=== PATIENT | male | born 1960 | race Caucasian/White ===

== ENCOUNTER 2016-12-27 09:57 | Inpatient (IN) ==
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
[2016-12-27] MEDS ORDERED: Nitroglycerin 0.4 MG TAB.SUBL SL ONE (10:13)
[2016-12-27] MEDS: Nitroglycerin 0.4 MG TAB.SUBL SL PRN ×2 (10:13→10:26)
--- NOTE | 2016-12-27 10:15 | Emergency Department Note ---
Disposition Clinical Impression: Unstable angina Chest pain Qualifiers: Chest pain type: precordial pain Qualified Code(s): R07.2 - Precordial pain Disposition: Admitted As Inpatient Condition: Fair Time of Disposition: 11:15 Chest Pain HPI - General Chief Complaint: ED Chest Pain Stated Complaint: chest pain Time Seen by Provider: 12/27/16 09:59 Source: EMS Limitations: no limitations Vital Signs Reviewed: Yes Nursing Notes Reviewed: Yes - History of Present Illness HPI Narrative: Patient's 56-year-old male brought in via EMS from [place] for chest pain 3 days. Patient's recent cardiac catheterization on December [address] Vaibhav Michelle cardiology. Patient states his pain started mid substernal with radiation both shoulders lasted around 10 minutes and resolved with rest. Patient states pain returned this morning over 3 hours ago secondary to exertion but did not relieve with rest. Patient states his chest pain today is his angina equivalent. Patient states he took nitroglycerin at home. No recent pain symptoms. Radiation to both shoulders again, he slashed 10 at worst 4/10 at best. Patient has a past history for hypertension, hyperlipidemia, COPD, diabetes, prior heart attacks. Patient states his chest pain today is his angina equivalent Patient smokes one pack a day currently denies alcohol use and illicit drug use. Patient denies anticoagulant use, states he is only on aspirin, nitroglycerin Severity scale (1-10): 8 - Related Data Home Medications Medication Instructions Recorded Confirmed Lisinopril [Zestril] 20 mg PO BID 12/10/15 12/27/16 Sitagliptin Phosphate [Januvia] 50 mg PO DAILY 12/10/15 12/27/16 Venlafaxine [Effexor] 75 mg PO BID 12/10/15 12/27/16 Albuterol Sulfate [Ventolin Hfa] 18 gm IH DAILY PRN 12/20/16 12/27/16 Aspirin [Lo-Dose Aspirin EC] 81 mg PO DAILY 12/20/16 12/27/16 Glimepiride [Amaryl] 4 mg PO BID 12/20/16 12/27/16 Insulin Glargine [Lantus] 38 unit SQ BID 12/20/16 12/27/16 Insulin LISPRO [HumaLOG] 10 - 15 unit SQ TID 12/20/16 12/27/16 Meloxicam [Mobic] 15 mg PO DAILY 12/20/16 12/27/16 Nitroglycerin [Nitrostat] 0.4 mg SL DAILY PRN 12/20/16 12/27/16 Omeprazole [PriLOSEC] 20 mg PO DAILY 12/20/16 12/27/16 Tramadol HCl [Ultram] 50 mg PO QID PRN 12/20/16 12/27/16 Gabapentin [Neurontin] 300 mg PO TID 12/27/16 12/27/16 rOPINIRole [Requip] 1 mg PO HS 12/27/16 12/27/16 Previous Rx's Medication Instructions Recorded Ferrous Sulfate [Iron] 325 mg PO BID #60 tablet 09/01/16 Isosorbide MONOnitrate (24 HR) 60 mg PO DAILY #60 tab.er.24h 12/20/16 [Imdur] Metoprolol [Lopressor] 25 mg PO BID #60 tablet 12/20/16 Allergies Allergy/AdvReac Type Severity Reaction Status Date / Time No Known Allergies Allergy Verified 12/27/16 12:00 All systems ED: reviewed and negative except as stated. Review of Systems: As Per HPI Constitutional: Denies: fever, chills, weakness Eyes: Denies: eye pain, vision change ENT ED: Denies: congestion Cardiovascular: Reports: chest pain. Denies: palpitations, syncope Respiratory: Denies: cough, dyspnea, wheezes Gastrointestinal: Reports: abdominal pain (Radiation from chest pain down abdomen). Denies: nausea, vomiting, diarrhea, constipation Genitourinary: Denies: urgency, dysuria Musculoskeletal: Denies: back pain Integumentary: Denies: rash Neurological: Reports: headache Psychiatric: Reports: anxiety Endocrine: Denies: fatigue Hematological/Lymphatic: Denies: easy bleeding Chest Pain PMH - Past Medical History Medical history: Reports: arthritis, COPD, diabetes, GERD, hyperlipidemia, hypertension Surgical history: Reports: angioplasty/stent, appendectomy, knee replacement, other Psychiatric history: Reports: anxiety, depression - Social History Smoking Status: Current every day smoker Alcohol use: Reports: none Drug use: Reports: none Physical Exam Vital Signs Temperature 97.8 F 12/27/16 09:58 Pulse Rate 63 12/27/16 09:58 Respiratory Rate 18 12/27/16 09:58 Blood Pressure 141/74 12/27/16 09:58 O2 Sat by Pulse Oximetry 96 12/27/16 09:58 Temperature 97.8 F 12/27/16 09:58 Pulse Rate 63 12/27/16 10:26 Respiratory Rate 18 12/27/16 10:26 Blood Pressure 130/77 12/27/16 10:26 O2 Sat by Pulse Oximetry 97 12/27/16 10:26 Oxygen Delivery Oxygen Delivery Nasal Cannula -General Appearance: Patient is a 56-year-old male who appears much older than stated age, with a BMI of 36.2 kg on oxygen via nasal cannula does not appear toxic and currently appears comfortable. -Neurological exam: Cranial nerves II-12 intact, no focal deficits observed, strength equal 5/5 bilaterally in upper and lower extremities - Head Head exam: atraumatic, normocephalic, normal inspection - Eye Eye exam: Present: normal appearance, PERRL, EOMI, negative for scleral icterus negative for conjunctival pallor - ENT ENT exam: normal exam, normal oropharynx, mucous membranes very dry - Neck Neck exam: Present: normal inspection, full ROM, trachea midline, negative JVD - Chest Chest inspection: Present: Patient has bilateral equal rise and fall of chest wall. Non-tender to palpation. - Respiratory Respiratory exam: Clear to auscultation bilaterally without wheezes rales or rhonchi Cardiovascular Cardiovascular exam: Present: regular rate, normal rhythm, normal heart sounds, without murmurs rubs or gallops. - Abdominal Exam Abdominal exam: Present: soft, rounded abdomen, Non-Tender light and deep palpation in all quadrants. Bowel sounds normoactive throughout all 4 quadrants. Negative for hyper or hyperresonance. Patient has some erythema and edema in his umbilicus with dried purulence - Extremities Exam Extremities exam: Present: normal inspection, full ROM, pulses equal regular bilaterally, patient's lower extremities have bilateral 1+ pitting edema, no ulceration and feet - Back Exam Back exam: Present: normal inspection, full ROM. Absent: CVA tenderness (R), CVA tenderness (L) - Psychiatric Psychiatric exam: Present: normal affect, normal mood - Skin Skin exam: Present: warm, dry, intact, normal color - General Limitations: no limitations General appearance: alert Course - Reevaluation(s) Reevaluation #1: Patient seen examined, ACS workup initiated. EKG, CBC, BMP, chest x-ray, patient placed on oxygen via nasal cannula 8 L. Time: 09:59 Reevaluation #2: No reduction from 8 is 7/10 with nitroglycerin. Starting patient on morphine 4 mg IV and Zofran 4 mg IV. We will reassess. Once labs come back will admit Time: 10:53 - Consultations Consultation #1: Dr. Alejo of cardiology was informed with the patient and is coming down to see the patient. He recommends placing patient on heparin. Heparin bolus and drip ordered Time: 11:13 Consultation #2: Hemanth Adriano the hospitalist has accepted patient for admission. Time: 11:18 Vital Signs Temperature 97.8 F 12/27/16 09:58 Pulse Rate 63 12/27/16 09:58 Respiratory Rate 18 12/27/16 09:58 Blood Pressure 141/74 12/27/16 09:58 O2 Sat by Pulse Oximetry 96 12/27/16 09:58 Temperature 97.6 F 12/27/16 15:21 Pulse Rate 60 12/27/16 18:25 Respiratory Rate 18 12/27/16 18:25 Blood Pressure 124/73 12/27/16 18:25 O2 Sat by Pulse Oximetry 97 12/27/16 18:25 Oxygen Delivery Oxygen Delivery Nasal Cannula Chest Pain - MDM Narrative Medical decision making narrative: Patient concerning for ACS/UT with unstable angina. No resolution with nitroglycerin treatment here. Patient started placed on IV morphine and Zofran. Patient has a heart score of 5 which places him at high risk for adverse cardiac events no Elevation of troponin, but mild elevations of ST segment in lateral leads. Patient is hypokalemic and hyponatremic with a sugar greater than 452 and an hemoglobin A1c of 11.5. IV normal saline ordered, patient started on heparin. Patient admitted to the for inpatient treatment for unstable angina. Cardiology came down to see him and will be following him inpatient. Patient understands and agrees to treatment plan patient will be started on potassium replenishment inpatient - Medical Records Medical records reviewed: Yes I reviewed the patient's medical records. Severe three-vessel disease with an EF of 60% on last heart catheter by Dr. Vaibhav Michelle times one week ago - Lab Data Lab results reviewed: Yes I reviewed the patient's lab results. Lab results narrative: Short CBC 12/27/16 Range/Units 10:15 WBC 12.0 H (4.3-11.1) K/mcL Hgb 16.1 (12.9-16.9) g/dL Hct 50.6 H (37.5-50.1) % Plt Count 269 (140-400) K/mcL Neutrophils # 9.0 H (1.6-8.9) K/mcL BMP 12/27/16 Range/Units 10:15 Sodium 132 L (136-145) mEq/L Potassium 4.7 H (3.5-4.5) mEq/L Chloride 99 (98-109) mEq/L Carbon Dioxide 26 (19-29) mEq/L BUN 18 (8-26) mg/dL Creatinine 0.87 (0.72-1.25) mg/dL Glucose 452 H (70-99) mg/dL Calcium 9.3 (8.6-10.8) mg/dL Cardiac Enzymes 12/27/16 Range/Units 10:15 Troponin I 0.00 (0-0.03) ng/mL Result diagrams: 12/27/16 10:15 12/27/16 10:15 Lab Results 12/27/16 12/27/16 12/27/16 Range/Units 10:15 10:15 10:15 WBC 12.0 H (4.3-11.1) K/mcL RBC 6.09 H (4.19-5.50) M/mcL Hgb 16.1 (12.9-16.9) g/dL Hct 50.6 H (37.5-50.1) % MCV 83.1 (83.0-100.0) fL MCH 26.4 L (28.0-33.3) pg MCHC 31.8 (31.6-35.5) g/dL RDW 16.9 H (11.5-14.5) % Plt Count 269 (140-400) K/mcL MPV 10.1 (9.4-12.4) fL Immature Gran % 1.2 (0-4) % Seg Neutrophils % 74.7 % Lymphocytes % 15.0 % Monocytes % 6.6 % Eosinophils % 1.8 % Basophils % 0.7 % Neutrophils # 9.0 H (1.6-8.9) K/mcL Lymphocytes # 1.8 (0.6-4.6) K/mcL Monocytes # 0.8 (0.0-1.3) K/mcL Eosinophils # 0.2 (0.0-0.6) K/mcL Basophils # 0.1 (0.0-0.2) K/mcL APTT 28.2 (26.0-36.0) Seconds Sodium 132 L (136-145) mEq/L Potassium 4.7 H (3.5-4.5) mEq/L Chloride 99 (98-109) mEq/L Carbon Dioxide 26 (19-29) mEq/L BUN 18 (8-26) mg/dL Creatinine 0.87 (0.72-1.25) mg/dL Est GFR ( Amer) > 60 (> 60) Est GFR (Non-Af Amer) > 60 (> 60) BUN/Creatinine Ratio 21 (6-26) Glucose 452 H (70-99) mg/dL Est Mean Plasma Glucose mg/dl Hemoglobin A1c ( - 5.6) % Calculated Osmolality 296 (280-300) Calcium 9.3 (8.6-10.8) mg/dL Troponin I (0-0.03) ng/mL B-Natriuretic Peptide (0-100) pg/mL 12/27/16 12/27/16 12/27/16 Range/Units 10:15 10:15 10:15 WBC (4.3-11.1) K/mcL RBC (4.19-5.50) M/mcL Hgb (12.9-16.9) g/dL Hct (37.5-50.1) % MCV (83.0-100.0) fL MCH (28.0-33.3) pg MCHC (31.6-35.5) g/dL RDW (11.5-14.5) % Plt Count (140-400) K/mcL MPV (9.4-12.4) fL Immature Gran % (0-4) % Seg Neutrophils % % Lymphocytes % % Monocytes % % Eosinophils % % Basophils % % Neutrophils # (1.6-8.9) K/mcL Lymphocytes # (0.6-4.6) K/mcL Monocytes # (0.0-1.3) K/mcL Eosinophils # (0.0-0.6) K/mcL Basophils # (0.0-0.2) K/mcL APTT (26.0-36.0) Seconds Sodium (136-145) mEq/L Potassium (3.5-4.5) mEq/L Chloride (98-109) mEq/L Carbon Dioxide (19-29) mEq/L BUN (8-26) mg/dL Creatinine (0.72-1.25) mg/dL Est GFR ( Amer) (> 60) Est GFR (Non-Af Amer) (> 60) BUN/Creatinine Ratio (6-26) Glucose (70-99) mg/dL Est Mean Plasma Glucose 283 mg/dl Hemoglobin A1c 11.5 H ( - 5.6) % Calculated Osmolality (280-300) Calcium (8.6-10.8) mg/dL Troponin I 0.00 (0-0.03) ng/mL B-Natriuretic Peptide 14 (0-100) pg/mL - Radiology Data Radiology results reviewed: Yes I reviewed the patient's radiology results. Chest X-Ray 12/27/16 09:59 IMPRESSION: No acute cardiopulmonary process. D/ / 12/27/2016 10:45:29 Navi [facility] Interpreting Provider: Navi Amaya MD - EKG Data EKG attestation: Yes I reviewed and interpreted this EKG. EKG results narrative: EKG twelve-lead by EMS taken 2016@0917 hrs. Shows mild elevation of ST segments in V4 V5. EKG taken 12/27/2016 at 1005 hrs. shows a sinus rhythm at a rate of [address] elevation in V2 V3 and V4 V5. widened QT prolongation. Repeat EKG taken 6 in December 2016 at 1009 hrs. secondary to sudden increase in patient's pain since symptoms from 08/21-01/21, shows a ventricular rate of 60 cm underlying normal sinus rhythm no change from previous and waveform morphology. Heart Score - Score History: Moderately Suspicious EKG: Non Specific repolarisation Disturbance Age: 45-65 Risk Factors: Equal/Greater than 3 risk factor or history of atherosclerotic disease Troponin: Less than normal limit HEART Score Total: 5
[2016-12-27 10:24] LABS: Basophils # 0.1 K/mcL (0.0-0.2); Basophils % 0.7 %; Eosinophils # 0.2 K/mcL (0.0-0.6); Eosinophils % 1.8 %; Hematocrit 50.6 % (37.5-50.1); Hemoglobin 16.1 g/dL (12.9-16.9); Immature Granulocytes % 1.2 % (0-4); Lymphocytes # 1.8 K/mcL (0.6-4.6); Mean Corpuscular HGB Conc 31.8 g/dL (31.6-35.5); Mean Corpuscular Hemoglobin 26.4 pg (28.0-33.3); Mean Corpuscular Volume 83.1 fL (83.0-100.0); Mean Platelet Volume 10.1 fL (9.4-12.4); Monocytes # 0.8 K/mcL (0.0-1.3); Monocytes % 6.6 %; Platelet Count 269 K/mcL (140-400); Red Blood Count 6.09 M/mcL (4.19-5.50); Red Cell Distribution Width 16.9 % (11.5-14.5); Segmented Neutrophils % 74.7 %
[2016-12-27 10:35] LABS: BUN/Creatinine Ratio 21 (6-26); Blood Urea Nitrogen 18 mg/dL (8-26); Calcium 9.3 mg/dL (8.6-10.8); Carbon Dioxide 26 mEq/L (19-29); Chloride 99 mEq/L (98-109); Glucose 452 mg/dL (70-99); Osmolality,Calculated 296 (280-300); Potassium 4.7 mEq/L (3.5-4.5); Sodium 132 mEq/L (136-145); eGFR For African Americans > 60 (> 60); eGFR For Non-African Americans > 60 (> 60)
[2016-12-27] MEDS ORDERED: Ondansetron 4 MG/2 ML VIAL IVP ONE (10:51)
[2016-12-27] MEDS ORDERED: *HR* Morphine 2 MG/ML SYRINGE IVP ONE (10:51)
[2016-12-27] MEDS ORDERED: 0.9 % Sodium Chloride 1,000 ML IVC ONE (10:57)
[2016-12-27] MEDS ORDERED: *HR* Heparin 5,000 UNIT/ML VIAL IVP ONE (11:10)
[2016-12-27] MEDS ORDERED: *HR* Heparin 5,000 UNIT/ML VIAL IVP PRN ×2 (11:10)
[2016-12-27] MEDS ORDERED: Ondansetron 4 MG/2 ML VIAL IVP PRN (11:38)
[2016-12-27] MEDS ORDERED: Acetaminophen 325 MG TABLET PO PRN (11:38)
[2016-12-27] MEDS ORDERED: Naloxone 0.4 MG/ML INJ IVP PRN (11:38)
[2016-12-27] MEDS ORDERED: *HR* Dextrose 50 % in Water (Syg) 50 ML SYRINGE IVP PRN (11:43)
[2016-12-27] MEDS ORDERED: Dextrose Gel 15 GM PO PRN ×2 (11:43)
[2016-12-27] MEDS ORDERED: D5% in Water 1,000 ML IVC PRN (11:43)
--- NOTE | 2016-12-27 11:51 | Internal Med History&Physical ---
<Oh,Magui J - Last Filed: 12/27/16 12:43> Date of Encounter: 12/27/16 Time of Encounter: 11:51 Assessment and Plan (1) CAD (coronary artery disease), [place] coronary artery Current visit: Yes Status: Acute With known stents. 12/20/2016 L HC with triple-vessel disease. Elective CABG was recommended and patient was currently in the process of arranging, however now with unstable angina on day of admission. CP improving in ED. Initial troponin negative, EKG with some ST elevation. Evaluated by cardiology in the ED and heparin gtt started. CABG planned this admission. Continue home BB, statin, nitrate. PRN O2, IV morphine for pain. Qualifiers: [place] vs. transplanted heart: [place] heart Associated angina: with unstable angina Qualified Code(s): I25.110 - Atherosclerotic heart disease of [place] coronary artery with unstable angina pectoris (2) Diabetes Current visit: No Status: Chronic Uncontrolled. 08/2016 Hgb A1c 11. Blood sugar over 400 on arrival. Holding home oral hypoglycemics. Continue home long-acting at lower dose as diet likely more restricted in hospital. Aggressive sliding scale insulin, monitor blood sugar titrate PRN. Hgb A1c pending Qualifiers: Diabetes mellitus type: type 2 Diabetes mellitus complication status: with unspecified complications Diabetes mellitus oil heaterman insulin use: unspecified custodial insulin use status Qualified Code(s): E11.8 - Type 2 diabetes mellitus with unspecified complications (3) Lower extremity edema Current visit: Yes Status: Acute left greater than. Bilateral lower ext dopplers pending (4) Hypertension Current visit: No Status: Chronic Per history. BP controlled in the ED. Continue home BP medications. Monitor BP and titrate PRN Qualifiers: Hypertension type: unspecified secondary hypertension Qualified Code(s): I15.9 - Secondary hypertension, unspecified; I15 - Secondary hypertension (5) DVT prophylaxis Current visit: Yes Status: Acute heparin gtt Internal Medicine - H&P: HPI Chief complaint: chest pain Admitted From: Home Plans for Post Hospital Care: Home History of present illness: Mr. Covington is a 56 year old male with past medical history CAD and diabetes with neuropathy who presented to [facility] on 12/27/2016 with complaints of chest pain. He was found to have unstable angina was started on heparin drip in the emergency room. He was admitted for planned CABG. Information obtained from chart review and patient report. Patient reports being at home and sitting when acute onset of chest pain occurred. Chest pain was located to lower left chest, radiated to bilateral shoulders, describes as a pressure and stabbing sensation, nothing made better or worse. He states symptoms are similar to his usual angina. All my exam he reports pain 5/out of 10 which is improved from previous. Discussed his blood sugar and he reports taking medicine as prescribed however he does report eating snacks such as potato chips and candy. No SOB Past Med Surg Social Fam HX - Past Medical History Medical history: arthritis, COPD, diabetes, GERD, hyperlipidemia, hypertension Psychiatric history: anxiety, depression - Past Surgical History Surgical History: angioplasty/stent, appendectomy, knee replacement, other - Social History Smoking Status: Current every day smoker Smokeless Tobacco Status: No Alcohol use: none Drug use: none - Family History Mother Adopted: Yes (foster child) Internal Medicine - H&P: Meds Lisinopril [Zestril] 20 mg PO BID 12/10/15 [History] Sitagliptin Phosphate [Januvia] 50 mg PO DAILY 12/10/15 [History] Venlafaxine [Effexor] 75 mg PO BID 12/10/15 [History] Ferrous Sulfate [Iron] 325 mg PO BID #60 tablet 09/01/16 [Rx] Albuterol Sulfate [Ventolin Hfa] 18 gm IH DAILY PRN 12/20/16 [History] Aspirin [Lo-Dose Aspirin EC] 81 mg PO DAILY 12/20/16 [History] Glimepiride [Amaryl] 4 mg PO BID 12/20/16 [History] Insulin Glargine [Lantus] 38 unit SQ BID 12/20/16 [History] Insulin LISPRO [HumaLOG] 10 - 15 unit SQ TID 12/20/16 [History] Isosorbide MONOnitrate (24 HR) [Imdur] 60 mg PO DAILY #60 tab.er.24h 12/20/16 [ Rx] Meloxicam [Mobic] 15 mg PO DAILY 12/20/16 [History] Metoprolol [Lopressor] 25 mg PO BID #60 tablet 12/20/16 [Rx] Nitroglycerin [Nitrostat] 0.4 mg SL DAILY PRN 12/20/16 [History] Omeprazole [PriLOSEC] 20 mg PO DAILY 12/20/16 [History] Tramadol HCl [Ultram] 50 mg PO QID PRN 12/20/16 [History] Gabapentin [Neurontin] 300 mg PO TID 12/27/16 [History] rOPINIRole [Requip] 1 mg PO HS 12/27/16 [History] No Known Allergies Allergy (Verified 12/27/16 12:00) All Systems PM: A 10-system review of systems was performed and is negative for pertinent findings except as documented above in the HPI. - Constitutional Constitutional: no chills, no fever(s), no night sweats - EENT Eyes: no change in vision, no discharge, no pain, no photophobia Ears: no ear discharge, no ear pain, no tinnitus Nose, mouth and throat: no dysphagia, no nasal discharge, no neck pain, no sore throat - Cardiovascular Cardiovascular ROS IM: chest pain, no diaphoresis, no dyspnea, no lightheadedness, no palpitations, no syncope - Respiratory Respiratory: no cough, no dyspnea, no wheezing, no excessive phlegm production - Gastrointestinal Gastrointestinal: no abdominal pain, no diarrhea, no hematemesis, no hematochezia, no melena, no nausea, no vomiting - Musculoskeletal Musculoskeletal ROS IM: no numbness, no tingling - Integumentary Integumentary IM: no rash, no unusual bruising - Neurological Neurological ROS: no confusion, no convulsions, no focal weakness, no numbness, no tingling, no tremor(s) - Hematologic/Lymphatic Hematologic/Lymphatic: no easy bruising - Constitutional Vitals: Temp Pulse Resp BP Pulse Ox 98.4 F 68 20 137/84 96 12/27/16 11:27 12/27/16 11:19 12/27/16 11:27 12/27/16 11:27 12/27/16 11:19 General appearance: Present: A&O X 3 - Head Head exam: Present: atraumatic, normocephalic - Eye Eye exam: Present: PERRL, conjuntiva pink, sclera anicteric Pupils: Present: PERRL - Neck Neck exam general surgery: Present: supple, trachea midline. Absent: lymphadenopathy - Respiratory Respiratory exam: Present: CTAB. Absent: accessory muscle use, rales, rhonchi, wheezes - Cardiovascular Cardiovascular exam: Present: RRR, +S1, +S2. Absent: diastolic murmur, gallop, rubs, systolic murmur - GI/Abdominal GI/Abdominal exam: Present: normal bowel sounds, soft, no peritoneal signs. Absent: distended, tenderness - Extremities Exam Extremities exam: Present: pedal edema, warm, radial pulses palpable and symmetrical. Absent: calf tenderness, cyanotic - Neurological Exam Neurological exam: Present: CN II-XII intact, oriented X3, no focal deficits. Absent: pronater drift, facial droop, speech deficit - Skin Skin exam: Present: dry, intact Internal Med - H&P Results - Labs CBC & Chem 7: 12/27/16 10:15 12/27/16 10:15 <Edward Burger - Last Filed: 12/27/16 18:54> Date of Encounter: 12/27/16 Internal Medicine - H&P: HPI History of present illness: Mr. Covington is a 56 year old male All Systems PM: A 10-system review of systems was performed and is negative for pertinent findings except as documented above in the HPI. - Constitutional Vitals: Temp Pulse Resp BP Pulse Ox 97.6 F 60 18 124/73 97 12/27/16 15:21 12/27/16 18:25 12/27/16 18:25 12/27/16 18:25 12/27/16 18:25 Internal Med - H&P Results - Labs CBC & Chem 7: 12/27/16 10:15 12/27/16 10:15 - Attending Attestation I have seen and examined the patient this evening. I reviewed the orders, the labs and the note. Patient is admitted for chest pain. Patient does have coronary artery disease with stents. He had a recent left heart catheterization done which revealed triple-vessel disease. Elective CABG was recommended. Patient presents with unstable angina today. Patient does have uncontrolled diabetes. His blood pressure is controlled. Cardiology consult. Cardiothoracic surgery consult. Consider for CABG evaluation. Continue all home medications. Patient states his pain has now improved. IV heparin continued. No other acute events or complaints. Heart rate 60, blood pressure 120/73, O2 sat 97% on 2 L O2. Heart S1-S2 positive no murmurs or rubs. Lungs bilateral good entry no wheeze or crackles. Abdomen soft nontender no masses or guarding. Extremities pulses strong and regular, bilateral leg edema 2+. Neurological patient awake and alert not in any distress, no focal deficits.
[2016-12-27] MEDS: Insulin LISPRO 300 UNITS/3 ML VIAL SQ SCH ×3 (12:52→21:00)
[2016-12-27] MEDS: *HR* Morphine 2 MG/ML SYRINGE IVP PRN ×2 (12:57→19:44)
[2016-12-27 13:07] LABS: Hemoglobin A1C 11.5 %
[2016-12-27] MEDS: Heparin 25,000 UNIT/500 ML D5W 25,000 UNIT/500 ML MLS IVC SCH (13:10)
--- NOTE | 2016-12-27 13:15 | Cardiology Consult Note ---
Date of Encounter: 12/27/16 Time of Encounter: 11:30 Assessment and Plan (1) Unstable angina Current Visit: Yes Status: Acute Per cardiology: -Unstable angina. Chest pain today while walking. -Recent LHC 12/20/16 with LVEF 60%, 70% proximal LAD stenosis, 80% mid circumflex , 80-90% OM1, 95% left PDA small vessel, 70-80% proximal ramus, 95% proximal RCA small vessel. Recommendations for outpatient CABG evaluation. -Heparin drip ordered per ER. -Troponin negative x1. -ECG with no significant change from ECG 07/2016. -Will consult CT surgery. Spoke with . -Will order echocardiogram. -Will continue to monitor. (2) CAD (coronary artery disease), [place] coronary artery Current Visit: Yes Status: Chronic Per cardiology: -Known CAD with recent LHC as above with recommendations for CABG evaluation. -Reported history of coronary stenting 2005. -On asa, statin, beta damon, and heparin drip. -Troponin negative. -Will be evaluated by CT surgery. -Will continue to monitor. Qualifiers: [place] vs. transplanted heart: [place] heart Associated angina: with unstable angina Qualified Code(s): I25.110 - Atherosclerotic heart disease of [place] coronary artery with unstable angina pectoris Discussion w patient/family: The assessment and plan as outlined above was discussed with the patient who expressed understanding and agreement. All questions were answered. Thank you for involving us in the care of your patient. Please call with any questions. Patient seen and examined with . History of Present Illness Consult date: 12/27/16 Requesting physician: Tonio Harry Consult reason: Chest pain Chief complaint: Chest pain History of present illness: Mr. Covington is a 56 year old male with a relevant past medical history of hyperlipidemia, HTN, COPD, GERD, DM, anxiety, depression, obesity, reported LHC with stent 2005, recent LHC With severe CAD and recommendations for CABG. Patient was shceduled for outpatient follow up with tomorrow. Today patient was walking when he had left sided chest pain that radiated to left arm and into abdomen. Patient presented to ER. ECG was done with concerns regarding ST segments. Cardiology was asked to see and evaluate in ER. At time of assessment, patient had been given nitroglycerin and morphine. Patient states at worse pain was a 10/10. Currently denies pain. Past Med Surg Social Fam HX - Past Medical History Attestation: Yes The following information was validated with the patient. Source: patient, old records reviewed Medical history: arthritis, COPD, diabetes, GERD, hyperlipidemia, hypertension Psychiatric history: anxiety, depression - Past Surgical History Surgical History: angioplasty/stent, appendectomy, knee replacement, other - Social History Smoking Status: Current every day smoker Packs per day: 1 Smokeless Tobacco Status: No Alcohol use: none Drug use: none - Family History Mother Adopted: Yes (foster child) Medications and Allergies Lisinopril [Zestril] 20 mg PO BID 12/10/15 [History] Sitagliptin Phosphate [Januvia] 50 mg PO DAILY 12/10/15 [History] Venlafaxine [Effexor] 75 mg PO BID 12/10/15 [History] Ferrous Sulfate [Iron] 325 mg PO BID #60 tablet 09/01/16 [Rx] Albuterol Sulfate [Ventolin Hfa] 18 gm IH DAILY PRN 12/20/16 [History] Aspirin [Lo-Dose Aspirin EC] 81 mg PO DAILY 12/20/16 [History] Glimepiride [Amaryl] 4 mg PO BID 12/20/16 [History] Insulin Glargine [Lantus] 38 unit SQ BID 12/20/16 [History] Insulin LISPRO [HumaLOG] 10 - 15 unit SQ TID 12/20/16 [History] Isosorbide MONOnitrate (24 HR) [Imdur] 60 mg PO DAILY #60 tab.er.24h 12/20/16 [ Rx] Meloxicam [Mobic] 15 mg PO DAILY 12/20/16 [History] Metoprolol [Lopressor] 25 mg PO BID #60 tablet 12/20/16 [Rx] Nitroglycerin [Nitrostat] 0.4 mg SL DAILY PRN 12/20/16 [History] Omeprazole [PriLOSEC] 20 mg PO DAILY 12/20/16 [History] Tramadol HCl [Ultram] 50 mg PO QID PRN 12/20/16 [History] Gabapentin [Neurontin] 300 mg PO TID 12/27/16 [History] rOPINIRole [Requip] 1 mg PO HS 12/27/16 [History] Allergies No Known Allergies Allergy (Verified 12/27/16 12:00) All Systems Review: A 10-system review of systems was performed and is negative for pertinent findings except as documented above in the HPI. - Cardiovascular Cardiovascular: as per HPI, chest pain with exertion Physical Examination Vital Signs, Last 4 Hours Temp Pulse Resp BP Pulse Ox 12/27/16 11:57 98.1 F 62 16 125/70 95 12/27/16 11:27 98.4 F 20 137/84 General: Conversant, No Apparent Distress HEENT: Atraumatic, Normocephaly, Mucus Membranes Moist Neck: No JVD, Normal carotid pulses Cardiac: Reg Rate and Rhythm, Normal S1 and S2, No Murmur Lungs: Normal Breath Sounds, No Wheeze, Rales, Rhonchi Neuro: Alert and responsive, No focal deficits noted Abdomen: Soft, Non-Tender Skin: No rashes noted on visualized skin Musculoskeletal: No Chest Wall Tenderness Extremities: No Clubbing, No Cyanosis, No Edema, Normal Pulses Results 12/27/16 10:15 12/27/16 10:15 Impressions Chest X-Ray 12/27/16 09:59 IMPRESSION: No acute cardiopulmonary process. D/ / 12/27/2016 10:45:29 Navi Am[facility] Interpreting Provider: Navi Amaya MD Active Medications Acetaminophen (Tylenol) 650 mg PO Q6HR PRN PRN Reason: Mild Pain (1-3) Stop: 06/28/17 11:39 Aspirin (Aspirin Ec) 81 mg PO DAILY MAHI Stop: 06/29/17 09:01 Dextrose/Water (Dextrose 50% (Syg)) 25 ml IVP AD PRN PRN Reason: Hypoglycemia Stop: 06/28/17 11:44 Ferrous Sulfate (Ferrous Sulfate) 325 mg PO BIDWM MAHI Stop: 06/28/17 17:01 Glucagon (Glucagen) 1 mg IM ONCE PRN PRN Reason: Hypoglycemia Stop: 06/28/17 11:44 Glucose (Gluctose) 15 gm PO ONCE PRN PRN Reason: Hypoglycemia Stop: 06/28/17 11:44 Glucose (Gluctose) 30 gm PO ONCE PRN PRN Reason: Hypoglycemia Stop: 06/28/17 11:44 Heparin Sodium (Porcine) (Heparin) 4,000 unit IVP Q6HR PRN PRN Reason: SEE COMMENTS Stop: 06/28/17 11:11 Heparin Sodium (Porcine) (Heparin) 2,000 unit IVP Q6H PRN PRN Reason: SEE COMMENTS Stop: 06/28/17 11:11 Heparin Sodium/Dextrose (Heparin 25,000 Unit/500 Ml D5w) 25,000 unit in 500 mls @ 20.575 mls/hr IVC .Q24H MAHI; 9 UNIT/KG/HR PRN Reason: Protocol Stop: 06/28/17 11:16 Last Admin: 12/27/16 13:10 Dose: 9 unit/kg/hr, 20.575 mls/hr Dextrose (Dextrose 5%) 1,000 mls @ 100 mls/hr IVC .Q10H PRN PRN Reason: HYPOGLYCEMIA Stop: 06/28/17 11:44 Insulin Detemir (Levemir) 30 unit SQ BID [facility] Stop: 06/28/17 21:01 Insulin Human Lispro (Humalog) 0 units SQ HS [facility] PRN Reason: Protocol Stop: 06/28/17 21:01 Insulin Human Lispro (Humalog) 0 units SQ TIDAC [facility] PRN Reason: Protocol Stop: 06/28/17 12:40 Last Admin: 12/27/16 12:52 Dose: 14 units Isosorbide Mononitrate (Imdur) 60 mg PO DAILY [facility] Stop: 06/29/17 09:01 Lisinopril (Zestril) 20 mg PO BID [facility] PRN Reason: Protocol Stop: 06/28/17 21:01 Metoprolol Tartrate (Lopressor) 25 mg PO BID [facility] Stop: 06/28/17 21:01 Morphine Sulfate (Morphine Sulfate) 2 mg IVP Q4HR PRN PRN Reason: Severe Pain (7-10) Stop: 06/28/17 11:39 Last Admin: 12/27/16 12:57 Dose: 2 mg Naloxone HCl (Narcan) 0.4 mg IVP Q2MIN PRN PRN Reason: Opioid Reversal Stop: 06/28/17 11:39 Nitroglycerin (Nitroglycerin) 0.4 mg SL Q5MIN PRN PRN Reason: Chest Pain Stop: 06/28/17 10:12 Last Admin: 12/27/16 10:26 Dose: 0.4 mg (Pramipexole Di-Hcl [Mirapex Er] 0.75 Mg ) 0.75 mg PO HS MAHI Stop: 06/28/17 21:01 Ondansetron HCl (Zofran) 4 mg IVP Q8HR PRN PRN Reason: Nausea And Vomiting Stop: 06/28/17 11:39 Ropinirole HCl (Requip) 0.5 mg PO HS MAHI Stop: 06/28/17 21:01 Tramadol HCl (Ultram) 50 mg PO QID PRN PRN Reason: MODERATE PAIN Stop: 06/28/17 11:45 Laboratory Tests 12/27/16 12/27/16 12/27/16 10:15 10:15 10:15 WBC 12.0 H Hgb 16.1 Creatinine 0.87 Troponin I 0.00 - Imaging and Cardiology Chest Xray: report reviewed Cardiac cath: report reviewed - EKG Interpretation EKG results cardiology: personally reviewed (ECG reviewed with baseline ST changes noted, however unchanged from ECG 07/2016.) Consult Discharge Plan - Plan Referrals: Mey Winter, TYPESETTING MACHINE OPERATOR/TENDER [Primary Care Provider] -
--- NOTE | 2016-12-27 15:46 | Electrocardiograph Report ---
[place] [id number] Test Date: 2016-12-27 Pat Name: Gurvinder Covington Department: 0 Room: 3B13 Gender: M Process Project Engineer: Msc : [id number] Requested By: Cezar Muñiz Order Number: [id number] Reading MD: Vaibhav Michelle MD Measurements Intervals [place] Rate: 60 P: 22 OK: 177 QRS: -62 QRSD: 110 T: 78 QT: 409 QTc: 410 Interpretive Statements SINUS RHYTHM LEFT ANTERIOR FASCICULAR BLOCK LEFT VENTRICULAR HYPERTROPHY AND ST-T CHANGE Poor R wave progression Electronically Signed On 12-27-2016 15:44:52 EDT by Vaibhav Michelle MD
[2016-12-27] MEDS ORDERED: Insulin LISPRO 300 UNITS/3 ML VIAL SQ SCH (16:30)
--- NOTE | 2016-12-27 17:13 | Cardiothoracic Consult Note ---
Date of Encounter: 12/27/16 Time of Encounter: 17:07 Assessment and Plan (1) CAD (coronary artery disease), [place] coronary artery Current Visit: Yes Status: Chronic The patient is a 56-year-old type II diabetic, hypertensive morbidly obese man with known CAD. He was admitted to [facility] today after experiencing sudden onset of substernal chest pain radiating to his abdomen and left arm or walking. I reviewed the cardiac catheterization film performed last week and do not believe that the patient is an operative candidate. The LAD and RCA vessels are extremely small and non-bypassable. The OM1 branch is of smaller size and may not be inadequate bypass. This would leave the patient with the ramus intermediate branch as the only graftable vessel. The patient should be considered for stent placement the ramus intermediate branch and OM1 branch coupled with aggressive medical therapy and risk factor management. The assessment and plan as outlined above was discussed with the patient and/or family members who expressed understanding and agreement. All questions were answered. Qualifiers: [place] vs. transplanted heart: [place] heart Associated angina: with unstable angina Qualified Code(s): I25.110 - Atherosclerotic heart disease of [place] coronary artery with unstable angina pectoris - History of Present Illness Consult date: 12/27/16 Requesting physician: Vaibhav Michelle Consult reason: CABG evaluation. Chief complaint: Substernal chest pain. History of present illness: Mr. Covington is a 56 year old type II diabetic, hypertensive, morbidly obese man with known CAD. The patient states that he has had exertional substernal chest pain and shortness of since July 2016. During the ensuing months the symptoms have become frequent and severe. He underwent cardiac catheterization last week was found to have severe 3 vessel CAD and LVEF 60%. In particular, the patient had a 70% proximal LAD lesion, a diffuse and severely diseased distal LAD (small vessel), a 70-80% proximal ramus intermediate branch lesion, an 80% mid LCx lesion, an 80% proximal OM1 lesion, a 95% proximal left PDA lesion ( small vessel), and a 95% proximal RCA lesion with a diffuse severely diseased distal vessel. The patient was to see Dr. Yusuf Jean-Baptiste in the office for CABG consultation. This morning the patient was walking when he had sudden onset of severe substernal chest pain radiating to his abdomen and left arm. The patient was evaluated at [facility] and admitted for further cardiac care. I have been asked to evaluate the patient for possible CABG. Past Med Surg Social Fam HX - Past Medical History Medical history: arthritis, COPD, diabetes, GERD, hyperlipidemia, hypertension Psychiatric history: anxiety, depression - Past Surgical History Surgical History: angioplasty/stent, appendectomy, knee replacement (Left total knee replacement) - Social History Smoking Status: Current every day smoker Packs per day: 1PPD X 50 YRS Smokeless Tobacco Status: No Alcohol use: none Drug use: none Occupational status: unemployed Current living situation: Home - Independent Activity Level: Independent ambulation Recent Out of Country Travel Within the Last 8 Weeks: No Exposure or Possible Exposure to Illness During Travel: No - Family History Mother Adopted: Yes (foster child) Medications and Allergies Lisinopril [Zestril] 20 mg PO BID 12/10/15 [History] Sitagliptin Phosphate [Januvia] 50 mg PO DAILY 12/10/15 [History] Venlafaxine [Effexor] 75 mg PO BID 12/10/15 [History] Ferrous Sulfate [Iron] 325 mg PO BID #60 tablet 09/01/16 [Rx] Albuterol Sulfate [Ventolin Hfa] 18 gm IH DAILY PRN 12/20/16 [History] Aspirin [Lo-Dose Aspirin EC] 81 mg PO DAILY 12/20/16 [History] Glimepiride [Amaryl] 4 mg PO BID 12/20/16 [History] Insulin Glargine [Lantus] 38 unit SQ BID 12/20/16 [History] Insulin LISPRO [HumaLOG] 10 - 15 unit SQ TID 12/20/16 [History] Isosorbide MONOnitrate (24 HR) [Imdur] 60 mg PO DAILY #60 tab.er.24h 12/20/16 [ Rx] Meloxicam [Mobic] 15 mg PO DAILY 12/20/16 [History] Metoprolol [Lopressor] 25 mg PO BID #60 tablet 12/20/16 [Rx] Nitroglycerin [Nitrostat] 0.4 mg SL DAILY PRN 12/20/16 [History] Omeprazole [PriLOSEC] 20 mg PO DAILY 12/20/16 [History] Tramadol HCl [Ultram] 50 mg PO QID PRN 12/20/16 [History] Gabapentin [Neurontin] 300 mg PO TID 12/27/16 [History] rOPINIRole [Requip] 1 mg PO HS 12/27/16 [History] No Known Allergies Allergy (Verified 12/27/16 12:00) All Systems Review: A 10-system review of systems was performed and is negative for pertinent findings except as documented above in the HPI. Physical Examination Vital Signs, Last 4 Hours Temp Pulse Resp BP Pulse Ox 12/27/16 15:21 97.6 F 57 15 154/80 97 General: Conversant, No Apparent Distress, Other (Morbidly obese) HEENT: Atraumatic, Normocephaly, Trachea midline Neck: No JVD, Normal carotid pulses Cardiac: Reg Rate and Rhythm, Normal S1 and S2, No Murmur Lungs: Normal Breath Sounds, No Wheeze, Rales, Rhonchi Neuro: Alert and responsive, No focal deficits noted, Motor nerves intact, Sensory nerves intact Vascular: Normal capillary refill Abdomen: Soft, Non-tender Skin: No rashes noted on visualized skin Musculoskeletal: No Chest Wall Tenderness Extremities: No Clubbing, No Cyanosis, No Edema Results 12/27/16 10:15 12/27/16 10:15 Consult Discharge Plan - Plan Referrals: Mey Winter MASK INSPECTOR [Primary Care Provider] -
[2016-12-27] MEDS ORDERED: Perflutren Lipid Microsphere 1.3 ML in 0.9 % Sodium Chloride 8.7 ML IVP ONE (18:23)
[2016-12-27] MEDS: Lisinopril 20 MG TABLET PO SCH (20:59)
[2016-12-27] MEDS: Insulin DETEMIR 100 UNIT/ML X5UNITS SQ SCH (20:59)
[2016-12-27] MEDS: rOPINIRole 1 MG TABLET PO SCH (20:59)
[2016-12-27] MEDS: PRAMIPEXOLE DI HCL 0.75 MG PO SCH (21:01)
[2016-12-28 01:41] LABS: Basophils # 0.1 K/mcL (0.0-0.2); Basophils % 0.5 %; Eosinophils # 0.3 K/mcL (0.0-0.6); Eosinophils % 2.3 %; Hematocrit 51.4 % (37.5-50.1); Hemoglobin 16.3 g/dL (12.9-16.9); Immature Granulocytes % 0.9 % (0-4); Lymphocytes # 2.5 K/mcL (0.6-4.6); Lymphocytes % 19.4 %; Mean Corpuscular HGB Conc 31.7 g/dL (31.6-35.5); Mean Corpuscular Hemoglobin 26.9 pg (28.0-33.3); Mean Corpuscular Volume 84.8 fL (83.0-100.0); Monocytes # 0.9 K/mcL (0.0-1.3); Monocytes % 6.6 %; Platelet Count 264 K/mcL (140-400); Red Blood Count 6.06 M/mcL (4.19-5.50); Red Cell Distribution Width 17.2 % (11.5-14.5); Segmented Neutrophils % 70.3 %
[2016-12-28 01:48] LABS: Alanine Aminotransferase 29 Units/L (0-55); Albumin 3.3 g/dL (3.5-5.0); Albumin/Globulin Ratio 0.9 (1.1-2.2); Alkaline Phosphatase 113 Units/L (38-126); Aspartate Amino Transferase 31 Units/L (5-34); BUN/Creatinine Ratio 23 (6-26); Bilirubin,Total 0.5 mg/dL (0.2-1.2); Blood Urea Nitrogen 17 mg/dL (8-26); Carbon Dioxide 29 mEq/L (19-29); Chloride 100 mEq/L (98-109); Chol/HDL Ratio 4.9 (0-4.9); Cholesterol 158 mg/dL (< 200); Globulin 3.6 g/dL (2.4-3.5); Glucose 181 mg/dL (70-99); HDL Cholesterol 32 mg/dL (40-59); LDL Cholesterol,Calculated 66 mg/dL (0-99); Osmolality,Calculated 288 (280-300); Sodium 136 mEq/L (136-145); Total Protein 6.9 g/dL (6.0-8.3); Triglycerides 301 mg/dL (< 150); eGFR For African Americans > 60 (> 60); eGFR For Non-African Americans > 60 (> 60)
[2016-12-28] MEDS: Insulin LISPRO 300 UNITS/3 ML VIAL SQ SCH ×4 (08:06→20:41)
[2016-12-28] MEDS: Lisinopril 20 MG TABLET PO SCH ×2 (08:19→20:35)
[2016-12-28] MEDS: Isosorbide MONOnitrate (24 HR) 60 MG TAB.ER.24H PO SCH (08:20)
[2016-12-28] MEDS: Heparin 25,000 UNIT/500 ML D5W 25,000 UNIT/500 ML MLS IVC SCH (08:20)
[2016-12-28] MEDS: Aspirin Enteric Coated 81 MG Tablet PO SCH (08:20)
--- NOTE | 2016-12-28 08:22 | Pre-Sedation Evaluation ---
Pre-sedation evaluation - Pre-sedation checklist Date of procedure: 12/28/16 Procedure: [facility] Recent Vitals: Last Vital Signs Temp 98.0 F 12/28/16 06:41 Pulse 66 12/28/16 06:41 Resp 14 12/28/16 06:41 BP 155/80 12/28/16 06:41 Pulse Ox 97 12/28/16 06:41 H&P (including ROS) documented in medical record: Yes Previous reaction to sedatives/anesthetics: No Dietary Status: NPO after Midnight Dentition: No loose teeth or bridges ASA Classification *see protocol: CLASS II-Mild systemic disease Plan of Care: Pt appropriate candidate for procedure/moderate/conscious sedation , Risks/benefits of procedure/sedation discussed w/ patient/family
[2016-12-28] MEDS: *HR* Morphine 2 MG/ML SYRINGE IVP PRN ×4 (08:26→20:39)
[2016-12-28] MEDS: Insulin DETEMIR 100 UNIT/ML X5UNITS SQ SCH ×2 (09:46→20:42)
[2016-12-28] MEDS ORDERED: *HR* Heparin 10,000 UNIT/10 ML VIAL ONE (10:39)
[2016-12-28] MEDS ORDERED: Heparin 1,000 UNITS/500 mL NS 500 ML ONE (10:39)
[2016-12-28] MEDS ORDERED: 0.9 % Sodium Chloride 1,000 ML ONE ×2 (10:39→10:51)
[2016-12-28] MEDS ORDERED: Nitroglycerin 1,000 MCG/10 ML VIAL IV ONE (10:39)
[2016-12-28] MEDS ORDERED: *HR* Adenosine 6 MG/2 ML VIAL IVP ONE (10:47)
[2016-12-28] MEDS ORDERED: *HR* Midazolam HCl 2 MG/2 ML VIAL ONE ×3 (10:49→11:38)
[2016-12-28] MEDS ORDERED: *HR* FentaNYL (PF) 100 MCG/2 ML VIAL ONE ×2 (10:49→12:02)
[2016-12-28] MEDS ORDERED: Tirofiban 5 MG/100ML 5 MG/100 ML BAG IV ONE (11:37)
[2016-12-28] MEDS ORDERED: Tirofiban 12.5 MG/250ML 12.5 MG/250 ML BAG IVC SCH (12:15)
--- NOTE | 2016-12-28 12:25 | Invasive Diagnostic Lab Proc ---
Name: Gurvinder Covington Date of Study: 12/28/2016 Date: 1960 Ht: 46.5in Medical Record#: [id number] Age: 56 Wt: 253.53lb Gender: Male BSA: 1.72 Order #: [id number] BMI: 82.59 Physicians Procedure Physician: Vaibhav Michelle MD, [facility] Referring MD: Referring MD: Staff Name Position Time In Silver Casanova RN Byproducts Supervisor 10:52 AM Madison Marx RN Byproducts Supervisor 10:52 AM Helen Rodriguez RN Monitor 10:52 AM Sharon Marcus RN Monitor 10:52 AM Everett Montoya RT (R) Scrub 10:52 AM Indications Indication Unstable Angina Coronary Artery Disease Procedures Performed Procedure L HRT ARTERY/VENTRICLE ANGIO PRQ CARD MARYBETH STENT W/ANGIO 1 VSL IV Doppler BLD Flow 1st Vessel IV Doppler BLD Flow Ad'l Vessel Pre-Procedure Checklist Informed consent is complete signed and on chart. H&P is on chart. ID band is on and ID verified with patient. Patient NPO for procedure The procedure was described for the patient and questions were answered. Blood Pressure: 155/80 ECG is on chart. Rhythm: NSR Plan of Care Patient will tolerate the procedure without complications. Adequate level of comfort will be maintained. Hemodynamics will remain stable Patient will recover from procedure without complications. Respiratory function will be maintained. Cardiac rhythm will remain stable. Patient temperature will be maintained. Patient and/or family have verbalized understanding of the procedure. Patient Education Intravenous Access Time IV Size Location DC'd Fluid/Drip Rate Units RN 10:52 AM 20g 1 /" Patent On Arrival Lt Arm 0.9NaCl 50 ml/hr Silver Casanova RN Allergies No Known Allergies NKDA Vital Signs Time BP (mmHg) HR (bpm) O2 Sat. RR (bpm) LOC 10:54 AM / % 5 = Fully awake and oriented or at pre-proc level 11:43 AM / % 5 = Fully awake and oriented or at pre-proc level 10:57 AM 151 / 89 61 94 % 19 11:02 AM 153 / 79 63 93 % 11 11:07 AM 149 / 71 62 95 % 21 11:12 AM 138 / 81 61 93 % 14 11:17 AM 146 / 72 62 93 % 20 11:22 AM 134 / 73 60 93 % 19 11:27 AM 129 / 67 60 90 % 25 11:32 AM 137 / 67 61 95 % 11 11:37 AM 138 / 71 60 95 % 25 11:42 AM 129 / 61 60 94 % 15 11:47 AM 134 / 74 60 94 % 14 11:52 AM 141 / 69 61 96 % 15 11:43 AM / % 5 = Fully awake and oriented or at pre-proc level 11:58 AM / % Procedural Medications Time Medication Dose Units Method Given By 10:58 AM Versed 2 mg Intravenous Silver Casanova RN 10:58 AM Fentanyl 50 mcg Intravenous Silver Casanova RN 11:10 AM Versed 1 mg Intravenous Silver Casanova RN 11:10 AM Fentanyl 25 mcg Intravenous Silver Casanova RN 11:11 AM Lidocaine 2% 20 ml Subcutaneous Vaibhav Michelle MD, FACC 11:18 AM Versed 1 mg Intravenous Silver Casanova RN 11:18 AM Fentanyl 25 mcg Intravenous Silver Casanova RN 11:21 AM Nitroglycerin 200 mcg Intracoronary Vaibhav Michelle MD 11:22 AM Heparin 2000 units Intravenous Madison Marx RN 11:25 AM Oxygen 4 L/min nasal cannula Madison Marx RN 11:25 AM Adenosine 400 mcg Intracoronary Vaibhav Michelle MD, FACC 11:28 AM Adenosine 200 mcg Intracoronary Vaibhav Michelle MD, FACC 11:29 AM Adenosine 200 mcg Intracoronary Vaibhav Michelle MD, FACC 11:30 AM Adenosine 100 mcg Intracoronary Vaibhav Michelle MD, FACC 11:31 AM Adenosine 100 mcg Intracoronary Vaibhav Michelle MD, FACC 11:39 AM Versed 1 mg Intravenous Madison Marx RN 11:40 AM Aggrastat Bolus: 58 ml Intravenous Silver Casanova RN 11:40 AM Aggrastat 5mg/100ml 21 ml Intravenous Silver Casanova RN 12:02 PM Fentanyl 25 mcg Intravenous Silver Casanova RN ASA Classification: CLASS II- Mild systemic disease (i.e. well-controlled diabetes, hypertension, asthma, cigarette smoking) Lottie Score Preprocedure Postprocedure Activity 2- Moves 4 extremities sustained head lift Activity 2- Moves 4 extremities sustained head lift Circulation 2- SBP +/= 20 points of pre-anesthetic level Circulation 2- SBP +/= 20 points of pre-anesthetic level Consciousness 2- Awake and alert oriented x 3 Consciousness 2- Awake and alert oriented x 3 O2 Saturation 2- Able to maintain O2 satruation of 92% on room air O2 Saturation 2- Able to maintain O2 satruation of 92% on room air Respiratory 2- Able to deep breathe and cough well Respiratory 2- Able to deep breathe and cough well Total Score 10 Total Score 10 Contrast Agent: Isovue Diagnostic Contrast: 145 ml Total Contrast: 145 ml Fluoro Dose: 889 mGy Activated Clotting Time Time Seconds to Clot 11:22 AM 219 Procedure Log Time Note Enter By 10:52 AM Pt arrived to [employer] 2 at 10:50 [facility] 10:52 AM Silver Casanova RN Position: Byproducts Supervisor Time in: 10:52 [facility] 10:52 AM Madison Marx RN Position: Byproducts Supervisor Time in: 10:52 [facility] 10:52 AM Helen Rodriguez RN Position: Monitor Time in: 10:52 [facility] 10:52 AM Sharon Marcus RN Position: Monitor Time in: 10:52 [facility] 10:53 AM Everett Montoya RT (R) Position: Scrub Time in: 10:52 [facility] 10:53 AM [facility] AM Hair removed from procedure site in holding area using clippers. Right groin and left groin prepped with Chloraprep by Silver Casanova RN, safety strap applied then patient was draped. Skin intact. [facility] 10:53 AM Physican paged/called 10:53. [facility] 10:53 AM Physican responded and notified patient is ready 10:53 [facility] 10:53 AM Physician arrived 10:53 [facility] 10:53 AM ASA Class CLASS II- Mild systemic disease (i.e. well-controlled diabetes, hypertension, asthma, cigarette smoking) [facility] 10:53 AM Meet and greet completed [facility] 10:53 AM Sign in performed according to hospital policy. [facility] 10:53 AM Procedure start 10:53 [facility] 10:54 AM Time: 10:54 Patient comfortable and pain free: Yes jcallan 10:54 AM Time: 10:54LOC: 5 = Fully awake and oriented or at pre-proc level jcallan 10:56 AM Vitals capture started with the following parameters, Patient=Adult, Interval=5 min, Initial Whzorgux=991 mmHg, Deflation Rate=5 mmHg, Cuff placed on Left Arm 10:57 AM HR=61 bpm, OLXS=799/89 mmhg, SpO2=94 %, Resp=19 B/min 10:58 AM Recorded ECG: HR=61 Condition=Condition 1 10:58 AM Time: 10:58 Versed 2 mg Intravenous Given by Silver Casanova RN 10:58 AM Time: 10:58 Fentanyl 50 mcg Intravenous Given by Silver Casanova RN 11:02 AM HR=63 bpm, HMEC=141/79 mmhg, SpO2=93.0 %, Resp=11 B/min, Comment=SR 11:07 AM HR=62 bpm, HRQO=881/71 mmhg, SpO2=95.0 %, Resp=21 B/min, Comment=SR 11:08 AM Time out performed according to hospital policy [facility] 11:09 AM Recorded Pressure: Ao, HR=57, Condition=Condition 1 (Aorta) Ao 11:10 AM Pressure channel 1 zeroed. 11:10 AM Time: 11:10 Versed 1 mg Intravenous Given by Silver Casanova RN 11:10 AM Time: 11:10 Fentanyl 25 mcg Intravenous Given by Silver Casanova RN 11:11 AM Time: 11:11 20 ml Lidocaine 2% to right groin Subcutaneous Given by Vaibhav Michelle MD, [facility] 11:12 AM HR=61 bpm, TKHJ=137/81 mmhg, SpO2=93.0 %, Resp=14 B/min, Comment=SR 11:14 AM Access obtained by percutaneous puncture. 6Fr 23cm Terumo Hays sheath placed in right Femoral artery. [id number] [facility] 11:17 AM 6Fr EBU 3.5 Medtronic guide catheter inserted over the J wire was used to cannulate the PCI vessel successfully. reused? No surendrajarek 11:17 AM HR=62 bpm, HBUG=504/72 mmhg, SpO2=93.0 %, Resp=20 B/min, Comment=SR 11:18 AM Time: 11:18 Versed 1 mg Intravenous Given by Silver Casanova RN 11:18 AM Time: 11:18 Fentanyl 25 mcg Intravenous Given by Silver Casanova RN [facility] 11: AM Wire removed [facility] 11: AM LCA angiography performed in multiple views. [facility] 11:20 AM Recorded Pressure: Ao, HR=63, Condition=Condition 1 (Aorta) Ao 124/67/89 11: AM Time: 11: Nitroglycerin 200 mcg Intracoronary Given by Vaibhav Michelle MD [facility] 11: AM comet advanced to target lesion on prox LAD. [facility] 11: AM At 11:22 the ACT was 219 seconds. [facility] 11: AM HR=60 bpm, HCAC=534/73 mmhg, SpO2=93.0 %, Resp=19 B/min, Comment=SR 11: AM Time: : Heparin 2000 units Intravenous Given by Madison Marx RN [facility] 11: AM Recorded Pressure: Ao, HR=61, Condition=Condition 1 (Aorta) Ao 107/64/79 11: AM Time: 11: Oxygen on at 4 L/min per nasal cannula by Madison Marx RN [facility] 11: AM Time: 11: Adenosine 400 mcg administered Intracoronary by Vaibhav Michelle MD, [facility] 11: AM Recorded Pressure: Ao, HR=63, Condition=Condition 1 (Aorta) Ao 80/74/77 11: AM FFR Measurement: 0.86 [facility] 11: AM HR=60 bpm, EPXL=290/67 mmhg, SpO2=90.0 %, Resp=25 B/min, Comment=SR 11: AM FFR comet wire repositioned to the OM [facility] 11: AM Time: : Adenosine 200 mcg administered Intracoronary by Vaibhav Michelle MD, [facility] 11: AM FFR Measurement: 0.87 [facility] 11: AM Time: 11: Adenosine 200 mcg administered Intracoronary by Vaibhav Michelle MD, [facility] 11: AM FFR Measurement: 0.86 [facility] 11:30 AM FFR wire repositioned to mid circ [facility] 11:30 AM Recorded Pressure: Ao, HR=54, Condition=Condition 1 (Aorta) Ao 102/50/68 11:30 AM Time: 11: Adenosine 100 mcg administered Intracoronary by Vaibhav Michelle MD, [facility] 11:31 AM Recorded Pressure: Ao, HR=30, Condition=Condition 1 (Aorta) Ao 97/70/76 11:31 AM Time: 11:31 Adenosine 100 mcg administered Intracoronary by Vaibhav Michelle MD, [facility] 11:32 AM FFR Measurement: 0.84 [facility] 11:32 AM HR=61 bpm, YXGH=204/67 mmhg, SpO2=95.0 %, Resp=11 B/min, Comment=SR 11:35 AM Flow Wire removed intact [facility] 11:36 AM .014 [place] 190cm guide wire across target lesion- successful. reused? No [facility] 11:37 AM 2.25 mm x 15 mm Emerge Monorail balloon across target lesion- successful. reused? No [facility] 11:37 AM HR=60 bpm, OPZA=518/71 mmhg, SpO2=95.0 %, Resp=25 B/min, Comment=SR 11:38 AM Inflation device was opened. tsmm 11:38 AM Balloon inflated @ 10 bijan for 19 seconds [facility] 11:39 AM Time: 11:39 Versed 1 mg Intravenous Given by Madison Marx RN [facility] 11:40 AM Balloon catheter removed intact. [facility] 11:40 AM 2.25mm x 16mm Synergy drug-eluting stent across target lesion- successful Lot #[id number] [facility] 11:40 AM Time: 11:40 Aggrastat Bolus: 58 ml Intravenous Given by Silver Casanova RN [facility] 11:40 AM Time: 11:40 Aggrastat 5mg/100ml 21 ml Intravenous Given by Silver Casanvoa RN Kang pump [facility] 11:41 AM Stent deployed @ 12 bijan for 21 seconds [facility] 11:42 AM HR=60 bpm, JPSK=831/61 mmhg, SpO2=94.0 %, Resp=15 B/min, Comment=SR 11:42 AM Stent delivery system removed intact. [facility] 11:43 AM Time: 11:43 Patient comfortable and pain free: Yes [facility] 11:43 AM Time: 11:43LOC: 5 = Fully awake and oriented or at pre-proc level [facility] 11:44 AM 2.5 mm x 8mm NC Emerge balloon across target lesion- successful. reused? No [facility] 11:44 AM Balloon inflated @ 16 bijan for 18 seconds [facility] 11:45 AM Balloon inflated @ 16 bijan for 16 seconds [facility] 11:46 AM Balloon catheter removed intact. [facility] 11:47 AM HR=60 bpm, AMXC=085/74 mmhg, SpO2=94.0 %, Resp=14 B/min, Comment=SR 11:48 AM Guide wire removed intact. 11:48 AM Guide catheter removed intact. [facility] 11:48 AM 0.035 145cm PixelFishst 3mmJ wire [id number] [facility] 11:49 AM 5Fr Pigtail catheter inserted over the wire [facility] 11:49 AM Catheter selectively placed in left ventricle [facility] 11:49 AM Recorded Pressure: LV, HR=60, Condition=Condition 1 (Left Ventricle) LV 131/4/18 11:50 AM Recorded Pressure: LV, Ao, HR=62, Condition=Condition 1 (Left Ventricle) LV 125/3/12, (Aorta) Ao 135/70/96 11:50 AM Catheter removed [facility] 11:51 AM 5Fr FR 4 catheter inserted over the wire [facility] 11:51 AM Recorded Pressure: Ao, HR=61, Condition=Condition 1 (Aorta) Ao 129/80/101 11:51 AM RCA angiography performed in multiple views. [facility] 11:52 AM Bolus angiogram of right Femoral complete: 2 ml/sec for a total of 4 mls [facility] 11:52 AM HR=61 bpm, KFSC=012/69 mmhg, SpO2=96.0 %, Resp=15 B/min, Comment=SR 11:52 AM Wire removed [facility] 11:54 AM Procedure completed at 11:54 [facility] 11:55 AM Sign out completed: Radiation Dose 888.57 mGy Fluoro Time: 8.8 Isovue 370 - 200ml contrast 145 ml given by Vaibhav Michelle MD, [facility]. Complications: NoneCardiac Rehab Consult needed: YesConfirmed administered medications: Yes [facility] 11:55 AM Isovue 370 - 200ml,1 Bottle(s) used. [facility] 11:55 AM Post ECG NSR [facility] 11:55 AM Post Blood Pressure 141/69 [facility] 11:56 AM Information taught Cardiac Cath and PCI [facility] 11:56 AM Education needs Procedure, Plan of Care, Disease Process, Responsibilities of Patient in Care, Diet, and Safe & Effective Use of Medications [facility] 11:56 AM Learning barriers :None [facility] 11:56 AM Education Methods Verbal [facility] 11:56 AM Education evaluation Able to repeat information [facility] 11:56 AM Site status No bleeding/hematoma - Rt Groin as reported by Everett Montoya RT (R) at 11:56 [facility] 11:56 AM Opsite applied [facility] 11:58 AM Time: 11:43 Patient comfortable and pain free: Yes [facility] 11:58 AM Report given to Susana OLVERA Pt taken to ICU Room #04. 11:58 [facility] 11:58 AM Time: 11:43LOC: 5 = Fully awake and oriented or at pre-proc level [facility] 11:58 AM Plavix, Effient or Brilinta given Yes [facility] 11:58 AM Time: 11:58 Patient comfortable and pain free: [facility] 11:58 AM Time: 11:58LOC: [facility] 11:58 AM Delay to floor [facility] 11:59 AM Complications: None [facility] 11:59 AM Family not available [facility] 12:00 PM 11:59 Post Pulses Bilateral DP 2+ [facility] 12:00 PM 12:00 Post Pulses Bilateral PT 1+ [facility] 12:00 PM Coronary Dominance: Left [facility] 12:00 PM Lesion found in Mid RCA. Pre Stenosis: 99 Pre JOE Flow: 3: Complete and Brisk Flow/Perfusion [facility] 12:01 PM Proximal Left Anterior Descending Coronary Artery with 70% stenosis. tsoummers 12:01 PM Lesion found in Proximal LAD. Pre Stenosis: 70 Pre JOE Flow: 3: Complete and Brisk Flow/[facility] 12:02 PM Lesion found in Mid Circumflex. Pre Stenosis: 70 Pre JOE Flow: 3: Complete and Brisk Flow/Perfusion [facility] 12:03 PM Time: 12:02 Fentanyl 25 mcg Intravenous Given by Silver Casanova RN tsoummers 12:03 PM Lesion found in Mid Ramus. Pre Stenosis: 90 Pre JOE Flow: 3: Complete and Brisk Flow/Perfusion tsoummers 12:04 PM Lesion found in Proximal Ramus. Pre Stenosis: 50 Pre JOE Flow: 3: Complete and Brisk Flow/Perfusion tsoummers 12:04 PM Right Coronary, Right Posterior Descending Arteries with Right Posterolateral and Acute Marginal branches with 99 % stenosis. tsoummers 12:05 PM Ramus with 90% stenosis. tsoummers 12:05 PM Circumflex, Obtuse Marginal, Left Posterior Descending, and Left Posterolateral Coronary Arteries with 70 % stenosis. tsoummers 12:10 PM Patient out of room: 11:58 [facility] Complications Complication None None Hemodynamics Pressures Site Systolic/A Wave Diastolic/V Wave Mean AO 9 8 9 AO 124 67 89 AO 107 64 79 AO 80 74 77 AO 102 50 68 AO 97 70 76 LV 131 4 18 LV 125 3 12 AO 135 70 96 AO 129 80 101 Post Procedure Information Blood Pressure: 141/69 mmHg Rhythm: NSR Site Checks Time Location Status Staff Sheath In? Note 11:56 AM Rt Groin No bleeding/hematoma Everett Montoya RT (R) Pulses Time Site Pre-Procedure Post-Procedure Note 11:59:00 AM Bilateral DP 2+ 12:00:00 PM Bilateral PT 1+ Updated by Sharon Marcus RN on 12/28/2016 12:20:13 PM electronically signed on 12/28/2016 12:20:52 PM with status of Final
[2016-12-28 13:24] LABS: Bilirubin,Urine Negative (Negative); Blood,Urine Negative (Negative); Clarity,Urine Clear (Clear); Color,Urine Yellow (Yellow); Glucose,Urine (UA) Normal (Normal); Ketones,Urine Negative (Negative); Leukocyte Esterase,Urine Negative (Negative); Nitrite,Urine Negative (Negative); Protein,Urine Negative (Neg-Trace); Specific Gravity,Urine > 1.030 (1.010-1.025); Urobilinogen,Urine Normal (Normal)
[2016-12-28] MEDS: Nitroglycerin 0.4 MG TAB.SUBL SL PRN ×2 (14:35→14:45)
[2016-12-28] MEDS ORDERED: Ketorolac 15 MG/ML VIAL IVP ONE (15:01)
--- NOTE | 2016-12-28 15:04 | Invasive Diagnostic Lab ---
Name: Gurvinder Covington Date of Study: 12/28/2016 Date: 1960 Ht: 118.0 cm /46.5 in Medical Record#: [id number] Age: 56 Wt: 115. kg / 253.53 lb Account/Order#: [id number] Gender: Male BSA: 1.72 Order #: [id number] Fluoro Dose: 889 mGy BMI: 82.59 Procedure Physician: Vaibhav Michelle MD, [facility] Referring MD: Referring MD: Procedures Performed: LEFT HEART CATH Stent w/ PTCA Single Major Vessel IV Doppler BLD Flow 1st Vessel IV Doppler BLD Flow Ad'l Vessel Indications: Unstable Angina, Coronary Artery Disease Impressions: Patient had successful PTCA/Drug-Eluting Stent placement in the mid Ramus. FFR Measurement: Proximal LAD- 0.86, Mid Circ- 0.86 and 0.84, Proximal OM- 0.87, Mid OM- 0.86 Severe diabetic small vessel disease. Recommendations: Optimal medical therapy of patient's disease. Aggressive risk factor modification. Procedure Access obtained in the right Femoral artery by percutaneous puncture A pressure tipped wire was advanced through the catheter into the LAD and Circumflex. Measurements of FFR were made during hyperemia induced by intracoronary adenosine. FFR Measurement Proximal LAD- 0.86, Mid Circ- 0.86 and 0.84, Proximal OM-0.87, Mid OM- 0.86 Patient had successful PTCA/Drug-Eluting Stent placement in the mid Ramus. Complications: None, None Contrast: Isovue 145ml Hemodynamics: Pressures Site Systolic/ A Wave Diastolic/ V Wave End Diastolic/ Mean HR AO 9 8 9 57 AO 124 67 89 63 AO 107 64 79 61 AO 80 74 77 63 AO 102 50 68 54 AO 97 70 76 30 LV 131 4 18 60 LV 125 3 12 61 AO 135 70 96 62 AO 129 80 101 61 Coronary Dominance: Left Lesion Findings/Interventions * Left Main Coronary Artery The LMCA has 20% stenosis * Left Anterior Descending The Distal LAD severe diffuse disease. There is a 70% stenosis in the Proximal LAD. The lesion has a JOE flow of 3. * Circumflex The Left PDA severe diffuse disease. There is a 70% stenosis in the Mid Circumflex. The lesion has a JOE flow of 3. The OM has a proximal 60-70% and mid 50% stenosis. * Ramus The Ramus has a mid 80-90% stenosis with JOE 3 flow prior to intervention, no thrombus. JOE 3 flow post PCI with 0% residual stenosis. No complications. Non C lesion. * Right Coronary Artery The Right Coronary Artery small, non-dominant. There is a 99% stenosis in the Mid RCA. The lesion has a JOE flow of 3. Interventional Device(s) Vessel Segment Type Name Diameter (mm) Length (mm) Mid Ramus Drug Eluting Stent Synergy 2.25 16 Mid Ramus Balloon Emerge Monorail 2.25 15 Mid Ramus Balloon NC Emerge 2.5 8 Updated by Sharno Marcus RN on 12/28/2016 12:19:12 PM Vaibhav Michelle MD, FACC electronically signed on 12/28/2016 2:59:13 PM with status of Final
[2016-12-28] MEDS ORDERED: *HR* Atropine Sulfate 1 MG/10 ML SYRINGE ONE (15:11)
--- NOTE | 2016-12-28 15:40 | Internal Med Progress Note ---
Date of Encounter: 12/28/16 Time of Encounter: 08:55 - Assessment and plan (1) Unstable angina Current Visit: Yes Status: Acute Assessment and plan: Unstable angina - recent LHC revealed triple-vessel disease, was recommended elective CABG Continue aspirin, statin, Brillinta, metoprolol, Tirofiban Troponin - negative Chest x-ray - no acute cardiopulmonary process EKG - sinus rhythm with left anterior fascicular block, no acute ST changes Echocardiogram - LVEF 65% with moderate LV diastolic dysfunction, normal RV size and function BN peptide - 14 Cardiothoracic surgery consult - Dr. Hanna has evaluated the patient, recommended stent placement in the ramus intermediate branch and OM1 branch LHC done today - successful PTCA/MARYBETH in mid ramus, severe diabetic small vessel disease Continue close monitoring (2) CAD (coronary artery disease), [place] coronary artery Current Visit: Yes Status: Chronic Assessment and plan: Known history of coronary artery disease status post stent in 2005 Continue aspirin, statin Qualifiers: [place] vs. transplanted heart: [place] heart Associated angina: with unstable angina Qualified Code(s): I25.110 - Atherosclerotic heart disease of [place] coronary artery with unstable angina pectoris (3) Hypertension Current Visit: No Status: Chronic Assessment and plan: Essential hypertension, controlled, continue current meds, monitor Qualifiers: Hypertension type: unspecified secondary hypertension Qualified Code(s): I15.9 - Secondary hypertension, unspecified; I15 - Secondary hypertension (4) Hyperlipidemia Current Visit: No Status: Chronic Assessment and plan: Continue statin Qualifiers: Hyperlipidemia type: unspecified Qualified Code(s): E78.5 - Hyperlipidemia , unspecified (5) COPD (chronic obstructive pulmonary disease) Current Visit: No Status: Chronic Assessment and plan: COPD - stable, not in exacerbation Qualifiers: COPD type: emphysema Emphysema type: unspecified Qualified Code(s): J43.9 - Emphysema, unspecified (6) Diabetes Current Visit: No Status: Chronic Assessment and plan: Diabetes mellitus type 2, insulin-dependent, hyperglycemia Continue insulin sliding scale, glucose checks Qualifiers: Diabetes mellitus type: type 2 Diabetes mellitus complication status: with unspecified complications Diabetes mellitus director financial analysis insulin use: unspecified long-term insulin use status Qualified Code(s): E11.8 - Type 2 diabetes mellitus with unspecified complications (7) DVT prophylaxis Current Visit: Yes Status: Acute Assessment and plan: Patient has been on IV heparin - Time Spent With Patient 25 - 35 minutes - Subjective Interval history: Examined this morning. Patient is awake and alert. Not in any distress. Denies shortness of breath. Complains of mild chest pain. No fever. Hemodynamically stable. No other acute events or complaints. LHC done this morning. Successful PTCA/MARYBETH in mid ramus, severe diabetic small vessel disease. Echocardiogram revealed LVEF 65% with moderate LV diastolic dysfunction and normal RV size and function. Patient transferred to the ICU after LHC. - Constitutional Vitals: Temp Pulse Resp BP Pulse Ox 97.5 F L 54 14 126/65 96 12/28/16 12:15 12/28/16 14:00 12/28/16 14:00 12/28/16 14:00 12/28/16 14:00 General appearance: Present: cooperative, A&O X 3, pleasant, no acute distress, obese, answers questions appropriately - Head Head exam: Present: atraumatic - Eye Eye exam: Present: EOMI - ENT ENT exam: Present: mucous membranes moist - Neck Neck exam general surgery: Present: supple - Respiratory Respiratory exam: Present: CTAB. Absent: rales, rhonchi, wheezes, tachypnea - Cardiovascular Cardiovascular exam: Present: RRR, +S1, +S2 - GI/Abdominal GI/Abdominal exam: Present: soft. Absent: distended, firm, guarding, tenderness - Extremities Exam Extremities exam: Present: radial pulses palpable and symmetrical. Absent: cyanotic, pedal edema - Neurological Exam Neurological exam: Present: alert, oriented X3, no focal deficits. Absent: facial droop, speech deficit Internal Medicine: Result - Labs CBC & Chem 7: 12/28/16 01:23 12/28/16 01:10 Labs: Urine 12/28/16 Range/Units 13:05 Urine Color Yellow (Yellow) Urine Clarity Clear (Clear) Urine pH 7.0 (5.0-8.0) pH Units Ur Specific [place] > 1.030 H (1.010-1.025) Urine Protein Negative (Neg-Trace) mg/dL Urine Glucose (UA) Normal (Normal) mg/dL Consult Discharge Plan - Plan Referrals: Mey Winter, SCHUYLER [Primary Care Provider] -
[2016-12-28] MEDS: traMADol 50 MG TABLET PO PRN (19:39)
[2016-12-28] MEDS: *HR* Ticagrelor 90 MG TABLET PO SCH (20:35)
[2016-12-28] MEDS: rOPINIRole 1 MG TABLET PO SCH (20:35)
[2016-12-28] MEDS: PRAMIPEXOLE DI HCL 0.75 MG PO SCH (20:43)
[2016-12-29] MEDS: *HR* Morphine 2 MG/ML SYRINGE IVP PRN ×2 (00:49→06:39)
[2016-12-29] MEDS ORDERED: *HR* Morphine 2 MG/ML SYRINGE IVP ONE (03:24)
--- NOTE | 2016-12-29 07:08 | Venous Imaging Report ---
LE Venous Duplex Patient Name:Gurvinder Covington Order Number:[id number] Procedure Date:12/27/2016 Date:9Age:56 yrs Gender:Male [facility] Room #: 3B13 Am[place]ia Still Operator:Alida Pichardo Referring MD:Magui Oh GARAGE ATTENDANT leases and land supervisor:Mey Winter, GARAGE ATTENDANT Reading MD:Ba Molina MD Primary Indications:Lower extremity edema: rule out DVT. Secondary Indications: Impressions: Normal bilateral lower extremity deep and superficial venous exam. Recommendations: After imaging the patient returned to their room. Findings Venous Duplex Results: Right: Venous imaging of the lower extremity reveals full patency and normal vessel compressibility of the right distal iliac, right common femoral, right superficial femoral, right popliteal, right posterior tibial, right peroneal, right great saphenous and right lesser saphenous. Doppler signals in the evaluated veins were normal. Left: Venous imaging of the lower extremity reveals full patency and normal vessel compressibility of the left distal iliac, left common femoral, left superficial femoral, left popliteal, left posterior tibial, left peroneal, left great saphenous and left lesser saphenous. Doppler signals in the evaluated veins were normal. Lower Extremity Venous Duplex Side Vein Compress Spontaneous Flow Augment Diameter (cm) Depth (cm) Right Distal Iliac Normal Yes Phasic Yes Right Common Femoral Normal Yes Phasic Yes Right Superficial Femoral Normal Yes Phasic Yes Right Popliteal Normal Yes Phasic Yes Right Posterior Tibial Normal Yes Phasic Yes Right Peroneal Normal Yes Phasic Yes Right Great Saphenous Normal Yes Phasic Yes Right Lesser Saphenous Normal Yes Phasic Yes Left Distal Iliac Normal Yes Phasic Yes Left Common Femoral Normal Yes Phasic Yes Left Superficial Femoral Normal Yes Phasic Yes Left Popliteal Normal Yes Phasic Yes Left Posterior Tibial Normal Yes Phasic Yes Left Peroneal Normal Yes Phasic Yes Left Great Saphenous Normal Yes Phasic Yes Left Lesser Saphenous Normal Yes Phasic Yes Updated by Ba Molina MD on 12/29/2016 7:01:58 AM electronically signed on 12/29/2016 7:02:16 AM with status of Final
[2016-12-29] MEDS: Isosorbide MONOnitrate (24 HR) 60 MG TAB.ER.24H PO SCH (08:34)
[2016-12-29] MEDS: Aspirin Enteric Coated 81 MG Tablet PO SCH (08:34)
[2016-12-29] MEDS: *HR* Ticagrelor 90 MG TABLET PO SCH (08:34)
[2016-12-29] MEDS: Lisinopril 20 MG TABLET PO SCH (08:34)
[2016-12-29] MEDS: traMADol 50 MG TABLET PO PRN (08:37)
[2016-12-29] MEDS: Insulin LISPRO 300 UNITS/3 ML VIAL SQ SCH ×2 (08:37→12:24)
[2016-12-29] MEDS: Insulin DETEMIR 100 UNIT/ML X5UNITS SQ SCH (08:37)
--- NOTE | 2016-12-29 13:55 | Cardiology Progress Note ---
Date of Encounter: 12/29/16 Time of Encounter: 13:00 Assessment and Plan (1) Unstable angina Current Visit: Yes Status: Acute Per cardiology: -Unstable angina. Chest pain on admission that occured while walking. -Recent [facility] 12/20/16 with LVEF 60%, 70% proximal LAD stenosis, 80% mid circumflex , 80-90% OM1, 95% left PDA small vessel, 70-80% proximal ramus, 95% proximal RCA small vessel. Recommendations for outpatient CABG evaluation. -Patient was seen by CT surgery who determined not good candidate for CABG. -LHC 12/28/16 with 20% left main, 70% mid LAD with FFR of 0.86 (not significant) , 70% mid circumflex with FFR 0.86 and 0.84 (not significant), proximal OM with 60-70% with FFR 0.87 (not significant), mid OM 50% with FFR 0.86 (not significant), 80-90% mid ramus with MARYBETH placed, RCA small non-dominant 99% mid RCA stenosis. -Continue asa, brilinta, statin, beta blcoker. -Patient denies chest pain. -Right groin without ecchymosis or hematoma. RIght groin access site management education given to patient. -Recommend dual anti-platelet therapy uninterrupted for at least one year. Pateint states understanding. -Brilinta free 30 day card given to patient. -Cardiology will sign off and will follow in oupatient setting. FOllow up set. (2) CAD (coronary artery disease), [place] coronary artery Current Visit: Yes Status: Chronic Per cardiology: -Known CAD with recent [facility] as above with recommendations for CABG evaluation. -Reported history of coronary stenting 2005. -On asa, statin, beta damon, brilinta, and alexis inhibitor. -Troponin negative. -Echo 12/27/16 with LVEF 65%, moderate diastolic dysfunction, no significant valvular dysfunction, all [place] with normal motion. -Of note, BP hypertensive at one point with SBP 170s. Currently 140s. Patient reports BP at home is usually 120-130s systolic. Will continue to monitor in outpatient setting. -Will continue to follow in outpatient setting. Qualifiers: [place] vs. transplanted heart: [place] heart Associated angina: with unstable angina Qualified Code(s): I25.110 - Atherosclerotic heart disease of [place] coronary artery with unstable angina pectoris Discussion w patient/family: The assessment and plan as outlined above was discussed with the patient who expressed understanding and agreement. All questions were answered. Thank you for involving us in the care of your patient. Please call with any questions. Patient seen and examined with . Subjective Principal diagnosis: chest pain Interval history: Patient denies chest pain overnight. Patient denies issues using right groin. Objective Vital Signs, Last 4 Hours Temp Pulse Resp BP Pulse Ox 12/29/16 12:10 97.8 F 12/29/16 11:40 55 20 151/90 96 12/29/16 10:41 61 21 170/97 96 General: Conversant, No Apparent Distress HEENT: Atraumatic, Normocephaly, Mucus Membranes Moist Neck: No JVD, Normal carotid pulses Cardiac: Reg Rate and Rhythm, Normal S1 and S2, No Murmur Lungs: Normal Breath Sounds, No Wheeze, Rales, Rhonchi Neuro: Alert and responsive, No focal deficits noted Abdomen: Soft, Non-Tender Skin: No rashes noted on visualized skin, Other (Right groin access site without hematoma or ecchymosis. ) Musculoskeletal: No Chest Wall Tenderness Extremities: No Clubbing, No Cyanosis, No Edema, Normal Pulses Results 12/28/16 01:23 12/28/16 01:10 Active Medications Acetaminophen (Tylenol) 650 mg PO Q6HR PRN PRN Reason: Mild Pain (1-3) Stop: 06/28/17 11:39 Aspirin (Aspirin Ec) 81 mg PO DAILY [facility] Stop: 06/29/17 09:01 Last Admin: 12/29/16 08:34 Dose: 81 mg Dextrose/Water (Dextrose 50% (Syg)) 25 ml IVP AD PRN PRN Reason: Hypoglycemia Stop: 06/28/17 11:44 Ferrous Sulfate (Ferrous Sulfate) 325 mg PO BIDWM [facility] Stop: 06/28/17 17:01 Last Admin: 12/29/16 08:34 Dose: 325 mg Glucagon (Glucagen) 1 mg IM ONCE PRN PRN Reason: Hypoglycemia Stop: 06/28/17 11:44 Glucose (Gluctose) 15 gm PO ONCE PRN PRN Reason: Hypoglycemia Stop: 06/28/17 11:44 Glucose (Gluctose) 30 gm PO ONCE PRN PRN Reason: Hypoglycemia Stop: 06/28/17 11:44 Dextrose (Dextrose 5%) 1,000 mls @ 100 mls/hr IVC .Q10H PRN PRN Reason: HYPOGLYCEMIA Stop: 06/28/17 11:44 Insulin Detemir (Levemir) 30 unit SQ BID [facility] Stop: 06/28/17 21:01 Last Admin: 12/29/16 08:37 Dose: 30 unit Insulin Human Lispro (Humalog) 0 units SQ HS [facility] PRN Reason: Protocol Stop: 06/28/17 21:01 Last Admin: 12/28/16 20:41 Dose: 5 units Insulin Human Lispro (Humalog) 0 units SQ TIDAC [facility] PRN Reason: Protocol Stop: 06/28/17 12:40 Last Admin: 12/29/16 12:24 Dose: 10 units Isosorbide Mononitrate (Imdur) 60 mg PO DAILY [facility] Stop: 06/29/17 09:01 Last Admin: 12/29/16 08:34 Dose: 60 mg Lisinopril (Zestril) 20 mg PO BID [facility] PRN Reason: Protocol Stop: 06/28/17 21:01 Last Admin: 12/29/16 08:34 Dose: 20 mg Metoprolol Tartrate (Lopressor) 25 mg PO BID [facility] Stop: 06/28/17 21:01 Last Admin: 12/29/16 08:34 Dose: 25 mg Morphine Sulfate (Morphine Sulfate) 2 mg IVP Q4HR PRN PRN Reason: Severe Pain (7-10) Stop: 06/28/17 11:39 Last Admin: 12/29/16 06:39 Dose: 2 mg Naloxone HCl (Narcan) 0.4 mg IVP Q2MIN PRN PRN Reason: Opioid Reversal Stop: 06/28/17 11:39 Nitroglycerin (Nitroglycerin) 0.4 mg SL Q5MIN PRN PRN Reason: Chest Pain Stop: 06/28/17 10:12 Last Admin: 12/28/16 14:45 Dose: 0.4 mg (Pramipexole Di-Hcl [Mirapex Er] 0.75 Mg ) 0.75 mg PO HS [facility] Stop: 06/28/17 21:01 Last Admin: 12/28/16 20:43 Dose: Not Given Ondansetron HCl (Zofran) 4 mg IVP Q8HR PRN PRN Reason: Nausea And Vomiting Stop: 06/28/17 11:39 Ropinirole HCl (Requip) 0.5 mg PO HS [facility] Stop: 06/28/17 21:01 Last Admin: 12/28/16 20:35 Dose: 0.5 mg Simvastatin (Zocor) 20 mg PO HS [facility] PRN Reason: Protocol Stop: 06/28/17 21:01 Last Admin: 12/28/16 20:35 Dose: 20 mg Ticagrelor (Brilinta) 90 mg PO BID [facility] Stop: 06/29/17 21:01 Last Admin: 12/29/16 08:34 Dose: 90 mg Tramadol HCl (Ultram) 50 mg PO QID PRN PRN Reason: MODERATE PAIN Stop: 06/28/17 11:45 Last Admin: 12/29/16 08:37 Dose: 50 mg Laboratory Tests 12/28/16 12/28/16 01:10 01:23 WBC 12.8 H Hgb 16.3 Creatinine 0.75 Triglycerides 301 H Cholesterol 158 LDL Cholesterol, Calc 66 HDL Cholesterol 32 L - Imaging and Cardiology Chest Xray: report reviewed Echo: report reviewed Cardiac cath: report reviewed - EKG Interpretation EKG results cardiology: other (Telemetry reviewed with average HR 61, sinus rhythm. PVCs and PACs noted.) Consult Discharge Plan - Plan Referrals: Mey Winter CNP [Primary Care Provider] -
[2016-12-29 14:21] VITALS: BP 155/92
--- NOTE | 2016-12-29 15:22 | Discharge Summary ---
Date of Encounter: 12/29/16 Time of Encounter: 08:05 - Discharge Diagnosis (1) Unstable angina Priority: Primary Status: Acute Comments: Unstable angina - status post PTCA/MARYBETH recent LHC revealed triple-vessel disease, initially recommended elective CABG Continue aspirin, statin, Brillinta, metoprolol Troponin - negative Chest x-ray - no acute cardiopulmonary process EKG - sinus rhythm with left anterior fascicular block, no acute ST changes Echocardiogram - LVEF 65% with moderate LV diastolic dysfunction, normal RV size and function BN peptide - 14 Cardiothoracic surgery consult - Dr. Hanna has evaluated the patient, recommended stent placement in the ramus intermediate branch and OM1 branch LH done - successful PTCA/MARYBETH in mid ramus, severe diabetic small vessel disease Follow-up with primary care physician and cardiology as outpatient (2) CAD (coronary artery disease), [place] coronary artery Priority: Primary Status: Chronic Comments: Known history of coronary artery disease status post stent in 2005 Continue aspirin, statin Qualifiers: [place] vs. transplanted heart: [place] heart Associated angina: with unstable angina Qualified Code(s): I25.110 - Atherosclerotic heart disease of [place] coronary artery with unstable angina pectoris (3) Hypertension Priority: Secondary Status: Chronic Comments: Essential hypertension, controlled, continue current meds, monitor Qualifiers: Hypertension type: unspecified secondary hypertension Qualified Code(s): I15.9 - Secondary hypertension, unspecified; I15 - Secondary hypertension (4) Hyperlipidemia Priority: Secondary Status: Chronic Comments: Continue statin Qualifiers: Hyperlipidemia type: unspecified Qualified Code(s): E78.5 - Hyperlipidemia , unspecified (5) COPD (chronic obstructive pulmonary disease) Priority: Secondary Status: Chronic Comments: COPD - stable, not in exacerbation Qualifiers: COPD type: emphysema Emphysema type: unspecified Qualified Code(s): J43.9 - Emphysema, unspecified (6) Diabetes Priority: Secondary Status: Chronic Comments: Diabetes mellitus type 2, insulin-dependent, hyperglycemia Continue home meds, check glucose daily Qualifiers: Diabetes mellitus type: type 2 Diabetes mellitus complication status: with unspecified complications Diabetes mellitus penitentiary insulin use: unspecified equipment operator intermodal yard insulin use status Qualified Code(s): E11.8 - Type 2 diabetes mellitus with unspecified complications (7) Tobacco abuse Priority: Secondary Status: Chronic Comments: Counseled about cessation, nicotine patch - Discharge Medications Prescriptions: Aspirin [Lo-Dose Aspirin EC] 81 mg PO DAILY #30 Atorvastatin [Lipitor] 40 mg PO HS #30 tablet Isosorbide MONOnitrate (24 HR) [Imdur] 60 mg PO DAILY #30 tab.er.24h Lisinopril [Zestril] 20 mg PO BID 30 Days Metoprolol [Lopressor] 25 mg PO BID 30 Days Nicotine Patch [Nicoderm] 21 mg TD DAILY #30 patch.td24 Ticagrelor [Brilinta] 90 mg PO BID 30 Days Home Medications: Sitagliptin Phosphate [Januvia] 50 mg PO DAILY 12/10/15 [History] Venlafaxine [Effexor] 75 mg PO BID 12/10/15 [History] Ferrous Sulfate [Iron] 325 mg PO BID #60 tablet 09/01/16 [Rx] Albuterol Sulfate [Ventolin Hfa] 18 gm IH DAILY PRN 12/20/16 [History] Glimepiride [Amaryl] 4 mg PO BID 12/20/16 [History] Insulin Glargine [Lantus] 38 unit SQ BID 12/20/16 [History] Insulin LISPRO [HumaLOG] 10 - 15 unit SQ TID 12/20/16 [History] Nitroglycerin [Nitrostat] 0.4 mg SL DAILY PRN 12/20/16 [History] Omeprazole [PriLOSEC] 20 mg PO DAILY 12/20/16 [History] Tramadol HCl [Ultram] 50 mg PO QID PRN 12/20/16 [History] Gabapentin [Neurontin] 300 mg PO TID 12/27/16 [History] rOPINIRole [Requip] 1 mg PO HS 12/27/16 [History] Aspirin [Lo-Dose Aspirin EC] 81 mg PO DAILY #30 12/29/16 [Rx] Atorvastatin [Lipitor] 40 mg PO HS #30 tablet 12/29/16 [Rx] Isosorbide MONOnitrate (24 HR) [Imdur] 60 mg PO DAILY #30 tab.er.24h 12/29/16 [ Rx] Lisinopril [Zestril] 20 mg PO BID 30 Days 12/29/16 [Rx] Metoprolol [Lopressor] 25 mg PO BID 30 Days 12/29/16 [Rx] Nicotine Patch [Nicoderm] 21 mg TD DAILY #30 patch.td24 12/29/16 [Rx] Pramipexole Di-HCl [Mirapex ER] 0.75 mg PO HS 12/29/16 [Rx] Ticagrelor [Brilinta] 90 mg PO BID 30 Days 12/29/16 [Rx] rOPINIRole [Requip] 0.5 mg PO HS tab 12/29/16 [Rx] Allergies/Adverse Reactions: 3 Allergy/AdvReac Type Severity Reaction Status Date / Time No Known Allergies Allergy Verified 12/27/16 12:00 Procedures/tests Complete & Pending: Procedures Performed prior 72 hours Category Date Time Status Left Heart Cath [CL Cardiac Catheterization] [CL] [employer] 12/28/16 10:32 Completed Routine ECG 12 lead ECG [ECG] Routine Y 12/28/16 12:12 Completed ECG 12 lead ECG [ECG] Routine Y 12/28/16 14:47 Completed ECG 12 lead ECG [ECG] Stat Y 12/29/16 03:24 Completed Date of admission: 12/28/16 07:44 Primary care physician: Mey Winter CNP Consults: 12/29/16 07:47 Consult to Cardiac Rehabilitation-Phase1 [CONS] Routine Comment: Reason for Consult: PCI Call Completed: No Anticipated date of discharge: 12/29/16 - Patient Status Disposition: Home, Self-Care Condition: Good Functional capacity at discharge: uses cane/walker Overall status at discharge: patient is progressing back to baseline - Discharge Instructions Instructions: Metoprolol (By mouth), Lisinopril (By mouth), Isosorbide Mononitrate (By mouth), Atorvastatin (By mouth), Ticagrelor (By mouth), Chest Pain (DC), Left Heart Catheterization (DC), How to Stop Smoking (DC), Cigarette Smoking and Your Health (GEN) Follow Up With: Vaibhav Michelle MD [Partnered Physician] - 01/11/17 10:15 am Mey Winter CNP [Primary Care Provider] - 01/05/17 1:00 pm - Diet and Activity Activity: increase activity as tolerated Diet: diabetic diet, low fat, low cholesterol Hospital course: Mr. Covington is a 56 year old male with past medical history of coronary artery disease, diabetes, hyperlipidemia, hypertension, COPD, GERD and anxiety. Patient presents to the ED with complaints of chest pain. Patient had a recent left heart catheterization and was advised for a planned CABG. Patient was started on IV heparin drip as per protocol. Cardiothoracic surgery has evaluated the patient. They recommended stent placement in the ramus intermediate branch and OM1 branch with aggressive medical therapy. Patient was not a operative candidate. Patient was started on aspirin and statin and IV morphine as needed for pain. Echocardiogram revealed normal LVEF 65% with moderate diastolic dysfunction with normal RV size and function. EKG did not reveal any acute ST-T changes. Troponin was negative. Patient was continued on all his home medications. Patient underwent left heart catheterization and had successful PTCA/MARYBETH in mid ramus. Patient was also found to have severe diabetic small vessel disease. Aggressive medical therapy has been recommended. Patient is being discharged on aspirin and statin and Brillinta. He will also be continued on beta damon. Right groin access site looks okay and distal pulses are palpable. Patient tolerated the procedure well. He has been explained about antiplatelet therapy for at least 1 year. Patient is asymptomatic at present. He is ambulating well and tolerating oral diet well. No other acute events or complications during his stay in the hospital. Patient has been advised to be compliant with his medications and also advised to follow-up with cardiology regularly. Patient has been explained about his condition and plan of care in detail. He understood and agreed. No unanswered questions. Patient states he feels better and wants to go home today. Time spent discussing smoking cessation with patient: 3 to 10 minutes - Time Spent with Patient Total time spent providing and/or coordinating discharge services: Greater than 30 minutes - Constitutional Vitals: Temp Pulse Resp BP Pulse Ox 97.8 F 60 20 155/92 95 12/29/16 12:10 12/29/16 14:00 12/29/16 14:00 12/29/16 14:00 12/29/16 14:00 General appearance: Present: cooperative, A&O X 3, pleasant, no acute distress, obese, answers questions appropriately - Head Head exam: Present: atraumatic - Eye Eye exam: Present: EOMI - ENT ENT exam: Present: mucous membranes moist - Respiratory Respiratory exam: Present: CTAB. Absent: rales, rhonchi, wheezes, tachypnea - Cardiovascular Cardiovascular exam: Present: RRR, +S1, +S2 - GI/Abdominal GI/Abdominal exam: Present: soft. Absent: distended, firm, guarding, tenderness - Extremities Exam Extremities exam: Present: radial pulses palpable and symmetrical. Absent: cyanotic, pedal edema Additional comments: Right femoral cath site looks okay, distal pulses palpable - Neurological Exam Neurological exam: Present: alert, oriented X3, no focal deficits. Absent: facial droop, speech deficit
--- NOTE | 2016-12-29 16:50 | Electrocardiograph Report ---
[place] [id number] Test Date: 2016-12-28 Pat Name: Gurvinder Covington Department: 106 Room: [facility] Gender: M Equine Dentist: : 1960 Requested By: Melva Tiwari Order Number: [id number] Reading MD: Edna Gaines Measurements Intervals [place] Rate: 0 P: AR: 0 QRS: 0 QRSD: 0 T: 0 QT: 0 QTc: 0 Interpretive Statements NORMAL SINUS RHYTHM LEFT ANTERIOR FASCICULAR BLOCK LATERAL T WAVE ABNORMALITIES Electronically Signed On 12-29-2016 16:48:37 EDT by Edna Gaines
--- NOTE | 2016-12-29 17:02 | Electrocardiograph Report ---
[place] [address] Test Date: 2016-12-28 Pat Name: Gurvinder Covington Department: 109 Room: [facility] Gender: M Trouble Locater: WENDY : 1960 Requested By: Melva Tiwari Order Number: [id number] Reading MD: Edna Gaines Measurements Intervals [place] Rate: 52 P: 45 SC: 204 QRS: -59 QRSD: 100 T: 78 QT: 437 QTc: 417 Interpretive Statements SINUS BRADYCARDIA LEFT ANTERIOR FASCICULAR BLOCK MINIMAL VOLTAGE CRITERIA FOR LVH, CONSIDER NORMAL VARIANT NONSPECIFIC T-WAVE ABNORMALITY Electronically Signed On 12-29-2016 17:00:32 EDT by Edna Gaines
--- NOTE | 2016-12-29 17:14 | Electrocardiograph Report ---
[address] [address] Test Date: 2016-12-29 Pat Name: Gurvinder Covington Department: 109 Room: [facility] Gender: M Package Dyer: [id number] : 1960 Requested By: Vasquez Tyson Order Number: [id number] Reading MD: Fern Carter Measurements Intervals [place] Rate: 60 P: 51 ME: 212 QRS: -59 QRSD: 96 T: 64 QT: 409 QTc: 411 Interpretive Statements SINUS RHYTHM WITH FIRST DEGREE AV BLOCK INCOMPLETE RIGHT BUNDLE BRANCH BLOCK LEFT ANTERIOR FASCICULAR BLOCK NONSPECIFIC T WAVE CHANGES Electronically Signed On 12-29-2016 17:12:32 EDT by Fern Carter
== END 2016-12-29 16:25 | disposition home or self-care (01) | DRG 175 ==
LOC: EMEROO 09:57 → 3BNU 09:57 → ICNU 12-28 12:20
PROVIDERS: ADMIT Registered Nurse; ATTEND Registered Nurse

== ENCOUNTER 2017-05-11 10:41 | Observation (INO) ==
--- NOTE | 2017-05-11 10:50 | Emergency Department Note ---
Disposition Clinical Impression: Elevated troponin Chest pain Qualifiers: Chest pain type: unspecified Qualified Code(s): R07.9 - Chest pain, unspecified Disposition: Admitted As Inpatient Condition: Good Referrals: Mey Winter CNP [Primary Care Provider] - Forms: ED Satisfaction Letter Chest Pain HPI - General Chief Complaint: ED Chest Pain Stated Complaint: Chest pain Time Seen by Provider: 05/11/17 10:45 Source: patient Mode of arrival: EMS Limitations: no limitations Vital Signs Reviewed: Yes Nursing Notes Reviewed: Yes - History of Present Illness HPI Narrative: 56-year-old male history of coronary artery disease status post 3 vessel stent on 05/08/17 presents to the ER via EMS due to chest pain. Patient states pain began this morning around 7:30. Denies any trauma. States it feels like a pressure in the center of his chest. States the symptoms he was having which prompted the left heart catheterization. He reports he did feel short of breath and broke out into a sweat this morning. No nausea vomiting or diarrhea. No fevers cough sore throat or congestion. He took 2 nitroglycerin at home and was given 4 baby aspirin prior to arrival. Plan for patient is EKG , chest x-ray as well as labs including troponin. We will continue a nitroglycerin trial here and reassess. Pt complaint: chest pain Onset (ago): hour(s) Time: 07:30 Duration: constant Onset: during rest Pain Location: substernal Severity: moderate Quality: heaviness Pain Radiation: none Improves with: nothing Worsens with: nothing Associated symptoms: Reports: diaphoresis, dyspnea. Denies: nausea, vomiting Treatments prior to arrival chest pain: aspirin, nitroglycerin - Related Data On Oral Contraceptives: No Home Medications Medication Instructions Recorded Confirmed Sitagliptin Phosphate [Januvia] 50 mg PO DAILY 12/10/15 05/08/17 Venlafaxine [Effexor] 75 mg PO BID 12/10/15 05/08/17 Albuterol Sulfate [Ventolin Hfa] 18 gm IH DAILY PRN 12/20/16 05/08/17 Glimepiride [Amaryl] 4 mg PO BID 12/20/16 05/08/17 Insulin Glargine [Lantus] 38 unit SQ BID 12/20/16 05/08/17 Insulin LISPRO [HumaLOG] 10 - 15 unit SQ TID 12/20/16 05/08/17 Nitroglycerin [Nitrostat] 0.4 mg SL DAILY PRN 12/20/16 05/08/17 Omeprazole [PriLOSEC] 20 mg PO DAILY 12/20/16 05/08/17 Tramadol HCl [Ultram] 50 mg PO QID PRN 12/20/16 05/08/17 Gabapentin [Neurontin] 300 mg PO TID 12/27/16 05/08/17 rOPINIRole [Requip] 1 mg PO HS 12/27/16 05/08/17 Isosorbide MONOnitrate (24 HR) 120 mg PO DAILY 05/08/17 05/08/17 [Imdur] Pramipexole Di-HCl [Mirapex ER] 0.75 mg PO HS 05/08/17 05/08/17 Previous Rx's Medication Instructions Recorded Ferrous Sulfate [Iron] 325 mg PO BID #60 tablet 09/01/16 Aspirin [Lo-Dose Aspirin EC] 81 mg PO DAILY #30 12/29/16 Atorvastatin [Lipitor] 40 mg PO HS #30 tablet 12/29/16 Lisinopril [Zestril] 20 mg PO BID 30 Days 12/29/16 Metoprolol [Lopressor] 25 mg PO BID 30 Days tablet 12/29/16 Ticagrelor [Brilinta] 90 mg PO BID 30 Days tab 12/29/16 Allergies Allergy/AdvReac Type Severity Reaction Status Date / Time No Known Allergies Allergy Verified 03/02/17 13:50 All systems ED: reviewed and negative except as stated. Constitutional: Denies: fever Cardiovascular: Reports: chest pain Respiratory: Reports: dyspnea. Denies: cough Gastrointestinal: Denies: abdominal pain, nausea, vomiting Chest Pain PMH - Past Medical History Medical history: Reports: arthritis, COPD, diabetes, GERD, hyperlipidemia, hypertension Surgical history: Reports: angioplasty/stent, appendectomy, knee replacement, other Psychiatric history: Reports: anxiety, depression - Social History Smoking Status: Former smoker Alcohol use: Reports: none Drug use: Reports: none Physical Exam - General Limitations: no limitations General appearance: alert, in no apparent distress - Head Head exam: atraumatic, normocephalic - Eye Eye exam: Present: normal appearance - ENT ENT exam: normal exam - Neck Neck exam: Present: normal inspection, full ROM - Chest Chest inspection: Present: normal inspection, symmetric chest wall rise - Respiratory Respiratory exam: Present: normal lung sounds bilaterally - Cardiovascular Cardiovascular exam: Present: regular rate, normal rhythm, normal heart sounds - Abdominal Exam Abdominal exam: Present: soft, Non-Tender. Absent: tenderness - Extremities Exam Extremities exam: Present: normal inspection, full ROM - Expanded Upper Extremity Exam Shoulder exam: Present: normal inspection, full ROM Arm exam: Present: normal inspection, full ROM Elbow exam: Present: normal inspection, full ROM Forearm/Wrist exam: Present: normal inspection, full ROM Hand exam: Present: normal inspection, full ROM - Expanded Lower Extremity Exam Hip/Pelvis exam: Present: normal inspection, full ROM Upper leg exam: Present: normal inspection, full ROM Knee exam: Present: normal inspection, full ROM Lower leg exam: Present: normal inspection, full ROM Ankle exam: Present: normal inspection, full ROM Foot/toe exam: Present: normal inspection, full ROM - Neurological Exam Neurological exam: Present: alert, other (GCS 15. Nonfocal neurologic exam.) - Psychiatric Psychiatric exam: Present: normal affect - Skin Skin exam: Present: warm, dry, intact Course Course Narrative: Patient seen and examined. Vital signs reviewed. EKG does not demonstrate any ischemic features. We will obtain chest x-ray as well as labs including troponin. We will continue the nitroglycerin trial here and reassess. - Reevaluation(s) Reevaluation #1: Patient still having pain after nitroglycerin. Morphine ordered. - Consultations Consultation #1: Attending spoke with the on-call biomedical engineering technologist Dr. Alejo. Discussed the patient' s history and recent procedure. Admit to the hospitalist service with cardiology consultation. Vital Signs Temperature 98 F 05/11/17 10:43 Pulse Rate 86 05/11/17 10:43 Respiratory Rate 18 05/11/17 10:43 Blood Pressure 164/86 05/11/17 10:43 O2 Sat by Pulse Oximetry 97 05/11/17 10:43 Temperature 98 F 05/11/17 10:43 Pulse Rate 76 05/11/17 12:49 Respiratory Rate 18 05/11/17 12:49 Blood Pressure 131/81 05/11/17 12:49 O2 Sat by Pulse Oximetry 98 05/11/17 12:49 Oxygen Delivery Oxygen Delivery Room Air Chest Pain - MDM Narrative Medical decision making narrative: 56-year-old male presents to the ER due to chest pain. Recent cardiac catheterization with 3 stents placed. EKG shows no ischemic findings. Chest x- ray unremarkable. Troponin 0.09. Patient given morphine here for pain. Case discussed with cardiology. Patient will be admitted to the hospitalist service with cardiology consultation. - Lab Data Lab results reviewed: Yes I reviewed the patient's lab results. Result diagrams: 05/11/17 11:08 05/11/17 11:08 Lab Results 05/11/17 05/11/17 05/11/17 Range/Units 11:08 11:08 11:08 WBC 9.9 (4.3-11.1) K/mcL RBC 5.20 (4.19-5.50) M/mcL Hgb 14.4 (12.9-16.9) g/dL Hct 44.2 (37.5-50.1) % MCV 85.0 (83.0-100.0) fL MCH 27.7 L (28.0-33.3) pg MCHC 32.6 (31.6-35.5) g/dL RDW 14.6 H (11.5-14.5) % Plt Count 229 (140-400) K/mcL MPV 10.1 (9.4-12.4) fL Immature Gran % 1.1 (0-4) % Seg Neutrophils % 78.6 % Lymphocytes % 11.3 % Monocytes % 7.6 % Eosinophils % 0.8 % Basophils % 0.6 % Neutrophils # 7.8 (1.6-8.9) K/mcL Lymphocytes # 1.1 (0.6-4.6) K/mcL Monocytes # 0.8 (0.0-1.3) K/mcL Eosinophils # 0.1 (0.0-0.6) K/mcL Basophils # 0.1 (0.0-0.2) K/mcL Immature Plt Fraction 3.1 (1.1-6.1) % PT 11.2 (9.4-12.1) Seconds INR 1.0 APTT 26.8 (26.0-36.0) Seconds Sodium 131 L (136-145) mEq/L Potassium 4.2 (3.5-5.1) mEq/L Chloride 99 (98-107) mEq/L Carbon Dioxide 23 (23-29) mEq/L BUN 11 (6-20) mg/dL Creatinine 0.69 L (0.70-1.30) mg/dL Est GFR ( Amer) > 60 (> 60) Est GFR (Non-Af Amer) > 60 (> 60) BUN/Creatinine Ratio 16 (6-26) Glucose 501 H* (70-105) mg/dL Calculated Osmolality 294 (280-300) Calcium 9.2 (8.6-10.3) mg/dL Troponin I (< 0.04) ng/mL 05/11/17 Range/Units 11:08 WBC (4.3-11.1) K/mcL RBC (4.19-5.50) M/mcL Hgb (12.9-16.9) g/dL Hct (37.5-50.1) % MCV (83.0-100.0) fL MCH (28.0-33.3) pg MCHC (31.6-35.5) g/dL RDW (11.5-14.5) % Plt Count (140-400) K/mcL MPV (9.4-12.4) fL Immature Gran % (0-4) % Seg Neutrophils % % Lymphocytes % % Monocytes % % Eosinophils % % Basophils % % Neutrophils # (1.6-8.9) K/mcL Lymphocytes # (0.6-4.6) K/mcL Monocytes # (0.0-1.3) K/mcL Eosinophils # (0.0-0.6) K/mcL Basophils # (0.0-0.2) K/mcL Immature Plt Fraction (1.1-6.1) % PT (9.4-12.1) Seconds INR APTT (26.0-36.0) Seconds Sodium (136-145) mEq/L Potassium (3.5-5.1) mEq/L Chloride (98-107) mEq/L Carbon Dioxide (23-29) mEq/L BUN (6-20) mg/dL Creatinine (0.70-1.30) mg/dL Est GFR ( Amer) (> 60) Est GFR (Non-Af Amer) (> 60) BUN/Creatinine Ratio (6-26) Glucose (70-105) mg/dL Calculated Osmolality (280-300) Calcium (8.6-10.3) mg/dL Troponin I 0.09 H* (< 0.04) ng/mL - Radiology Data Radiology results reviewed: Yes I reviewed the patient's radiology results. Chest X-Ray 05/11/17 10:46 IMPRESSION: Stable cardiomegaly. Minimal pulmonary vascular congestion. D/ / Mian Mendoza MD / Mian Mendoza MD Interpreting Provider: Mian Mendoza MD - EKG Data EKG attestation: Yes I reviewed and interpreted this EKG. EKG results narrative: EKG demonstrates sinus rhythm with rate of 85 bpm. Incomplete right bundle branch block. Left axis deviation. Normal R-wave progression. No gross ST elevations or depressions. No acute ischemic findings. No significant changes from previous EKG dated 12/29/16. Heart Score - Score History: Moderately Suspicious EKG: Normal Age: 45-65 Risk Factors: Equal/Greater than 3 risk factor or history of atherosclerotic disease Troponin: 1-3x normal limit HEART Score Total: 5 S.B.A.R. - S.B.A.R. Situation: Demographics, MOA Background: Presenting Complaint, Relevant PMH, Meds, & Allergies Assessment: Course and respsone to treatment, Patient/Family Expectation, Pertinant Lab Results Recommendation: Barrier(s) to disposition, Recommendation based on pending studies, treatments, or consults S.B.A.RWaylon Report Given to: Dr. Jolene Parson Repor Time: 12:53
--- NOTE | 2017-05-11 10:51 | Emergency Department Note ---
Disposition Clinical Impression: Unstable angina Diabetes Qualifiers: Diabetes mellitus type: type 2 Diabetes mellitus complication status: with hyperglycemia Diabetes mellitus regional intermodal truck driver insulin use: without regional intermodal truck driver use Qualified Code(s): E11.65 - Type 2 diabetes mellitus with hyperglycemia Disposition: Home, Self-Care Referrals: Mey Winter FLOOR REPRESENTATIVE [Primary Care Provider] - Forms: ED Satisfaction Letter General Adult HPI - General Chief complaint: ED Chest Pain Stated complaint: Chest pain Time Seen by Provider: 05/11/17 10:45 Source: patient Mode of arrival: EMS Limitations: no limitations Nursing Notes Reviewed: Yes Vital Signs Reviewed: Yes - History of Present Illness Pain Scale: 0 - Related Data Home Medications Medication Instructions Recorded Confirmed Sitagliptin Phosphate [Januvia] 50 mg PO DAILY 12/10/15 05/08/17 Venlafaxine [Effexor] 75 mg PO BID 12/10/15 05/08/17 Albuterol Sulfate [Ventolin Hfa] 18 gm IH DAILY PRN 12/20/16 05/08/17 Glimepiride [Amaryl] 4 mg PO BID 12/20/16 05/08/17 Insulin Glargine [Lantus] 38 unit SQ BID 12/20/16 05/08/17 Insulin LISPRO [HumaLOG] 10 - 15 unit SQ TID 12/20/16 05/08/17 Nitroglycerin [Nitrostat] 0.4 mg SL DAILY PRN 12/20/16 05/08/17 Omeprazole [PriLOSEC] 20 mg PO DAILY 12/20/16 05/08/17 Tramadol HCl [Ultram] 50 mg PO QID PRN 12/20/16 05/08/17 Gabapentin [Neurontin] 300 mg PO TID 12/27/16 05/08/17 rOPINIRole [Requip] 1 mg PO HS 12/27/16 05/08/17 Isosorbide MONOnitrate (24 HR) 120 mg PO DAILY 05/08/17 05/08/17 [Imdur] Pramipexole Di-HCl [Mirapex ER] 0.75 mg PO HS 05/08/17 05/08/17 Previous Rx's Medication Instructions Recorded Ferrous Sulfate [Iron] 325 mg PO BID #60 tablet 09/01/16 Aspirin [Lo-Dose Aspirin EC] 81 mg PO DAILY #30 12/29/16 Atorvastatin [Lipitor] 40 mg PO HS #30 tablet 12/29/16 Lisinopril [Zestril] 20 mg PO BID 30 Days 12/29/16 Metoprolol [Lopressor] 25 mg PO BID 30 Days tablet 12/29/16 Ticagrelor [Brilinta] 90 mg PO BID 30 Days tab 12/29/16 Allergies Allergy/AdvReac Type Severity Reaction Status Date / Time No Known Allergies Allergy Verified 03/02/17 13:50 Past Medical History - Past Medical History Medical history: Reports: arthritis, COPD, diabetes, GERD, hyperlipidemia, hypertension Surgical history: Reports: angioplasty/stent, appendectomy, knee replacement, other Psychiatric history: Reports: anxiety, depression - Social History Smoking Status: Former smoker Smokeless Tobacco Status: No Alcohol use: Reports: none Drug use: Reports: none Physical Exam - General Limitations: no limitations General appearance: alert, in no apparent distress Course Vital Signs Temperature 98 F 05/11/17 10:43 Pulse Rate 86 05/11/17 10:43 Respiratory Rate 18 05/11/17 10:43 Blood Pressure 164/86 05/11/17 10:43 O2 Sat by Pulse Oximetry 97 05/11/17 10:43 Temperature 98 F 05/11/17 10:43 Pulse Rate 88 05/11/17 11:12 Respiratory Rate 18 05/11/17 11:12 Blood Pressure 145/84 05/11/17 11:12 O2 Sat by Pulse Oximetry 98 05/11/17 11:12 Oxygen Delivery Oxygen Delivery Room Air Medical Decision Making - MDM Narrative Medical decision making narrative: This documentation is done with the assistance of Dragon dictation. Despite efforts to ensure accuracy, there may be inaccuracies in squash centre manager or spelling and typographical errors. I examined this patient and my medical decision-making was reviewed with the Resident Physician. I agree with the documented findings, disposition and treatment plan as described except to the extent set forth below. Patient seen and evaluated on arrival by Dr. Arana with EMS. I agree with his evaluation and management plan, I supervised the care of the patient's stay. Patient presents today due to chest pain. He had 3 stents placed here on May 08. He states this morning he had pressure in his chest but was going into his stomach. Took 2 nitros at home did take his aspirin this morning and did not change his pain. His initial rhythm strip from the squad they thought he had ST segment elevation but no signs of acute STEMI on that strip. Our initial EKG does not show an acute STEMI. I try to make him more comfortable. Nitroglycerin trial labs EKG chest x-ray reassess. He most likely will need admission. Chest X-Ray 05/11/17 10:46 IMPRESSION: Stable cardiomegaly. Minimal pulmonary vascular congestion. D/ / Mian Mendoza MD / Mian Mendoza MD Interpreting Provider: Mian Mendoza MD 1120 hrs.: No change with nitroglycerin. He will try pain medication and then await labs. Chest x-ray shows no acute abnormalities. 1150 hrs.: We will bring him into the hospital. She pain is better after pain medication. EKG is compared to his last EKG that was not when he was having a STEMI so I do not know what things look like after he had the stents placed. Patient does have elevated blood sugar which is consistent with his diabetes and noncompliance. The plan will be to bring him into the hospital impression is chest pain with history of stents rule out unstable angina. Versus noncardiac cause to his chest pain. Elevated blood sugar with diabetes. 1204 hrs.: Spoke with cardiology and they will consult on the patient. Jan elise hospitalist for admission. Patient's in agreement with admission. - Lab Data Result diagrams: 05/11/17 11:08 05/11/17 11:08 Lab Results 05/11/17 05/11/17 05/11/17 Range/Units 11:08 11:08 11:08 WBC 9.9 (4.3-11.1) K/mcL RBC 5.20 (4.19-5.50) M/mcL Hgb 14.4 (12.9-16.9) g/dL Hct 44.2 (37.5-50.1) % MCV 85.0 (83.0-100.0) fL MCH 27.7 L (28.0-33.3) pg MCHC 32.6 (31.6-35.5) g/dL RDW 14.6 H (11.5-14.5) % Plt Count 229 (140-400) K/mcL MPV 10.1 (9.4-12.4) fL Immature Gran % 1.1 (0-4) % Seg Neutrophils % 78.6 % Lymphocytes % 11.3 % Monocytes % 7.6 % Eosinophils % 0.8 % Basophils % 0.6 % Neutrophils # 7.8 (1.6-8.9) K/mcL Lymphocytes # 1.1 (0.6-4.6) K/mcL Monocytes # 0.8 (0.0-1.3) K/mcL Eosinophils # 0.1 (0.0-0.6) K/mcL Basophils # 0.1 (0.0-0.2) K/mcL Immature Plt Fraction 3.1 (1.1-6.1) % PT 11.2 (9.4-12.1) Seconds INR 1.0 APTT 26.8 (26.0-36.0) Seconds Sodium 131 L (136-145) mEq/L Potassium 4.2 (3.5-5.1) mEq/L Chloride 99 (98-107) mEq/L Carbon Dioxide 23 (23-29) mEq/L BUN 11 (6-20) mg/dL Creatinine 0.69 L (0.70-1.30) mg/dL Est GFR ( Amer) > 60 (> 60) Est GFR (Non-Af Amer) > 60 (> 60) BUN/Creatinine Ratio 16 (6-26) Glucose 501 H* (70-105) mg/dL Calculated Osmolality 294 (280-300) Calcium 9.2 (8.6-10.3) mg/dL Troponin I (< 0.04) ng/mL 05/11/17 Range/Units 11:08 WBC (4.3-11.1) K/mcL RBC (4.19-5.50) M/mcL Hgb (12.9-16.9) g/dL Hct (37.5-50.1) % MCV (83.0-100.0) fL MCH (28.0-33.3) pg MCHC (31.6-35.5) g/dL RDW (11.5-14.5) % Plt Count (140-400) K/mcL MPV (9.4-12.4) fL Immature Gran % (0-4) % Seg Neutrophils % % Lymphocytes % % Monocytes % % Eosinophils % % Basophils % % Neutrophils # (1.6-8.9) K/mcL Lymphocytes # (0.6-4.6) K/mcL Monocytes # (0.0-1.3) K/mcL Eosinophils # (0.0-0.6) K/mcL Basophils # (0.0-0.2) K/mcL Immature Plt Fraction (1.1-6.1) % PT (9.4-12.1) Seconds INR APTT (26.0-36.0) Seconds Sodium (136-145) mEq/L Potassium (3.5-5.1) mEq/L Chloride (98-107) mEq/L Carbon Dioxide (23-29) mEq/L BUN (6-20) mg/dL Creatinine (0.70-1.30) mg/dL Est GFR ( Amer) (> 60) Est GFR (Non-Af Amer) (> 60) BUN/Creatinine Ratio (6-26) Glucose (70-105) mg/dL Calculated Osmolality (280-300) Calcium (8.6-10.3) mg/dL Troponin I 0.09 H* (< 0.04) ng/mL
[2017-05-11] MEDS: Nitroglycerin 0.4 MG TAB.SUBL SL PRN ×3 (10:56→19:45)
[2017-05-11 11:16] LABS: Basophils # 0.1 K/mcL (0.0-0.2); Basophils % 0.6 %; Eosinophils # 0.1 K/mcL (0.0-0.6); Eosinophils % 0.8 %; Hematocrit 44.2 % (37.5-50.1); Hemoglobin 14.4 g/dL (12.9-16.9); Immature Granulocytes % 1.1 % (0-4); Immature Platelets 3.1 % (1.1-6.1); Lymphocytes # 1.1 K/mcL (0.6-4.6); Lymphocytes % 11.3 %; Mean Corpuscular HGB Conc 32.6 g/dL (31.6-35.5); Mean Corpuscular Hemoglobin 27.7 pg (28.0-33.3); Mean Platelet Volume 10.1 fL (9.4-12.4); Monocytes # 0.8 K/mcL (0.0-1.3); Monocytes % 7.6 %; Neutrophils # 7.8 K/mcL (1.6-8.9); Platelet Count 229 K/mcL (140-400); Red Cell Distribution Width 14.6 % (11.5-14.5); Segmented Neutrophils % 78.6 %
[2017-05-11 11:27] LABS: Prothrombin Time 11.2 Seconds (9.4-12.1)
[2017-05-11 11:30] LABS: Activated Partial Thrombo Time 26.8 Seconds (26.0-36.0)
[2017-05-11 11:35] LABS: BUN/Creatinine Ratio 16 (6-26); Blood Urea Nitrogen 11 mg/dL (6-20); Calcium 9.2 mg/dL (8.6-10.3); Carbon Dioxide 23 mEq/L (23-29); Chloride 99 mEq/L (98-107); Glucose 501 mg/dL (70-105); Osmolality,Calculated 294 (280-300); Potassium 4.2 mEq/L (3.5-5.1); Sodium 131 mEq/L (136-145); eGFR For African Americans > 60 (> 60); eGFR For Non-African Americans > 60 (> 60)
[2017-05-11] MEDS ORDERED: *HR* Morphine 2 MG/ML SYRINGE IVP ONE (11:37)
[2017-05-11] MEDS ORDERED: *HR* Ticagrelor 90 MG TABLET PO ONE (12:50)
--- NOTE | 2017-05-11 13:05 | Cardiology Consult Note ---
<AzinDennyLila L - Last Filed: 05/11/17 13:07> Date of Encounter: 05/11/17 Time of Encounter: 12:30 Assessment and Plan (1) ACS (acute coronary syndrome) Current Visit: Yes Status: Acute Secondary to missed Brilinta doses. Ischemic ECG changes, initial troponin 0.09. Chest pressure improved, still "mild" Recent multivessel PCI on 05/08/17--patient reports he has not been taking Brilinta (reports insurance required prior authorization). Brilinta 180 mg PO now. Recommend [facility] to evaluate patency of stents. Alternatives, risks, and benefits discussed, he is agreeable to proceed. Continue asa, statin, betablocker, nitrates, ranexa, and ACEi. ECG/pt reviewed with Dr. Alejo. Further recommendations to follow [facility]. (2) CAD (coronary artery disease), [place] coronary artery Current Visit: Yes Status: Acute Plan as stated above. Qualifiers: [place] vs. transplanted heart: [place] heart Associated angina: with unstable angina Qualified Code(s): I25.110 - Atherosclerotic heart disease of [place] coronary artery with unstable angina pectoris (3) Diabetes Current Visit: Yes Status: Chronic Poorly controlled as outpatient. Defer further mgmt to Primary service. Qualifiers: Diabetes mellitus type: type 2 Diabetes mellitus complication status: with hyperglycemia Diabetes mellitus shelter insulin use: unspecified ocean transportation intermediary insulin use status Qualified Code(s): E11.65 - Type 2 diabetes mellitus with hyperglycemia Discussion w patient/family: The assessment and plan as outlined above was discussed with the patient and/or family members who expressed understanding and agreement. All questions were answered. Thank you for involving us in the care of your patient. Please call with any questions. The patient was discussed and reviewed with Dr. Alejo; changes to be made accordingly. History of Present Illness Consult date: 05/11/17 Requesting physician: Job Arana Consult reason: Elevated troponin, CP Chief complaint: Chest Pain History of present illness: Mr. Covington is a 56 year old male with PMHx significant for poorly controlled DMII, COPD, GERD, anxiety, HTN, HLD, and CAD s/p recent PCI who presented to [facility] ED via EMS due to severe chest pressure and heaviness. Patient reports pain abruptly started this AM with radiation down stomach and to bilateral arms. Reports discomfort similar to prior [place] but worse in severity. Took x4 baby ASA at home which did not improve symptoms. Upon arrival to ED, troponin 0.09, ischemic ECG changes noted. Pain improved with IV morphine. Recent multivessel PCI on 05/08/17; unfortunately patient was unable to fill Brilinta rx, reports needed a prior authorization and therefore has been taking asa-81 mg only. Recent CV testing: TTE 12/27/16: LVEF 65%, moderate LVDD, normal wall motion LHC 05/08/17: successful PTCA/MARYBETH in the mLCx, prox OM, and mid Ramus; bifurcation lesion monique 1,1,1, unable to perform final kissing balloon inflation, severe residual small vessel disease Past Med Surg Social Fam HX - Past Medical History Attestation: Yes The following information was validated with the patient. Medical history: arthritis, COPD, coronary artery disease, diabetes, GERD, hyperlipidemia, hypertension Psychiatric history: anxiety, depression - Past Surgical History Surgical History: angioplasty/stent, appendectomy, knee replacement, other - Social History Smoking Status: Former smoker Smokeless Tobacco Status: No Alcohol use: none Drug use: none - Family History Mother Adopted: Yes (foster child) Medications and Allergies Sitagliptin Phosphate [Januvia] 100 mg PO DAILY 12/10/15 [History] Venlafaxine [Effexor] 75 mg PO BID 12/10/15 [History] Ferrous Sulfate [Iron] 325 mg PO BID #60 tablet 09/01/16 [Rx] Albuterol Sulfate [Ventolin Hfa] 1 - 2 puff IH Q6H PRN 12/20/16 [History] Glimepiride [Amaryl] 4 mg PO BID 12/20/16 [History] Insulin Glargine [Lantus] 40 unit SQ BID 12/20/16 [History] Insulin LISPRO [HumaLOG] 10 - 15 unit SQ TID 12/20/16 [History] Nitroglycerin [Nitrostat] 0.4 mg SL DAILY PRN 12/20/16 [History] Omeprazole [PriLOSEC] 20 mg PO DAILY 12/20/16 [History] Tramadol HCl [Ultram] 50 mg PO QID PRN 12/20/16 [History] rOPINIRole [Requip] 1.5 mg PO HS 12/27/16 [History] Aspirin [Lo-Dose Aspirin EC] 81 mg PO DAILY #30 12/29/16 [Rx] Atorvastatin [Lipitor] 40 mg PO HS #30 tablet 12/29/16 [Rx] Lisinopril [Zestril] 20 mg PO BID 30 Days 12/29/16 [Rx] Metoprolol [Lopressor] 25 mg PO BID 30 Days tablet 12/29/16 [Rx] Ticagrelor [Brilinta] 90 mg PO BID 30 Days tab 12/29/16 [Rx] Isosorbide MONOnitrate (24 HR) [Imdur] 120 mg PO DAILY 05/08/17 [History] Pramipexole Di-HCl [Mirapex ER] 0.75 mg PO HS 05/08/17 [History] Gabapentin [Neurontin] 400 mg PO TID 05/11/17 [History] Ranolazine [Ranexa] 500 mg PO BID 05/11/17 [History] Ticagrelor [Brilinta] 90 mg PO BID #60 tablet 05/11/17 [Rx] 3 Allergy/AdvReac Type Severity Reaction Status Date / Time No Known Allergies Allergy Verified 03/02/17 13:50 All Systems Review: A 10-system review of systems was performed and is negative for pertinent findings except as documented above in the HPI. - Cardiovascular Cardiovascular: as per HPI Physical Examination Vital Signs, Last 4 Hours Temp Pulse Resp BP Pulse Ox 05/11/17 12:49 76 18 131/81 98 05/11/17 11:12 88 18 145/84 98 05/11/17 10:51 97 05/11/17 10:43 98 F 86 18 164/86 97 General: Conversant, Other (morbidly obese) HEENT: Atraumatic, Normocephaly Cardiac: Reg Rate and Rhythm, Normal S1 and S2 Lungs: Normal Breath Sounds Neuro: Alert and responsive Abdomen: Soft Skin: No rashes noted on visualized skin Musculoskeletal: No Chest Wall Tenderness Extremities: No Edema, Normal Pulses Results 05/11/17 11:08 05/11/17 11:08 Lab Results 05/11/17 05/11/17 05/11/17 11:08 11:08 11:08 WBC 9.9 Hgb 14.4 Hct 44.2 Plt Count 229 INR 1.0 APTT 26.8 Sodium 131 L Potassium 4.2 Chloride 99 Carbon Dioxide 23 BUN 11 Creatinine 0.69 L Glucose 501 H* Calcium 9.2 Troponin I 05/11/17 11:08 WBC Hgb Hct Plt Count INR APTT Sodium Potassium Chloride Carbon Dioxide BUN Creatinine Glucose Calcium Troponin I 0.09 H* - Imaging and Cardiology Echo: report reviewed Cardiac cath: report reviewed - EKG Interpretation EKG results cardiology: personally reviewed Consult Discharge Plan - Plan Referrals: Mey Winter, [employer] [Primary Care Provider] - Prescriptions: Ticagrelor [Brilinta] 90 mg PO BID #60 tablet <Rajendra Alejo Monika - Last Filed: 05/11/17 22:51> Date of Encounter: 05/11/17 - Attending Attestation I have personally performed a face to face evaluation on this patient. I have reviewed and agree with the care plan. History and Exam by me shows: IMP 1. Chest pain: Chest pain consistent with previous anginal pain, pt self discontinued dual antiplatelet tx, ischemic EKG changes, will reload with Brillinta, urgent C, discussed risks and benefits, pt agrees to proceed. 2. CAD: severe single vessel dx, recent PCI with MARYBETH Cx, OM1, mid ramus, noted small vessels diffuse disease, Assessment and Plan Discussion w patient/family: The assessment and plan as outlined above was discussed with the patient and/or family members who expressed understanding and agreement. All questions were answered. Thank you for involving us in the care of your patient. Please call with any questions. History of Present Illness History of present illness: Mr. Covington is a 56 year old male All Systems Review: A 10-system review of systems was performed and is negative for pertinent findings except as documented above in the HPI. Physical Examination Vital Signs, Last 4 Hours Temp Pulse Resp BP Pulse Ox 05/11/17 19:49 81 119/70 05/11/17 19:43 98.1 F 74 14 133/69 96 05/11/17 19:40 98.0 F 68 16 106/64 96 Results 05/11/17 11:08 05/11/17 11:08 Lab Results 05/11/17 16:47 Troponin I 0.43 H*
--- NOTE | 2017-05-11 13:49 | Pre-Sedation Evaluation ---
Pre-sedation evaluation - Pre-sedation checklist Procedure: [facility] Recent Vitals: Last Vital Signs Temp 98 F 05/11/17 10:43 Pulse 84 05/11/17 13:36 Resp 18 05/11/17 13:36 BP 116/77 05/11/17 13:36 Pulse Ox 98 05/11/17 13:36 H&P (including ROS) documented in medical record: Yes Previous reaction to sedatives/anesthetics: No Dietary Status: NPO after Midnight Dentition: No loose teeth or bridges ASA Classification *see protocol: CLASS II-Mild systemic disease Plan of Care: Pt appropriate candidate for procedure/moderate/conscious sedation , Risks/benefits of procedure/sedation discussed w/ patient/family
[2017-05-11] MEDS ORDERED: 0.9 % Sodium Chloride 1,000 ML ONE ×2 (13:51→14:13)
[2017-05-11] MEDS ORDERED: Nitroglycerin 1,000 MCG/10 ML VIAL IV ONE (13:51)
[2017-05-11] MEDS ORDERED: Heparin 1,000 UNITS/500 mL 500 ML ONE (13:51)
[2017-05-11] MEDS ORDERED: *HR* Heparin 10,000 UNIT/10 ML VIAL ONE (13:51)
[2017-05-11] MEDS ORDERED: *HR* Midazolam HCl 5 MG/5 ML VIAL IVP ONE (14:36)
[2017-05-11] MEDS ORDERED: *HR* FentaNYL (PF) 250 MCG/5 ML VIAL ONE (14:37)
--- NOTE | 2017-05-11 15:11 | Event Note ---
Date of Encounter: 05/11/17 Time of Encounter: 15:00 - Cardiology Event Note Rx for Brilinta 90 mg BID with 30-day card given to nursing staff. Patient will get Rx filled today by [facility] pharmacy and 30 day supply to be delivered to room prior to discharge. Will contact office to ensure prior-authorization has been completed.
--- NOTE | 2017-05-11 15:19 | Invasive Diagnostic Lab Proc ---
Name: Gurvinder Covington Date of Study: 05/11/2017 Date: 1960 Ht: 70.1in Medical Record#: [id number] Age: 56 Wt: 253.53lb Gender: Male BSA: 2.31 Order #: [id number] BMI: 36.3 Physicians Procedure Physician: Vaibhav Michelle MD, [facility] Referring MD: Referring MD: Indications Indication Non-Stemi Procedures Performed Procedure L HRT ARTERY/VENTRICLE ANGIO Pre-Procedure Checklist Informed consent is complete signed and on chart. H&P is on chart. ID band is on and ID verified with patient. Patient NPO for procedure The procedure was described for the patient and questions were answered. Blood Pressure: 131/81 ECG is on chart. Rhythm: NSR Plan of Care Patient will tolerate the procedure without complications. Adequate level of comfort will be maintained. Hemodynamics will remain stable Patient will recover from procedure without complications. Respiratory function will be maintained. Cardiac rhythm will remain stable. Patient temperature will be maintained. Patient and/or family have verbalized understanding of the procedure. Patient Education Chief Complaint/Reason for Test: Cardiac Cath Developmental Category: Adult (18-64 years) Developmentally Appropriate for Age: Yes Learning Barriers: None Education Needs: Procedure Education Method: Verbal Information Taught: Cardiac Cath Educational Evaluation: Able to repeat information Intravenous Access Time IV Size Location DC'd Fluid/Drip Rate Units RN 02:10 PM 20g 1 1/4" Patent On Arrival Lt Antecubital 0.9NaCl 25 ml/hr Sharon Marcus RN Allergies No Known Allergies Vital Signs Time BP (mmHg) HR (bpm) O2 Sat. RR (bpm) LOC 02:13 PM / % 5 = Fully awake and oriented or at pre-proc level 02:13 PM / % 5 = Fully awake and oriented or at pre-proc level 02:30 PM / % 4 = Oriented but drowsy 02:26 PM 137 / 83 75 100 % 14 02:31 PM 138 / 82 75 99 % 20 02:36 PM 137 / 82 74 96 % 20 02:42 PM 137 / 71 76 98 % 13 02:46 PM 119 / 74 83 94 % 19 02:52 PM 141 / 85 84 94 % 20 02:56 PM 132 / 83 75 98 % 12 02:21 PM 137 / 88 77 94 % 16 02:45 PM / % 4 = Oriented but drowsy Procedural Medications Time Medication Dose Units Method Given By 02:38 PM Versed 3 mg Intravenous Sharon Marcus RN 02:38 PM Fentanyl 75 mcg Intravenous Sharon Marcus RN 02:39 PM Benadryl 50 mg Intravenous Sharon Marcus RN 02:44 PM Lidocaine 2% 19 ml Subcutaneous Vaibhav Michelle MD, FACC 02:09 PM Oxygen 2 L/min nasal cannula Sharon Marcus RN ASA Classification: CLASS II- Mild systemic disease (i.e. well-controlled diabetes, hypertension, asthma, cigarette smoking) Lottie Score Preprocedure Postprocedure Activity 2- Moves 4 extremities sustained head lift Activity 2- Moves 4 extremities sustained head lift Circulation 2- SBP +/= 20 points of pre-anesthetic level Circulation 2- SBP +/= 20 points of pre-anesthetic level Consciousness 2- Awake and alert oriented x 3 Consciousness 2- Awake and alert oriented x 3 O2 Saturation 2- Able to maintain O2 satruation of 92% on room air O2 Saturation 2- Able to maintain O2 satruation of 92% on room air Respiratory 2- Able to deep breathe and cough well Respiratory 2- Able to deep breathe and cough well Total Score 10 Total Score 10 Contrast Agent: Isovue Diagnostic Contrast: 49 ml Total Contrast: 49 ml Fluoro Dose: 184 mGy Procedure Log Time Note Enter By 04:09 AM Time: 14:09 Oxygen on at 2 L/min per nasal cannula by Sharon Marcus RN ejohnson 01:42 PM CathStat 02:06 PM Pt arrived to blood bank laboratory technologist 2 at 14:06 tsites 02:10 PM Patient charges- Angio tray pack, Navilyst 3mm J, Pulse Oximetry and ACIST tubing and transducer ejohnson 02:10 PM Case Delayed No ejohnson 02:11 PM Hair removed from procedure site in procedure lab using clippers. Right wrist and bialteral groin prepped with Chloraprep by Deirdre Ledesma RT (R), safety strap applied then patient was draped. Skin intact. ejohnson 02:11 PM Physician arrived 14:11 ejohnson 02:11 PM Meet and greet completed ejohnson 02:11 PM Sign in performed according to hospital policy. ejohnson 02:11 PM Procedure start 14:11 ejohnson 02:12 PM ASA Class CLASS II- Mild systemic disease (i.e. well-controlled diabetes, hypertension, asthma, cigarette smoking) ejohnson 02:13 PM Time: 14:13 Patient comfortable and pain free: Yes ejohnson 02:13 PM Time: 14:13LOC: 5 = Fully awake and oriented or at pre-proc level ejohnson 02:16 PM Recorded ECG: HR=87 Condition=Condition 1 02:16 PM Recorded ECG: HR=78 Condition=Condition 1 02:18 PM abdomen fold red bilateral and has a 3cm-4cm slit/open area on the right side where the skin fold is. ejohnson 02:21 PM Vitals capture started with the following parameters, Patient=Adult, Interval=5 min, Initial Dgsakhkm=831 mmHg, Deflation Rate=5 mmHg, Cuff placed on Left Arm 02:21 PM HR=77 bpm, MLTT=391/88 mmhg, SpO2=94.0 %, Resp=16 B/min, Comment=SR 02:26 PM HR=75 bpm, GZOH=115/83 mmhg, FhT5=239.0 %, Resp=14 B/min, Comment=SR 02:30 PM Time: 14:13LOC: 5 = Fully awake and oriented or at pre-proc level ejohnson 02:30 PM Time: 14:13 Patient comfortable and pain free: Yes ejohnson 02:31 PM HR=75 bpm, NNYR=676/82 mmhg, SpO2=99.0 %, Resp=20 B/min, Comment=SR 02:36 PM HR=74 bpm, XGVD=512/82 mmhg, SpO2=96.0 %, Resp=20 B/min, Comment=SR 02:38 PM Time: 14:38 Versed 3 mg Intravenous Given by Sharon Marcus RN ejohnsliz 02:38 PM Time: 14:38 Fentanyl 75 mcg Intravenous Given by Sharon Marcus RN ejohnsliz 02:39 PM Time: 14:39 Benadryl 50 mg Intravenous Given by Sharon Marcus RN ejohnsliz 02:42 PM HR=76 bpm, RTRU=331/71 mmhg, SpO2=98.0 %, Resp=13 B/min, Comment=SR 02:42 PM Time out performed according to hospital policy ejohnson 02:44 PM Time: 14:44 19 ml Lidocaine 2% to right groin Subcutaneous Given by Vaibhav Michelle MD, [facility] ejohnson 02:44 PM Access obtained by percutaneous puncture. 5Fr 10cm Terumo [place] sheath placed in right Femoral artery. [id number] ejohnson 02:45 PM 5Fr FL 4 catheter inserted over the wire DN ejohnson 02:45 PM Recorded Pressure: Ao, HR=83, Condition=Condition 1 (Aorta) Ao 103/80/91 02:45 PM Time: 14:30 Patient comfortable and pain free: Yes ejohnson 02:45 PM Time: 14:30LOC: 4 = Oriented but drowsy ejohnson 02:46 PM LCA angiography performed in multiple views. ejohnson 02:46 PM HR=83 bpm, ZNXW=236/74 mmhg, SpO2=94.0 %, Resp=19 B/min, Comment=SR 02:47 PM Catheter removed ejohnson 02:47 PM 5Fr FR 4 catheter inserted over the wire DN ejohnson 02:49 PM Recorded Pressure: Ao, HR=73, Condition=Condition 1 (Aorta) Ao 102/78/91 02:50 PM RCA angiography performed in multiple views. ejohnson 02:50 PM 5Fr Pigtail catheter inserted over the wire DN ejohnson 02:50 PM Catheter selectively placed in left ventricle ejohnson 02:51 PM Recorded Pressure: LV, HR=96, Condition=Condition 1 (Left Ventricle) LV 127/-4/10 02:51 PM Bolus angiogram of left Ventricle complete: 1030 ml/sec for a total of mls ejohnson 02:52 PM Recorded Pressure: LV, Ao, HR=80, Condition=Condition 1 (Left Ventricle) LV 138/0/36, (Aorta) Ao 114/51/84 02:52 PM Catheter removed ejohnson 02:52 PM HR=84 bpm, NXHU=146/85 mmhg, SpO2=94.0 %, Resp=20 B/min, Comment=SR 02:52 PM Bolus angiogram of right Femoral complete: 2 ml/sec for a total of 4 mls ejohnson 02:54 PM Procedure completed at 14:54 ejohnson 02:54 PM Arterial sheath pulled, Mynx closure device used and was Successful ejohnson 02:55 PM Sign out completed: Radiation Dose 183.6 mGy Fluoro Time: 1.6 Isovue 370 - 200ml contrast 49 ml given by Vaibhav Michelle MD, [facility]. Complications: NoneCardiac Rehab Consult needed: NoConfirmed administered medications: Yes ejohnson 02:56 PM HR=75 bpm, UHSB=967/83 mmhg, SpO2=98.0 %, Resp=12 B/min, Comment=SR 02:57 PM Isovue 370 - 200ml,1 Bottle(s) used. ejohnson 02:58 PM Estimated Blood Loss: minimal ejohnson 02:58 PM Post ECG NSR ejohnson 02:58 PM Post Blood Pressure 132/83 ejohnson 02:58 PM 14:58 Post Pulses Bilateral DP & PT 1+ ejohnson 02:59 PM Information taught Mynx and Cardiac Cath ejohnson 02:59 PM Education needs Plan of Care and Responsibilities of Patient in Care ejohnson 02:59 PM Learning barriers :None ejohnson 02:59 PM Education Methods Verbal ejohnson 02:59 PM Education evaluation Able to repeat information ejohnson 02:59 PM Site status No bleeding/hematoma - Rt Groin as reported by Yanet Pacheco RT (R) at 14:59 ejohnson 02:59 PM Opsite applied ejohnson 02:59 PM Plavix, Effient or Brilinta given Yes in the ER ejohnson 03:00 PM Family not available at this time. ejohnson 03:00 PM Time: 14:45 Patient comfortable and pain free: Yes ejohnson 03:00 PM Time: 14:45LOC: 4 = Oriented but drowsy ejohnson 03:00 PM Coronary Dominance: Left ejohnson 03:01 PM Lesion found in Proximal RCA. Pre Stenosis: 99 ejohnson 03:01 PM Lesion found in Mid RCA. Pre Stenosis: 100 ejohnson 03:01 PM Right Coronary, Right Posterior Descending Arteries with Right Posterolateral and Acute Marginal branches with 100 % stenosis. ejohnson 03:01 PM Lesion found in Mid LAD. Pre Stenosis: 80 ejohnson 03:02 PM Mid/Distal Left Anterior Descending Coronary Artery and diagonal branches with 80% stenosis. ejohnson 03:12 PM Report given to Inessa OLVERA Pt taken to 3B Room #16. 15:12 ejohnson 03:12 PM Delay to floor No ejohnson 03:12 PM Patient out of room: 15:12 ejohnson Complications Complication None Hemodynamics Pressures Site Systolic/A Wave Diastolic/V Wave Mean AO 103 80 91 AO 102 78 91 LV 127 -4 10 LV 138 0 36 AO 114 51 84 Post Procedure Information Blood Pressure: 132/83 mmHg Rhythm: NSR Post procedural instructions were given Closure Device Time Device Success/Fail 05/11/2017 2:55:00 PM Mechanical Compression Successful Site Checks Time Location Status Staff Sheath In? Note 02:59 PM Rt Groin No bleeding/hematoma Yanet Pacheco RT (R) Pulses Time Site Pre-Procedure Post-Procedure Note 05/11/2017 2:10:00 PM Bilateral DP & PT 1+ 05/11/2017 2:10:00 PM Bilateral radial 2+ 2:58:00 PM Bilateral DP & PT 1+ Updated by Helen Rodriguez RN on 05/11/2017 3:13:15 PM Helen Rodriguez RN electronically signed on 05/11/2017 3:13:44 PM with status of Final
[2017-05-11] MEDS ORDERED: Nitroglycerin 0.4 MG TAB.SUBL SL PRN (16:22)
[2017-05-11] MEDS ORDERED: *HR* Dextrose 50 % in Water (Syg) 50 ML SYRINGE IVP PRN ×2 (16:25→16:48)
[2017-05-11] MEDS ORDERED: Naloxone 0.4 MG/ML INJ IVP PRN (16:25)
[2017-05-11] MEDS ORDERED: Dextrose Gel 15 GM/37.5 ML TUBE PO PRN ×4 (16:25→16:48)
[2017-05-11] MEDS ORDERED: D5% in Water 1,000 ML IVC PRN ×2 (16:25→16:48)
[2017-05-11] MEDS ORDERED: *HR* Promethazine 25 MG/ML VIAL IVP PRN (16:32)
[2017-05-11] MEDS ORDERED: Ondansetron 4 MG/2 ML VIAL IVP PRN (16:32)
--- NOTE | 2017-05-11 16:42 | Internal Med History&Physical ---
<Loyd Lopez - Last Filed: 05/11/17 16:39> Date of Encounter: 05/11/17 Time of Encounter: 16:39 Assessment and Plan (1) Chest pain Status: Acute Patient presents today with chest pain, shortness of breath, and diaphoresis. Recently underwent left heart catheter on 05/08/17 finding triple-vessel disease requiring PTCA. There is some concern of reocclusion of stents from as the patient has now been able to afford his Proventil and missed doses. He was taken to the catheter lab this afternoon. He received 180 mg brillinta this afternoon. -restart brillinta - cardiac enzymes x 2 q 6 hr - EKG after cath - ASA 81mg -Resume BB, DAGOBERTO I, Nitrates, Ranexa and - O2 by NC to keep SpO2 greater than 92% - Urine toxic screen - CBCD, BMP in AM -Resume home meds - Heparin 5000 U SQ BID - Cardiology consulted and will follow Qualifiers: Chest pain type: unspecified Qualified Code(s): R07.9 - Chest pain, unspecified (2) CAD (coronary artery disease), [place] coronary artery Status: Acute Qualifiers: [place] vs. transplanted heart: [place] heart Associated angina: with unstable angina Qualified Code(s): I25.110 - Atherosclerotic heart disease of [place] coronary artery with unstable angina pectoris (3) Elevated troponin Status: Acute See plan above (4) Hypertension Status: Chronic Stable. Continue lisinopril, Imdur and metoprolol Qualifiers: Hypertension type: unspecified secondary hypertension Qualified Code(s): I15.9 - Secondary hypertension, unspecified; I15 - Secondary hypertension (5) Hyperlipidemia Status: Chronic Resume statin Qualifiers: Hyperlipidemia type: unspecified Qualified Code(s): E78.5 - Hyperlipidemia , unspecified (6) COPD (chronic obstructive pulmonary disease) Status: Chronic Stable. Continue home bronchodilators Qualifiers: COPD type: emphysema Emphysema type: unspecified Qualified Code(s): J43.9 - Emphysema, unspecified (7) Diabetes Status: Chronic Poorly controlled type 2 diabetes. Start medium sliding scale insulin coverage with before meals and at bedtime Accu-Cheks and diabetic diet. Resume basal insulin at home dose Qualifiers: Diabetes mellitus type: type 2 Diabetes mellitus complication status: with hyperglycemia Diabetes mellitus intermediate accountant insulin use: unspecified intermediate accountant insulin use status Qualified Code(s): E11.65 - Type 2 diabetes mellitus with hyperglycemia (8) DVT prophylaxis Status: Acute Heparin 5000 units subcutaneous twice a day Internal Medicine - H&P: HPI Chief complaint: Chest pain Admitted From: Home Plans for Post Hospital Care: Home History of present illness: Mr. Covington is a 56 year old male who is a former smoker with a past medical history of arthritis, COPD, DM, GERD, HLD, HTN and angioplasty with stents. He was recently here on 05/08/17 and found to have three-vessel disease resulting in PTCA. He reports that he is once again experiencing chest pain. He reports chest pain began at approximately 7:30 this morning and described as midsternal pressure with radiation to the right shoulder. The patient is also experiencing shortness of breath and diaphoresis as well as nausea. He denies any fever, chills, edema, lower extremity swelling or pain. Workup in the ED reveals an elevated troponin of 0.09. Due to continued chest pain status post recent Past Med Surg Social Fam HX - Past Medical History Medical history: arthritis, COPD, coronary artery disease, diabetes, GERD, hyperlipidemia, hypertension Psychiatric history: anxiety, depression - Past Surgical History Surgical History: angioplasty/stent, appendectomy, knee replacement, other - Social History Smoking Status: Former smoker Smokeless Tobacco Status: No Alcohol use: none Drug use: none - Family History Mother Adopted: Yes (foster child) Internal Medicine - H&P: Meds Sitagliptin Phosphate [Januvia] 100 mg PO DAILY 12/10/15 [History] Venlafaxine [Effexor] 75 mg PO BID 12/10/15 [History] Albuterol Sulfate [Ventolin Hfa] 1 - 2 puff IH Q6H PRN 12/20/16 [History] Glimepiride [Amaryl] 4 mg PO BID 12/20/16 [History] Insulin Glargine [Lantus] 40 unit SQ BID 12/20/16 [History] Insulin LISPRO [HumaLOG] 3 - 4 unit SQ TID 12/20/16 [History] Nitroglycerin [Nitrostat] 0.4 mg SL DAILY PRN 12/20/16 [History] Omeprazole [PriLOSEC] 20 mg PO DAILY 12/20/16 [History] Tramadol HCl [Ultram] 50 mg PO Q6H PRN 12/20/16 [History] rOPINIRole [Requip] 1.5 mg PO HS 12/27/16 [History] Aspirin [Lo-Dose Aspirin EC] 81 mg PO DAILY #30 12/29/16 [Rx] Atorvastatin [Lipitor] 40 mg PO HS #30 tablet 12/29/16 [Rx] Lisinopril [Zestril] 20 mg PO BID 30 Days 12/29/16 [Rx] Metoprolol [Lopressor] 25 mg PO BID 30 Days tablet 12/29/16 [Rx] Ticagrelor [Brilinta] 90 mg PO BID 30 Days tab 12/29/16 [Rx] Isosorbide MONOnitrate (24 HR) [Imdur] 120 mg PO DAILY 05/08/17 [History] Pramipexole Di-HCl [Mirapex ER] 0.75 mg PO HS 05/08/17 [History] Gabapentin [Neurontin] 400 mg PO TID 05/11/17 [History] Ranolazine [Ranexa] 500 mg PO BID 06/05/17 [History] 3 Allergy/AdvReac Type Severity Reaction Status Date / Time No Known Allergies Allergy Verified 03/02/17 13:50 All Systems PM: A 10-system review of systems was performed and is negative for pertinent findings except as documented above in the HPI. Review of systems: REVIEW OF SYSTEMS GENERAL: Negative for any nausea, vomiting, fevers, chills, or weight loss. NEUROLOGIC: Negative for any blurry vision, blind spots, double vision, facial asymmetry, dysphagia, dysarthria, hemiparesis, hemisensory deficits, vertigo, ataxia. HEENT: Negative for any head trauma, neck trauma, neck stiffness, photophobia, phonophobia, sinusitis, rhinitis. CARDIAC: Positive for chest pain, shortness of breath and diaphoresis. Negative for edema PULMONARY: Negative for any shortness of breath, wheezing, COPD, or TB exposure. GASTROINTESTINAL: Negative for any abdominal pain, nausea, vomiting, bright red blood per rectum, melena. GENITOURINARY: Negative for any dysuria, hematuria, incontinence. INTEGUMENTARY: Negative for any rashes, cuts, insect bites. RHEUMATOLOGIC: Negative for any joint pains, photosensitive rashes, history of vasculitis or kidney problems. HEMATOLOGIC: Negative for any abnormal bruising, frequent infections or bleeding. - Constitutional Vitals: Temp Pulse Resp BP Pulse Ox 97.9 F 80 14 129/84 94 05/11/17 15:45 05/11/17 16:00 05/11/17 16:00 05/11/17 16:00 05/11/17 16:05 General appearance: Present: cooperative, A&O X 3, no acute distress, answers questions appropriately Exam: PHYSICAL EXAMINATION: GENERAL: The patient is a well-developed, well-nourished male in no apparent distress. He is alert and oriented x3. VITAL SIGNS: Temperature 98.4, pulse 72, respirations 18, blood pressure 146/78 , and O2 saturation 96% on room air. HEENT: Head is normocephalic and atraumatic. Extraocular muscles are intact. Pupils are equal, round, and reactive to light and accommodation. Nares appeared normal. Mouth is well hydrated and without lesions. Mucous membranes are moist. Posterior pharynx clear of any exudate or lesions. NECK: Supple. No carotid bruits. No lymphadenopathy or thyromegaly. LUNGS: Clear to auscultation. HEART: Regular rate and rhythm without murmur. ABDOMEN: Soft, nontender, and nondistended. Positive bowel sounds. No hepatosplenomegaly was noted. EXTREMITIES: Without any cyanosis, clubbing, rash, lesions or edema. Right groin soft, nontender no hematoma noted, no bleeding NEUROLOGIC: Cranial nerves II through XII are grossly intact. PSYCHIATRIC: Flat affect, but denies suicidal or homicidal ideations. SKIN: No ulceration or induration present. Internal Med - H&P Results - Labs CBC & Chem 7: 05/11/17 11:08 05/11/17 11:08 - EKG Data -: EKG Interpreted by Myself EKG shows normal: sinus rhythm - EKG Data Prior EKG available for review: yes When compared to previous EKG: there is no significant change Interpretation IM: normal EKG EKG comments: Normal sinus rhythm rate of 85, no ST elevation or depressions. 05/11/17 16:46 - Diagnostic Studies Chest x-ray Status: image reviewed by me Additional comments: Stable cardiomegaly with minimal pulmonary vascular congestion <Ailyn Fernández - Last Filed: 06/08/17 09:33> Date of Encounter: 06/08/17 Internal Medicine - H&P: HPI History of present illness: Mr. Covington is a 56 year old male All Systems PM: A 10-system review of systems was performed and is negative for pertinent findings except as documented above in the HPI. - Constitutional Vitals: Temp Pulse Resp BP Pulse Ox 98 F 67 17 142/84 96 05/12/17 06:36 05/12/17 08:19 05/12/17 06:36 05/12/17 08:19 05/12/17 06:36 Internal Med - H&P Results - Labs CBC & Chem 7: 05/12/17 06:05 05/12/17 07:44 - Attending Attestation I personally and independently interviewed and examined the patient with RESPIRATORY THERAPIST, and I reviewed the patient's medical record with her. I am in agreement with the assessment and proposed treatment plan. I discussed my findings and recommendation with the patient and answer all questions. The patient's medical records were edited to accurately reflect this encounter.
[2017-05-11] MEDS: traMADol 50 MG TABLET PO PRN (18:24)
--- NOTE | 2017-05-11 19:30 | Electrocardiograph Report ---
[place] [id number] Test Date: 2017-05-11 Pat Name: Gurvinder Covington Department: 103 Room: 3B16 Gender: M Glue Cook: LIAM : 1960 Requested By: Cezar Muñiz Order Number: [id number] Reading MD: Vaibhav Michelle MD Measurements Intervals [place] Rate: 85 P: 49 MT: 180 QRS: -73 QRSD: 104 T: 72 QT: 366 QTc: 408 Interpretive Statements SINUS RHYTHM INCOMPLETE RIGHT BUNDLE BRANCH BLOCK LEFT ANTERIOR FASCICULAR BLOCK LEFT VENTRICULAR HYPERTROPHY AND ST-T CHANGE Electronically Signed On 05-11-2017 19:28:17 EST by Vaibhav Michelle MD
[2017-05-11] MEDS ORDERED: *HR* Morphine 2 MG/ML SYRINGE IVP PRN (20:24)
[2017-05-11] MEDS ORDERED: *HR* Morphine 2 MG/ML SYRINGE ONE (20:29)
[2017-05-11] MEDS: Lisinopril 20 MG TABLET PO SCH (20:32)
[2017-05-11] MEDS: Gabapentin 400 MG CAPSULE PO SCH (20:32)
[2017-05-11] MEDS: *HR* Ticagrelor 90 MG TABLET PO SCH (20:32)
[2017-05-11] MEDS: Ranolazine 500 MG TAB.ER.12H PO SCH (20:33)
[2017-05-11] MEDS: Insulin DETEMIR 100 UNIT/ML X5UNITS SQ SCH (20:34)
[2017-05-11] MEDS ORDERED: *HR* Ticagrelor 90 MG TABLET PO SCH ×2 (21:00)
[2017-05-11] MEDS ORDERED: rOPINIRole 1 MG TABLET PO SCH (21:00)
[2017-05-11] MEDS ORDERED: PRAMIPEXOLE DI HCL 0.75 MG PO SCH (21:00)
[2017-05-11] MEDS ORDERED: Insulin LISPRO 300 UNITS/3 ML VIAL SQ SCH (21:00)
[2017-05-12 06:53] LABS: Basophils # 0.1 K/mcL (0.0-0.2); Basophils % 0.5 %; Eosinophils # 0.2 K/mcL (0.0-0.6); Eosinophils % 1.6 %; Hemoglobin 14.2 g/dL (12.9-16.9); Immature Granulocytes % 0.9 % (0-4); Lymphocytes # 1.3 K/mcL (0.6-4.6); Lymphocytes % 12.4 %; Mean Corpuscular HGB Conc 31.6 g/dL (31.6-35.5); Mean Corpuscular Hemoglobin 26.9 pg (28.0-33.3); Mean Corpuscular Volume 85.2 fL (83.0-100.0); Mean Platelet Volume 10.2 fL (9.4-12.4); Monocytes # 0.7 K/mcL (0.0-1.3); Monocytes % 7.1 %; Neutrophils # 7.9 K/mcL (1.6-8.9); Platelet Count 227 K/mcL (140-400); Red Blood Count 5.28 M/mcL (4.19-5.50); Red Cell Distribution Width 14.9 % (11.5-14.5); Segmented Neutrophils % 77.5 %
[2017-05-12] MEDS ORDERED: Insulin LISPRO 300 UNITS/3 ML VIAL SQ SCH (07:30)
[2017-05-12 08:20] VITALS: BP 142/84
[2017-05-12 08:20] LABS: BUN/Creatinine Ratio 20 (6-26); Blood Urea Nitrogen 15 mg/dL (6-20); Calcium 8.7 mg/dL (8.6-10.3); Carbon Dioxide 25 mEq/L (23-29); Chloride 102 mEq/L (98-107); Glucose 307 mg/dL (70-105); Osmolality,Calculated 290 (280-300); Potassium 4.4 mEq/L (3.5-5.1); Sodium 134 mEq/L (136-145); eGFR For African Americans > 60 (> 60); eGFR For Non-African Americans > 60 (> 60)
[2017-05-12] MEDS: *HR* Ticagrelor 90 MG TABLET PO SCH (08:21)
[2017-05-12] MEDS: Lisinopril 20 MG TABLET PO SCH (08:22)
[2017-05-12] MEDS: Insulin DETEMIR 100 UNIT/ML X5UNITS SQ SCH (08:22)
[2017-05-12] MEDS: Gabapentin 400 MG CAPSULE PO SCH (08:22)
[2017-05-12] MEDS: Ranolazine 500 MG TAB.ER.12H PO SCH (08:22)
[2017-05-12] MEDS: traMADol 50 MG TABLET PO PRN (08:26)
[2017-05-12 08:43] LABS: Hemoglobin A1C 11.9 %
[2017-05-12] MEDS ORDERED: Isosorbide MONOnitrate (24 HR) 60 MG TAB.ER.24H PO SCH (09:00)
[2017-05-12] MEDS ORDERED: Aspirin Enteric Coated 81 MG Tablet PO SCH (09:00)
[2017-05-12] MEDS ORDERED: Aspirin 81 MG TAB.CHEW PO SCH (09:00)
--- NOTE | 2017-05-12 10:17 | Discharge Summary ---
Date of Encounter: 05/12/17 Time of Encounter: 10:15 - Discharge Diagnosis (1) CAD (coronary artery disease), [place] coronary artery Priority: Primary Status: Acute Comments: Recent multivessel PCI; [facility] 05/08/17 with successful PTCA/MARYBETH in the mLCx, prox OM, and mid Ramus. Was discharged home on DAPT however had not been taking Brillinta due to financial/insurance reasons. Presented 05/11/2017 with acute chest pain. Troponin peaked at .43 and trended down. Repeat [facility] 05/11/2017 with severe small vessel CAD, all stents patent. Continued to have intermittent chest pain, home ranxea increased. Strongly encouraged dietary and lifestyle modifications; educated on adverse effects of morbid obesity, uncontrolled diabetes and high blood pressure. Patient will remain at high cardiovascular risk without aggressive risk factor modification. Patient was supplied with rx card for 30 day supply of Brillinta; medication filled at [facility] by his sister prior to discharge. Cont ASA, brillinta, statin, nitrate, ranexa. Will need to follow-up [facility] PCP, Cardiology Qualifiers: [place] vs. transplanted heart: [place] heart Associated angina: with unstable angina Qualified Code(s): I25.110 - Atherosclerotic heart disease of [place] coronary artery with unstable angina pectoris (2) Diabetes Priority: Primary Status: Acute Comments: uncontrolled. Hgb A1c 11.9%. Likely secondary to dietary noncompliance. Patient educated at length on the importance of tight glycemic control. Continue home diabetes medication regimen. Defer medication/insulin changes to PCP. Qualifiers: Diabetes mellitus type: type 2 Diabetes mellitus complication status: with hyperglycemia Diabetes mellitus keno terminal operator insulin use: with keno terminal operator use Qualified Code(s): E11.65 - Type 2 diabetes mellitus with hyperglycemia; Z79.4 - senior care (current) use of insulin; Z79.4 - senior care (current) use of insulin ; Z79.4 - senior care (current) use of insulin; Z79.4 - senior care (current) use of insulin (3) Hypertension Priority: Secondary Status: Chronic Comments: per hx. BP variable but acceptable. Cont home BP medications. Qualifiers: Hypertension type: unspecified secondary hypertension Qualified Code(s): I15.9 - Secondary hypertension, unspecified; I15 - Secondary hypertension (4) Hyperlipidemia Priority: Secondary Status: Chronic Comments: LDL 66, cont home statin Qualifiers: Hyperlipidemia type: unspecified Qualified Code(s): E78.5 - Hyperlipidemia , unspecified (5) COPD (chronic obstructive pulmonary disease) Priority: Secondary Status: Chronic Comments: per hx. No evidence of exacerbation. Stable. Qualifiers: COPD type: emphysema Emphysema type: unspecified Qualified Code(s): J43.9 - Emphysema, unspecified - Discharge Medications Prescriptions: Ranolazine [Ranexa] 1,000 mg PO BID #120 tab.er.12h Ticagrelor [Brilinta] 90 mg PO BID #60 tablet Home Medications: Sitagliptin Phosphate [Januvia] 100 mg PO DAILY 12/10/15 [History] Venlafaxine [Effexor] 75 mg PO BID 12/10/15 [History] Ferrous Sulfate [Iron] 325 mg PO BID #60 tablet 09/01/16 [Rx] Albuterol Sulfate [Ventolin Hfa] 1 - 2 puff IH Q6H PRN 12/20/16 [History] Glimepiride [Amaryl] 4 mg PO BID 12/20/16 [History] Insulin Glargine [Lantus] 40 unit SQ BID 12/20/16 [History] Insulin LISPRO [HumaLOG] 10 - 15 unit SQ TID 12/20/16 [History] Nitroglycerin [Nitrostat] 0.4 mg SL DAILY PRN 12/20/16 [History] Omeprazole [PriLOSEC] 20 mg PO DAILY 12/20/16 [History] Tramadol HCl [Ultram] 50 mg PO QID PRN 12/20/16 [History] rOPINIRole [Requip] 1.5 mg PO HS 12/27/16 [History] Aspirin [Lo-Dose Aspirin EC] 81 mg PO DAILY #30 12/29/16 [Rx] Atorvastatin [Lipitor] 40 mg PO HS #30 tablet 12/29/16 [Rx] Lisinopril [Zestril] 20 mg PO BID 30 Days 12/29/16 [Rx] Metoprolol [Lopressor] 25 mg PO BID 30 Days tablet 12/29/16 [Rx] Ticagrelor [Brilinta] 90 mg PO BID 30 Days tab 12/29/16 [Rx] Isosorbide MONOnitrate (24 HR) [Imdur] 120 mg PO DAILY 05/08/17 [History] Pramipexole Di-HCl [Mirapex ER] 0.75 mg PO HS 05/08/17 [History] Gabapentin [Neurontin] 400 mg PO TID 05/11/17 [History] Ticagrelor [Brilinta] 90 mg PO BID #60 tablet 05/11/17 [Rx] Ranolazine [Ranexa] 1,000 mg PO BID #120 tab.er.12h 05/12/17 [Rx] Allergies/Adverse Reactions: 3 Allergy/AdvReac Type Severity Reaction Status Date / Time No Known Allergies Allergy Verified 03/02/17 13:50 Procedures/tests Complete & Pending: Procedures Performed prior 72 hours Category Date Time Status CL Cardiac Catheterization [CL] Routine [employer] 05/11/17 13:28 Completed ECG 12 lead ECG [ECG] Stat Y 05/11/17 16:32 Ordered Date of admission: 05/11/17 13:04 Primary care physician: Mey Winter CNP Discharging clinician: Magui Oh Anticipated date of discharge: 05/12/17 - Patient Status Disposition: Home, Self-Care Condition: Good Functional capacity at discharge: independent ambulation Overall status at discharge: patient is back to baseline - Discharge Instructions Instructions: Ranolazine (By mouth), Coronary Artery Disease (DC), Left Heart Catheterization (DC), Diabetes Mellitus Type 2 in Adults (GEN), Meal Planning with the Plate Model (DC), Meal Planning with Diabetes Exchanges (DC) Follow Up With: Mey Winter CNP [Primary Care Provider] - Additional Instructions: RISK FACTORS: STOP SMOKING: If you smoke, STOP. Smoking or tobacco use significantly increases your risk of heart disease because nicotine causes the arteries to narrow or constrict. It also causes fats to stick to the artery. Your chances of having a heart attack are greatly increased if you continue to smoke. For more information, call the education line for smoking cessation 6-302-YKKRASW EAT A LOW FAT/CHOLESTEROL/SODIUM DIET: This diet may help reduce your chances of having a heart attack. LIFTING: Avoid lifting anything more than 10 pounds for 5-7 days Prior to straining, laughing, sneezing and/or coughing, apply manual pressure directly over insertion site. ACTIVITY: You may walk or climb stairs as tolerated You can resume sexual activity as tolerated In general, you are encouraged to engage in a minimum of 30 minutes or more of moderate intensity physical activity, such as brisk walking, daily or at least 3 -4 times weekly BATHING Do not submerge the site into water (bath tub, hot tub, swimming pool) for 1 week. This can be a source for infection into the blood stream. You may shower after 24 hours SITE CARE: After 24 hours, you may remove the dressing and leave the site open to air. Keep the site clean and dry. Clean gently and pat dry. You can expect bruising and tenderness that gradually resolve within a week or two. Return to work as instructed per your physician Resume driving as instructed per physician Keep all scheduled follow up appointments Resume medications as instructed IMPORTANT: If prescribed a Platelet Aggregation Inhibitor such as, Plavix, Brilinta or Effient: Duration of therapy is minimum one year These medications are often used in combination with Aspirin in prevention of future heart attacks Never discontinue unless consult with your Medical Center Representative STROKE (CVA) Risk factors for a stroke are: Age, cigarette smoking, diabetes, excessive alcohol consumption, family history, high blood pressure, overweight, physical inactivity, prior stroke, heart attack, diagnosis of carotid artery stenosis or other artery disease. Warning signs: Sudden numbness or weakness of the face, arm or leg; especially on one side of the body, sudden confusion, trouble speaking or understanding, sudden trouble seeing in one or both eyes, sudden trouble walking, dizziness, loss of balance or coordination, sudden severe headache with no cause. Call 911 or go to the Emergency Room. CONGESTIVE HEART FAILURE: If you have been diagnosed with Congestive Heart Failure (CHF) and your symptoms return, make an appointment with your physician Weigh yourself daily. Notify your physician if you have a weight gain of two or more pounds in one day or five or more pounds in one week. If you experience any difficulty breathing, please call 911 BLEEDING: Although the risk of bleeding is minimal, it can happen. If you have any bleeding from the site, apply firm pressure above the puncture site for 10-15 minutes. If the bleeding does not stop, continue manual pressure and call 911 Contact your physician if: You develop a fever greater than 101 degrees Fahrenheit Your site becomes reddened or has any drainage You have an increase in pain or burning at the site or if a large knot forms at the site. If you experience chest pain, shortness of breath, dizziness, or extreme tiredness, stop the activity and rest. Please notify your physicians office if you experience any of these symptoms and they are not relieved by rest please call 911! - Diet and Activity Activity: increase activity as tolerated Diet: diabetic diet, low fat, low cholesterol Hospital course: Mr. Covington is a 56 year old male - Time Spent with Patient Total time spent providing and/or coordinating discharge services: - Constitutional Vitals: Temp Pulse Resp BP Pulse Ox 98 F 67 17 142/84 96 05/12/17 06:36 05/12/17 08:19 05/12/17 06:36 05/12/17 08:19 05/12/17 06:36 General appearance: Present: cooperative, A&O X 3, no acute distress, answers questions appropriately
--- NOTE | 2017-05-12 10:43 | Cardiology Progress Note ---
Date of Encounter: 05/12/17 Time of Encounter: 10:00 Assessment and Plan (1) ACS (acute coronary syndrome) Current Visit: Yes Status: Acute Secondary to missed Brilinta doses. Ischemic ECG changes, initial troponin 0.09. Recent multivessel PCI on 05/08/17--patient reports he has not been taking Brilinta (reports insurance required prior authorization). [facility] 05/11/17: patent stents with severe small vessel disease. Reports chest pain overnight, now pain free. Will increase Ranexa to 1000 mg BID. Continue uninterrupted DAPT (asa +brilinta) for at least 1 year following PCI-- patient verbalized understanding and has supply of brilinta. Continue statin, betablocker, nitrates, and ranexa. Cardiology will sign-off, follow-up in the outpatient setting as scheduled. (2) CAD (coronary artery disease), [place] coronary artery Current Visit: Yes Status: Acute Plan as stated above. Qualifiers: [place] vs. transplanted heart: [place] heart Associated angina: with unstable angina Qualified Code(s): I25.110 - Atherosclerotic heart disease of [place] coronary artery with unstable angina pectoris (3) Diabetes Current Visit: Yes Status: Chronic Poorly controlled as outpatient. Defer further mgmt to Primary service. Qualifiers: Diabetes mellitus type: type 2 Diabetes mellitus complication status: with hyperglycemia Diabetes mellitus buttermaker insulin use: unspecified buttermaker insulin use status Qualified Code(s): E11.65 - Type 2 diabetes mellitus with hyperglycemia Discussion w patient/family: The assessment and plan as outlined above was discussed with the patient and/or family members who expressed understanding and agreement. All questions were answered. Thank you for involving us in the care of your patient. Please call with any questions. The patient was discussed and reviewed with Dr. Alejo. Cardiology will sign- off. Subjective Principal diagnosis: ACS Interval history: Seen and examined. Reports recurrent chest pain overnight, improved with IV morphine. Pain free upon exam this AM. Objective Vital Signs, Last 4 Hours Pulse BP 05/12/17 08:19 67 142/84 General: Conversant, No Apparent Distress, Other (morbidly obese) HEENT: Atraumatic Neck: No JVD Cardiac: Reg Rate and Rhythm, Normal S1 and S2 Lungs: Normal Breath Sounds Neuro: Alert and responsive Abdomen: Soft Skin: No rashes noted on visualized skin Musculoskeletal: No Chest Wall Tenderness Extremities: No Edema, Normal Pulses Other: right groin cath site: soft, no hematoma, ecchymosis or bleeding at site. Results 05/12/17 06:05 05/12/17 07:44 Lab Results 05/11/17 05/11/17 05/12/17 16:47 22:43 06:05 WBC 10.2 Hgb 14.2 Hct 45.0 Plt Count 227 Sodium Potassium Chloride Carbon Dioxide BUN Creatinine Glucose Calcium Troponin I 0.43 H* 0.39 H* 05/12/17 07:44 WBC Hgb Hct Plt Count Sodium 134 L Potassium 4.4 Chloride 102 Carbon Dioxide 25 BUN 15 Creatinine 0.74 Glucose 307 H Calcium 8.7 Troponin I Active Medications Albuterol Sulfate (Albuterol Inhaler) 2 puff IH [id number] PRN PRN Reason: Dyspnea Stop: 11/10/17 16:23 Aspirin (Aspirin Ec) 81 mg PO DAILY MAHI Stop: 11/11/17 09:01 Last Admin: 05/12/17 08:21 Dose: 81 mg Atorvastatin Calcium (Lipitor) 40 mg PO HS [facility]HI Stop: 11/10/17 21:01 Last Admin: 05/11/17 20:34 Dose: 40 mg Dextrose/Water (Dextrose 50% (Syg)) 25 ml IVP AD PRN PRN Reason: Hypoglycemia Stop: 11/10/17 16:49 Ferrous Sulfate (Ferrous Sulfate) 325 mg PO BIDWM MAHI Stop: 11/10/17 21:01 Last Admin: 05/12/17 08:21 Dose: 325 mg Gabapentin (Neurontin) 400 mg PO TID [facility]HI Stop: 11/10/17 21:01 Last Admin: 05/12/17 08:22 Dose: 400 mg Glucagon (Glucagen) 1 mg IM ONCE PRN PRN Reason: Hypoglycemia Stop: 11/10/17 16:49 Glucose (Gluctose) 15 gm PO ONCE PRN PRN Reason: Hypoglycemia Stop: 11/10/17 16:49 Glucose (Gluctose) 30 gm PO ONCE PRN PRN Reason: Hypoglycemia Stop: 11/10/17 16:49 Dextrose (Dextrose 5%) 1,000 mls @ 100 mls/hr IVC .Q10H PRN PRN Reason: HYPOGLYCEMIA Stop: 11/10/17 16:49 Insulin Detemir (Levemir) 40 unit SQ BID [facility] Stop: 11/10/17 21:01 Last Admin: 05/12/17 08:22 Dose: 40 unit Insulin Human Lispro (Humalog) 0 units SQ HS [facility] PRN Reason: Protocol Stop: 11/10/17 21:01 Last Admin: 05/11/17 20:35 Dose: 7 units Insulin Human Lispro (Humalog) 0 units SQ TIDAC [facility] PRN Reason: Protocol Stop: 11/11/17 07:31 Last Admin: 05/12/17 08:22 Dose: 10 units Isosorbide Mononitrate (Imdur) 120 mg PO DAILY [facility] Stop: 11/11/17 09:01 Last Admin: 05/12/17 08:21 Dose: 120 mg Lisinopril (Zestril) 20 mg PO BID [facility] PRN Reason: Protocol Stop: 11/10/17 21:01 Last Admin: 05/12/17 08:22 Dose: 20 mg Metoprolol Tartrate (Lopressor) 25 mg PO BID [facility] Stop: 11/10/17 21:01 Last Admin: 05/12/17 08:21 Dose: 25 mg Morphine Sulfate (Morphine Sulfate) 2 mg IVP Q3H PRN PRN Reason: Pain Stop: 11/10/17 20:31 Last Admin: 05/11/17 20:38 Dose: 2 mg Naloxone HCl (Narcan) 0.4 mg IVP Q2MIN PRN PRN Reason: Opioid Reversal Stop: 11/10/17 16:26 Nitroglycerin (Nitroglycerin) 0.4 mg SL Q5MIN PRN PRN Reason: Chest Pain Stop: 11/10/17 10:48 Last Admin: 05/11/17 19:45 Dose: 0.4 mg Omeprazole (Prilosec) 20 mg PO DAILY [facility] PRN Reason: Protocol Stop: 11/11/17 09:01 Last Admin: 05/12/17 08:22 Dose: 20 mg Ondansetron HCl (Zofran) 4 mg IVP Q6HR PRN PRN Reason: Nausea And Vomiting Stop: 11/10/17 16:33 Pharmacy Profile Note (Patient Taking Own Medication) 0 each PO HS [facility] Stop: 11/10/17 21:01 Last Admin: 05/11/17 20:50 Dose: Not Given Promethazine HCl (Phenergan) 12.5 mg IVP Q6HR PRN PRN Reason: Nausea And Vomiting Stop: 11/10/17 16:33 Ranolazine (Ranexa) 1,000 mg PO BID [facility] Stop: 11/11/17 21:01 Ropinirole HCl (Requip) 1.5 mg PO HS [facility] Stop: 11/10/17 21:01 Last Admin: 05/11/17 20:33 Dose: 1.5 mg Ticagrelor (Brilinta) 90 mg PO BID [facility] Stop: 11/10/17 21:01 Last Admin: 05/12/17 08:21 Dose: 90 mg Tramadol HCl (Ultram) 50 mg PO QID PRN PRN Reason: Pain Stop: 11/10/17 16:23 Last Admin: 05/12/17 08:26 Dose: 50 mg Venlafaxine HCl (Effexor) 75 mg PO BID [facility] Stop: 11/10/17 21:01 Last Admin: 05/12/17 08:21 Dose: 75 mg - Imaging and Cardiology Echo: report reviewed Cardiac cath: report reviewed - EKG Interpretation EKG results cardiology: personally reviewed Consult Discharge Plan - Plan Instructions: Ranolazine (By mouth), Ticagrelor (By mouth), Coronary Artery Disease (DC), Left Heart Catheterization (DC), Diabetes Mellitus Type 2 in Adults (GEN), Meal Planning with the Plate Model (DC), Meal Planning with Diabetes Exchanges (DC) Additional Instructions: RISK FACTORS: STOP SMOKING: If you smoke, STOP. Smoking or tobacco use significantly increases your risk of heart disease because nicotine causes the arteries to narrow or constrict. It also causes fats to stick to the artery. Your chances of having a heart attack are greatly increased if you continue to smoke. For more information, call the education line for smoking cessation 2-695-WJFSLON EAT A LOW FAT/CHOLESTEROL/SODIUM DIET: This diet may help reduce your chances of having a heart attack. LIFTING: Avoid lifting anything more than 10 pounds for 5-7 days Prior to straining, laughing, sneezing and/or coughing, apply manual pressure directly over insertion site. ACTIVITY: You may walk or climb stairs as tolerated You can resume sexual activity as tolerated In general, you are encouraged to engage in a minimum of 30 minutes or more of moderate intensity physical activity, such as brisk walking, daily or at least 3 -4 times weekly BATHING Do not submerge the site into water (bath tub, hot tub, swimming pool) for 1 week. This can be a source for infection into the blood stream. You may shower after 24 hours SITE CARE: After 24 hours, you may remove the dressing and leave the site open to air. Keep the site clean and dry. Clean gently and pat dry. You can expect bruising and tenderness that gradually resolve within a week or two. Return to work as instructed per your physician Resume driving as instructed per physician Keep all scheduled follow up appointments Resume medications as instructed IMPORTANT: If prescribed a Platelet Aggregation Inhibitor such as, Plavix, Brilinta or Effient: Duration of therapy is minimum one year These medications are often used in combination with Aspirin in prevention of future heart attacks Never discontinue unless consult with your [employer] STROKE (CVA) Risk factors for a stroke are: Age, cigarette smoking, diabetes, excessive alcohol consumption, family history, high blood pressure, overweight, physical inactivity, prior stroke, heart attack, diagnosis of carotid artery stenosis or other artery disease. Warning signs: Sudden numbness or weakness of the face, arm or leg; especially on one side of the body, sudden confusion, trouble speaking or understanding, sudden trouble seeing in one or both eyes, sudden trouble walking, dizziness, loss of balance or coordination, sudden severe headache with no cause. Call 911 or go to the Emergency Room. CONGESTIVE HEART FAILURE: If you have been diagnosed with Congestive Heart Failure (CHF) and your symptoms return, make an appointment with your physician Weigh yourself daily. Notify your physician if you have a weight gain of two or more pounds in one day or five or more pounds in one week. If you experience any difficulty breathing, please call 911 BLEEDING: Although the risk of bleeding is minimal, it can happen. If you have any bleeding from the site, apply firm pressure above the puncture site for 10-15 minutes. If the bleeding does not stop, continue manual pressure and call 911 Contact your physician if: You develop a fever greater than 101 degrees Fahrenheit Your site becomes reddened or has any drainage You have an increase in pain or burning at the site or if a large knot forms at the site. If you experience chest pain, shortness of breath, dizziness, or extreme tiredness, stop the activity and rest. Please notify your physicians office if you experience any of these symptoms and they are not relieved by rest please call 911! Referrals: Lila Pittman CNP [Partnered Physician] - (The office will call you with a follow up appt.) Mey Winter CNP [Primary Care Provider] - (The office will call you with a follow up appt.) Prescriptions: Ranolazine [Ranexa] 1,000 mg PO BID #120 tab.er.12h Ticagrelor [Brilinta] 90 mg PO BID #60 tablet
[2017-05-12] MEDS ORDERED: Ranolazine 500 MG TAB.ER.12H PO SCH (21:00)
--- NOTE | 2017-05-15 11:41 | Electrocardiograph Report ---
[place] [id number] Test Date: 2017-05-11 Pat Name: Gurvinder Covington Department: 113 Room: 3B16 Gender: M [employer]visor [employer]: : [id number] Requested By: Loyd Lopez Order Number: [id number] Reading MD: Jose R Cortes DO Measurements Intervals [place] Rate: 71 P: 33 IN: 170 QRS: -71 QRSD: 102 T: 81 QT: 413 QTc: 435 Interpretive Statements SINUS RHYTHM LEFT ANTERIOR FASCICULAR BLOCK LEFT VENTRICULAR HYPERTROPHY AND ST-T CHANGE Electronically Signed On 05-15-2017 11:39:41 EST by Jose R Cortes DO
== END 2017-05-12 11:56 | disposition home or self-care (01) ==
LOC: EMEROO 10:41 → 3BNU 10:41
PROVIDERS: ADMIT Nurse Practitioner; ATTEND Registered Nurse

== ENCOUNTER 2017-10-29 11:18 | Observation (INO) ==
--- NOTE | 2017-10-29 11:34 | Emergency Department Note ---
Disposition Clinical Impression: Chest pain Qualifiers: Chest pain type: unspecified Qualified Code(s): R07.9 - Chest pain, unspecified Disposition: Admitted As Inpatient Condition: Undetermined Referrals: Fern Rivera CNP [Primary Care Provider] - Forms: ED Satisfaction Letter Time of Disposition: 15:29 Chest Pain HPI - General Chief Complaint: ED Chest Pain Stated Complaint: chest pain Time Seen by Provider: 10/29/17 11:21 Source: patient, EMS Mode of arrival: EMS Limitations: no limitations Vital Signs Reviewed: Yes Nursing Notes Reviewed: Yes - History of Present Illness HPI Narrative: 57-year-old male with extensive history of coronary artery disease, arrives to the emergency department with left-sided chest pain radiating down into his left shoulder and left upper extremity that started 2-3 days ago. The patient states this continued to get worse since then. The patient recently had a cardiac catheter roughly 6 months ago with 4 stents placed at that time. The patient had 2 stents placed previously by a roughly 4 months to that. Patient is currently on Brillinta daily. The patient states he had associated nausea and dyspnea with this. The patient states this felt very similar to his previous [place]. The patient describes this pain as pressure and heaviness. The patient took 3 nitroglycerin prior to EMS arrival. In addition the patient was given 2 more nitroglycerin by EMS. He was also given 325 aspirin per EMS. The patient denies any other complaints at this time. He arrives to the emergency department in no acute distress but does look mildly diaphoretic. In addition the patient states that when this episode was going on earlier today when he decided call EMS was he had a dizzy episode where he almost fell. The patient had no LOC and no syncope. Patient denies any hemoptysis, unilateral leg swelling, history of DVT or PE, recent surgeries or immobilizations. - Related Data Home Medications Medication Instructions Recorded Confirmed Sitagliptin Phosphate [Januvia] 100 mg PO DAILY 12/10/15 10/29/17 Venlafaxine [Effexor] 75 mg PO BID 12/10/15 10/29/17 Albuterol Sulfate [Ventolin Hfa] 1 - 2 puff IH Q6H PRN 12/20/16 10/29/17 Glimepiride [Amaryl] 4 mg PO BID 12/20/16 10/29/17 Insulin Glargine [Lantus] 40 unit SQ BID 12/20/16 10/29/17 Insulin LISPRO [HumaLOG] 3 - 4 unit SQ TID 12/20/16 10/29/17 Nitroglycerin [Nitrostat] 0.4 mg SL DAILY PRN 12/20/16 10/29/17 Omeprazole [PriLOSEC] 20 mg PO DAILY 12/20/16 10/29/17 Tramadol HCl [Ultram] 50 mg PO Q6H PRN 12/20/16 10/29/17 rOPINIRole [Requip] 1.5 mg PO HS 12/27/16 10/29/17 Isosorbide MONOnitrate (24 HR) 120 mg PO DAILY 05/08/17 10/29/17 [Imdur] Pramipexole Di-HCl [Mirapex ER] 0.75 mg PO HS 05/08/17 10/29/17 Gabapentin [Neurontin] 400 mg PO TID 05/11/17 10/29/17 Ranolazine [Ranexa] 500 mg PO BID 06/05/17 10/29/17 Previous Rx's Medication Instructions Recorded Aspirin [Lo-Dose Aspirin EC] 81 mg PO DAILY #30 12/29/16 Atorvastatin [Lipitor] 40 mg PO HS #30 tablet 12/29/16 Lisinopril [Zestril] 20 mg PO BID 30 Days 12/29/16 Metoprolol [Lopressor] 25 mg PO BID 30 Days tablet 12/29/16 Ticagrelor [Brilinta] 90 mg PO BID 30 Days tab 12/29/16 Allergies Allergy/AdvReac Type Severity Reaction Status Date / Time No Known Allergies Allergy Verified 10/29/17 14:09 All systems ED: reviewed and negative except as stated. Constitutional: Reports: weakness. Denies: fever, chills ENT ED: Denies: congestion Cardiovascular: Reports: chest pain, dyspnea on exertion. Denies: palpitations , orthopnea, edema, syncope, paroxysmal nocturnal dyspnea Respiratory: Reports: dyspnea. Denies: cough, wheezes, hemoptysis, sputum production Gastrointestinal: Reports: nausea. Denies: abdominal pain, vomiting, diarrhea Genitourinary: Denies: urgency, dysuria Musculoskeletal: Denies: back pain, neck pain, arthralgia, myalgia Integumentary: Denies: rash Neurological: Denies: headache Chest Pain PMH - Past Medical History Medical history: Reports: arthritis, COPD, coronary artery disease, diabetes, GERD, hyperlipidemia, hypertension, myocardial infarction Surgical history: Reports: angioplasty/stent, appendectomy, knee replacement, other Psychiatric history: Reports: anxiety, depression - Social History Smoking Status: Former smoker Alcohol use: Reports: none Drug use: Reports: none Physical Exam - General Limitations: no limitations General appearance: alert, in no apparent distress - Head Head exam: atraumatic, normocephalic, normal inspection - Eye Eye exam: Present: normal appearance, PERRL, EOMI - ENT ENT exam: normal exam, normal oropharynx, mucous membranes moist - Neck Neck exam: Present: normal inspection, full ROM, trachea midline - Chest Chest inspection: Present: normal inspection, symmetric chest wall rise - Respiratory Respiratory exam: Present: normal lung sounds bilaterally - Cardiovascular Cardiovascular exam: Present: regular rate, normal rhythm, normal heart sounds - Abdominal Exam Abdominal exam: Present: soft, Non-Tender. Absent: tenderness, distention, guarding, rebound, rigidity - Extremities Exam Extremities exam: Present: normal inspection, full ROM. Absent: tenderness, pedal edema - Neurological Exam Neurological exam: Present: alert, oriented X3 - Skin Skin exam: Present: warm, dry, intact, normal color Course Vital Signs Temperature 97.8 F 10/29/17 11:22 Pulse Rate 85 10/29/17 11:22 Respiratory Rate 16 10/29/17 11:22 Blood Pressure 156/103 10/29/17 11:22 O2 Sat by Pulse Oximetry 97 10/29/17 11:22 Temperature 97.8 F 10/29/17 11:22 Pulse Rate 75 10/29/17 15:10 Respiratory Rate 15 10/29/17 15:10 Blood Pressure 139/95 10/29/17 15:10 O2 Sat by Pulse Oximetry 94 10/29/17 15:10 Oxygen Delivery Oxygen Delivery Room Air Chest Pain - [facility] Narrative Medical decision making narrative: 1403: Patient's workup in the emergency department demonstrates findings consistent with ACS. Patient has a new right bundle branch block noted on EKG from April. No ST elevation or ST depression noted. The patient was placed on a nitroglycerin drip due to the amount of pain the patient was experiencing. His chest pain has greatly improved. The patient is resting comfortably in the bed at this time. He was admitted 325 aspirin prior to arrival. The patient denies any other symptoms at this time. Patient had an elevated d- dimer which was obtained due to new right bundle anthony block and symptoms of chest pain and dyspnea which demonstrated a negative CTA. The patient demonstrates no other acute findings at this time. We will admit the patient to the hospital given the patient's extensive history of ACS as well as with the patient's symptoms. Patient made aware and agrees to plan. No further questions or concerns noted at this time. Paged hospitalist at this time. 1528: Hospitalist returned page. Accepted by Dr. Evans. - Lab Data Lab results reviewed: Yes I reviewed the patient's lab results. Result diagrams: 10/29/17 11:39 10/29/17 11:39 Lab Results 10/29/17 10/29/17 10/29/17 Range/Units 11:39 11:39 11:39 WBC 13.7 H (4.3-11.1) K/mcL RBC 5.41 (4.19-5.50) M/mcL Hgb 14.7 (12.9-16.9) g/dL Hct 44.5 (37.5-50.1) % MCV 82.3 L (83.0-100.0) fL MCH 27.2 L (28.0-33.3) pg MCHC 33.0 (31.6-35.5) g/dL RDW 15.9 H (11.5-14.5) % Plt Count 280 (140-400) K/mcL MPV 10.1 (9.4-12.4) fL Immature Gran % 1.2 (0-4) % Seg Neutrophils % 77.2 % Lymphocytes % 13.5 % Monocytes % 6.6 % Eosinophils % 1.0 % Basophils % 0.5 % Neutrophils # 10.6 H (1.6-8.9) K/mcL Lymphocytes # 1.8 (0.6-4.6) K/mcL Monocytes # 0.9 (0.0-1.3) K/mcL Eosinophils # 0.1 (0.0-0.6) K/mcL Basophils # 0.1 (0.0-0.2) K/mcL PT 12.0 (9.4-12.1) Seconds INR 1.1 APTT 31.0 (26.0-36.0) Seconds D-Dimer 622 H (0-500) ng/mLFEU Sodium 132 L (136-145) mEq/L Potassium 3.8 (3.5-5.1) mEq/L Chloride 99 (98-107) mEq/L Carbon Dioxide 24 (23-29) mEq/L BUN 16 (6-20) mg/dL Creatinine 0.71 (0.70-1.30) mg/dL Est GFR ( Amer) > 60 (> 60) Est GFR (Non-Af Amer) > 60 (> 60) BUN/Creatinine Ratio 23 (6-26) Glucose 305 H (70-105) mg/dL Calculated Osmolality 287 (280-300) Calcium 9.1 (8.6-10.3) mg/dL Troponin I < 0.03 (< 0.04) ng/mL - Radiology Data Radiology results reviewed: Yes I reviewed the patient's radiology results. Chest X-Ray 10/29/17 11:21 IMPRESSION: Exam degraded by shallow inflation and positioning. No acute airspace disease identified. D/ / Luis Pickard / Luis Pickard Interpreting Provider: Luis Pickard Chest CTA 10/29/17 12:49 IMPRESSION: No evidence of pulmonary embolism or acute pulmonary abnormality. Coronary atherosclerosis. Hepatic steatosis. D/ / 10/29/2017 13:52:14 Zachary Hoffman MD / sylvie Interpreting Provider: Zachary Hoffman MD - EKG Data EKG attestation: Yes I reviewed and interpreted this EKG. EKG results narrative: Heart rate 81 beats for minute. Normal sinus rhythm with right bundle branch block. No ST elevation or ST depression noted. This is a new right bundle branch block noted from EKG on 05/11/2017.
[2017-10-29 11:59] LABS: Basophils # 0.1 K/mcL (0.0-0.2); Basophils % 0.5 %; Eosinophils # 0.1 K/mcL (0.0-0.6); Hematocrit 44.5 % (37.5-50.1); Hemoglobin 14.7 g/dL (12.9-16.9); Immature Granulocytes % 1.2 % (0-4); Lymphocytes # 1.8 K/mcL (0.6-4.6); Lymphocytes % 13.5 %; Mean Corpuscular Hemoglobin 27.2 pg (28.0-33.3); Mean Corpuscular Volume 82.3 fL (83.0-100.0); Mean Platelet Volume 10.1 fL (9.4-12.4); Monocytes # 0.9 K/mcL (0.0-1.3); Monocytes % 6.6 %; Neutrophils # 10.6 K/mcL (1.6-8.9); Platelet Count 280 K/mcL (140-400); Red Blood Count 5.41 M/mcL (4.19-5.50); Red Cell Distribution Width 15.9 % (11.5-14.5); Segmented Neutrophils % 77.2 %
[2017-10-29] MEDS ORDERED: Nitroglycerin 25 MG/250 ML INFUS..BTL IVC SCH (12:00)
[2017-10-29 12:10] LABS: INR 1.1
[2017-10-29 12:18] LABS: BUN/Creatinine Ratio 23 (6-26); Blood Urea Nitrogen 16 mg/dL (6-20); Calcium 9.1 mg/dL (8.6-10.3); Carbon Dioxide 24 mEq/L (23-29); Chloride 99 mEq/L (98-107); Glucose 305 mg/dL (70-105); Osmolality,Calculated 287 (280-300); Potassium 3.8 mEq/L (3.5-5.1); Sodium 132 mEq/L (136-145); eGFR For African Americans > 60 (> 60); eGFR For Non-African Americans > 60 (> 60)
[2017-10-29 12:19] LABS: Troponin I < 0.03 ng/mL (< 0.04)
--- NOTE | 2017-10-29 12:46 | Emergency Department Note ---
Disposition Clinical Impression: Chest pain Disposition: Still a Patient Condition: Fair Referrals: Fern Rivera, PROVIDER CONTRACTING CONSULTANT [Primary Care Provider] - Forms: ED Satisfaction Letter Chest Pain HPI - General Chief Complaint: ED Chest Pain Stated Complaint: chest pain Time Seen by Provider: 10/29/17 11:21 Source: patient, EMS Mode of arrival: EMS Limitations: no limitations Vital Signs Reviewed: Yes Nursing Notes Reviewed: Yes - History of Present Illness Severity scale (1-10): 9 - Related Data Home Medications Medication Instructions Recorded Confirmed Sitagliptin Phosphate [Januvia] 100 mg PO DAILY 12/10/15 07/05/17 Venlafaxine [Effexor] 75 mg PO BID 12/10/15 07/05/17 Albuterol Sulfate [Ventolin Hfa] 1 - 2 puff IH Q6H PRN 12/20/16 07/05/17 Glimepiride [Amaryl] 4 mg PO BID 12/20/16 07/05/17 Insulin Glargine [Lantus] 40 unit SQ BID 12/20/16 07/05/17 Insulin LISPRO [HumaLOG] 3 - 4 unit SQ TID 12/20/16 07/05/17 Nitroglycerin [Nitrostat] 0.4 mg SL DAILY PRN 12/20/16 07/05/17 Omeprazole [PriLOSEC] 20 mg PO DAILY 12/20/16 07/05/17 Tramadol HCl [Ultram] 50 mg PO Q6H PRN 12/20/16 07/05/17 rOPINIRole [Requip] 1.5 mg PO HS 12/27/16 07/05/17 Isosorbide MONOnitrate (24 HR) 120 mg PO DAILY 05/08/17 07/05/17 [Imdur] Pramipexole Di-HCl [Mirapex ER] 0.75 mg PO HS 05/08/17 07/05/17 Gabapentin [Neurontin] 400 mg PO TID 05/11/17 07/05/17 Ranolazine [Ranexa] 500 mg PO BID 06/05/17 07/05/17 Previous Rx's Medication Instructions Recorded Aspirin [Lo-Dose Aspirin EC] 81 mg PO DAILY #30 12/29/16 Atorvastatin [Lipitor] 40 mg PO HS #30 tablet 12/29/16 Lisinopril [Zestril] 20 mg PO BID 30 Days 12/29/16 Metoprolol [Lopressor] 25 mg PO BID 30 Days tablet 12/29/16 Ticagrelor [Brilinta] 90 mg PO BID 30 Days tab 12/29/16 Allergies Allergy/AdvReac Type Severity Reaction Status Date / Time No Known Allergies Allergy Verified 03/02/17 13:50 Constitutional: Reports: weakness. Denies: fever, chills ENT ED: Denies: congestion Cardiovascular: Reports: chest pain, dyspnea on exertion. Denies: palpitations , orthopnea, edema, syncope, paroxysmal nocturnal dyspnea Respiratory: Reports: dyspnea. Denies: cough, wheezes, hemoptysis, sputum production Gastrointestinal: Reports: nausea. Denies: abdominal pain, vomiting, diarrhea Genitourinary: Denies: urgency, dysuria Musculoskeletal: Denies: back pain, neck pain, arthralgia, myalgia Integumentary: Denies: rash Neurological: Denies: headache Chest Pain PMH - Past Medical History Medical history: Reports: arthritis, COPD, coronary artery disease, diabetes, GERD, hyperlipidemia, hypertension, myocardial infarction Surgical history: Reports: angioplasty/stent, appendectomy, knee replacement, other Psychiatric history: Reports: anxiety, depression - Social History Smoking Status: Former smoker Alcohol use: Reports: none Drug use: Reports: none Physical Exam - General Limitations: no limitations General appearance: alert, in no apparent distress Course Vital Signs Temperature 97.8 F 10/29/17 11:22 Pulse Rate 85 10/29/17 11:22 Respiratory Rate 16 10/29/17 11:22 Blood Pressure 156/103 10/29/17 11:22 O2 Sat by Pulse Oximetry 97 10/29/17 11:22 Temperature 97.8 F 10/29/17 11:22 Pulse Rate 87 10/29/17 13:14 Respiratory Rate 15 10/29/17 13:14 Blood Pressure 158/57 10/29/17 13:14 O2 Sat by Pulse Oximetry 95 10/29/17 13:14 Oxygen Delivery Oxygen Delivery Room Air Chest Pain - Lab Data Result diagrams: 10/29/17 11:39 10/29/17 11:39 Lab Results 10/29/17 10/29/17 10/29/17 Range/Units 11:39 11:39 11:39 WBC 13.7 H (4.3-11.1) K/mcL RBC 5.41 (4.19-5.50) M/mcL Hgb 14.7 (12.9-16.9) g/dL Hct 44.5 (37.5-50.1) % MCV 82.3 L (83.0-100.0) fL MCH 27.2 L (28.0-33.3) pg MCHC 33.0 (31.6-35.5) g/dL RDW 15.9 H (11.5-14.5) % Plt Count 280 (140-400) K/mcL MPV 10.1 (9.4-12.4) fL Immature Gran % 1.2 (0-4) % Seg Neutrophils % 77.2 % Lymphocytes % 13.5 % Monocytes % 6.6 % Eosinophils % 1.0 % Basophils % 0.5 % Neutrophils # 10.6 H (1.6-8.9) K/mcL Lymphocytes # 1.8 (0.6-4.6) K/mcL Monocytes # 0.9 (0.0-1.3) K/mcL Eosinophils # 0.1 (0.0-0.6) K/mcL Basophils # 0.1 (0.0-0.2) K/mcL PT 12.0 (9.4-12.1) Seconds INR 1.1 APTT 31.0 (26.0-36.0) Seconds D-Dimer 622 H (0-500) ng/mLFEU Sodium 132 L (136-145) mEq/L Potassium 3.8 (3.5-5.1) mEq/L Chloride 99 (98-107) mEq/L Carbon Dioxide 24 (23-29) mEq/L BUN 16 (6-20) mg/dL Creatinine 0.71 (0.70-1.30) mg/dL Est GFR ( Amer) > 60 (> 60) Est GFR (Non-Af Amer) > 60 (> 60) BUN/Creatinine Ratio 23 (6-26) Glucose 305 H (70-105) mg/dL Calculated Osmolality 287 (280-300) Calcium 9.1 (8.6-10.3) mg/dL Troponin I < 0.03 (< 0.04) ng/mL Attestation Statement - Attestation Attestation: I, Elgin Mcclain, examined this patient and my medical decision-making was reviewed with the EXECUTIVE LEGAL SECRETARY/PA/Advanced Practice Nurse/Resident Physician. I agree with the documented findings, disposition and treatment plan as described except to the extent set forth below. 57-year-old male brought to the emergency Department with concerns of chest pain. Patient states symptoms have been intermittent over the past 24 hours. Patient reports he used nitroglycerin multiple times this morning without significant improvement. He had associated diaphoresis, nausea. He states that that this feels similar to his previous MIs. He has a history of [address], placed by Dr. Michelle. Patient denies vomiting, diarrhea , rash, recent trauma. EKG shows a new right bundle-branch block compared to previous. D-dimer ordered to rule out PE which returned positive. Patient does report pain had improved prior to evaluation in the emergency department and is now at a 3 out of 10 compared to 10 out of 10 earlier in the day. We will obtain imaging and laboratory evaluation to further evaluate possible ACS and PE. Imaging and labs pending at this time.
[2017-10-29] MEDS ORDERED: Isovue-370 500 ML INFUS..BTL IV ONE (12:49)
[2017-10-29] MEDS ORDERED: Naloxone 0.4 MG/ML INJ IVP PRN (17:45)
[2017-10-29] MEDS ORDERED: *HR* Morphine 2 MG/ML SYRINGE IVP PRN (18:24)
[2017-10-29] MEDS ORDERED: D5% in Water 1,000 ML IVC PRN (18:26)
[2017-10-29] MEDS ORDERED: Dextrose Gel 15 GM/37.5 ML TUBE PO PRN ×2 (18:26)
[2017-10-29] MEDS ORDERED: *HR* Dextrose 50 % in Water (Syg) 50 ML SYRINGE IVP PRN (18:26)
--- NOTE | 2017-10-29 18:38 | Internal Med History&Physical ---
<Marion Farias - Last Filed: 10/29/17 18:43> Date of Encounter: 10/29/17 Time of Encounter: 18:38 Internal Medicine - H&P: HPI Chief complaint: Chest pain Admitted From: Home Plans for Post Hospital Care: Home History of present illness: Mr. Covington is a 57 year old male with extensive cardiac history. The patient was hospitalized in Apr 2018 for similar symptoms, where he had a LHC that ultimately showed severe small vessel disease and reportedly non-bypassable on a 12/2016 note. The patient was not taking his Brillinta at that time due to needing a pre-authorization. The patient echo showed EF of 65% with trace mitral and tricuspid regurg, and mod left ventricular diastolic dysfunction. CXR today showed no acute airspace disease and calcified granuloma of mid left lung. CT showed no pe, no acute abnormality. Today the patient indicated that he was having CP in the morning and it progressively became worse and began to radiate left shoulder and left upper extremity. The patient took 3 nitro and then called the squad. The squad gave him 2 nitros and a ASA which resolved his pain momentarily. The patient was sarted n a nitro drip. He indicated that his pain was completely gone and has returned to a 6/10. Pt bp stable. I spoke with cardiology who agreed to consult for recommendations and medical management. The patient nitro was increased up to 15 by the nursing unit. However, I still added morphine prn for any further discomfort. Todays EKG showed a new BBB. Past Med Surg Social Fam HX - Past Medical History Medical history: arthritis, COPD, coronary artery disease, diabetes, GERD, hyperlipidemia, hypertension, myocardial infarction Psychiatric history: anxiety, depression - Past Surgical History Surgical History: angioplasty/stent, appendectomy, knee replacement, other Additional surgical history: tonsillectomy, heart cath with stents, colonoscopy. 12/10/15 JULISSA @[facility] W/DR [facility] - Social History Smoking Status: Former smoker Smokeless Tobacco Status: No Alcohol use: none Drug use: none - Family History Mother Adopted: Yes Internal Medicine - H&P: Meds Sitagliptin Phosphate [Januvia] 100 mg PO DAILY 12/10/15 [History] Venlafaxine [Effexor] 75 mg PO BID 12/10/15 [History] Albuterol Sulfate [Ventolin Hfa] 1 - 2 puff IH Q6H PRN 12/20/16 [History] Glimepiride [Amaryl] 4 mg PO BID 12/20/16 [History] Insulin Glargine [Lantus] 40 unit SQ BID 12/20/16 [History] Insulin LISPRO [HumaLOG] 3 - 4 unit SQ TID 12/20/16 [History] Nitroglycerin [Nitrostat] 0.4 mg SL DAILY PRN 12/20/16 [History] Omeprazole [PriLOSEC] 20 mg PO DAILY 12/20/16 [History] Tramadol HCl [Ultram] 50 mg PO Q6H PRN 12/20/16 [History] rOPINIRole [Requip] 1.5 mg PO HS 12/27/16 [History] Aspirin [Lo-Dose Aspirin EC] 81 mg PO DAILY #30 12/29/16 [Rx] Atorvastatin [Lipitor] 40 mg PO HS #30 tablet 12/29/16 [Rx] Lisinopril [Zestril] 20 mg PO BID 30 Days 12/29/16 [Rx] Metoprolol [Lopressor] 25 mg PO BID 30 Days tablet 12/29/16 [Rx] Ticagrelor [Brilinta] 90 mg PO BID 30 Days tab 12/29/16 [Rx] Isosorbide MONOnitrate (24 HR) [Imdur] 120 mg PO DAILY 05/08/17 [History] Pramipexole Di-HCl [Mirapex ER] 0.75 mg PO HS 05/08/17 [History] Gabapentin [Neurontin] 400 mg PO TID 05/11/17 [History] Ranolazine [Ranexa] 500 mg PO BID 06/05/17 [History] 3 Allergy/AdvReac Type Severity Reaction Status Date / Time No Known Allergies Allergy Verified 10/29/17 14:09 All Systems PM: A 10-system review of systems was performed and is negative for pertinent findings except as documented above in the HPI. - Constitutional Constitutional: no chills, no fever(s), no night sweats - EENT Eyes: no change in vision, no discharge, no pain, no photophobia Ears: no ear discharge, no ear pain, no tinnitus Nose, mouth and throat: no dysphagia, no nasal discharge, no neck pain, no sore throat - Cardiovascular Cardiovascular ROS IM: chest pain, no diaphoresis, no dyspnea, no lightheadedness, no palpitations, no syncope - Respiratory Respiratory: no cough, no dyspnea, no wheezing, no excessive phlegm production - Gastrointestinal Gastrointestinal: no abdominal pain, no diarrhea, no hematemesis, no hematochezia, no melena, no nausea, no vomiting - Musculoskeletal Musculoskeletal ROS IM: no numbness, no tingling - Integumentary Integumentary IM: no rash, no unusual bruising - Neurological Neurological ROS: no confusion, no convulsions, no focal weakness, no numbness, no tingling, no tremor(s) - Hematologic/Lymphatic Hematologic/Lymphatic: no easy bruising - Constitutional Vitals: Temp Pulse Resp BP Pulse Ox 97.7 F 77 15 154/99 94 10/29/17 17:02 10/29/17 17:02 10/29/17 16:41 10/29/17 17:02 10/29/17 16:41 General appearance: Present: A&O X 3, answers questions appropriately - Head Head exam: Present: atraumatic, normocephalic - Eye Eye exam: Present: PERRL, conjuntiva pink, sclera anicteric Pupils: Present: PERRL - Neck Neck exam general surgery: Present: supple, trachea midline. Absent: lymphadenopathy - Respiratory Respiratory exam: Present: decreased breath sounds. Absent: accessory muscle use, rales, rhonchi, wheezes - Cardiovascular Cardiovascular exam: Present: RRR, +S1, +S2. Absent: diastolic murmur, gallop, rubs, systolic murmur - GI/Abdominal GI/Abdominal exam: Present: normal bowel sounds, soft, no peritoneal signs. Absent: distended, tenderness - Extremities Exam Extremities exam: Present: warm, radial pulses palpable and symmetrical. Absent : calf tenderness, cyanotic, pedal edema - Neurological Exam Neurological exam: Present: CN II-XII intact, oriented X3, no focal deficits. Absent: pronater drift, facial droop, speech deficit - Skin Skin exam: Present: dry, intact Internal Med - H&P Results - Labs CBC & Chem 7: 10/29/17 11:39 10/29/17 11:39 - Assessment and plan (1) Chest pain Current Visit: Yes Status: Acute Assessment and plan: Cariology consulting Cardiac serial trops Cardiac monitoring Monitor daily labs Qualifiers: Chest pain type: unspecified Qualified Code(s): R07.9 - Chest pain, unspecified (2) COPD (chronic obstructive pulmonary disease) Current Visit: No Status: Chronic Assessment and plan: Continue home meds Continue Bronchodilators Oxygen to keep sats gt 92% Qualifiers: COPD type: emphysema Emphysema type: unspecified Qualified Code(s): J43.9 - Emphysema, unspecified (3) Diabetes Current Visit: No Status: Chronic Assessment and plan: Accu checks ac/hs with mod scale humalog insulin coverage Goal is under 200 while inpatient Qualifiers: Diabetes mellitus type: type 2 Diabetes mellitus lobsterman insulin use: unspecified lobsterman insulin use status Diabetes mellitus complication status : with hyperglycemia Qualified Code(s): E11.65 - Type 2 diabetes mellitus with hyperglycemia - Time Spent With Patient Total time spent is greater than 50% in coordination of care (as documented) at patient's floor/unit and/or counseling patient: <Brad Evans P - Last Filed: 10/29/17 19:55> Date of Encounter: 10/29/17 Internal Medicine - H&P: HPI History of present illness: Mr. Covington is a 57 year old male All Systems PM: A 10-system review of systems was performed and is negative for pertinent findings except as documented above in the HPI. - Constitutional Vitals: Temp Pulse Resp BP Pulse Ox 97.7 F 77 15 154/99 94 10/29/17 17:02 10/29/17 17:02 10/29/17 16:41 10/29/17 17:02 10/29/17 16:41 Internal Med - H&P Results - Labs CBC & Chem 7: 10/29/17 11:39 10/29/17 11:39 Labs: Cardiac Enzymes 10/29/17 Range/Units 18:06 Troponin I < 0.03 (< 0.04) ng/mL - Attending Attestation I have seen and evaluated patient. I have performed my own physical examination. I have discussed case with admitting CLINICAL TRIAL ASSISTANT. I agree with the CLINICAL TRIAL ASSISTANT's assessment and plan as documented in her H&P. Briefly, patient with PMH of CAD admitted for chest pain. Initial troponin WNL. EKG showed new right bundle branch block. Cardiology consulted; appreciate input. Will trend troponin x 3. Continue telemetry. Continue nitro drip. Continue home medications. Will await further recommendations from cardiology. - Time Spent With Patient Total time spent is greater than 50% in coordination of care (as documented) at patient's floor/unit and/or counseling patient:
[2017-10-29] MEDS: rOPINIRole 1 MG TABLET PO SCH (21:05)
[2017-10-29] MEDS: *HR* Ticagrelor 90 MG TABLET PO SCH (21:05)
[2017-10-29] MEDS: Gabapentin 400 MG CAPSULE PO SCH (21:05)
[2017-10-29] MEDS: Ranolazine 500 MG TAB.ER.12H PO SCH (21:05)
[2017-10-29] MEDS: Insulin DETEMIR 100 UNIT/ML X5UNITS SQ SCH (21:05)
[2017-10-29] MEDS: Lisinopril 20 MG TABLET PO SCH (21:05)
[2017-10-29] MEDS: Insulin LISPRO 300 UNITS/3 ML VIAL SQ SCH (21:06)
[2017-10-29] MEDS: PRAMIPEXOLE DI HCL 0.75 MG PO SCH (21:07)
[2017-10-29] MEDS: *HR* Glimepiride 4 MG TABLET PO SCH (21:16)
[2017-10-29] MEDS: traMADol 50 MG TABLET PO PRN (21:16)
[2017-10-30 00:43] LABS: Basophils # 0.1 K/mcL (0.0-0.2); Basophils % 0.6 %; Eosinophils # 0.2 K/mcL (0.0-0.6); Eosinophils % 1.4 %; Hemoglobin 14.3 g/dL (12.9-16.9); Immature Granulocytes % 1.1 % (0-4); Lymphocytes # 2.3 K/mcL (0.6-4.6); Lymphocytes % 16.9 %; Mean Corpuscular HGB Conc 32.5 g/dL (31.6-35.5); Mean Corpuscular Hemoglobin 26.7 pg (28.0-33.3); Mean Corpuscular Volume 82.2 fL (83.0-100.0); Mean Platelet Volume 10.1 fL (9.4-12.4); Monocytes % 7.8 %; Neutrophils # 9.6 K/mcL (1.6-8.9); Platelet Count 284 K/mcL (140-400); Red Blood Count 5.35 M/mcL (4.19-5.50); Red Cell Distribution Width 16.8 % (11.5-14.5); Segmented Neutrophils % 72.2 %
[2017-10-30 01:01] LABS: BUN/Creatinine Ratio 21 (6-26); Blood Urea Nitrogen 15 mg/dL (6-20); Calcium 9.1 mg/dL (8.6-10.3); Carbon Dioxide 22 mEq/L (23-29); Chloride 102 mEq/L (98-107); Chol/HDL Ratio 3.5 (0-4.9); Cholesterol 112 mg/dL (< 200); Glucose 278 mg/dL (70-105); HDL Cholesterol 32 mg/dL (40-59); LDL Cholesterol,Calculated 43 mg/dL (0-99); Osmolality,Calculated 289 (280-300); Potassium 3.6 mEq/L (3.5-5.1); Sodium 134 mEq/L (136-145); Triglycerides 185 mg/dL (< 150); eGFR For African Americans > 60 (> 60); eGFR For Non-African Americans > 60 (> 60)
[2017-10-30] MEDS: *HR* Heparin 5,000 UNIT/ML VIAL SQ SCH ×2 (04:53→17:34)
[2017-10-30] MEDS: Insulin LISPRO 300 UNITS/3 ML VIAL SQ SCH ×4 (08:07→21:51)
[2017-10-30] MEDS: Lisinopril 20 MG TABLET PO SCH ×2 (08:08→21:53)
[2017-10-30] MEDS: Gabapentin 400 MG CAPSULE PO SCH ×3 (08:08→21:53)
[2017-10-30] MEDS: *HR* Glimepiride 4 MG TABLET PO SCH (08:08)
[2017-10-30] MEDS: Ranolazine 500 MG TAB.ER.12H PO SCH ×2 (08:08→21:52)
[2017-10-30] MEDS: *HR* SitaGLIPtin 100 MG TABLET PO SCH (08:08)
[2017-10-30] MEDS: Isosorbide MONOnitrate (24 HR) 60 MG TAB.ER.24H PO SCH (08:09)
[2017-10-30] MEDS: Aspirin Enteric Coated 81 MG Tablet PO SCH (08:09)
[2017-10-30] MEDS: *HR* Ticagrelor 90 MG TABLET PO SCH ×2 (08:09→21:52)
[2017-10-30] MEDS: Insulin DETEMIR 100 UNIT/ML X5UNITS SQ SCH ×2 (08:12→21:52)
--- NOTE | 2017-10-30 09:24 | Cardiology Consult Note ---
Addendum entered and electronically signed by Jesus Nino CNP 10/30/17 09:55: Reviewed [facility] with Dr. Fern Carter. Severe small vessel disease on [facility] 2016 that is not amendable to PCI. Had CABG evaluation 12/2016, was deemed not a candidate for bypass. Upon further review/discussion, medical management seems to be most appropriate given his negative troponins and known CAD. Increased Lopressor to 25mg [id number]. If BP tolerates, will switch to 50mg BID. Increased Imdur to 1000mg BID. Continue to follow. Original Note: <Jesus Nino - Last Filed: 10/30/17 09:24> Date of Encounter: 10/30/17 Time of Encounter: 09:23 Assessment and Plan (1) Chest pain Current Visit: Yes Status: Acute Presented with symptmos similar to prior anginal equivalent. Concerning for unstable angina. Troponins negative x 4. No ischemic EKG changes noted. Reports compliance with DAPT (ASA and Brilinta). [facility] 05/08/18 received MARYBETH to mLCx, prox OM, and mid Ramus; bifurcation lesion monique 1,1,1, unable to perform final kissing balloon inflation, severe residual small vessel disease. Repeat [facility] 05/11/17 for chest pain and elevated troponin showed patent stents, severe small vessel CAD. On ASA, Brilinta, Statin, BB, Imdur 120mg daily and Ranexa 500mg BID. Increase Ranexa to 1000mg BID. Currently on nitro gtt at 5mcg/min, CP 4/10. Uptitrate gtt as necessary. If pt is still having chest pain this afternoon after Ranexa and nitro gtt have been increased, then will plan to proceed with [facility]. If chest pain free, will consider continued medical management. R/B/A discussed. Check TTE. EF previously preserved. Qualifiers: Chest pain type: unspecified Qualified Code(s): R07.9 - Chest pain, unspecified (2) CAD (coronary artery disease), [place] coronary artery Current Visit: Yes Status: Chronic As above, s/p multivessel PCI 04/2017. ASA, Brilinta, Statin, BB, Imdur, Ranexa. Qualifiers: [place] vs. transplanted heart: [place] heart Associated angina: with unstable angina Qualified Code(s): I25.110 - Atherosclerotic heart disease of [place] coronary artery with unstable angina pectoris (3) Syncope Current Visit: Yes Status: Acute Reports syncopal episode yesterday, was dizzy/lightheaded prior. No significant arrhythmias noted on telemetry. Borderline BP at times, which could have been contributing factor. Continue to monitor. Check TTE. Qualifiers: Syncope type: unspecified Qualified Code(s): R55 - Syncope and collapse Discussion w patient/family: The assessment and plan as outlined above was discussed with the patient and/or family members who expressed understanding and agreement. All questions were answered. Thank you for involving us in the care of your patient. Please call with any questions. I will discuss all the above with Dr. Gaines and make changes as necessary. History of Present Illness Consult date: 10/30/17 Consult reason: chest pain Chief complaint: chest pain History of present illness: Mr. Covington is a 57 year old male with PMHx significant for poorly controlled DMII, COPD, GERD, anxiety, HTN, HLD, and CAD s/p PCI 04/2017, who presented to [facility] ED for chest pain that initially started on Sunday, waxing and waning in intensity. Pt reports chest pain is left sided, heavy, radiation into left shoulder associated with diaphoresis, dyspnea and nausea. Similar to prior anginal equivalent. He reports he had a syncopal episode yesterday morning. He was dizzy, lightheaded, and passed out onto his couch. Troponins negative x 4. Pt is a on a nitro gtt at 5mcg/min with chest pain rated 4/10 currently. Reports compliance with DAPT. Recent CV testing: TTE 12/27/16: LVEF 65%, moderate LVDD, normal wall motion [facility] 05/08/17: successful PTCA/MARYBETH in the mLCx, prox OM, and mid Ramus; bifurcation lesion monique 1,1,1, unable to perform final kissing balloon inflation, severe residual small vessel disease [facility] 05/11/17: Severe small vessel diabetic coronary artery disease, anatomy without significant change. The left ventricle is normal and has normal contractility EF 65%. Stent placed from a prior procedure in the Mid Circumflex , 1st marginal, and Ramus are patent. Past Med Surg Social Fam HX - Past Medical History Medical history: arthritis, COPD, coronary artery disease, diabetes, GERD, hyperlipidemia, hypertension, myocardial infarction Psychiatric history: anxiety, depression - Past Surgical History Surgical History: angioplasty/stent, appendectomy, knee replacement, other Additional surgical history: tonsillectomy, heart cath with stents, colonoscopy. 12/10/15 JULISSA @[facility] W/DR OROZCO - Social History Smoking Status: Former smoker Smokeless Tobacco Status: No Alcohol use: none Drug use: none - Family History Mother Adopted: Yes Medications and Allergies Sitagliptin Phosphate [Januvia] 100 mg PO DAILY 12/10/15 [History] Venlafaxine [Effexor] 75 mg PO BID 12/10/15 [History] Albuterol Sulfate [Ventolin Hfa] 1 - 2 puff IH Q6H PRN 12/20/16 [History] Glimepiride [Amaryl] 4 mg PO BID 12/20/16 [History] Insulin Glargine [Lantus] 40 unit SQ BID 12/20/16 [History] Insulin LISPRO [HumaLOG] 3 - 4 unit SQ TID 12/20/16 [History] Nitroglycerin [Nitrostat] 0.4 mg SL DAILY PRN 12/20/16 [History] Omeprazole [PriLOSEC] 20 mg PO DAILY 12/20/16 [History] Tramadol HCl [Ultram] 50 mg PO Q6H PRN 12/20/16 [History] rOPINIRole [Requip] 1.5 mg PO HS 12/27/16 [History] Aspirin [Lo-Dose Aspirin EC] 81 mg PO DAILY #30 12/29/16 [Rx] Atorvastatin [Lipitor] 40 mg PO HS #30 tablet 12/29/16 [Rx] Lisinopril [Zestril] 20 mg PO BID 30 Days 12/29/16 [Rx] Metoprolol [Lopressor] 25 mg PO BID 30 Days tablet 12/29/16 [Rx] Ticagrelor [Brilinta] 90 mg PO BID 30 Days tab 12/29/16 [Rx] Isosorbide MONOnitrate (24 HR) [Imdur] 120 mg PO DAILY 05/08/17 [History] Pramipexole Di-HCl [Mirapex ER] 0.75 mg PO HS 05/08/17 [History] Gabapentin [Neurontin] 400 mg PO TID 05/11/17 [History] Ranolazine [Ranexa] 500 mg PO BID 06/05/17 [History] 3 Allergy/AdvReac Type Severity Reaction Status Date / Time No Known Allergies Allergy Verified 10/29/17 14:09 All Systems Review: The remainder of the systems were reviewed and are negative - Cardiovascular Cardiovascular: as per HPI, chest pain at rest, chest pain with exertion, diaphoresis, dyspnea at rest, dyspnea on exertion, radiating jaw, neck or arm pain, lightheadedness, syncope - Respiratory Respiratory: dyspnea - Gastrointestinal Gastrointestinal: nausea Physical Examination Vital Signs, Last 4 Hours Temp Pulse Resp BP Pulse Ox 10/30/17 07:44 97.6 F 66 16 123/70 93 10/30/17 07:00 118/82 10/30/17 06:39 109/76 Vital Signs Temp Pulse Resp BP Pulse Ox 10/30/17 07:44 97.6 F 66 16 123/70 93 10/30/17 07:00 118/82 10/30/17 06:39 109/76 10/30/17 05:00 73 111/68 10/30/17 04:38 98.2 F 74 18 108/72 94 10/30/17 04:00 111/68 10/30/17 03:00 75 131/79 10/30/17 02:53 74 124/81 10/30/17 02:00 66 123/95 10/30/17 01:00 97.6 F 74 18 121/74 95 10/30/17 00:00 86 123/85 10/29/17 23:00 87 130/91 10/29/17 22:00 93 124/85 10/29/17 21:37 140/77 96 10/29/17 20:47 98.3 F 93 18 157/97 94 10/29/17 17:02 97.7 F 77 154/99 10/29/17 16:41 90 15 139/90 94 10/29/17 16:09 85 15 153/90 93 10/29/17 15:10 75 15 139/95 94 10/29/17 14:30 87 15 132/103 93 10/29/17 14:00 86 15 144/104 96 10/29/17 13:14 87 15 158/57 95 10/29/17 12:15 87 18 166/131 92 06/18/18 11:22 97.8 F 85 16 156/103 97 Intake and Output 10/29/17 10/30/17 10/30/17 23:59 07:59 15:59 Intake Total 290 / 290 130 / 130 Output Total 175 / 175 200 / 200 300 / 300 Balance 115 / 115 -70 / -70 -300 / -300 Intake: IV Fluids 50 / 50 10 / 10 Nitroglycerin Premix 25 MG/250 50 / 50 10 / 10 ML 25 mg In 250 ml @ 5 MCG/MIN 3 mls/hr IVC .Q24H [facility] Rx#: [id number] Oral 240 / 240 120 / 120 Output: Urine 175 / 175 200 / 200 300 / 300 Other: Meal NPO Percent of Meal Consumed 0% # Voids 0 Weight 107.8 kg Blood Glucose* 333 242 Patient Weight 10/30/17 23:59 Weight 107.8 kg General: Conversant, No Apparent Distress HEENT: Atraumatic, Normocephaly, Mucus Membranes Moist Neck: No JVD, Normal carotid pulses Cardiac: Reg Rate and Rhythm, Normal S1 and S2, No Murmur Lungs: Other (diminished) Neuro: Alert and responsive, No focal deficits noted Abdomen: Soft, Non-Tender Skin: No rashes noted on visualized skin Musculoskeletal: No Chest Wall Tenderness Extremities: No Clubbing, No Cyanosis, No Edema, Normal Pulses Results 10/30/17 00:28 10/30/17 00:28 Lab Results 10/29/17 10/30/17 10/30/17 18:06 00:28 00:28 WBC 13.3 H Hgb 14.3 Hct 44.0 Plt Count 284 Sodium Potassium Chloride Carbon Dioxide BUN Creatinine Glucose Calcium Troponin I < 0.03 < 0.03 10/30/17 10/30/17 00:28 06:11 WBC Hgb Hct Plt Count Sodium 134 L Potassium 3.6 Chloride 102 Carbon Dioxide 22 L BUN 15 Creatinine 0.73 Glucose 278 H Calcium 9.1 Troponin I < 0.03 Short CBC 10/30/17 10/29/17 Range/Units 00:28 11:39 WBC 13.3 H 13.7 H (4.3-11.1) K/mcL Hgb 14.3 14.7 (12.9-16.9) g/dL Hct 44.0 44.5 (37.5-50.1) % Plt Count 284 280 (140-400) K/mcL Neutrophils # 9.6 H 10.6 H (1.6-8.9) K/mcL BMP 10/30/17 10/29/17 Range/Units 00:28 11:39 Sodium 134 L 132 L (136-145) mEq/L Potassium 3.6 3.8 (3.5-5.1) mEq/L Chloride 102 99 (98-107) mEq/L Carbon Dioxide 22 L 24 (23-29) mEq/L BUN 15 16 (6-20) mg/dL Creatinine 0.73 0.71 (0.70-1.30) mg/dL Glucose 278 H 305 H (70-105) mg/dL Calcium 9.1 9.1 (8.6-10.3) mg/dL Cardiac Enzymes 10/30/17 10/30/17 10/29/17 Range/Units 06:11 00:28 18:06 Troponin I < 0.03 < 0.03 < 0.03 (< 0.04) ng/mL 10/29/17 Range/Units 11:39 Troponin I < 0.03 (< 0.04) ng/mL Impressions Chest X-Ray 10/29/17 11:21 IMPRESSION: Exam degraded by shallow inflation and positioning. No acute airspace disease identified. D/ / Luis Pickard / Luis Pickard Interpreting Provider: Luis Pickard Chest CTA 10/29/17 12:49 IMPRESSION: No evidence of pulmonary embolism or acute pulmonary abnormality. Coronary atherosclerosis. Hepatic steatosis. D/ / 10/29/2017 13:52:14 Zachary Hoffman MD / bcarter Interpreting Provider: Zachary Hoffman MD Active Medications Albuterol Sulfate (Albuterol Inhaler) 1 puff IH [id number] PRN PRN Reason: Dyspnea Stop: 04/30/18 22:01 Aspirin (Aspirin Ec) 81 mg PO DAILY [facility] Stop: 05/01/18 09:01 Last Admin: 10/30/17 08:09 Dose: 81 mg Atorvastatin Calcium (Lipitor) 40 mg PO HS [facility] Stop: 04/30/18 21:01 Last Admin: 10/29/17 21:05 Dose: 40 mg Dextrose/Water (Dextrose 50% (Syg)) 25 ml IVP AD PRN PRN Reason: Hypoglycemia Stop: 04/30/18 18:27 Gabapentin (Neurontin) 400 mg PO TID [facility] Stop: 04/30/18 21:01 Last Admin: 10/30/17 08:08 Dose: 400 mg Glimepiride (Amaryl) 4 mg PO BIDWM [facility] Stop: 04/30/18 21:01 Last Admin: 10/30/17 08:08 Dose: 4 mg Glucagon (Glucagen) 1 mg IM ONCE PRN PRN Reason: Hypoglycemia Stop: 04/30/18 18:27 Glucose (Gluctose) 15 gm PO ONCE PRN PRN Reason: Hypoglycemia Stop: 04/30/18 18:27 Glucose (Gluctose) 30 gm PO ONCE PRN PRN Reason: Hypoglycemia Stop: 04/30/18 18:27 Heparin Sodium (Porcine) (Heparin) 5,000 unit SQ Q12HCO [facility] Stop: 05/01/18 06:01 Last Admin: 10/30/17 04:53 Dose: 5,000 unit Nitroglycerin (Nitroglycerin Premix 25 Mg/250 Ml) 25 mg in 250 mls @ 3 mls/hr IVC .Q24H MAHI; 5 MCG/MIN PRN Reason: Protocol Stop: 04/30/18 12:01 Last Titration: 10/30/17 04:41 Dose: 5 mcg/min, 3 mls/hr Dextrose (Dextrose 5%) 1,000 mls @ 100 mls/hr IVC .Q10H PRN PRN Reason: HYPOGLYCEMIA Stop: 04/30/18 18:27 Insulin Detemir (Levemir) 40 unit SQ BID [facility] Stop: 04/30/18 21:01 Last Admin: 10/30/17 08:12 Dose: 40 unit Insulin Human Lispro (Humalog) 0 units SQ HS [facility] PRN Reason: Protocol Stop: 04/30/18 21:01 Last Admin: 10/29/17 21:06 Dose: 6 units Insulin Human Lispro (Humalog) 0 units SQ TIDAC [facility] PRN Reason: Protocol Stop: 05/01/18 07:31 Last Admin: 10/30/17 08:07 Dose: 8 unit Isosorbide Mononitrate (Imdur) 120 mg PO DAILY [facility] Stop: 05/01/18 09:01 Last Admin: 10/30/17 08:09 Dose: 120 mg Lisinopril (Zestril) 20 mg PO BID [facility] PRN Reason: Protocol Stop: 04/30/18 21:01 Last Admin: 10/30/17 08:08 Dose: 20 mg Metoprolol Tartrate (Lopressor) 25 mg PO BID [facility] Stop: 04/30/18 21:01 Last Admin: 10/30/17 08:09 Dose: 25 mg Morphine Sulfate (Morphine Sulfate) 4 mg IVP Q4HR PRN; Protocol PRN Reason: Chest Pain Stop: 10/31/17 18:25 Naloxone HCl (Narcan) 0.4 mg IVP Q2MIN PRN PRN Reason: SEE COMMENTS Stop: 04/30/18 17:46 Omeprazole (Prilosec) 20 mg PO DAILY [facility] PRN Reason: Protocol Stop: 05/01/18 09:01 Last Admin: 10/30/17 08:08 Dose: 20 mg Pharmacy Profile Note (Patient Taking Own Medication) 0 each PO HS [facility] Stop: 04/30/18 21:01 Last Admin: 10/29/17 21:07 Dose: Not Given Ranolazine (Ranexa) 500 mg PO BID [facility] Stop: 04/30/18 21:01 Last Admin: 10/30/17 08:08 Dose: 500 mg Ropinirole HCl (Requip) 1.5 mg PO HS [facility] Stop: 04/30/18 21:01 Last Admin: 10/29/17 21:05 Dose: 1.5 mg Sitagliptin Phosphate (Januvia) 100 mg PO DAILY [facility] Stop: 05/01/18 09:01 Last Admin: 10/30/17 08:08 Dose: 100 mg Ticagrelor (Brilinta) 90 mg PO BID [facility] Stop: 04/30/18 21:01 Last Admin: 10/30/17 08:09 Dose: 90 mg Tramadol HCl (Ultram) 50 mg PO Q6H PRN PRN Reason: Moderate Pain Stop: 04/30/18 18:21 Last Admin: 10/29/17 21:16 Dose: 50 mg Venlafaxine HCl (Effexor) 75 mg PO BID [facility] Stop: 04/30/18 21:01 Last Admin: 10/30/17 08:09 Dose: 75 mg - Imaging and Cardiology Echo: report reviewed Cardiac cath: report reviewed - EKG Interpretation EKG results cardiology: personally reviewed (SR, RBBB), other (12 hr tele AVG HR 75, SR, no significant pauses or arrhythmias noted.) Consult Discharge Plan - Plan Referrals: Fern Rivera, FERRYBOAT PILOT [Primary Care Provider] - <KatherinezoeEdna - Last Filed: 10/30/17 12:09> Date of Encounter: 10/30/17 - Attending Attestation I examined this patient and my medical decision-making was reviewed with the FERRYBOAT PILOT. I agree with the documented findings, disposition and treatment plan as described. Mr. Covington presents with chest pain, dyspnea and concern for syncope. Symptoms of chest pain are atypical. He's had negative troponins and no new ischemic ECG findings and describes symptoms as constant since Sunday. He is mildly tender to palpation over the left chest on exam. These symptoms do not represent an ACS and do not appear to be ischemic. However, he later says in the conversation that he's having some discomfort when he walks. We reviewed his recent cath films demonstrating diffuse disease with small vessels that would unlikely be amenable to PCI. He was previously turned down for bypass for this reason. At this time, it is reasonable to optimize anti-anginal medications with careful watch on blood pressure. Patient also describes dyspnea when walking. He states this is associated with feeling like he's going to pass out. He is unable to tell me whether he lost consciousness with his recent event. I suspect these symptoms may be related to a pulmonary component - recently stopped smoking and suspect COPD. Will reach out to Pulmonary for assistance. Also must keep in mind that he recently lost about 15-20 pounds and his BP may be intermittently low with the medications he is on. Will observe BPs while hospitalized. No concerning dysrhythmia on telemetry with average heart rates 75 bpm. Checking echo. Assessment and Plan Discussion w patient/family: The assessment and plan as outlined above was discussed with the patient and/or family members who expressed understanding and agreement. All questions were answered. Thank you for involving us in the care of your patient. Please call with any questions. History of Present Illness History of present illness: Mr. Covington is a 57 year old male All Systems Review: The remainder of the systems were reviewed and are negative Physical Examination Vital Signs, Last 4 Hours Temp Pulse Resp Pulse Ox 10/30/17 11:13 97.9 F 60 17 94 Results 10/30/17 00:28 10/30/17 00:28 Lab Results 10/29/17 10/30/17 10/30/17 18:06 00:28 00:28 WBC 13.3 H Hgb 14.3 Hct 44.0 Plt Count 284 Sodium Potassium Chloride Carbon Dioxide BUN Creatinine Glucose Calcium Troponin I < 0.03 < 0.03 10/30/17 10/30/17 00:28 06:11 WBC Hgb Hct Plt Count Sodium 134 L Potassium 3.6 Chloride 102 Carbon Dioxide 22 L BUN 15 Creatinine 0.73 Glucose 278 H Calcium 9.1 Troponin I < 0.03
[2017-10-30] MEDS ORDERED: Ranolazine 500 MG TAB.ER.12H PO ONE (09:41)
[2017-10-30] MEDS ORDERED: GI Cocktail 40 ML EACH PO ONE (09:49)
--- NOTE | 2017-10-30 11:56 | Internal Med Progress Note ---
<Leila Garcia - Last Filed: 10/30/17 15:48> Date of Encounter: 10/30/17 Time of Encounter: 11:56 - Assessment and plan (1) Chest pain Current Visit: Yes Status: Acute Assessment and plan: Pt presented with sx similar to prior anginal event with extensive cardiac history--possible unstable angina Troponins negative x4, no ischemic changes noted on EKG Pt on ASA and Brilinta, statin, bb, imdur 120mg daily and ranexa 500mg BID Pt on nitro gtt Cardiology has evaluated pt and prior testing--not a candidate for [facility] and recommend medical management at this time. Plan: Cardiology following, appreciate their recommendations ECHO Continue imdur at 120mg daily Increase ranexa to 1000mg BID Increase lopressor to 25mg C9uc--cz tolerates plan to increase to 50mg BID Continue nitro gtt, titrate as necessary Qualifiers: Chest pain type: unspecified Qualified Code(s): R07.9 - Chest pain, unspecified (2) CAD (coronary artery disease), [place] coronary artery Current Visit: Yes Status: Chronic Assessment and plan: see above Qualifiers: [place] vs. transplanted heart: [place] heart Associated angina: with unstable angina Qualified Code(s): I25.110 - Atherosclerotic heart disease of [place] coronary artery with unstable angina pectoris (3) COPD (chronic obstructive pulmonary disease) Current Visit: No Status: Chronic Assessment and plan: Pt with hx of COPD, not currently on oxygen. Complaining of worsening SOB, mostly at night. Plan: Will get 6 minute walk test to determine need for oxygen therapy at discharge SW consulted for discharge assistance Pt will need PFT as outpt Pt will need f/u with Pulmonology Qualifiers: COPD type: emphysema Emphysema type: unspecified Qualified Code(s): J43.9 - Emphysema, unspecified (4) Diabetes Current Visit: No Status: Chronic Assessment and plan: HgbA1C was 11.6 08/07/17 Poorly controlled Plan: ADA diet Accuchecks ACHS Levemir 40 units BID Continue Humalog SS ACHS Stop amaryl Qualifiers: Diabetes mellitus type: type 2 Diabetes mellitus snf insulin use: unspecified long term care social worker insulin use status Diabetes mellitus complication status : with hyperglycemia Qualified Code(s): E11.65 - Type 2 diabetes mellitus with hyperglycemia (5) JARROD (obstructive sleep apnea) Current Visit: Yes Status: Acute Assessment and plan: Pt has hx of JARROD, not currently on CPAP. Complained of SOB while trying to sleep , sweating, frequent awakenings. Pulmonology has been consulted by cardio--appreciate their recommendations. Plan: Pt will need sleep study outpatient Continue oxygen at night - Time Spent With Patient Total time spent is greater than 50% in coordination of care (as documented) at patient's floor/unit and/or counseling patient: - Subjective Interval history: Pt seen and examined, lying in bed comfortably. Pt states that overnight he felt SOB, restless, had frequent awakenings because he felt like he was smothering and was diaphoretic. He states that he does not use a CPAP at home. He states he does not have oxygen at home, but probably needs it. Currently rates CP at 3/10, down from 10/10 at admission. - Constitutional Vitals: Temp Pulse Resp BP Pulse Ox 97.9 F 60 17 123/70 94 10/30/17 11:13 10/30/17 11:13 10/30/17 11:13 10/30/17 07:44 10/30/17 11:13 General appearance: Present: cooperative, A&O X 3, pleasant, no acute distress, answers questions appropriately - Head Head exam: Present: atraumatic, normocephalic - Eye Eye exam: Present: PERRL, conjuntiva pink, sclera anicteric Pupils: Present: PERRL - Neck Neck exam general surgery: Present: supple, trachea midline. Absent: lymphadenopathy - Respiratory Respiratory exam: Present: decreased breath sounds. Absent: accessory muscle use, rales, respiratory distress, rhonchi, wheezes, tachypnea - Cardiovascular Cardiovascular exam: Present: RRR, +S1, +S2. Absent: diastolic murmur, gallop, rubs, systolic murmur - GI/Abdominal GI/Abdominal exam: Present: normal bowel sounds, soft, no peritoneal signs. Absent: distended, tenderness - Extremities Exam Extremities exam: Present: warm, radial pulses palpable and symmetrical. Absent : calf tenderness, cyanotic, pedal edema - Neurological Exam Neurological exam: Present: alert, oriented X3, no focal deficits. Absent: facial droop, speech deficit - Psychiatric Psychiatric exam: Present: normal affect, normal mood - Skin Skin exam: Present: dry, intact Internal Medicine: Result - Labs CBC & Chem 7: 10/30/17 00:28 10/30/17 00:28 Labs: Short CBC 10/30/17 Range/Units 00:28 WBC 13.3 H (4.3-11.1) K/mcL Hgb 14.3 (12.9-16.9) g/dL Hct 44.0 (37.5-50.1) % Plt Count 284 (140-400) K/mcL Neutrophils # 9.6 H (1.6-8.9) K/mcL BMP 10/30/17 00:28 Sodium 134 L Potassium 3.6 Chloride 102 Carbon Dioxide 22 L BUN 15 Creatinine 0.73 Glucose 278 H Calcium 9.1 Cardiac Enzymes 10/29/17 10/30/17 10/30/17 Range/Units 18:06 00:28 06:11 Troponin I < 0.03 < 0.03 < 0.03 (< 0.04) ng/mL - ABG Interpretation ABG results: PT/INR, D-dimer PT 12.0 Seconds (9.4-12.1) 10/29/17 11:39 D-Dimer 622 ng/mLFEU (0-500) H 10/29/17 11:39 Consult Discharge Plan - Plan Referrals: Fern Rivera, AREA OPERATIONS DIRECTOR [Primary Care Provider] - <Jossie Cloud - Last Filed: 10/30/17 19:05> Date of Encounter: 10/30/17 - Assessment and plan (1) COPD (chronic obstructive pulmonary disease) Current Visit: No Status: Chronic Qualifiers: COPD type: emphysema Emphysema type: unspecified Qualified Code(s): J43.9 - Emphysema, unspecified (2) Diabetes Current Visit: No Status: Chronic Qualifiers: Diabetes mellitus type: type 2 Diabetes mellitus snf insulin use: unspecified snf insulin use status Diabetes mellitus complication status : with hyperglycemia Qualified Code(s): E11.65 - Type 2 diabetes mellitus with hyperglycemia (3) Chest pain Current Visit: Yes Status: Acute Qualifiers: Chest pain type: unspecified Qualified Code(s): R07.9 - Chest pain, unspecified (4) CAD (coronary artery disease), [place] coronary artery Current Visit: Yes Status: Chronic Qualifiers: [place] vs. transplanted heart: [place] heart Associated angina: with unstable angina Qualified Code(s): I25.110 - Atherosclerotic heart disease of [place] coronary artery with unstable angina pectoris (5) JARROD (obstructive sleep apnea) Current Visit: Yes Status: Chronic - Time Spent With Patient Total time spent is greater than 50% in coordination of care (as documented) at patient's floor/unit and/or counseling patient: - Constitutional Vitals: Temp Pulse Resp BP Pulse Ox 97.5 F L 63 17 107/76 95 10/30/17 16:26 10/30/17 16:26 10/30/17 16:26 10/30/17 16:26 10/30/17 16:26 Internal Medicine: Result - Labs CBC & Chem 7: 10/30/17 00:28 10/30/17 00:28 Labs: Short CBC 10/30/17 Range/Units 00:28 WBC 13.3 H (4.3-11.1) K/mcL Hgb 14.3 (12.9-16.9) g/dL Hct 44.0 (37.5-50.1) % Plt Count 284 (140-400) K/mcL Neutrophils # 9.6 H (1.6-8.9) K/mcL BMP 10/30/17 00:28 Sodium 134 L Potassium 3.6 Chloride 102 Carbon Dioxide 22 L BUN 15 Creatinine 0.73 Glucose 278 H Calcium 9.1 Cardiac Enzymes 10/30/17 10/30/17 Range/Units 00:28 06:11 Troponin I < 0.03 < 0.03 (< 0.04) ng/mL - ABG Interpretation ABG results: PT/INR, D-dimer PT 12.0 Seconds (9.4-12.1) 10/29/17 11:39 D-Dimer 622 ng/mLFEU (0-500) H 10/29/17 11:39 - Impressions Impressions Chest CT 10/30/17 12:20 IMPRESSION: No acute abnormality in the chest. Hepatic steatosis. D/ / 10/30/2017 13:58:00 Zachary Angeles MD / francois Interpreting Provider: Zachary Angeles MD - Attending Attestation I examined this patient and my medical decision-making was reviewed with the Resident Physician. I agree with the documented findings, disposition and treatment plan as described except to the extent set forth below.
[2017-10-30] MEDS: traMADol 50 MG TABLET PO PRN ×2 (15:36→21:57)
--- NOTE | 2017-10-30 17:02 | Pulmonology Consult Note ---
Date of Encounter: 10/30/17 Time of Encounter: 15:00 Assessment and Plan (1) Dyspnea, unspecified Current Visit: Yes Status: Acute This patient has been complaining of dyspnea which is worsening over past month. Patient had CT chest without any structural abnormalities to explain his dyspnea that could be related to pulmonary diseases, however I explained to the patient as outpatient he will need a pulmonary function test which would be more reliable test if he has any abnormalities. I have also explained to him I believe his untreated obstructive sleep apnea has major clinical correlation with his symptoms mainly at night and also hypoxia at night and he will need to be treated again as outpatient and follow-up. Patient understand that and he also explained to his family at the bedside. One more thing could be contributing to his dyspnea is deconditioning and obesity. Thank you very much for allowing me to participate in the care this pleasant patient. This is discussed with primary team and we will be happy to see patient as outpatient for further care and do not hesitate to call for any questions. Qualifiers: Dyspnea type: dyspnea on exertion Qualified Code(s): R06.09 - Other forms of dyspnea (2) JARROD (obstructive sleep apnea) Current Visit: Yes Status: Chronic I have explained to patient all the risks associated with untreated obstructive sleep apnea and he will need follow-up as outpatient. History of Present Illness Consult date: 10/30/17 Requesting physician: Edna Gaines Reason for consult: dyspnea Chief complaint: Chest pain History of present illness: This is a very pleasant 57-year-old male with no significant history of pulmonary diseases who stated that he has been having more dyspnea on exertion for the past year. Patient stated his dyspnea mainly on exertion and she has diagnosis of obstructive sleep apnea and he stated that he did not tolerate treatment and he has noticed his dyspnea and night sweats with tossing and turning mainly at night. Patient denies any significant productive cough and he had some wheezing according to him but not significant and he does have chest pain has been seen by brokerage manager. Patient had CT chest with no acute abnormalities. Patient was placed on oxygen due to hypoxia at night. He denies any sick contact no history of TB in the past and no significant history of smoking. Past Med Surg Social Fam HX - Past Medical History Medical history: arthritis, COPD, coronary artery disease, diabetes, GERD, hyperlipidemia, hypertension, myocardial infarction Psychiatric history: anxiety, depression - Past Surgical History Surgical History: angioplasty/stent, appendectomy, knee replacement, other Additional surgical history: tonsillectomy, heart cath with stents, colonoscopy. 12/10/15 JULISSA @CARLYN Umaña/DR OROZCO - Social History Smoking Status: Former smoker Smokeless Tobacco Status: No Alcohol use: none Drug use: none - Family History Mother Adopted: Yes Medications and Allergies Sitagliptin Phosphate [Januvia] 100 mg PO DAILY 12/10/15 [History] Venlafaxine [Effexor] 75 mg PO BID 12/10/15 [History] Albuterol Sulfate [Ventolin Hfa] 1 - 2 puff IH Q6H PRN 12/20/16 [History] Glimepiride [Amaryl] 4 mg PO BID 12/20/16 [History] Insulin Glargine [Lantus] 40 unit SQ BID 12/20/16 [History] Insulin LISPRO [HumaLOG] 3 - 4 unit SQ TID 12/20/16 [History] Nitroglycerin [Nitrostat] 0.4 mg SL DAILY PRN 12/20/16 [History] Omeprazole [PriLOSEC] 20 mg PO DAILY 12/20/16 [History] Tramadol HCl [Ultram] 50 mg PO Q6H PRN 12/20/16 [History] rOPINIRole [Requip] 1.5 mg PO HS 12/27/16 [History] Aspirin [Lo-Dose Aspirin EC] 81 mg PO DAILY #30 12/29/16 [Rx] Atorvastatin [Lipitor] 40 mg PO HS #30 tablet 12/29/16 [Rx] Lisinopril [Zestril] 20 mg PO BID 30 Days 12/29/16 [Rx] Metoprolol [Lopressor] 25 mg PO BID 30 Days tablet 12/29/16 [Rx] Ticagrelor [Brilinta] 90 mg PO BID 30 Days tab 12/29/16 [Rx] Isosorbide MONOnitrate (24 HR) [Imdur] 120 mg PO DAILY 05/08/17 [History] Pramipexole Di-HCl [Mirapex ER] 0.75 mg PO HS 05/08/17 [History] Gabapentin [Neurontin] 400 mg PO TID 05/11/17 [History] Ranolazine [Ranexa] 500 mg PO BID 06/05/17 [History] 3 Allergy/AdvReac Type Severity Reaction Status Date / Time No Known Allergies Allergy Verified 10/29/17 14:09 All Systems: The remainder of the systems were reviewed and are negative Physical Examination Vital Signs: Vital Signs, Last 4 Hours Temp Pulse Resp BP Pulse Ox 10/30/17 16:26 97.5 F L 63 17 107/76 95 General appearance: no acute distress Eyes: nonicteric ENT: oropharynx moist Mallampati (class): 4 Neck: supple Effort: normal Auscultation: bilateral: clear Percussion: bilateral: not dull Cardiovascular: regular rate and rhythm Gastrointestinal: normoactive bowel sounds, non-distended Extremities: no cyanosis, edema normal mental status, non-focal exam depressed Results - Laboratory Findings CBC and BMP: 10/30/17 00:28 10/30/17 00:28 PT/INR, D-dimer PT 12.0 Seconds (9.4-12.1) 10/29/17 11:39 D-Dimer 622 ng/mLFEU (0-500) H 10/29/17 11:39 Abnormal lab findings: Abnormal lab results WBC 13.3 K/mcL (4.3-11.1) H 10/30/17 00:28 MCV 82.2 fL (83.0-100.0) L 10/30/17 00:28 MCH 26.7 pg (28.0-33.3) L 10/30/17 00:28 RDW 16.8 % (11.5-14.5) H 10/30/17 00:28 Neutrophils # 9.6 K/mcL (1.6-8.9) H 10/30/17 00:28 D-Dimer 622 ng/mLFEU (0-500) H 10/29/17 11:39 Sodium 134 mEq/L (136-145) L 10/30/17 00:28 Carbon Dioxide 22 mEq/L (23-29) L 10/30/17 00:28 Glucose 278 mg/dL (70-105) H 10/30/17 00:28 POC Glucose 333 mg/dL (70-99) H 10/29/17 20:49 Triglycerides 185 mg/dL (< 150) H 10/30/17 00:28 VLDL Cholesterol, Calc 37 mg/dL (< 31) H 10/30/17 00:28 HDL Cholesterol 32 mg/dL (40-59) L 10/30/17 00:28 - Diagnostic Findings CT scan - chest: report reviewed, image reviewed - Clinical Findings Intake & Output: Intake & Output 10/30/17 10/30/17 10/30/17 07:59 15:59 23:59 Intake Total 130 / 130 480 / 480 Output Total 200 / 200 300 / 300 Balance -70 / -70 180 / 180 Weight 107.8 kg Consult Discharge Plan - Plan Referrals: Fern Rivera, COLLEGE SPORTS ASSISTANT [Primary Care Provider] -
[2017-10-30] MEDS: rOPINIRole 1 MG TABLET PO SCH (21:52)
[2017-10-30] MEDS: PRAMIPEXOLE DI HCL 0.75 MG PO SCH (21:53)
[2017-10-30] MEDS ORDERED: Perflutren Lipid Microsphere 1.3 ML in 0.9 % Sodium Chloride 8.7 ML IVP ONE (22:07)
[2017-10-31] MEDS: *HR* Heparin 5,000 UNIT/ML VIAL SQ SCH ×2 (05:49→17:57)
[2017-10-31 06:31] LABS: Basophils # 0.1 K/mcL (0.0-0.2); Basophils % 0.5 %; Eosinophils # 0.2 K/mcL (0.0-0.6); Eosinophils % 2.1 %; Hemoglobin 14.1 g/dL (12.9-16.9); Immature Granulocytes % 1.9 % (0-4); Immature Platelets 4.6 % (1.1-6.1); Lymphocytes # 1.8 K/mcL (0.6-4.6); Lymphocytes % 17.6 %; Mean Corpuscular HGB Conc 32.8 g/dL (31.6-35.5); Mean Corpuscular Hemoglobin 27.2 pg (28.0-33.3); Mean Corpuscular Volume 82.9 fL (83.0-100.0); Mean Platelet Volume 10.2 fL (9.4-12.4); Monocytes # 0.8 K/mcL (0.0-1.3); Monocytes % 8.3 %; Platelet Count 253 K/mcL (140-400); Red Blood Count 5.19 M/mcL (4.19-5.50); Red Cell Distribution Width 16.1 % (11.5-14.5); Segmented Neutrophils % 69.6 %
[2017-10-31 06:42] LABS: BUN/Creatinine Ratio 30 (6-26); Blood Urea Nitrogen 18 mg/dL (6-20); Carbon Dioxide 22 mEq/L (23-29); Chloride 103 mEq/L (98-107); Glucose 296 mg/dL (70-105); Osmolality,Calculated 291 (280-300); Potassium 4.1 mEq/L (3.5-5.1); Sodium 134 mEq/L (136-145); eGFR For African Americans > 60 (> 60); eGFR For Non-African Americans > 60 (> 60)
--- NOTE | 2017-10-31 08:17 | Electrocardiograph Report ---
[facility] Test Date: 2017-10-29 Pat Name: Gurvinder Covington Department: 103 Room: 2NE35 Gender: M [employer] Engineer: : [id number] Requested By: Elgin Mcclain Order Number: [id number] Reading MD: Puneet Gutierrez Measurements Intervals [place] Rate: 81 P: 46 LA: 177 QRS: -69 QRSD: 122 T: 54 QT: 390 QTc: 428 Interpretive Statements SINUS RHYTHM RIGHT BUNDLE BRANCH BLOCK [120+ ms QRS DURATION, UPRIGHT V1, 40+ ms S IN I/aVL/V4/V5/V6] LEFT ANTERIOR FASCICULAR BLOCK [QRS AXIS <= -45, QR IN I, RS IN II] WARNING: DATA QUALITY MAY AFFECT INTERPRETATION Electronically Signed On 10-31-2017 8:14:57 EDT by Puneet Gutierrez
[2017-10-31] MEDS: Insulin LISPRO 300 UNITS/3 ML VIAL SQ SCH ×4 (08:49→21:05)
[2017-10-31] MEDS: Aspirin Enteric Coated 81 MG Tablet PO SCH (08:51)
[2017-10-31] MEDS: Isosorbide MONOnitrate (24 HR) 60 MG TAB.ER.24H PO SCH (08:51)
[2017-10-31] MEDS: Ranolazine 500 MG TAB.ER.12H PO SCH ×2 (08:51→20:37)
[2017-10-31] MEDS: Lisinopril 20 MG TABLET PO SCH ×2 (08:51→20:37)
[2017-10-31] MEDS: *HR* SitaGLIPtin 100 MG TABLET PO SCH (08:52)
[2017-10-31] MEDS: Gabapentin 400 MG CAPSULE PO SCH ×3 (08:52→20:38)
[2017-10-31] MEDS: Insulin DETEMIR 100 UNIT/ML X5UNITS SQ SCH (08:55)
[2017-10-31] MEDS: traMADol 50 MG TABLET PO PRN ×2 (09:01→20:37)
[2017-10-31] MEDS: *HR* Ticagrelor 90 MG TABLET PO SCH ×2 (09:02→20:37)
--- NOTE | 2017-10-31 09:13 | Internal Med Progress Note ---
<Leila Garcia - Last Filed: 10/31/17 09:11> Date of Encounter: 10/31/17 Time of Encounter: 09:11 - Assessment and plan (1) Chest pain Current Visit: Yes Status: Acute Assessment and plan: Pt presented with sx similar to prior anginal event with extensive cardiac history--possible unstable angina Troponins negative x4, no ischemic changes noted on EKG Pt on ASA and Brilinta, statin, bb, imdur 120mg daily and ranexa 500mg BID Pt on nitro gtt Cardiology has evaluated pt and prior testing--not a candidate for [facility] and recommend medical management at this time. Plan: Cardiology following, appreciate their recommendations ECHO Continue imdur at 120mg daily Continue increased dose of ranexa 1000mg BID Increase lopressor to 25mg X8bg--fv tolerates plan to increase to 50mg BID per Cardio recs Plan to wean nitro gtt based on cardio recs Patient had acute epistaxis this AM that stopped with pressure. ASA given, will hold Brillinta until Cardio assess pt. Qualifiers: Chest pain type: unspecified Qualified Code(s): R07.9 - Chest pain, unspecified (2) CAD (coronary artery disease), [place] coronary artery Current Visit: Yes Status: Chronic Assessment and plan: see above Qualifiers: [place] vs. transplanted heart: [place] heart Associated angina: with unstable angina Qualified Code(s): I25.110 - Atherosclerotic heart disease of [place] coronary artery with unstable angina pectoris (3) COPD (chronic obstructive pulmonary disease) Current Visit: No Status: Chronic Assessment and plan: Pt with hx of COPD, not currently on oxygen. Complaining of worsening SOB, mostly at night. Plan: Will get 6 minute walk test to determine need for oxygen therapy at discharge SW consulted for discharge assistance Pt will need PFT as outpt Pt will need f/u with Pulmonology Qualifiers: COPD type: emphysema Emphysema type: unspecified Qualified Code(s): J43.9 - Emphysema, unspecified (4) Diabetes Current Visit: No Status: Chronic Assessment and plan: HgbA1C was 11.6 08/07/17 Poorly controlled Plan: ADA diet Accuchecks ACHS Levemir 40 units BID Continue Humalog SS ACHS Stop amaryl Qualifiers: Diabetes mellitus type: type 2 Diabetes mellitus manager long term care insulin use: unspecified skilled nursing insulin use status Diabetes mellitus complication status : with hyperglycemia Qualified Code(s): E11.65 - Type 2 diabetes mellitus with hyperglycemia (5) JARROD (obstructive sleep apnea) Current Visit: Yes Status: Chronic Assessment and plan: Pt has hx of JARROD, not currently on CPAP. Complained of SOB while trying to sleep , sweating, frequent awakenings. Pulmonology has been consulted by cardio--appreciate their recommendations. Plan: Pt will need sleep study outpatient Continue oxygen at night - Time Spent With Patient Total time spent is greater than 50% in coordination of care (as documented) at patient's floor/unit and/or counseling patient: - Subjective Interval history: Pt seen and examined, lying in bed comfortably. Pt states that overnight he felt SOB, but it did improve early this morning. He still has mild CP, but states it is improving. He did have a nosebleed this morning, has not been on oxygen via [place] and was not picking at his nose. Stopped with applied pressure. - Constitutional Vitals: Temp Pulse Resp BP Pulse Ox 98.8 F 58 20 121/66 95 10/31/17 07:30 10/31/17 07:30 10/31/17 07:30 10/31/17 07:30 10/31/17 07:30 General appearance: Present: cooperative, A&O X 3, pleasant, no acute distress, answers questions appropriately - Head Head exam: Present: atraumatic, normocephalic - Eye Eye exam: Present: PERRL, conjuntiva pink, sclera anicteric Pupils: Present: PERRL - Neck Neck exam general surgery: Present: supple, trachea midline. Absent: lymphadenopathy - Respiratory Respiratory exam: Present: CTAB. Absent: accessory muscle use, rales, rhonchi, wheezes - Cardiovascular Cardiovascular exam: Present: RRR, +S1, +S2. Absent: diastolic murmur, gallop, rubs, systolic murmur - GI/Abdominal GI/Abdominal exam: Present: normal bowel sounds, soft, no peritoneal signs. Absent: distended, tenderness - Extremities Exam Extremities exam: Present: warm, radial pulses palpable and symmetrical. Absent : calf tenderness, cyanotic, pedal edema - Neurological Exam Neurological exam: Present: oriented X3, no focal deficits. Absent: facial droop, speech deficit - Psychiatric Psychiatric exam: Present: normal affect, normal mood - Skin Skin exam: Present: diaphoretic, intact Internal Medicine: Result - Labs CBC & Chem 7: 10/31/17 05:58 10/31/17 05:58 Labs: Short CBC 10/31/17 Range/Units 05:58 WBC 10.1 (4.3-11.1) K/mcL Hgb 14.1 (12.9-16.9) g/dL Hct 43.0 (37.5-50.1) % Plt Count 253 (140-400) K/mcL Neutrophils # 7.0 (1.6-8.9) K/mcL BMP 10/31/17 05:58 Sodium 134 L Potassium 4.1 Chloride 103 Carbon Dioxide 22 L BUN 18 Creatinine 0.61 L Glucose 296 H Calcium 9.0 - ABG Interpretation ABG results: PT/INR, D-dimer PT 12.0 Seconds (9.4-12.1) 10/29/17 11:39 D-Dimer 622 ng/mLFEU (0-500) H 10/29/17 11:39 - Impressions Impressions Chest CT 10/30/17 12:20 IMPRESSION: No acute abnormality in the chest. Hepatic steatosis. D/ / 10/30/2017 13:58:00 Zachary Angeles MD / francois Interpreting Provider: Zachary Angeles MD Consult Discharge Plan - Plan Referrals: eFrn Rivera, MARKETING AMBASSADOR [Primary Care Provider] - <Pedro LuisJossie - Last Filed: 10/31/17 18:26> Date of Encounter: 10/31/17 - Assessment and plan (1) COPD (chronic obstructive pulmonary disease) Current Visit: No Status: Chronic Qualifiers: COPD type: emphysema Emphysema type: unspecified Qualified Code(s): J43.9 - Emphysema, unspecified (2) Diabetes Current Visit: No Status: Chronic Qualifiers: Diabetes mellitus type: type 2 Diabetes mellitus manager long term care insulin use: unspecified skilled nursing insulin use status Diabetes mellitus complication status : with hyperglycemia Qualified Code(s): E11.65 - Type 2 diabetes mellitus with hyperglycemia (3) Chest pain Current Visit: Yes Status: Acute Qualifiers: Chest pain type: unspecified Qualified Code(s): R07.9 - Chest pain, unspecified (4) CAD (coronary artery disease), [place] coronary artery Current Visit: Yes Status: Chronic Qualifiers: [place] vs. transplanted heart: [place] heart Associated angina: with unstable angina Qualified Code(s): I25.110 - Atherosclerotic heart disease of [place] coronary artery with unstable angina pectoris (5) JARROD (obstructive sleep apnea) Current Visit: Yes Status: Chronic - Time Spent With Patient Total time spent is greater than 50% in coordination of care (as documented) at patient's floor/unit and/or counseling patient: - Constitutional Vitals: Temp Pulse Resp BP Pulse Ox 97.8 F 61 20 116/73 94 10/31/17 15:27 10/31/17 15:27 10/31/17 15:27 10/31/17 15:27 10/31/17 15:27 Internal Medicine: Result - Labs CBC & Chem 7: 10/31/17 05:58 10/31/17 05:58 Labs: Short CBC 10/31/17 Range/Units 05:58 WBC 10.1 (4.3-11.1) K/mcL Hgb 14.1 (12.9-16.9) g/dL Hct 43.0 (37.5-50.1) % Plt Count 253 (140-400) K/mcL Neutrophils # 7.0 (1.6-8.9) K/mcL BMP 10/31/17 05:58 Sodium 134 L Potassium 4.1 Chloride 103 Carbon Dioxide 22 L BUN 18 Creatinine 0.61 L Glucose 296 H Calcium 9.0 - ABG Interpretation ABG results: PT/INR, D-dimer PT 12.0 Seconds (9.4-12.1) 10/29/17 11:39 D-Dimer 622 ng/mLFEU (0-500) H 10/29/17 11:39 - Impressions Impressions Echocardiogram 10/30/17 09:43 Impressions: LVEF 60-65%. Normal LV chamber size, wall thickness and function. Mild left ventricular diastolic dysfunction. Normal right ventricular structure and function. No evidence of pulmonary hypertension. No significant valvular dysfunction. Left Ventricular Wall Motion: Rest Echo Findings All wall segments showed normal motion. Findings: Study Quality * Technically adequate exam. ECG Findings * Sinus rhythm with BBB. Left Ventricle * LVEF 60-65%. * Normal LV chamber size, wall thickness and function. * Mild left ventricular diastolic dysfunction. Right Ventricle * Normal right ventricular structure and function. Left Atrium * Normal left atrial size. Right Atrium * Normal right atrial size. Aortic Valve * Aortic valve not well visualized. * Mildly sclerotic aortic valve leaflets. * Trace aortic regurgitation. * No aortic stenosis. Mitral Valve * Normal mitral valve structure and function. * No mitral regurgitation. * No mitral stenosis. Tricuspid Valve * Normal tricuspid valve structure and function. * Trace tricuspid regurgitation. * No evidence of pulmonary hypertension. Pulmonic Valve * Normal pulmonic valve structure and function. * No pulmonic regurgitation. Aorta * Normally sized aortic root. Pericardium * The pericardium appears normal. IVC * Normal IVC dimensions and inspiratory collapse. Pulmonary Artery * Normal visualized portions of the main pulmonary artery. - Attending Attestation I examined this patient and my medical decision-making was reviewed with the Resident Physician. I agree with the documented findings, disposition and treatment plan as described except to the extent set forth below.
--- NOTE | 2017-10-31 11:21 | Cardiology Progress Note ---
Date of Encounter: 10/31/17 Time of Encounter: 11:19 Assessment and Plan (1) Chest pain Current Visit: Yes Status: Acute Presented with symptos similar to prior anginal equivalent. Troponins negative x 4. No ischemic EKG changes noted. Reports compliance with DAPT (ASA and Brilinta). [facility] 05/08/18 received MARYBETH to mLCx, prox OM, and mid Ramus; bifurcation lesion monique 1,1,1, unable to perform final kissing balloon inflation, severe residual small vessel disease. Repeat [facility] 05/11/17 for chest pain and elevated troponin showed patent stents, severe small vessel CAD. On ASA, Brilinta, Statin, BB, Imdur 120mg daily and Ranexa 500mg BID. Increased Ranexa to 1000mg BID. Reviewed [facility] films with Dr. Fern Carter yesterday. Severe small vessel disease on [facility] 04/2017 that is not amendable to PCI. Had CABG evaluation 12/2016, was deemed not a candidate for bypass. Upon further review/discussion, medical management seems to be most appropriate given his negative troponins and known CAD. Increased Lopressor to 25mg [id number]. BP tolerating, will switch to 50mg BID. Off nitro gtt and chest pain free currently. TTE EF remains preserved with normal wall motion. Cardiology signing off. Reconsult PRN. Follow-up as outpt in 2-3 weeks. Will coordinate. Qualifiers: Chest pain type: unspecified Qualified Code(s): R07.9 - Chest pain, unspecified (2) CAD (coronary artery disease), [place] coronary artery Current Visit: Yes Status: Chronic As above, s/p multivessel PCI 04/2017. ASA, Brilinta, Statin, BB, Imdur, Ranexa. Qualifiers: [place] vs. transplanted heart: [place] heart Associated angina: with unstable angina Qualified Code(s): I25.110 - Atherosclerotic heart disease of [place] coronary artery with unstable angina pectoris (3) Syncope Current Visit: Yes Status: Acute Reports syncopal episode prior to admission, was dizzy/lightheaded prior. No significant arrhythmias noted on telemetry. Upon further discussion, dizziness seems to be exacerbated by dizziness when walking. Suspect underlying pulmonary component. Seen and evaluated by pulmonology. They suspect underlying JARROD--outpt testing and possible combination of obesity/deconditioning. Outpt PFTs to further evaluate for underlying lung disease. Qualifiers: Syncope type: unspecified Qualified Code(s): R55 - Syncope and collapse Discussion w patient/family: The assessment and plan as outlined above was discussed with the patient and/or family members who expressed understanding and agreement. All questions were answered. Thank you for involving us in the care of your patient. Please call with any questions. I will discuss all the above with Dr. Gaines and make changes as necessary. Subjective Principal diagnosis: Chest pain Interval history: Pt denies chest pain currently. Off nitro gtt. Reports he did experience dizziness this AM associated with shortness of breath while walking. Reports nose bleed this AM, now resolved. TTE resulted--EF preserved. Objective Vital Signs, Last 4 Hours Temp Pulse Resp BP Pulse Ox 10/31/17 07:30 98.8 F 58 20 121/66 95 Vital Signs Temp Pulse Resp BP Pulse Ox 10/31/17 07:30 98.8 F 58 20 121/66 95 10/31/17 04:23 58 14 114/78 94 10/30/17 20:10 98.1 F 69 70 110/78 96 10/30/17 16:26 97.5 F L 63 17 107/76 95 Intake and Output 10/30/17 10/31/17 10/31/17 23:59 07:59 15:59 Intake Total 480 / 480 360 / 360 Output Total 0 / 0 400 / 400 Balance 480 / 480 -400 / -400 360 / 360 Intake: Oral 480 / 480 360 / 360 Output: Urine 0 / 0 400 / 400 Other: Meal Dinner Breakfast Percent of Meal Consumed 100% 100% Weight 108 kg Blood Glucose* 300 257 Patient Weight 10/31/17 23:59 Weight 108 kg General: Conversant, No Apparent Distress HEENT: Atraumatic, Normocephaly, Mucus Membranes Moist Neck: No JVD, Normal carotid pulses Cardiac: Reg Rate and Rhythm, Normal S1 and S2, No Murmur Lungs: Other (diminished) Neuro: Alert and responsive, No focal deficits noted Abdomen: Soft, Non-Tender Skin: No rashes noted on visualized skin Musculoskeletal: No Chest Wall Tenderness Extremities: No Clubbing, No Cyanosis, No Edema, Normal Pulses Results 10/31/17 05:58 10/31/17 05:58 Lab Results 10/31/17 10/31/17 05:58 05:58 WBC 10.1 Hgb 14.1 Hct 43.0 Plt Count 253 Sodium 134 L Potassium 4.1 Chloride 103 Carbon Dioxide 22 L BUN 18 Creatinine 0.61 L Glucose 296 H Calcium 9.0 Short CBC 10/31/17 Range/Units 05:58 WBC 10.1 (4.3-11.1) K/mcL Hgb 14.1 (12.9-16.9) g/dL Hct 43.0 (37.5-50.1) % Plt Count 253 (140-400) K/mcL Neutrophils # 7.0 (1.6-8.9) K/mcL BMP 10/31/17 Range/Units 05:58 Sodium 134 L (136-145) mEq/L Potassium 4.1 (3.5-5.1) mEq/L Chloride 103 (98-107) mEq/L Carbon Dioxide 22 L (23-29) mEq/L BUN 18 (6-20) mg/dL Creatinine 0.61 L (0.70-1.30) mg/dL Glucose 296 H (70-105) mg/dL Calcium 9.0 (8.6-10.3) mg/dL Impressions Chest CTA 10/29/17 12:49 IMPRESSION: No evidence of pulmonary embolism or acute pulmonary abnormality. Coronary atherosclerosis. Hepatic steatosis. D/ / 10/29/2017 13:52:14 Zachary Hoffman MD / bcarter Interpreting Provider: Zachary Hoffman MD Echocardiogram 10/30/17 09:43 Impressions: LVEF 60-65%. Normal LV chamber size, wall thickness and function. Mild left ventricular diastolic dysfunction. Normal right ventricular structure and function. No evidence of pulmonary hypertension. No significant valvular dysfunction. Left Ventricular Wall Motion: Rest Echo Findings All wall segments showed normal motion. Findings: Study Quality * Technically adequate exam. ECG Findings * Sinus rhythm with BBB. Left Ventricle * LVEF 60-65%. * Normal LV chamber size, wall thickness and function. * Mild left ventricular diastolic dysfunction. Right Ventricle * Normal right ventricular structure and function. Left Atrium * Normal left atrial size. Right Atrium * Normal right atrial size. Aortic Valve * Aortic valve not well visualized. * Mildly sclerotic aortic valve leaflets. * Trace aortic regurgitation. * No aortic stenosis. Mitral Valve * Normal mitral valve structure and function. * No mitral regurgitation. * No mitral stenosis. Tricuspid Valve * Normal tricuspid valve structure and function. * Trace tricuspid regurgitation. * No evidence of pulmonary hypertension. Pulmonic Valve * Normal pulmonic valve structure and function. * No pulmonic regurgitation. Aorta * Normally sized aortic root. Pericardium * The pericardium appears normal. IVC * Normal IVC dimensions and inspiratory collapse. Pulmonary Artery * Normal visualized portions of the main pulmonary artery. Chest CT 10/30/17 12:20 IMPRESSION: No acute abnormality in the chest. Hepatic steatosis. D/ / 10/30/2017 13:58:00 Zachary Angeles MD / francois Interpreting Provider: Zachary Angeles MD Active Medications Albuterol Sulfate (Albuterol Inhaler) 1 puff IH [id number] PRN PRN Reason: Dyspnea Stop: 04/30/18 22:01 Aspirin (Aspirin Ec) 81 mg PO DAILY MAHI Stop: 05/01/18 09:01 Last Admin: 10/31/17 08:51 Dose: 81 mg Atorvastatin Calcium (Lipitor) 40 mg PO HS [facility] Stop: 04/30/18 21:01 Last Admin: 10/30/17 21:53 Dose: 40 mg Dextrose/Water (Dextrose 50% (Syg)) 25 ml IVP AD PRN PRN Reason: Hypoglycemia Stop: 04/30/18 18:27 Gabapentin (Neurontin) 400 mg PO TID MAHI Stop: 04/30/18 21:01 Last Admin: 10/31/17 08:52 Dose: 400 mg Glucagon (Glucagen) 1 mg IM ONCE PRN PRN Reason: Hypoglycemia Stop: 04/30/18 18:27 Glucose (Gluctose) 15 gm PO ONCE PRN PRN Reason: Hypoglycemia Stop: 04/30/18 18:27 Glucose (Gluctose) 30 gm PO ONCE PRN PRN Reason: Hypoglycemia Stop: 04/30/18 18:27 Heparin Sodium (Porcine) (Heparin) 5,000 unit SQ Q12HCO [facility] Stop: 05/01/18 06:01 Last Admin: 10/31/17 05:49 Dose: 5,000 unit Dextrose (Dextrose 5%) 1,000 mls @ 100 mls/hr IVC .Q10H PRN PRN Reason: HYPOGLYCEMIA Stop: 04/30/18 18:27 Insulin Detemir (Levemir) 40 unit SQ BID [facility] Stop: 04/30/18 21:01 Last Admin: 10/31/17 08:55 Dose: 40 unit Insulin Human Lispro (Humalog) 0 units SQ HS MAHI PRN Reason: Protocol Stop: 04/30/18 21:01 Last Admin: 10/30/17 21:51 Dose: 5 units Insulin Human Lispro (Humalog) 0 units SQ TIDAC [facility] PRN Reason: Protocol Stop: 05/01/18 07:31 Last Admin: 10/31/17 08:49 Dose: 8 unit Isosorbide Mononitrate (Imdur) 120 mg PO DAILY [facility] Stop: 05/01/18 09:01 Last Admin: 10/31/17 08:51 Dose: 120 mg Lisinopril (Zestril) 20 mg PO BID [facility] PRN Reason: Protocol Stop: 04/30/18 21:01 Last Admin: 10/31/17 08:51 Dose: 20 mg Metoprolol Tartrate (Lopressor) 25 mg PO Q6HR [facility] Stop: 05/01/18 12:01 Last Admin: 10/31/17 05:49 Dose: 25 mg Naloxone HCl (Narcan) 0.4 mg IVP Q2MIN PRN PRN Reason: SEE COMMENTS Stop: 04/30/18 17:46 Omeprazole (Prilosec) 20 mg PO DAILY [facility] PRN Reason: Protocol Stop: 05/01/18 09:01 Last Admin: 10/31/17 08:51 Dose: 20 mg Pharmacy Profile Note (Patient Taking Own Medication) 0 each PO HS [facility] Stop: 04/30/18 21:01 Last Admin: 10/30/17 21:53 Dose: Not Given Ranolazine (Ranexa) 1,000 mg PO BID [facility] Stop: 05/01/18 21:01 Last Admin: 10/31/17 08:51 Dose: 1,000 mg Ropinirole HCl (Requip) 1.5 mg PO HS [facility] Stop: 04/30/18 21:01 Last Admin: 10/30/17 21:52 Dose: 1.5 mg Sitagliptin Phosphate (Januvia) 100 mg PO DAILY [facility] Stop: 05/01/18 09:01 Last Admin: 10/31/17 08:52 Dose: 100 mg Ticagrelor (Brilinta) 90 mg PO BID [facility] Stop: 04/30/18 21:01 Last Admin: 10/31/17 09:02 Dose: 90 mg Tramadol HCl (Ultram) 50 mg PO Q6H PRN PRN Reason: Moderate Pain Stop: 04/30/18 18:21 Last Admin: 10/31/17 09:01 Dose: 50 mg Venlafaxine HCl (Effexor) 75 mg PO BID [facility] Stop: 04/30/18 21:01 Last Admin: 10/31/17 08:51 Dose: 75 mg - Imaging and Cardiology Echo: report reviewed Cardiac cath: report reviewed - EKG Interpretation EKG results cardiology: other (12 hr tele AVG HR 59, SR, no significant pauses or arrhythmias noted.) Consult Discharge Plan - Plan Referrals: Fern Rivera, [facility] [Primary Care Provider] -
[2017-10-31] MEDS: rOPINIRole 1 MG TABLET PO SCH (20:34)
[2017-10-31] MEDS ORDERED: Insulin DETEMIR 100 UNIT/ML X5UNITS SQ SCH (21:00)
[2017-10-31] MEDS: PRAMIPEXOLE DI HCL 0.75 MG PO SCH (22:47)
[2017-11-01] MEDS ORDERED: Nitroglycerin 0.4 MG TAB.SUBL SL PRN (00:56)
[2017-11-01 05:40] LABS: Basophils # 0.1 K/mcL (0.0-0.2); Basophils % 0.6 %; Eosinophils # 0.2 K/mcL (0.0-0.6); Eosinophils % 2.4 %; Hematocrit 41.6 % (37.5-50.1); Hemoglobin 13.1 g/dL (12.9-16.9); Immature Granulocytes % 1.1 % (0-4); Lymphocytes # 1.7 K/mcL (0.6-4.6); Lymphocytes % 17.8 %; Mean Corpuscular HGB Conc 31.5 g/dL (31.6-35.5); Mean Corpuscular Hemoglobin 26.4 pg (28.0-33.3); Mean Corpuscular Volume 83.7 fL (83.0-100.0); Mean Platelet Volume 10.4 fL (9.4-12.4); Monocytes # 0.8 K/mcL (0.0-1.3); Monocytes % 8.1 %; Neutrophils # 6.8 K/mcL (1.6-8.9); Platelet Count 243 K/mcL (140-400); Red Blood Count 4.97 M/mcL (4.19-5.50); Red Cell Distribution Width 16.2 % (11.5-14.5)
[2017-11-01] MEDS: *HR* Heparin 5,000 UNIT/ML VIAL SQ SCH (05:47)
[2017-11-01 05:51] LABS: BUN/Creatinine Ratio 20 (6-26); Blood Urea Nitrogen 14 mg/dL (6-20); Calcium 8.8 mg/dL (8.6-10.3); Carbon Dioxide 28 mEq/L (23-29); Chloride 102 mEq/L (98-107); Glucose 241 mg/dL (70-105); Osmolality,Calculated 288 (280-300); Potassium 4.2 mEq/L (3.5-5.1); Sodium 135 mEq/L (136-145); eGFR For African Americans > 60 (> 60); eGFR For Non-African Americans > 60 (> 60)
[2017-11-01] MEDS: Aspirin Enteric Coated 81 MG Tablet PO SCH (08:38)
[2017-11-01] MEDS: Lisinopril 20 MG TABLET PO SCH (08:38)
[2017-11-01] MEDS: Ranolazine 500 MG TAB.ER.12H PO SCH (08:38)
[2017-11-01] MEDS: *HR* SitaGLIPtin 100 MG TABLET PO SCH (08:38)
[2017-11-01] MEDS: Gabapentin 400 MG CAPSULE PO SCH ×2 (08:38→15:49)
[2017-11-01] MEDS: Isosorbide MONOnitrate (24 HR) 60 MG TAB.ER.24H PO SCH (08:38)
[2017-11-01] MEDS: *HR* Ticagrelor 90 MG TABLET PO SCH (08:38)
[2017-11-01] MEDS: Insulin LISPRO 300 UNITS/3 ML VIAL SQ SCH ×2 (08:39→11:56)
[2017-11-01] MEDS: traMADol 50 MG TABLET PO PRN (08:48)
[2017-11-01] MEDS ORDERED: Insulin DETEMIR 100 UNIT/ML X5UNITS SQ SCH (09:00)
[2017-11-01] MEDS ORDERED: Saline Nasal Spray 44 ML BOTTLE NS PRN (10:56)
--- NOTE | 2017-11-01 11:24 | Discharge Summary ---
<Leila Garcia - Last Filed: 11/01/17 14:29> - NOTES TO OUTPATIENT PROVIDER Notes to Outpatient Provider: Ranexa increased to 1,000mg BID. Will need outpatient sleep study as he has been requiring oxygen at night during his hospitalization. Will need outpatient PFT. Date of Encounter: 11/01/17 Time of Encounter: 11:22 - Discharge Diagnosis (1) Chest pain Priority: Primary Status: Acute Qualifiers: Chest pain type: unspecified Qualified Code(s): R07.9 - Chest pain, unspecified (2) CAD (coronary artery disease), [place] coronary artery Priority: Secondary Status: Chronic Qualifiers: [place] vs. transplanted heart: [place] heart Associated angina: with unstable angina Qualified Code(s): I25.110 - Atherosclerotic heart disease of [place] coronary artery with unstable angina pectoris (3) COPD (chronic obstructive pulmonary disease) Priority: Secondary Status: Chronic Qualifiers: COPD type: emphysema Emphysema type: unspecified Qualified Code(s): J43.9 - Emphysema, unspecified (4) Diabetes Priority: Secondary Status: Chronic Qualifiers: Diabetes mellitus type: type 2 Diabetes mellitus shelter insulin use: unspecified long term care pharmacist insulin use status Diabetes mellitus complication status : with hyperglycemia Qualified Code(s): E11.65 - Type 2 diabetes mellitus with hyperglycemia (5) JARROD (obstructive sleep apnea) Priority: Secondary Status: Chronic Hospital course: Mr. Covington is a 57 year old male who presented to [facility] ED for CPthat was worsening and radiating to his left shoulder and UE. He took 3 nitro at home which did not relieve the pain so he called the squad. He was given 2 more nitro and ASA en route, which temporarily relieved the pain. In the ED he was started on a joradna drip, which relieved his pain. The patient was admitted and evaluated by Cardiology. His troponins were negative and EKG did not have any changes. His case was reviewed and it was determined that he was not a candidate for [facility] and thus was medically managed. His Ranexa was increased to 1, 000mg BID and his metoprolol was titrated up to 25mg Q6hr. He was tolerating that and the dose was increased to 50mg BID, however his heart rate and blood pressure did not tolerate this increase. Cardiology is aware and the patient will be discharge on his home dose of metoprolol 25mg BID, with outpatient follow up with Cardiology. The patient was also evaluated by Pulmonology for increased SOB. He may have JARROD vs pulmonary disease as he has been requiring oxygen at night. He will need PFTs and a sleep study as an outpatient, which have been ordered. A 6 minute walk test was performed, which did not qualify the pt for home oxygen. Patient discharged in stable condition. - Time Spent with Patient Total time spent providing and/or coordinating discharge services: - Discharge Medications Prescriptions: Ranolazine [Ranexa] 1,000 mg PO BID 30 Days #60 tab.er.12h Home Medications: Sitagliptin Phosphate [Januvia] 100 mg PO DAILY 12/10/15 [History] Venlafaxine [Effexor] 75 mg PO BID 12/10/15 [History] Albuterol Sulfate [Ventolin Hfa] 1 - 2 puff IH Q6H PRN 12/20/16 [History] Glimepiride [Amaryl] 4 mg PO BID 12/20/16 [History] Insulin Glargine [Lantus] 40 unit SQ BID 12/20/16 [History] Insulin LISPRO [HumaLOG] 3 - 4 unit SQ TID 12/20/16 [History] Nitroglycerin [Nitrostat] 0.4 mg SL DAILY PRN 12/20/16 [History] Omeprazole [PriLOSEC] 20 mg PO DAILY 12/20/16 [History] Tramadol HCl [Ultram] 50 mg PO Q6H PRN 12/20/16 [History] rOPINIRole [Requip] 1.5 mg PO HS 12/27/16 [History] Aspirin [Lo-Dose Aspirin EC] 81 mg PO DAILY #30 12/29/16 [Rx] Atorvastatin [Lipitor] 40 mg PO HS #30 tablet 12/29/16 [Rx] Lisinopril [Zestril] 20 mg PO BID 30 Days 12/29/16 [Rx] Ticagrelor [Brilinta] 90 mg PO BID 30 Days tab 12/29/16 [Rx] Isosorbide MONOnitrate (24 HR) [Imdur] 120 mg PO DAILY 05/08/17 [History] Pramipexole Di-HCl [Mirapex ER] 0.75 mg PO HS 05/08/17 [History] Gabapentin [Neurontin] 400 mg PO TID 05/11/17 [History] Metoprolol [Lopressor] 25 mg PO BID tablet 11/01/17 [Rx] Ranolazine [Ranexa] 1,000 mg PO BID 30 Days #60 tab.er.12h 11/01/17 [Rx] Allergies/Adverse Reactions: 3 Allergy/AdvReac Type Severity Reaction Status Date / Time No Known Allergies Allergy Verified 10/29/17 14:09 Date of admission: 10/29/17 15:48 Primary care physician: Fern Rivera CNP Consults: 10/29/17 18:10 Consult to Cardiology [CONS] Routine Comment: Consulting Provider: [facility] [place] Reason for Consult: Recurrent chest pain. On nitro drip Time Notified: 18:15 Call Completed: Yes 10/30/17 12:21 Consult to Pulmonology [CONS] Routine Consulting Provider: [facility] [place] Reason for Consult: dyspnea, evaluate for COPD, prior tobacco abuse Call Completed: Yes 10/30/17 14:53 Consult to [employer] In[employer] Servicer [CONS] Routine Reason for SW Consult: D/C planning Discharging clinician: Leila Garcia Anticipated date of discharge: 11/01/17 - Constitutional Vitals: Temp Pulse Resp BP Pulse Ox 97.3 F L 72 16 145/93 95 11/01/17 08:08 11/01/17 08:08 11/01/17 08:08 11/01/17 08:08 11/01/17 08:08 General appearance: Present: cooperative, A&O X 3, pleasant, no acute distress, answers questions appropriately - Head Head exam: Present: atraumatic, normocephalic - Eye Eye exam: Present: PERRL, conjuntiva pink, sclera anicteric Pupils: Present: PERRL - Neck Neck exam general surgery: Present: supple, trachea midline. Absent: lymphadenopathy - Respiratory Respiratory exam: Present: rales. Absent: accessory muscle use, respiratory distress, rhonchi, wheezes - Cardiovascular Cardiovascular exam: Present: RRR, +S1, +S2. Absent: diastolic murmur, gallop, rubs, systolic murmur - GI/Abdominal GI/Abdominal exam: Present: normal bowel sounds, soft, no peritoneal signs. Absent: distended, tenderness - Extremities Exam Extremities exam: Present: warm, radial pulses palpable and symmetrical. Absent : calf tenderness, cyanotic, pedal edema - Neurological Exam Neurological exam: Present: CN II-XII intact, oriented X3, no focal deficits. Absent: facial droop, speech deficit - Psychiatric Psychiatric exam: Present: normal affect, normal mood - Skin Skin exam: Present: dry, intact. Absent: diaphoretic - Patient Status Disposition: Home Health Service Condition: Good Functional capacity at discharge: independent ambulation - Ambulatory Orders Ambulatory Orders: SP PFT DLCO Time Frame: 1 Week, Location: Determined By Patient Sleep Study Time Frame: 1 Week, Location: Determined By Patient - Discharge Instructions Instructions: Chest Pain (DC), Syncope (DC) Follow Up With: Bubba Norman MD [Partnered Physician] - Fern Rivera CNP [Primary Care Provider] - 11/07/17 10:45 am Edna Gaines DO [Partnered Physician] - 11/15/17 Additional Instructions: Your Ranexa was increased to 1,000mg Twice a day. Follow up with Cardiology in 2-3 weeks. You will be scheduled for pulmonary function testing and a sleep study, you will need to follow up with Dr. Norman with pulmonology. - Diet and Activity Activity: increase activity as tolerated Diet: advance to your usual diet <Jossie Cloud - Last Filed: 11/01/17 15:43> Date of Encounter: 11/01/17 - Discharge Diagnosis (1) COPD (chronic obstructive pulmonary disease) Status: Chronic Qualifiers: COPD type: emphysema Emphysema type: unspecified Qualified Code(s): J43.9 - Emphysema, unspecified (2) Diabetes Status: Chronic Qualifiers: Diabetes mellitus type: type 2 Diabetes mellitus long term care pharmacist insulin use: unspecified shelter insulin use status Diabetes mellitus complication status : with hyperglycemia Qualified Code(s): E11.65 - Type 2 diabetes mellitus with hyperglycemia (3) Chest pain Status: Acute Qualifiers: Chest pain type: unspecified Qualified Code(s): R07.9 - Chest pain, unspecified (4) CAD (coronary artery disease), [place] coronary artery Status: Chronic Qualifiers: [place] vs. transplanted heart: [place] heart Associated angina: with unstable angina Qualified Code(s): I25.110 - Atherosclerotic heart disease of [place] coronary artery with unstable angina pectoris (5) JARROD (obstructive sleep apnea) Status: Chronic Hospital course: Mr. Covington is a 57 year old male - Time Spent with Patient Total time spent providing and/or coordinating discharge services: Date of admission: 10/29/17 15:48 Primary care physician: Fern Rivera CNP Consults: 10/29/17 18:10 Consult to Cardiology [CONS] Routine Comment: Consulting Provider: [facility] [place] Reason for Consult: Recurrent chest pain. On nitro drip Time Notified: 18:15 Call Completed: Yes 10/30/17 12:21 Consult to Pulmonology [CONS] Routine Consulting Provider: [facility] [place] Reason for Consult: dyspnea, evaluate for COPD, prior tobacco abuse Call Completed: Yes 10/30/17 14:53 Consult to [employer] In[employer] [CONS] Routine Reason for SW Consult: D/C planning - Constitutional Vitals: Temp Pulse Resp BP Pulse Ox 97.5 F L 60 16 125/90 95 11/01/17 11:31 11/01/17 11:31 11/01/17 11:31 11/01/17 11:31 11/01/17 12:06 - Attending Attestation I examined this patient and my medical decision-making was reviewed with the Resident Physician. I agree with the documented findings, disposition and treatment plan as described except to the extent set forth below.
[2017-11-01 11:35] VITALS: BP 125/90
--- NOTE | 2017-11-01 15:10 | Physician Discharge Referral ---
Home Health/Hosp Referral Info Transfer to: Home Health Provider in Charge Post Discharge: PCP - Diagnosis (1) Chest pain Priority: Primary Status: Acute (2) CAD (coronary artery disease), [place] coronary artery Priority: Secondary Status: Chronic (3) JARROD (obstructive sleep apnea) Priority: Secondary Status: Chronic (4) COPD (chronic obstructive pulmonary disease) Priority: Secondary Status: Chronic (5) Diabetes Priority: Secondary Status: Chronic - Respiratory Orders Smoking Cessation: Smoking cessation has been advised. For more information, call the [place] Tobacco Quit Line at 3-169-XQCP-NOW. - Diet/Nutrition Diet/Nutrition Orders: Cardiac - Activity Activity Orders: Ambulate - Services Needed Following services are medically necessary services: Home Health Aide - Transfer Medications Prescriptions: Ranolazine [Ranexa] 1,000 mg PO BID 30 Days #60 tab.er.12h Home Medications: Sitagliptin Phosphate [Januvia] 100 mg PO DAILY 12/10/15 [History] Venlafaxine [Effexor] 75 mg PO BID 12/10/15 [History] Albuterol Sulfate [Ventolin Hfa] 1 - 2 puff IH Q6H PRN 12/20/16 [History] Glimepiride [Amaryl] 4 mg PO BID 12/20/16 [History] Insulin Glargine [Lantus] 40 unit SQ BID 12/20/16 [History] Insulin LISPRO [HumaLOG] 3 - 4 unit SQ TID 12/20/16 [History] Nitroglycerin [Nitrostat] 0.4 mg SL DAILY PRN 12/20/16 [History] Omeprazole [PriLOSEC] 20 mg PO DAILY 12/20/16 [History] Tramadol HCl [Ultram] 50 mg PO Q6H PRN 12/20/16 [History] rOPINIRole [Requip] 1.5 mg PO HS 12/27/16 [History] Aspirin [Lo-Dose Aspirin EC] 81 mg PO DAILY #30 12/29/16 [Rx] Atorvastatin [Lipitor] 40 mg PO HS #30 tablet 12/29/16 [Rx] Lisinopril [Zestril] 20 mg PO BID 30 Days 12/29/16 [Rx] Ticagrelor [Brilinta] 90 mg PO BID 30 Days tab 12/29/16 [Rx] Isosorbide MONOnitrate (24 HR) [Imdur] 120 mg PO DAILY 05/08/17 [History] Pramipexole Di-HCl [Mirapex ER] 0.75 mg PO HS 05/08/17 [History] Gabapentin [Neurontin] 400 mg PO TID 05/11/17 [History] Metoprolol [Lopressor] 25 mg PO BID tablet 11/01/17 [Rx] Ranolazine [Ranexa] 1,000 mg PO BID 30 Days #60 tab.er.12h 11/01/17 [Rx] Allergies/Adverse Reactions: 3 Allergy/AdvReac Type Severity Reaction Status Date / Time No Known Allergies Allergy Verified 10/29/17 14:09 Certification: Further, I certify that my clinical findings support that this patient is homebound (i.e. absences from home require considerable and taxing effort and are for medical reasons or sabianism services or infrequently or short duration when for other reasons) because: Homebound Reason: Severity of cardiac or pulmonary status limits activity tolerance Attestation: My signature below is to certify that this patient is under my care and that I, or nurse practitioner, or a physician's event marketing assistant working with me, has a face-to -face encounter with this patient.
--- NOTE | 2017-11-01 17:46 | Electrocardiograph Report ---
[place] [id number] Test Date: 2017-10-31 Pat Name: Gurvinder Covington Department: 111 Room: [facility] Gender: M Art Handler: SARAY : 1960 Requested By: [id number] Order Number: [id number] Reading MD: Jose R Cortes Measurements Intervals [place] Rate: 61 P: 40 [place]: 202 QRS: -58 QRSD: 129 T: 58 QT: 445 QTc: 447 Interpretive Statements SINUS RHYTHM LEFT ANTERIOR FASCICULAR BLOCK Electronically Signed On 11-01-2017 17:45:14 EDT by Jose R Cortes
== END 2017-11-01 16:58 | disposition home health service (06) ==
LOC: 2NENU 11:18 → EMEROO 11:18 → 2NENU 16:55
PROVIDERS: ADMIT Family Medicine; ATTEND Family Medicine

== ENCOUNTER 2017-12-25 12:08 | Observation (INO) ==
[2017-12-25] MEDS ORDERED: Aspirin 81 MG TAB.CHEW PO ONE (12:31)
[2017-12-25] MEDS ORDERED: Nitroglycerin 0.4 MG TAB.SUBL SL ONE (12:31)
[2017-12-25] MEDS ORDERED: Isovue-370 500 ML INFUS..BTL IV ONE (12:38)
[2017-12-25 12:41] LABS: Basophils # 0.1 K/mcL (0.0-0.2); Basophils % 0.7 %; Eosinophils # 0.3 K/mcL (0.0-0.6); Eosinophils % 2.3 %; Hematocrit 41.2 % (37.5-50.1); Hemoglobin 13.7 g/dL (12.9-16.9); Immature Granulocytes % 1.6 % (0-4); Lymphocytes # 1.9 K/mcL (0.6-4.6); Lymphocytes % 14.7 %; Mean Corpuscular HGB Conc 33.3 g/dL (31.6-35.5); Mean Corpuscular Volume 84.3 fL (83.0-100.0); Monocytes % 7.5 %; Neutrophils # 9.5 K/mcL (1.6-8.9); Platelet Count 275 K/mcL (140-400); Red Blood Count 4.89 M/mcL (4.19-5.50); Red Cell Distribution Width 15.9 % (11.5-14.5); Segmented Neutrophils % 73.2 %
[2017-12-25 12:49] LABS: INR 1.1; Prothrombin Time 12.5 Seconds (9.4-12.1)
[2017-12-25 12:52] LABS: Activated Partial Thrombo Time 31.8 Seconds (26.0-36.0)
[2017-12-25 13:01] LABS: BUN/Creatinine Ratio 16 (6-26); Blood Urea Nitrogen 12 mg/dL (6-20); Calcium 9.1 mg/dL (8.6-10.3); Carbon Dioxide 25 mEq/L (23-29); Chloride 102 mEq/L (98-107); Glucose 420 mg/dL (70-105); Osmolality,Calculated 282 (280-300); Potassium 4.1 mEq/L (3.5-5.1); Sodium 127 mEq/L (136-145); eGFR For Non-African Americans > 60 (> 60)
[2017-12-25 13:02] LABS: Troponin I < 0.03 ng/mL (< 0.04)
--- NOTE | 2017-12-25 13:14 | Emergency Department Note ---
Disposition Clinical Impression: Chest pain Qualifiers: Chest pain type: unspecified Qualified Code(s): R07.9 - Chest pain, unspecified Disposition: Admitted As Inpatient Referrals: Fern Rivera CNP [Primary Care Provider] - General Adult HPI - General Chief complaint: ED Chest Pain Stated complaint: CP Time Seen by Provider: 12/25/17 12:31 Source: EMS Limitations: no limitations - History of Present Illness Pain Scale: 8 - Related Data Home Medications Medication Instructions Recorded Confirmed Sitagliptin Phosphate [Januvia] 100 mg PO DAILY 12/10/15 10/29/17 Venlafaxine [Effexor] 75 mg PO BID 12/10/15 10/29/17 Albuterol Sulfate [Ventolin Hfa] 1 - 2 puff IH Q6H PRN 12/20/16 10/29/17 Glimepiride [Amaryl] 4 mg PO BID 12/20/16 10/29/17 Insulin Glargine [Lantus] 40 unit SQ BID 12/20/16 10/29/17 Insulin LISPRO [HumaLOG] 3 - 4 unit SQ TID 12/20/16 10/29/17 Nitroglycerin [Nitrostat] 0.4 mg SL DAILY PRN 12/20/16 10/29/17 Omeprazole [PriLOSEC] 20 mg PO DAILY 12/20/16 10/29/17 Tramadol HCl [Ultram] 50 mg PO Q6H PRN 12/20/16 10/29/17 rOPINIRole [Requip] 1.5 mg PO HS 12/27/16 10/29/17 Isosorbide MONOnitrate (24 HR) 120 mg PO DAILY 05/08/17 10/29/17 [Imdur] Pramipexole Di-HCl [Mirapex ER] 0.75 mg PO HS 05/08/17 10/29/17 Gabapentin [Neurontin] 400 mg PO TID 05/11/17 10/29/17 Previous Rx's Medication Instructions Recorded Aspirin [Lo-Dose Aspirin EC] 81 mg PO DAILY #30 12/29/16 Atorvastatin [Lipitor] 40 mg PO HS #30 tablet 12/29/16 Lisinopril [Zestril] 20 mg PO BID 30 Days 12/29/16 Ticagrelor [Brilinta] 90 mg PO BID 30 Days tab 12/29/16 Metoprolol [Lopressor] 25 mg PO BID tablet 11/01/17 Ranolazine [Ranexa] 1,000 mg PO BID 30 Days #60 11/01/17 tab.er.12h Allergies Allergy/AdvReac Type Severity Reaction Status Date / Time No Known Allergies Allergy Verified 12/25/17 13:07 Past Medical History - Past Medical History Medical history: Reports: arthritis, COPD, coronary artery disease, diabetes, GERD, hyperlipidemia, hypertension, myocardial infarction Surgical history: Reports: angioplasty/stent, appendectomy, knee replacement, other Psychiatric history: Reports: anxiety, depression - Social History Smoking Status: Former smoker Smokeless Tobacco Status: No Alcohol use: Reports: none Drug use: Reports: none Physical Exam - General Limitations: no limitations General appearance: alert Course Vital Signs Temperature 97.8 F 12/25/17 12:11 Pulse Rate 66 12/25/17 12:11 Respiratory Rate 18 12/25/17 12:11 Blood Pressure 146/81 12/25/17 12:11 O2 Sat by Pulse Oximetry 98 12/25/17 12:11 Temperature 97.8 F 12/25/17 12:11 Pulse Rate 62 12/25/17 12:27 Respiratory Rate 18 12/25/17 12:27 Blood Pressure 130/71 12/25/17 12:27 O2 Sat by Pulse Oximetry 99 12/25/17 12:27 Oxygen Delivery Oxygen Delivery Room Air Medical Decision Making - Lab Data Result diagrams: 12/25/17 12:15 12/25/17 12:15 Lab Results 12/25/17 12/25/17 12/25/17 Range/Units 12:15 12:15 12:15 WBC 13.0 H (4.3-11.1) K/mcL RBC 4.89 (4.19-5.50) M/mcL Hgb 13.7 (12.9-16.9) g/dL Hct 41.2 (37.5-50.1) % MCV 84.3 (83.0-100.0) fL MCH 28.0 (28.0-33.3) pg MCHC 33.3 (31.6-35.5) g/dL RDW 15.9 H (11.5-14.5) % Plt Count 275 (140-400) K/mcL MPV 10.0 (9.4-12.4) fL Immature Gran % 1.6 (0-4) % Seg Neutrophils % 73.2 % Lymphocytes % 14.7 % Monocytes % 7.5 % Eosinophils % 2.3 % Basophils % 0.7 % Neutrophils # 9.5 H (1.6-8.9) K/mcL Lymphocytes # 1.9 (0.6-4.6) K/mcL Monocytes # 1.0 (0.0-1.3) K/mcL Eosinophils # 0.3 (0.0-0.6) K/mcL Basophils # 0.1 (0.0-0.2) K/mcL PT 12.5 H (9.4-12.1) Seconds INR 1.1 APTT 31.8 (26.0-36.0) Seconds Sodium 127 L (136-145) mEq/L Potassium 4.1 (3.5-5.1) mEq/L Chloride 102 (98-107) mEq/L Carbon Dioxide 25 (23-29) mEq/L BUN 12 (6-20) mg/dL Creatinine 0.74 (0.70-1.30) mg/dL Est GFR ( Amer) > 60 (> 60) Est GFR (Non-Af Amer) > 60 (> 60) BUN/Creatinine Ratio 16 (6-26) Glucose 420 H (70-105) mg/dL Calculated Osmolality 282 (280-300) Calcium 9.1 (8.6-10.3) mg/dL Troponin I < 0.03 (< 0.04) ng/mL Attestation Statement - Attestation Attestation: I examined this patient and my medical decision-making was reviewed with the Resident Physician. I agree with the documented findings, disposition and treatment plan as described except to the extent set forth below. 57 year old male present to the ED with complaints of chest pain and has a history of 7-9 cardiac stents and has bene expereinc neck and head pain in addition to when his chest pain starts. Patinet states that he has had mulitple nitro without relief and ASA en route. Arlen is currently having chest pain and becomes diaphoretic with exertional dyspnea. EKG show some mild St elvation in inferior leads without reciporcal changes. We will do cardiopulmonary wokrup and then CTA head/neck and admit to medicine
[2017-12-25] MEDS ORDERED: *HR* FentaNYL (PF) 100 MCG/2 ML VIAL IVP ONE (13:28)
--- NOTE | 2017-12-25 13:49 | Emergency Department Note ---
Disposition Clinical Impression: Chest pain Qualifiers: Chest pain type: unspecified Qualified Code(s): R07.9 - Chest pain, unspecified Disposition: Admitted As Inpatient Condition: Fair Referrals: Fern Rivera CNP [Primary Care Provider] - Forms: ED Satisfaction Letter Time of Disposition: 15:15 General Adult HPI - General Chief complaint: ED Chest Pain Stated complaint: CP Time Seen by Provider: 12/25/17 12:31 Source: patient, EMS Mode of arrival: EMS Limitations: no limitations Nursing Notes Reviewed: Yes Vital Signs Reviewed: Yes - History of Present Illness HPI Narrative: 57 year old male with significant past medical history of COPD, CAD, hypertension, and hyperlipidemia presenting to the emergency department with chief complaint of chest pain and headache. Patient states this morning he woke up and started having substernal chest pain that radiated up his left neck and into his jaw. Patient also discloses one episode of nonbloody nonbilious emesis and nausea this morning. Patient does disclose approximately 8-10 stent placements in the past. States he is currently on brilinta and aspirin. He discloses taking his aspirin this morning. Patient denies any abdominal pain, diarrhea, or shortness of breath. Patient states this morning he also started having a left sided frontal headache. He believes this is associated with the chest pain radiating up his jaw. Denies vision changes, dizziness, or syncope. Pain Scale: 8 - Related Data Home Medications Medication Instructions Recorded Confirmed Sitagliptin Phosphate [Januvia] 100 mg PO DAILY 12/10/15 12/25/17 Venlafaxine [Effexor] 75 mg PO DAILY 12/10/15 12/25/17 Albuterol Sulfate [Ventolin Hfa] 1 - 2 puff IH Q6H PRN 12/20/16 12/25/17 Glimepiride [Amaryl] 4 mg PO BID 12/20/16 12/25/17 Insulin LISPRO [HumaLOG] 3 - 4 unit SQ TID 12/20/16 12/25/17 Nitroglycerin [Nitrostat] 0.4 mg SL DAILY PRN 12/20/16 12/25/17 Omeprazole [PriLOSEC] 20 mg PO DAILY 12/20/16 12/25/17 rOPINIRole [Requip] 1 mg PO HS 12/27/16 12/25/17 Isosorbide MONOnitrate (24 HR) 120 mg PO DAILY 05/08/17 12/25/17 [Imdur] Gabapentin [Neurontin] 400 mg PO TID 05/11/17 12/25/17 Insulin Degludec [Tresiba 45 unit SQ DAILY 12/25/17 12/25/17 Flextouch U-100] Liraglutide [Victoza 2-Eduardo] 1.2 mg SQ DAILY 12/25/17 12/25/17 Ranolazine [Ranexa] 500 mg PO BID 12/25/17 12/25/17 Previous Rx's Medication Instructions Recorded Aspirin [Lo-Dose Aspirin EC] 81 mg PO DAILY #30 12/29/16 Atorvastatin [Lipitor] 40 mg PO HS #30 tablet 12/29/16 Lisinopril [Zestril] 20 mg PO BID 30 Days 12/29/16 Ticagrelor [Brilinta] 90 mg PO BID 30 Days tab 12/29/16 Metoprolol [Lopressor] 25 mg PO BID tablet 11/01/17 Allergies Allergy/AdvReac Type Severity Reaction Status Date / Time No Known Allergies Allergy Verified 12/25/17 13:07 All systems ED: reviewed and negative except as stated. Constitutional: Denies: fever, chills Eyes: Denies: eye pain, vision change ENT ED: Reports: as per HPI Cardiovascular: Reports: chest pain. Denies: palpitations, dyspnea on exertion Respiratory: Denies: cough, dyspnea, wheezes Gastrointestinal: Reports: nausea, vomiting. Denies: abdominal pain Genitourinary: Reports: as per HPI Musculoskeletal: Reports: as per HPI Integumentary: Denies: rash, abrasion Neurological: Reports: headache. Denies: weakness, numbness, paresthesias Psychiatric: Reports: as per HPI Endocrine: Reports: as per HPI Hematological/Lymphatic: Reports: as per HPI Allergic/Immunologic: Reports: as per HPI Past Medical History - Past Medical History Attestation: Yes The following information was validated with the patient. Medical history: Reports: arthritis, COPD, coronary artery disease, diabetes, GERD, hyperlipidemia, hypertension, myocardial infarction Surgical history: Reports: angioplasty/stent, appendectomy, knee replacement, other Psychiatric history: Reports: anxiety, depression - Social History Smoking Status: Former smoker Smokeless Tobacco Status: No Alcohol use: Reports: none Drug use: Reports: none Physical Exam - General Limitations: no limitations General appearance: alert, in no apparent distress - Head Head exam: atraumatic, normocephalic, normal inspection - Eye Eye exam: Present: normal appearance, PERRL, EOMI. Absent: scleral icterus, conjunctival injection - ENT ENT exam: normal exam, mucous membranes moist - Neck Neck exam: Present: normal inspection, full ROM. Absent: tenderness, meningismus - Chest Chest inspection: Present: normal inspection, symmetric chest wall rise. Absent : tenderness, rash - Respiratory Respiratory exam: Present: normal lung sounds bilaterally. Absent: respiratory distress, wheezes - Cardiovascular Cardiovascular exam: Present: regular rate, normal rhythm, normal heart sounds - Abdominal Exam Abdominal exam: Present: soft, Non-Tender. Absent: distention, guarding, rebound - Extremities Exam Extremities exam: Present: full ROM. Absent: tenderness - Neurological Exam Neurological exam: Present: alert, oriented X3 - Psychiatric Psychiatric exam: Present: normal affect, normal mood - Skin Skin exam: Present: warm, intact Course Course Narrative: 57 year old male presenting for chest pain. Patient has strong cardiac history with 8-10 stents. Patient also discloses that the chest pain radiates up the left neck/jaw and into the head. We will perform a chest pain work up including troponin, ekg, chest xray along with a CTA of the head and neck due to the patient neck pain and headache. Patient is alert and oriented x 3 in the room with stable vital signs. Patient's disposition most likely admission due to elevated heart score but pending results. Patient agrees with this plan. - Reevaluation(s) Reevaluation #1: Patient's laboratory analysis shows mild hyponatremia at 127. Otherwise within normal limits. Patient CTA of the head and neck along with a chest x-ray within normal limits. Due to patient's past medical history and high heart score we will plan to admit him for further chest pain evaluation. Patient is alert and oriented 3 in the room with stable vital signs. Patient agrees with this plan. I spoke with the hospitalist on-call Dr. Yang who agrees to accept the patient at this time. Vital Signs Temperature 97.8 F 12/25/17 12:11 Pulse Rate 66 12/25/17 12:11 Respiratory Rate 18 12/25/17 12:11 Blood Pressure 146/81 12/25/17 12:11 O2 Sat by Pulse Oximetry 98 12/25/17 12:11 Temperature 97.8 F 12/25/17 12:11 Pulse Rate 62 12/25/17 12:27 Respiratory Rate 18 12/25/17 12:27 Blood Pressure 130/71 12/25/17 12:27 O2 Sat by Pulse Oximetry 99 12/25/17 12:27 Oxygen Delivery Oxygen Delivery Room Air Medical Decision Making - Lab Data Result diagrams: 12/25/17 12:15 12/25/17 12:15 Lab Results 12/25/17 12/25/17 12/25/17 Range/Units 12:15 12:15 12:15 WBC 13.0 H (4.3-11.1) K/mcL RBC 4.89 (4.19-5.50) M/mcL Hgb 13.7 (12.9-16.9) g/dL Hct 41.2 (37.5-50.1) % MCV 84.3 (83.0-100.0) fL MCH 28.0 (28.0-33.3) pg MCHC 33.3 (31.6-35.5) g/dL RDW 15.9 H (11.5-14.5) % Plt Count 275 (140-400) K/mcL MPV 10.0 (9.4-12.4) fL Immature Gran % 1.6 (0-4) % Seg Neutrophils % 73.2 % Lymphocytes % 14.7 % Monocytes % 7.5 % Eosinophils % 2.3 % Basophils % 0.7 % Neutrophils # 9.5 H (1.6-8.9) K/mcL Lymphocytes # 1.9 (0.6-4.6) K/mcL Monocytes # 1.0 (0.0-1.3) K/mcL Eosinophils # 0.3 (0.0-0.6) K/mcL Basophils # 0.1 (0.0-0.2) K/mcL PT 12.5 H (9.4-12.1) Seconds INR 1.1 APTT 31.8 (26.0-36.0) Seconds Sodium 127 L (136-145) mEq/L Potassium 4.1 (3.5-5.1) mEq/L Chloride 102 (98-107) mEq/L Carbon Dioxide 25 (23-29) mEq/L BUN 12 (6-20) mg/dL Creatinine 0.74 (0.70-1.30) mg/dL Est GFR ( Amer) > 60 (> 60) Est GFR (Non-Af Amer) > 60 (> 60) BUN/Creatinine Ratio 16 (6-26) Glucose 420 H (70-105) mg/dL Calculated Osmolality 282 (280-300) Calcium 9.1 (8.6-10.3) mg/dL Troponin I < 0.03 (< 0.04) ng/mL
[2017-12-25] MEDS ORDERED: Acetaminophen 325 MG TABLET PO PRN (16:06)
[2017-12-25] MEDS ORDERED: Naloxone 0.4 MG/ML INJ IVP PRN (16:06)
[2017-12-25] MEDS ORDERED: *HR* HYDROcodone/Acet 5/325 mg TABLET PO PRN (16:06)
[2017-12-25] MEDS ORDERED: D5% in Water 1,000 ML IVC PRN (16:21)
[2017-12-25] MEDS ORDERED: *HR* Dextrose 50 % in Water (Syg) 50 ML SYRINGE IVP PRN (16:21)
[2017-12-25] MEDS ORDERED: Dextrose Gel 15 GM/37.5 ML TUBE PO PRN ×2 (16:21)
--- NOTE | 2017-12-25 16:32 | Internal Med History&Physical ---
<JoseraghavsonaakhilBear Perdue - Last Filed: 12/25/17 17:08> Date of Encounter: 12/25/17 Time of Encounter: 15:30 Internal Medicine - H&P: HPI Chief complaint: CP Admitted From: Emergency Dept Plans for Post Hospital Care: Home History of present illness: Mr. Covington is a 57 year old male w/PMH of COPD, CAD, diabetes controlled with oral anti-hyperglycemics and insulin, GERD, HLD, HTN, and previous CA in April 2017 presents from the ED with chief complaint of chest pain that began this morning at rest as left-sided pressure with radiation to bilateral shoulders, bilateral arms, and left jaw. Pt. has extensive cardiac hx and familial hx unknown d/t being in foster care. Pt. reports having 7-10 stents placed (pt. is not the best historian). Records show LHC in 04/2017 was not amenable to PCI. CABG evaluation in 12/2016 showed pt. not a good candidate. Medical mgmt opted for at that time. Pt. currently on Brilinta and aspirin. Alleviating factor: fentanyl in ED. Aggravating factors: none. Associated sx: N/ V/FELDER x1. Patient denies recent illness, fever, chills, changes in vision, unusual bleeding, cough, chest congestion, palpitations, abdominal pain, diarrhea, constipation, shortness of breath, dizziness, lightheadedness, numbness, tingling, pre-syncope, or syncope. Pt. reports chronic unsteadiness on feet. Past Med Surg Social Fam HX - Past Medical History Source: patient, old records reviewed Medical history: arthritis, COPD, coronary artery disease, diabetes (Oral and insulin), GERD, hyperlipidemia, hypertension, myocardial infarction (04/2017) Psychiatric history: anxiety, depression - Past Surgical History Surgical History: angioplasty/stent, appendectomy, knee replacement (Left), other Additional surgical history: tonsillectomy, heart cath with stents, colonoscopy. 12/10/15 JULISSA @[place] W/DR OROZCO - Social History Smoking Status: Former smoker Packs per day: 1 PPD - Reports quitting in 12/2016 Smokeless Tobacco Status: No Alcohol use: none Drug use: none Current living situation: Home Activity Level: Independent ambulation Recent Out of Country Travel Within the Last 8 Weeks: No Exposure or Possible Exposure to Illness During Travel: No - Family History Mother History Unknown: Yes Adopted: Yes Race: Family Member Ethnicity: Non- Father History Unknown: Yes Adopted: Yes Race: Family Member Ethnicity: Non- Brother History Unknown: Yes Adopted: Yes Race: Family Member Ethnicity: Non- Sister History Unknown: Yes Adopted: Yes Race: Family Member Ethnicity: Non- Internal Medicine - H&P: Meds Sitagliptin Phosphate [Januvia] 100 mg PO DAILY 12/10/15 [History] Venlafaxine [Effexor] 75 mg PO DAILY 12/10/15 [History] Albuterol Sulfate [Ventolin Hfa] 1 - 2 puff IH Q6H PRN 12/20/16 [History] Glimepiride [Amaryl] 4 mg PO BID 12/20/16 [History] Insulin LISPRO [HumaLOG] 3 - 4 unit SQ TID 12/20/16 [History] Nitroglycerin [Nitrostat] 0.4 mg SL DAILY PRN 12/20/16 [History] Omeprazole [PriLOSEC] 20 mg PO DAILY 12/20/16 [History] rOPINIRole [Requip] 1 mg PO HS 12/27/16 [History] Aspirin [Lo-Dose Aspirin EC] 81 mg PO DAILY #30 12/29/16 [Rx] Atorvastatin [Lipitor] 40 mg PO HS #30 tablet 12/29/16 [Rx] Lisinopril [Zestril] 20 mg PO BID 30 Days 12/29/16 [Rx] Ticagrelor [Brilinta] 90 mg PO BID 30 Days tab 12/29/16 [Rx] Isosorbide MONOnitrate (24 HR) [Imdur] 120 mg PO DAILY 05/08/17 [History] Gabapentin [Neurontin] 400 mg PO TID 05/11/17 [History] Metoprolol [Lopressor] 25 mg PO BID tablet 11/01/17 [Rx] Insulin Degludec [Tresiba Flextouch U-100] 45 unit SQ DAILY 12/25/17 [History] Liraglutide [Victoza 2-Eduardo] 1.2 mg SQ DAILY 12/25/17 [History] Ranolazine [Ranexa] 500 mg PO BID 12/25/17 [History] 3 Allergy/AdvReac Type Severity Reaction Status Date / Time No Known Allergies Allergy Verified 12/25/17 13:07 All Systems PM: A 10-system review of systems was performed and is negative for pertinent findings except as documented above in the HPI. - Constitutional Constitutional: as per HPI, no chills, no fever(s), no night sweats - EENT Eyes: no change in vision, no discharge, no pain, no photophobia Ears: no ear discharge, no ear pain, no tinnitus Nose, mouth and throat: no dysphagia, no nasal discharge, no neck pain, no sore throat - Breasts Breasts: as per HPI - Cardiovascular Cardiovascular ROS IM: as per HPI, chest pain, no diaphoresis, no dyspnea, no lightheadedness, no palpitations, no syncope - Respiratory Respiratory: no cough, no dyspnea, no wheezing, no excessive phlegm production - Gastrointestinal Gastrointestinal: no abdominal pain, no diarrhea, no hematemesis, no hematochezia, no melena, no nausea, no vomiting - Genitourinary Genitourinary ROS male: as per HPI - Musculoskeletal Musculoskeletal ROS IM: as per HPI, no numbness, no tingling - Integumentary Integumentary IM: no rash, no unusual bruising - Neurological Neurological ROS: as per HPI, headache(s), no confusion, no convulsions, no focal weakness, no numbness, no tingling, no tremor(s) - Psychiatric Psychiatric: as per HPI, anxiety, depression - Endocrine Endocrine IM: as per HPI - Hematologic/Lymphatic Hematologic/Lymphatic: no easy bruising - Allergic/Immunologic Allergic/Immunologic: as per HPI - Constitutional Vitals: Temp Pulse Resp BP Pulse Ox 97.3 F L 61 18 124/71 95 12/25/17 16:20 12/25/17 16:20 12/25/17 16:20 12/25/17 16:20 12/25/17 16:20 General appearance: Present: A&O X 3, pleasant, no acute distress, obese, answers questions appropriately - Head Head exam: Present: atraumatic, normocephalic - Eye Eye exam: Present: PERRL, conjuntiva pink, sclera anicteric Pupils: Present: PERRL - ENT ENT exam: Present: normal exam - Neck Neck exam general surgery: Present: normal inspection, supple, trachea midline. Absent: lymphadenopathy - Respiratory Respiratory exam: Present: CTAB. Absent: accessory muscle use, rales, rhonchi, wheezes - Cardiovascular Cardiovascular exam: Present: RRR, +S1, +S2. Absent: diastolic murmur, gallop, rubs, systolic murmur - GI/Abdominal GI/Abdominal exam: Present: normal bowel sounds, soft, no peritoneal signs. Absent: distended, tenderness - Rectal Rectal exam: Present: deferred - Additional comments: exam deferred. - Extremities Exam Extremities exam: Present: warm, radial pulses palpable and symmetrical. Absent : calf tenderness, cyanotic, pedal edema - Back Exam Back exam: Present: normal inspection - Neurological Exam Neurological exam: Present: CN II-XII intact, oriented X3, no focal deficits. Absent: pronater drift, facial droop, speech deficit - Psychiatric Psychiatric exam: Present: normal affect, normal mood - Skin Skin exam: Present: dry, intact Internal Med - H&P Results - Labs CBC & Chem 7: 12/25/17 12:15 12/25/17 12:15 Labs: Short CBC 12/25/17 Range/Units 12:15 WBC 13.0 H (4.3-11.1) K/mcL Hgb 13.7 (12.9-16.9) g/dL Hct 41.2 (37.5-50.1) % Plt Count 275 (140-400) K/mcL Neutrophils # 9.5 H (1.6-8.9) K/mcL BMP 12/25/17 12:15 Sodium 127 L Potassium 4.1 Chloride 102 Carbon Dioxide 25 BUN 12 Creatinine 0.74 Glucose 420 H Calcium 9.1 Cardiac Enzymes 12/25/17 Range/Units 12:15 Troponin I < 0.03 (< 0.04) ng/mL - EKG Data Prior EKG available for review: yes EKG comments: 12/25/17 16:38 EKG dated 10/31/17 shows sinus rhythm with left anterior fascicular block. EKG dated 12/25/17 shows sinus rhythm with normal P axis, the rate 50-99, consider right ventricular hypertrophy, consider anterolateral infarct. - Impressions ITS Impressions Chest X-Ray 12/25/17 12:31 IMPRESSION: No acute cardiopulmonary disease. D/ / Magdy Gonsalez MD / Magdy Gonsalez MD Interpreting Provider: Magdy Gonsalez MD Head CTA 12/25/17 12:38 IMPRESSION: 1. No acute intracranial abnormality. 2. Unremarkable CTA of the head. 3. Right maxillary sinus mucoperiosteal thickening may reflect sinusitis if the patient has correlative symptoms. D/ / Luis Byers / Luis Byers Interpreting Provider: Luis Byers Neck CTA 12/25/17 12:38 IMPRESSION: Mild atherosclerosis involving both proximal internal carotid arteries that is not hemodynamically significant utilizing the NASCET criteria. D/ / Sriram Rogers MD / Sriram Rogers MD Interpreting Provider: Sriram Rogers MD - Diagnostic Studies Chest x-ray Additional comments: Impressions Chest X-Ray 12/25/17 12:31 IMPRESSION: No acute cardiopulmonary disease. D/ / Magdy Gonsalez MD / Magdy Gonsalez MD Interpreting Provider: Magdy Gonsalez MD Other Images Additional comments: Impressions Head CTA 12/25/17 12:38 IMPRESSION: 1. No acute intracranial abnormality. 2. Unremarkable CTA of the head. 3. Right maxillary sinus mucoperiosteal thickening may reflect sinusitis if the patient has correlative symptoms. D/ / Luis Byers / Luis Byers Interpreting Provider: Luis Byers Neck CTA 12/25/17 12:38 IMPRESSION: Mild atherosclerosis involving both proximal internal carotid arteries that is not hemodynamically significant utilizing the NASCET criteria. D/ / Sriram Rogers MD / Sriram Rogers MD Interpreting Provider: Sriram Rogers MD - Assessment and plan (1) Chest pain Current Visit: Yes Status: Acute Assessment and plan: Acute CP that began this morning at rest. Presented as left-sided pressure with radiation to bilateral shoulders, bilateral arms, and left jaw. Pt. has extensive cardiac hx and familial hx unknown d/t being in foster care. Pt. reports having 7-10 stents placed (pt. is not the best historian). Records show LHC in 04/2017 was not amenable to PCI. CABG evaluation in 12/2016 showed pt. not a good candidate. Medical mgmt opted for at that time. Pt. currently on Brilinta and aspirin. No familial hx known d/t pt. being in foster care. Pt. reports nitro x4 did not help sx much but fentanyl in ED did help w/CP. Initial troponin <0.03. Will trend. Continuous cardiac telemetry. Echocardiogram in 10/30 shows LVEF of 60-65%, normal LV chamber size and wall thickness and function , mild left ventricular diastolic dysfunction, normal right ventricular structure and function, no evidence of pulmonary hypertension, and no significant valvular dysfunction. Cardiology consult ordered and discussed w/ Dr. Alejo w/recommendation to continue pts. Brilinta and I appreciate the consult and recommendations as always. Pt. discussed w/Dr. Yang who agrees w/ plan of care. Pt. is high risk d/t cardiac hx, previous CA and stent placement, hx; and risk factors of previous tobacco abuse, obesity, DM, HLD, HTN, and CAD. Observation. Qualifiers: Chest pain type: unspecified Qualified Code(s): R07.9 - Chest pain, unspecified (2) GERD (gastroesophageal reflux disease) Current Visit: Yes Status: Chronic Assessment and plan: Hx of chronic GERD. IVP Zofran 4 mg Q6HR PRN for N/V. Continue pts. PO Prilosec. Qualifiers: Esophagitis presence: esophagitis presence not specified Qualified Code(s) : K21.9 - Gastro-esophageal reflux disease without esophagitis (3) HTN (hypertension) Current Visit: Yes Status: Chronic Assessment and plan: Hx of chronic HTN. Monitor pt. and VS. Continue pts. Lopressor, Imdur, and lisinopril. Qualifiers: Hypertension type: essential hypertension Qualified Code(s): I10 - Essential (primary) hypertension (4) HLD (hyperlipidemia) Current Visit: Yes Status: Chronic Assessment and plan: Hx of chronic HLD. Lipid panel in a.m. labs. Continue pts. Lipitor. Qualifiers: Hyperlipidemia type: pure hypercholesterolemia Qualified Code(s): E78.00 - Pure hypercholesterolemia, unspecified; E78.0 - Pure hypercholesterolemia (5) CAD (coronary artery disease), [place] coronary artery Current Visit: Yes Status: Chronic Assessment and plan: Hx of chronic CAD. Previous CA >8 weeks in 04/2017. Previous stent placement. Pt. not good candidate for CABG in 12/2016. Continuous cardiac telemetry. Continue pts. Lipitor, Imdur, Zestril, Lopressor, aspirin therapy, and Brilinta. Qualifiers: [place] vs. transplanted heart: [place] heart Associated angina: with unstable angina Qualified Code(s): I25.110 - Atherosclerotic heart disease of [place] coronary artery with unstable angina pectoris (6) COPD (chronic obstructive pulmonary disease) Current Visit: Yes Status: Chronic Assessment and plan: Hx of chronic COPD. Stable. Continue patient's inhaler. Supplemental O2 with titration and SPO2 monitoring. Qualifiers: COPD type: emphysema Emphysema type: unspecified Qualified Code(s): J43.9 - Emphysema, unspecified (7) Diabetes Current Visit: Yes Status: Chronic Assessment and plan: Hx of chronic diabetes that is not well-managed. Pt. reports upcoming appt. for diabetes education. Will convert pts. Tresiba 45 units daily to 1:1 conversion to Levemir 45 units in a.m. Will continue Januvia and glimepiride PO and add low -dose correction insulin sliding scale w/hypoglycemia protocol. BG checks ACHS. A1c in a.m. labs. Qualifiers: Diabetes mellitus type: type 2 Diabetes mellitus termite exterminator helper insulin use: unspecified termite exterminator helper insulin use status Diabetes mellitus complication status : with hyperglycemia Qualified Code(s): E11.65 - Type 2 diabetes mellitus with hyperglycemia (8) DVT prophylaxis Current Visit: Yes Status: Acute Assessment and plan: Continue pts. Brilinta for DVT prophylaxis. Monitor pt. for signs of bleeding. (9) Previous myocardial infarction older than 8 weeks Current Visit: Yes Status: Resolved Assessment and plan: Hx of previous CA. Pt. reports in 04/2017 he had previous CA w/stents placed. Records show LHC in 04/2017 not amenable to PCI. Patient also evaluated for CABG in 12/2016 and found not to be a candidate. Continue pts. aspirin therapy and Brilinta. Continuous cardiac telemetry. - Time Spent With Patient Total time spent is greater than 50% in coordination of care (as documented) at patient's floor/unit and/or counseling patient: Greater than 35 minutes <Alyssa Yang - Last Filed: 12/25/17 20:01> Date of Encounter: 12/25/17 Internal Medicine - H&P: HPI History of present illness: Mr. Covington is a 57 year old male All Systems PM: A 10-system review of systems was performed and is negative for pertinent findings except as documented above in the HPI. - Constitutional Vitals: Temp Pulse Resp BP Pulse Ox 97.3 F L 68 16 134/73 95 12/25/17 16:20 12/25/17 19:21 12/25/17 19:21 12/25/17 19:21 12/25/17 19:21 Internal Med - H&P Results - Labs CBC & Chem 7: 12/25/17 12:15 12/25/17 12:15 Labs: Cardiac Enzymes 12/25/17 Range/Units 18:25 Troponin I < 0.03 (< 0.04) ng/mL - Attending Attestation I have seen and examined this pt independently. I have discussed with CARAMEL CUTTER MACHINE Mr Mckinnon regarding the management plan. Agree with the documentation. - Assessment and plan (1) COPD (chronic obstructive pulmonary disease) Current Visit: Yes Status: Chronic Qualifiers: COPD type: emphysema Emphysema type: unspecified Qualified Code(s): J43.9 - Emphysema, unspecified (2) Diabetes Current Visit: Yes Status: Chronic Qualifiers: Diabetes mellitus type: type 2 Diabetes mellitus retirement insulin use: unspecified termite exterminator helper insulin use status Diabetes mellitus complication status : with hyperglycemia Qualified Code(s): E11.65 - Type 2 diabetes mellitus with hyperglycemia (3) Chest pain Current Visit: Yes Status: Acute Qualifiers: Chest pain type: unspecified Qualified Code(s): R07.9 - Chest pain, unspecified (4) CAD (coronary artery disease), [place] coronary artery Current Visit: Yes Status: Chronic Qualifiers: [place] vs. transplanted heart: [place] heart Associated angina: with unstable angina Qualified Code(s): I25.110 - Atherosclerotic heart disease of [place] coronary artery with unstable angina pectoris (5) DVT prophylaxis Current Visit: Yes Status: Acute (6) GERD (gastroesophageal reflux disease) Current Visit: Yes Status: Chronic Qualifiers: Esophagitis presence: esophagitis presence not specified Qualified Code(s) : K21.9 - Gastro-esophageal reflux disease without esophagitis (7) HTN (hypertension) Current Visit: Yes Status: Chronic Qualifiers: Hypertension type: essential hypertension Qualified Code(s): I10 - Essential (primary) hypertension (8) HLD (hyperlipidemia) Current Visit: Yes Status: Chronic Qualifiers: Hyperlipidemia type: pure hypercholesterolemia Qualified Code(s): E78.00 - Pure hypercholesterolemia, unspecified; E78.0 - Pure hypercholesterolemia (9) Previous myocardial infarction older than 8 weeks Current Visit: Yes Status: Resolved - Time Spent With Patient Total time spent is greater than 50% in coordination of care (as documented) at patient's floor/unit and/or counseling patient:
[2017-12-25] MEDS ORDERED: Ondansetron 4 MG/2 ML VIAL IVP PRN (16:59)
[2017-12-25] MEDS: Nitroglycerin 0.4 MG TAB.SUBL SL PRN ×4 (18:08→19:15)
[2017-12-25] MEDS: Insulin LISPRO 300 UNITS/3 ML VIAL SQ SCH ×2 (19:13→21:19)
[2017-12-25] MEDS: *HR* Glimepiride 4 MG TABLET PO SCH (19:14)
--- NOTE | 2017-12-25 20:14 | Event Note ---
Date of Encounter: 12/25/17 Time of Encounter: 18:01 Alerted by patient's nurse the patient had multiple runs of V. tach on telemetry. Nurse reported patient was asleep at the time. See patient who was resting in bed complaining of 8/10 chest pain. Patient had received fentanyl in the ED which he stated reduce his chest pain to 5/10. Instructed nurse to begin giving patient sublingual nitroglycerin per protocol and monitor patient' s blood pressure. Ordered EKG at the time should sinus rhythm with pattern consistent with pulmonary disease and left anterior fascicular block with nonspecific ST elevation. Stat magnesium ordered. Will monitor patient's electrolytes and chest pain closely. Patient discussed with Dr. Alejo with recommendation continue patient's Brilinta rather than heparin drip. We will continue to monitor patient closely overnight.
[2017-12-25] MEDS: *HR* Ticagrelor 90 MG TABLET PO SCH (21:18)
[2017-12-25] MEDS: Lisinopril 20 MG TABLET PO SCH (21:18)
[2017-12-25] MEDS: Gabapentin 400 MG CAPSULE PO SCH (21:18)
[2017-12-25] MEDS: rOPINIRole 1 MG TABLET PO SCH (21:18)
[2017-12-25] MEDS: *HR* OxyCODONE Immed Rel 5 MG TABLET PO PRN (21:19)
[2017-12-25] MEDS: Ranolazine 500 MG TAB.ER.12H PO SCH (21:19)
[2017-12-26 01:07] LABS: Basophils # 0.1 K/mcL (0.0-0.2); Basophils % 0.6 %; Eosinophils # 0.5 K/mcL (0.0-0.6); Eosinophils % 3.2 %; Hematocrit 39.6 % (37.5-50.1); Immature Granulocytes % 1.3 % (0-4); Lymphocytes # 2.1 K/mcL (0.6-4.6); Lymphocytes % 14.8 %; Mean Corpuscular HGB Conc 32.8 g/dL (31.6-35.5); Mean Corpuscular Hemoglobin 27.5 pg (28.0-33.3); Mean Corpuscular Volume 83.9 fL (83.0-100.0); Mean Platelet Volume 10.2 fL (9.4-12.4); Monocytes % 7.2 %; Neutrophils # 10.4 K/mcL (1.6-8.9); Platelet Count 262 K/mcL (140-400); Red Blood Count 4.72 M/mcL (4.19-5.50); Segmented Neutrophils % 72.9 %
[2017-12-26 01:28] LABS: Alanine Aminotransferase 17 Units/L (7-52); Albumin 3.5 g/dL (3.5-5.7); Albumin/Globulin Ratio 1.3 (1.1-2.2); Alkaline Phosphatase 87 Units/L (34-104); Aspartate Amino Transferase 14 Units/L (13-39); BUN/Creatinine Ratio 22 (6-26); Bilirubin,Total 0.5 mg/dL (0.3-1.0); Blood Urea Nitrogen 14 mg/dL (6-20); Calcium 8.9 mg/dL (8.6-10.3); Carbon Dioxide 24 mEq/L (23-29); Chloride 104 mEq/L (98-107); Chol/HDL Ratio 4.2 (0-4.9); Cholesterol 137 mg/dL (< 200); Globulin 2.7 g/dL (2.4-3.5); Glucose 217 mg/dL (70-105); HDL Cholesterol 33 mg/dL (40-59); LDL Cholesterol,Calculated 51 mg/dL (0-99); Magnesium 1.6 mg/dL (1.6-2.6); Osmolality,Calculated 277 (280-300); Potassium 3.5 mEq/L (3.5-5.1); Sodium 130 mEq/L (136-145); Total Protein 6.2 g/dL (6.4-8.9); Triglycerides 263 mg/dL (< 150); eGFR For Non-African Americans > 60 (> 60)
[2017-12-26 06:52] LABS: Estimated Average Glucose 269 mg/dl
--- NOTE | 2017-12-26 09:23 | Cardiology Consult Note ---
<Arthur Jean-Baptiste S - Last Filed: 12/26/17 11:23> Date of Encounter: 12/26/17 Time of Encounter: 09:00 Assessment and Plan (1) Unstable angina Status: Acute Pt had acute onset chest pain yesterday morning -presented with c/o chest pain located left side with radiation to the shoulders , left>right arm and jaw. -extensive cardiac hx including OK 04/2017 with LHC not amendable to PCI, 7-8 stents placed (?date), and poor candidate for CABG ECHO (10/30/17) -LVEF 60-65% -normal LV chamber size, wall thickness and function -mild LV diastolic dysfxn -normal RV structure and fxn -no pulmonary HTN -no significant valvular dz Troponin <0.03 in the ER CXR showed no acute cardiopulmonary process Head CTA showed no acute intracranial abnormality Neck CTA showed mild atherosclerosis involving both proximal internal carotid aa that is not hemodyanmically significant EKG showed sinus rhythm, HR 63, QTc 450 and LAFB [facility] 04/29 Coronary Dominance: Left The LMCA is angiographically free of disease. * Left Anterior Descending There is a 80% stenosis in the Mid LAD and 40% proximal. Distal LAD small and diffusely diseased. * Circumflex The Circumflex has proximal 40% stenosis. The Mid Circumflex has patent stents present from a previous procedure. The 1st Marginal has patent stents present from a previous procedure. The 1st Marginal has 50-60% mid stenosis. The Left PDA is small and diffusely diseased * Ramus The Ramus has patent stents present from a previous procedure. Proximal ramus 50% stenosis * Right Coronary Artery There is a 99% stenosis in the Proximal RCA. There is a 100% stenosis in the Mid RCA. Plan: -continue acetominophen 650 PO q6hr prn pain -continue ASA 81mg PO daily, Lipitor 40mg PO daily, Zestril 20 mg PO BID, Lopressor 25mg PO BID -Nitroglycerin 0.4mg SL prn chest pain -Ranexa 500mg PO BID -Continue Brilinta 90mg PO BID -continue Imdur 120mg PO daily -continue telemetry monitoring -continue medical management -overall the pt is poorly compliant and is a poor historian -after reviewing previous heart cath with attending, we discussed that since the pt is still having active chest pain and symptoms, he would benefit from another heart cath -discuss the risks and benefits of LHC with the pt, including the risk of OK/ stroke/bleed and -start heparin as per protocol -NPO now. (2) CAD (coronary artery disease), [place] coronary artery Status: Chronic Pt has hx of CAD -previous OK was in 2016 -has 7-8 stents -poor CABG candidate Plan: -continue telemetry -pt on Lipitor, Imdur , Zestril, Lopressor, ASA and Brilinta Qualifiers: [place] vs. transplanted heart: [place] heart Associated angina: with unstable angina Qualified Code(s): I25.110 - Atherosclerotic heart disease of [place] coronary artery with unstable angina pectoris (3) GERD (gastroesophageal reflux disease) Status: Chronic Pt on Prilosec Plan: -continue home meds -Zofran IVP 4mg q6hr -recommend lifestyle changes, such as weight loss -elevate head of bed, avoid big meals before bedtime Qualifiers: Esophagitis presence: esophagitis presence not specified Qualified Code(s) : K21.9 - Gastro-esophageal reflux disease without esophagitis (4) HTN (hypertension) Status: Chronic Pt has hx of chronic HTN -BP today 117/71 -adequate control Plan: -continue Lopressor, imdur, lisinopril Qualifiers: Hypertension type: essential hypertension Qualified Code(s): I10 - Essential (primary) hypertension (5) HLD (hyperlipidemia) Status: Chronic TG 263, Cholesterol 137, LDL 51, VLDL 53, HDL 33 Plan: -continue Lipitor Qualifiers: Hyperlipidemia type: pure hypercholesterolemia Qualified Code(s): E78.00 - Pure hypercholesterolemia, unspecified; E78.0 - Pure hypercholesterolemia (6) Drug-seeking behavior Status: Acute The pt has standing order fr Maynard 5-325mg q6hr prn pain -he demands pain meds while I am in the room and I told him I will not give him anything except acetominophen -the pt states that the "only thing" that will work for him is "what they gave in the ER" (fentanyl) and the Maynard -he states that he was in excruciating pain last night but had to be woken up from sleep for him to become aware he was having runs of V tach Discussion w patient/family: The assessment and plan as outlined above was discussed with the patient and/or family members who expressed understanding and agreement. All questions were answered. Thank you for involving us in the care of your patient. Please call with any questions. History of Present Illness Consult date: 12/25/17 Requesting physician: Bear Mckinnon Consult reason: Chest pain, hx of OK Chief complaint: chest pain History of present illness: Mr. Covington is a 57 year old male who presented to the ER yesterday with c/o chest pain. He has an extensive medical hx including COPD, CAD, T2DM uncontrolled, HLD, GERD, HTN, previous OK last April not amendable to PCI and not good candidate for CABG. He also has 7-8 stents according to him, although the pt isn't a good historian and possibly is developmentally delayed. He states that his chest pain started yesterday morning at 9 or 10 am and lasted most of the day. He states that there was radiation to the neck and arms , especially the left side, and the jaw. -he has an extensive cardiac history including having 7-8 stents in his heart and an OK in April 2017 -currently, the pt is being medically managed because he is a poor candidate for CABG -the pt states he is unable to lay flat, has chest pain on exertion and at rest , and has SOB on exertion and at rest -he isn't very active and states that the most active thing he does is walk his dog, although he states when he does this he has to stop to catch his breath -the pt states that he is currently in active chest pain rated as a 4/10 and demands pain medications He had an episode of chest pain last night as per night team and had a run of V tach as per event note. -pt was resting in bed but when awoken said his chest pain was an 8/10 Fluids - none Electrolytes - Sodium 130 Nutirtion - cardiac/diabetic diet DVT prophylaxis - on ASA and Brilenta GI prophylaxis - on Prisolc 20mg PO daily Past Med Surg Social Fam HX - Past Medical History Medical history: arthritis, COPD, coronary artery disease, diabetes (Oral and insulin), GERD, hyperlipidemia, hypertension, myocardial infarction (04/2017) Psychiatric history: anxiety, depression - Past Surgical History Surgical History: angioplasty/stent, appendectomy, knee replacement (Left), other Additional surgical history: tonsillectomy, heart cath with stents, colonoscopy. 12/10/15 JULISSA @[facility] W/DR OROZCO - Social History Smoking Status: Former smoker Packs per day: 1 PPD - Reports quitting in 12/2016 Smokeless Tobacco Status: No Alcohol use: none Drug use: none - Family History Father History Unknown: Yes Adopted: Yes Race: Family Member Ethnicity: Non- Brother History Unknown: Yes Adopted: Yes Race: Family Member Ethnicity: Non- Sister History Unknown: Yes Adopted: Yes Race: Family Member Ethnicity: Non- Mother History Unknown: Yes Adopted: Yes Race: Family Member Ethnicity: Non- Medications and Allergies Sitagliptin Phosphate [Januvia] 100 mg PO DAILY 12/10/15 [History] Venlafaxine [Effexor] 75 mg PO DAILY 12/10/15 [History] Albuterol Sulfate [Ventolin Hfa] 1 - 2 puff IH Q6H PRN 12/20/16 [History] Glimepiride [Amaryl] 4 mg PO BID 12/20/16 [History] Insulin LISPRO [HumaLOG] 3 - 4 unit SQ TID 12/20/16 [History] Nitroglycerin [Nitrostat] 0.4 mg SL DAILY PRN 12/20/16 [History] Omeprazole [PriLOSEC] 20 mg PO DAILY 12/20/16 [History] rOPINIRole [Requip] 1 mg PO HS 12/27/16 [History] Aspirin [Lo-Dose Aspirin EC] 81 mg PO DAILY #30 12/29/16 [Rx] Atorvastatin [Lipitor] 40 mg PO HS #30 tablet 12/29/16 [Rx] Lisinopril [Zestril] 20 mg PO BID 30 Days 12/29/16 [Rx] Ticagrelor [Brilinta] 90 mg PO BID 30 Days tab 12/29/16 [Rx] Isosorbide MONOnitrate (24 HR) [Imdur] 120 mg PO DAILY 05/08/17 [History] Gabapentin [Neurontin] 400 mg PO TID 05/11/17 [History] Metoprolol [Lopressor] 25 mg PO BID tablet 11/01/17 [Rx] Insulin Degludec [Tresiba Flextouch U-100] 45 unit SQ DAILY 12/25/17 [History] Liraglutide [Victoza 2-Eduardo] 1.2 mg SQ DAILY 12/25/17 [History] Ranolazine [Ranexa] 500 mg PO BID 12/25/17 [History] 3 Allergy/AdvReac Type Severity Reaction Status Date / Time No Known Allergies Allergy Verified 12/25/17 13:07 All Systems Review: The remainder of the systems were reviewed and are negative - Constitutional Constitutional: fatigue, snoring, no fever(s) - Cardiovascular Cardiovascular: chest pain at rest, chest pain with exertion, dyspnea at rest, dyspnea on exertion, radiating jaw, neck or arm pain, orthopnea, paroxysmal nocturnal dyspnea, no palpitations - Respiratory Respiratory: dyspnea, no cough - Gastrointestinal Gastrointestinal: no diarrhea, no melena, no nausea - Genitourinary Genitourinary: no dysuria, no hematuria - Neurological Neurological: no numbness, no tingling Physical Examination Vital Signs, Last 4 Hours Temp Pulse Resp BP Pulse Ox 12/26/17 07:57 97.9 F 62 20 117/71 93 General: Conversant HEENT: Atraumatic, Normocephaly Neck: No JVD Cardiac: Reg Rate and Rhythm, Normal S1 and S2 Lungs: Normal Breath Sounds, No Wheeze, Rales, Rhonchi Neuro: Alert and responsive Abdomen: Soft Skin: No rashes noted on visualized skin Musculoskeletal: No Chest Wall Tenderness Extremities: No Edema Results 12/26/17 00:21 12/26/17 00:21 Lab Results 12/25/17 12/25/17 12/26/17 18:25 18:25 00:21 WBC Hgb Hct Plt Count Sodium Potassium Chloride Carbon Dioxide BUN Creatinine Glucose Calcium Magnesium 1.7 Total Bilirubin AST ALT Alkaline Phosphatase Troponin I < 0.03 < 0.03 12/26/17 12/26/17 00:21 00:21 WBC 14.3 H Hgb 13.0 Hct 39.6 Plt Count 262 Sodium 130 L Potassium 3.5 Chloride 104 Carbon Dioxide 24 BUN 14 Creatinine 0.64 L Glucose 217 H Calcium 8.9 Magnesium 1.6 Total Bilirubin 0.5 AST 14 ALT 17 Alkaline Phosphatase 87 Troponin I Consult Discharge Plan - Plan Instructions: Chest Pain (DC) Additional Instructions: Follow-up with cardiology - as scheduled before.. Referrals: Jesus Nino, RF TEST ENGINEER [Advanced Practice Nurse] - (office will call for an appointment per [facility] office staff) Fern Rivera, RF TEST ENGINEER [Primary Care Provider] - 01/02/18 1:00 pm (Please follow up as schedule...) <Rajendra Alejo - Last Filed: 12/28/17 13:13> Date of Encounter: 12/26/17 Time of Encounter: 15:00 - Attending Attestation I examined this patient and my medical decision-making was reviewed with the Resident Physician. I agree with the documented findings, disposition and treatment plan as described except to the extent set forth below. CC: Chest pain HPI: PT reports sudden onset of mid sternal chest pain, onset at rest, started mild and became worse, 6/10 at most severe, radiated into left jaw and left shoulder, lasted for approximately twenty minutes first time, resolved spontaneously, came and went several times throughout the day 12/25, and several times throughout the night. He took sl ntg several times if the chest pain seemed to last along time. He reports chest pain location, severity and radiation the same as several previous episodes of angina prior to revascularization. He has known severe triple vessel disease, no good targets for revascularization at last cath 04.29. He is currently resting comfortably, pain free. ROS: reviewed PMH: reviewed Cath films 04.29 x 2 reviewed IMP/Plan; 1. Chest pain, consistent with anginal pain, recommend C/Poss, risks and benefits discussed, pt elects to proceed with invasive strategy. 2. CAD: Severe triple vessel disease, distal vessels small, was not a candidate for revascularization at last heart cath 04/29, will reevaluate at [facility] 3. Drug seeking behaviour: concerning is requesting narcotic analgesia and declining nitrates, will continue to monitor 4. HYPTN: well controlled on current meds. 5. Hyperlipidemia: at goal on statin tx. Assessment and Plan Discussion w patient/family: The assessment and plan as outlined above was discussed with the patient and/or family members who expressed understanding and agreement. All questions were answered. Thank you for involving us in the care of your patient. Please call with any questions. History of Present Illness History of present illness: Mr. Covington is a 57 year old male All Systems Review: The remainder of the systems were reviewed and are negative Results 12/27/17 05:19 12/27/17 05:19
[2017-12-26] MEDS: Insulin LISPRO 300 UNITS/3 ML VIAL SQ SCH ×4 (09:45→21:44)
[2017-12-26] MEDS: Aspirin Enteric Coated 81 MG Tablet PO SCH (09:45)
[2017-12-26] MEDS: Ranolazine 500 MG TAB.ER.12H PO SCH ×2 (09:45→21:41)
[2017-12-26] MEDS: *HR* Ticagrelor 90 MG TABLET PO SCH ×2 (09:45→21:41)
[2017-12-26] MEDS: *HR* SitaGLIPtin 100 MG TABLET PO SCH (09:46)
[2017-12-26] MEDS: *HR* Glimepiride 4 MG TABLET PO SCH ×2 (09:46→15:25)
[2017-12-26] MEDS: Gabapentin 400 MG CAPSULE PO SCH ×3 (09:46→21:41)
[2017-12-26] MEDS: Insulin DETEMIR 100 UNIT/ML X5UNITS SQ SCH (09:52)
[2017-12-26] MEDS: Isosorbide MONOnitrate (24 HR) 60 MG TAB.ER.24H PO SCH (09:53)
[2017-12-26] MEDS: Lisinopril 20 MG TABLET PO SCH (09:53)
[2017-12-26] MEDS ORDERED: Heparin 25,000 UNIT/500 ML D5W 25,000 UNIT/500 ML BAG IVC SCH (11:30)
[2017-12-26] MEDS ORDERED: *HR* Heparin 5,000 UNIT/ML VIAL IVP ONE (11:37)
[2017-12-26] MEDS ORDERED: *HR* Heparin 5,000 UNIT/ML VIAL IVP PRN ×2 (11:37)
[2017-12-26 12:27] LABS: Hematocrit 41.7 % (37.5-50.1); Hemoglobin 13.6 g/dL (12.9-16.9); Mean Corpuscular HGB Conc 32.6 g/dL (31.6-35.5); Mean Corpuscular Hemoglobin 27.5 pg (28.0-33.3); Mean Corpuscular Volume 84.2 fL (83.0-100.0); Mean Platelet Volume 9.9 fL (9.4-12.4); Platelet Count 270 K/mcL (140-400); Red Blood Count 4.95 M/mcL (4.19-5.50); Red Cell Distribution Width 16.1 % (11.5-14.5)
[2017-12-26 12:31] LABS: INR 1.1; Prothrombin Time 12.2 Seconds (9.4-12.1)
[2017-12-26] MEDS ORDERED: 0.9 % Sodium Chloride 1,000 ML ONE ×2 (13:47→14:14)
[2017-12-26] MEDS ORDERED: Heparin 1,000 UNITS/500 mL 500 ML ONE (13:47)
[2017-12-26] MEDS ORDERED: ISOVUE-370 200 ML INFUS..BTL IV ONE (13:48)
[2017-12-26] MEDS ORDERED: Nitroglycerin 1,000 MCG/10 ML VIAL IV ONE (13:48)
[2017-12-26] MEDS ORDERED: *HR* Heparin 10,000 UNIT/10 ML VIAL ONE (13:48)
[2017-12-26] MEDS ORDERED: *HR* Midazolam HCl 2 MG/2 ML VIAL ONE (14:14)
[2017-12-26] MEDS ORDERED: *HR* FentaNYL (PF) 100 MCG/2 ML VIAL ONE (14:14)
--- NOTE | 2017-12-26 14:16 | Pre-Sedation Evaluation ---
Pre-sedation evaluation - Pre-sedation checklist Date of procedure: 12/26/17 Procedure: left heart cath Recent Vitals: Last Vital Signs Temp 97.4 F L 12/26/17 11:24 Pulse 67 12/26/17 11:24 Resp 18 12/26/17 11:24 BP 96/61 12/26/17 11:24 Pulse Ox 96 12/26/17 11:24 H&P (including ROS) documented in medical record: Yes Previous reaction to sedatives/anesthetics: No Dietary Status: NPO 6 hours prior to procedure Airway Assessment: Patient can open mouth completely, TMJ function normal, Micrognathia (under-bite, receding chin) absent, Neck with adequate range of motion Dentition: full dentition Possible difficult airway: No ASA Classification *see protocol: CLASS II-Mild systemic disease Plan of Care: Pt appropriate candidate for procedure/moderate/conscious sedation , Risks/benefits of procedure/sedation discussed w/ patient/family Cardiac Registry (Cardio Only) - Functional Capacity Functional Capacity: < 4 METS - Clincal Frailty Scale Clinical Frailty Scale: Vulnerable
--- NOTE | 2017-12-26 15:04 | Invasive Diagnostic Lab Proc ---
Name: Gurvinder Covington Date of Study: 12/26/2017 Date: 1960 Ht: 70.1in Medical Record#: [id number] Age: 57 Wt: 240.30lb Gender: Male BSA: 2.26 Order #: [id number] BMI: 34.4 Physicians Procedure Physician: Fern Carter MD, FACC Referring MD: Referring MD: Staff Name Position Time In Yanet Pacheco RT (R) Monitor 02:08 PM Nirmala Montoyaian RT (R) Scrub 02:08 PM Marion Spence RN Tobacco Packing Machine Operator 02:08 PM Indications Indication Unstable Angina Procedures Performed Procedure L HRT ARTERY/VENTRICLE ANGIO Pre-Procedure Checklist Informed consent is complete signed and on chart. H&P is on chart. ID band is on and ID verified with patient. Patient NPO for procedure The procedure was described for the patient and questions were answered. ECG is on chart. Plan of Care Patient will tolerate the procedure without complications. Adequate level of comfort will be maintained. Hemodynamics will remain stable Patient will recover from procedure without complications. Respiratory function will be maintained. Cardiac rhythm will remain stable. Patient temperature will be maintained. Patient and/or family have verbalized understanding of the procedure. Patient Education Chief Complaint/Reason for Test: Cardiac Cath Developmental Category: Adult (18-64 years) Developmentally Appropriate for Age: Yes Learning Barriers: None Education Needs: Procedure Education Method: Verbal Information Taught: Cardiac Cath Educational Evaluation: Able to repeat information Intravenous Access Time IV Size Location DC'd Fluid/Drip Rate Units RN 01:53 PM 20g 1 1/4" Patent On Arrival Lt Arm 01:53 PM 20g 1 1/4" Patent On Arrival Lt Arm Allergies No Known Allergies Vital Signs Time BP (mmHg) HR (bpm) O2 Sat. RR (bpm) LOC 02:09 PM / % 5 = Fully awake and oriented or at pre-proc level 02:09 PM / % 4 = Oriented but drowsy 02:24 PM / % 4 = Oriented but drowsy 02:14 PM 137 / 82 65 100 % 26 02:18 PM 131 / 78 64 99 % 11 02:23 PM 119 / 80 64 90 % 25 02:28 PM 118 / 67 64 94 % 27 02:33 PM 108 / 66 62 97 % 13 02:38 PM 102 / 64 63 99 % 16 Procedural Medications Time Medication Dose Units Method Given By 02:14 PM Oxygen 2 L/min nasal cannula Marion Spence RN 02:18 PM Versed 2 mg Intravenous Marion Spence RN 02:18 PM Fentanyl 50 mcg Intravenous Marion Spence RN 02:23 PM Benadryl 25 mg Intravenous Marion Spence RN 02:23 PM Lidocaine 2% 20 ml Subcutaneous Fern Carter MD, FACC 02:24 PM Oxygen 4 L/min nasal cannula Marion Spence RN ASA Classification: CLASS II- Mild systemic disease (i.e. well-controlled diabetes, hypertension, asthma, cigarette smoking) Lottie Score Preprocedure Postprocedure Activity 2- Moves 4 extremities sustained head lift Activity 2- Moves 4 extremities sustained head lift Circulation 2- SBP +/= 20 points of pre-anesthetic level Circulation 2- SBP +/= 20 points of pre-anesthetic level Consciousness 2- Awake and alert oriented x 3 Consciousness 2- Awake and alert oriented x 3 O2 Saturation 2- Able to maintain O2 satruation of 92% on room air O2 Saturation 2- Able to maintain O2 satruation of 92% on room air Respiratory 2- Able to deep breathe and cough well Respiratory 2- Able to deep breathe and cough well Total Score 10 Total Score 10 Contrast Agent: Isovue Diagnostic Contrast: 62 ml Total Contrast: 62 ml Fluoro Dose: 3773 mGy Procedure Log Time Note Enter By 01:54 PM Case Start 02:08 PM Pt arrived to process laboratory specialist 2 at 14:08 [email or web address] 02:08 PM Yanet Pacheco RT (R) Position: Monitor Time in: 14:08 [email or web address] 02:08 PM Everett Montoya RT (R) Position: Scrub Time in: 14:08 [email or web address] 02:08 PM Marion Spence RN Position: Tobacco Packing Machine Operator Time in: 14:08 [email or web address] 02:08 PM Patient charges- Angio tray pack, Navilyst 3mm J, Pulse Oximetry and ACIST tubing and transducer [email or web address] 02:08 PM Case Delayed No [email or web address] 02:08 PM Physician arrived 14:08 [email or web address] 02:08 PM Emmanuel and gerry completed [email or web address] 02:08 PM Sign in performed according to hospital policy. [email or web address] 02:08 PM Procedure start 14:08 [email or web address] 02:08 PM ASA Class CLASS II- Mild systemic disease (i.e. well-controlled diabetes, hypertension, asthma, cigarette smoking) [email or web address] 02:09 PM Time: 14:09 Patient comfortable and pain free: Yes [email or web address] 02:09 PM Time: 14:09LOC: 5 = Fully awake and oriented or at pre-proc level [email or web address] 02:13 PM Hair removed from procedure site in procedure lab using clippers. Bilateral groin prepped with Chloraprep by Rosangela Velez), then patient was draped. Skin red and very irritated. [email or web address] 02:13 PM Vitals capture started with the following parameters, Patient=Adult, Interval=5 min, Initial Cptzrtzz=486 mmHg, Deflation Rate=5 mmHg, Cuff placed on Right Arm 02:14 PM Recorded ECG: HR=71 Condition=Condition 1 02:14 PM HR=65 bpm, FIQK=854/82 mmhg, BoN2=769.0 %, Resp=26 B/min, Comment=NSR 02:15 PM Time: 14:14 Oxygen on at 2 L/min per nasal cannula by Marion Spence RN [email or web address] 02:17 PM Pressure channel 1 zeroed. 02:18 PM Time: 14:18 Versed 2 mg Intravenous Given by Marion Spence RN [email or web address] 02:18 PM Time: 14:18 Fentanyl 50 mcg Intravenous Given by Marion Spence RN [email or web address] 02:18 PM HR=64 bpm, ILLF=710/78 mmhg, SpO2=99.0 %, Resp=11 B/min, Comment=NSR 02:21 PM Time out performed according to hospital policy [email or web address] 02:23 PM Time: 14:23 Benadryl 25 mg Intravenous Given by Marion Spence RN [email or web address] 02:23 PM Time: 14:23 20 ml Lidocaine 2% to right groin Subcutaneous [facility], [email or web address] PM Access obtained by percutaneous puncture. 5Fr 10cm Terumo [place] sheath placed in right Femoral artery. [id number] [email or web address] 02:23 PM HR=64 bpm, RALD=310/80 mmhg, SpO2=90.0 %, Resp=25 B/min, Comment=NSR 02:24 PM 0.035 145cm Navilyst 3mmJ wire [id number] [email or web address] 02:24 PM 5Fr FL 4 catheter inserted over the wire DN [email or web address] 02:24 PM Time: 14:09LOC: 4 = Oriented but drowsy [email or web address] 02:24 PM Time: 14:09 Patient comfortable and pain free: Yes [email or web address] 02:24 PM Time: 14:24 Oxygen on at 4 L/min per nasal cannula by Marion Sepnce RN [email or web address] 02:25 PM LCA angiography performed in multiple views. [email or web address] 02:25 PM Recorded Pressure: Ao, HR=64, Condition=Condition 1 (Aorta) Ao 88/64/75 02:26 PM Catheter removed [email or web address] 02:26 PM 5Fr FR 4 catheter inserted over the wire DN [email or web address] 02:27 PM RCA angiography performed in multiple views. [email or web address] 02:27 PM Recorded Pressure: Ao, HR=63, Condition=Condition 1 (Aorta) Ao 87/63/74 02:27 PM Catheter removed [email or web address] 02:28 PM 5Fr Pigtail catheter inserted over the wire [facility] [email or web address] 02:28 PM Catheter selectively placed in left ventricle [email or web address] 02:28 PM HR=64 bpm, YGNP=289/67 mmhg, SpO2=94.0 %, Resp=27 B/min, Comment=NSR 02:29 PM Pressure channel 1 zero failed. 02:29 PM Pressure channel 1 zeroed. 02:29 PM Recorded Pressure: LV, HR=63, Condition=Condition 1 (Left Ventricle) LV 94/-3/9 02:30 PM Bolus angiogram of left Ventricle complete: 8 ml/sec for a total of 24 mls [email or web address] 02:30 PM Recorded Pressure: LV, Ao, HR=64, Condition=Condition 1 (Left Ventricle) LV 78/15/19, (Aorta) Ao 84/13/54 02:30 PM Catheter removed [email or web address] 02:31 PM Bolus angiogram of right Femoral complete: 4 ml/sec for a total of 7 mls [email or web address] 02:33 PM HR=62 bpm, OWGN=446/66 mmhg, SpO2=97.0 %, Resp=13 B/min, Comment=NSR 02:36 PM Procedure completed at 14:36 12/26/2017 [email or web address] 02:36 PM Coronary Dominance: right [email or web address] 02:37 PM Sign out completed: Radiation Dose 335.62 mGy, 3772.68 cGy/cm2 Fluoro Time: 1.4 Isovue 370 - 200ml contrast 62 ml given by Fern Carter MD, [facility]. Complications: NoneCardiac Rehab Consult needed: NoConfirmed administered medications: Yes [email or web address] 02:37 PM Isovue 370 - 200ml,1 Bottle(s) used. [email or web address] 02:37 PM Arterial sheath pulled, Mynx closure device used and was Successful S/N. [email or web address] 02:37 PM Estimated Blood Loss: minimal [email or web address] 02:37 PM Post ECG NSR [email or web address] 02:37 PM Post Blood Pressure 108/66 [email or web address] 02:37 PM Information taught Cardiac Cath and Mynx [email or web address] 02:37 PM Education needs Procedure, Plan of Care, and Disease Process [email or web address] 02:37 PM Learning barriers :None [email or web address] 02:37 PM Education Methods Verbal [email or web address] 02:37 PM Education evaluation Able to repeat information [email or web address] 02:38 PM Site status No bleeding/hematoma - Rt Groin as reported by Everett Montoya RT (R) at 14:37 [email or web address] 02:38 PM HR=63 bpm, FOWA=840/64 mmhg, SpO2=99.0 %, Resp=16 B/min, Comment=NSR 02:42 PM Time: 14:24 Patient comfortable and pain free: Yes [email or web address] 02:42 PM Time: 14:24LOC: 4 = Oriented but drowsy [email or web address] 02:43 PM Report given to Alla OLVERA Pt taken to 2A Room #39. 14:43 [email or web address] 02:44 PM Delay to floor No [email or web address] 02:44 PM Patient out of room: 14:44 [email or web address] 02:44 PM Family placed in Not available. [email or web address] 02:44 PM Complications: None [email or web address] Complications Complication None None Hemodynamics Pressures Site Systolic/A Wave Diastolic/V Wave Mean AO 88 64 75 AO 87 63 74 LV 94 -3 9 LV 78 15 19 AO 84 13 54 Post Procedure Information Blood Pressure: 108/66 mmHg Rhythm: NSR Post procedural instructions were given Closure Device Time Device Success/Fail 12/26/2017 2:35:00 PM MynxGrip Successful Site Checks Time Location Status Staff Sheath In? Note 02:37 PM Rt Groin No bleeding/hematoma Everett Montoya RT (R) Pulses Time Site Pre-Procedure Post-Procedure Note 12/26/2017 2:43:00 PM Bilateral DP & PT 1+ 1+ Updated by Yanet Pacheco RT(R) on 12/26/2017 2:55:15 PM electronically signed on 12/26/2017 2:55:55 PM with status of Final
[2017-12-26] MEDS: *HR* OxyCODONE Immed Rel 5 MG TABLET PO PRN (15:25)
--- NOTE | 2017-12-26 17:31 | Electrocardiograph Report ---
[place] [id number] Test Date: 2017-12-25 Pat Name: Gurvinder Covington Department: Room: 2A Gender: M Pocket Cutter: : 1960 Requested By: Sulema Mcclain Order Number: [id number] Reading MD: Edna Gaines Measurements Intervals [place] Rate: 66 P: 5 AL: 183 QRS: -83 QRSD: 108 T: 57 QT: 417 QTc: 437 Interpretive Statements Sinus rhythm Left anterior fascicular block Nonspecific ST abnormalities Electronically Signed On 12-26-2017 17:29:25 EDT by Edna Gaines
[2017-12-26] MEDS: rOPINIRole 1 MG TABLET PO SCH (21:41)
[2017-12-26] MEDS: Nystatin Cream 15 GM TUBE TP SCH (21:42)
[2017-12-27 05:34] LABS: Basophils # 0.1 K/mcL (0.0-0.2); Basophils % 0.5 %; Eosinophils # 0.3 K/mcL (0.0-0.6); Hematocrit 37.1 % (37.5-50.1); Hemoglobin 12.3 g/dL (12.9-16.9); Immature Granulocytes % 1.8 % (0-4); Lymphocytes # 1.6 K/mcL (0.6-4.6); Lymphocytes % 15.7 %; Mean Corpuscular HGB Conc 33.2 g/dL (31.6-35.5); Mean Corpuscular Volume 84.3 fL (83.0-100.0); Monocytes # 0.8 K/mcL (0.0-1.3); Monocytes % 8.1 %; Neutrophils # 7.1 K/mcL (1.6-8.9); Platelet Count 229 K/mcL (140-400); Segmented Neutrophils % 70.9 %
[2017-12-27 05:54] LABS: Alanine Aminotransferase 16 Units/L (7-52); Albumin 3.4 g/dL (3.5-5.7); Albumin/Globulin Ratio 1.4 (1.1-2.2); Alkaline Phosphatase 88 Units/L (34-104); Aspartate Amino Transferase 13 Units/L (13-39); BUN/Creatinine Ratio 24 (6-26); Bilirubin,Total 0.5 mg/dL (0.3-1.0); Blood Urea Nitrogen 18 mg/dL (6-20); Calcium 8.6 mg/dL (8.6-10.3); Carbon Dioxide 24 mEq/L (23-29); Chloride 103 mEq/L (98-107); Globulin 2.5 g/dL (2.4-3.5); Glucose 301 mg/dL (70-105); Osmolality,Calculated 291 (280-300); Potassium 4.1 mEq/L (3.5-5.1); Sodium 134 mEq/L (136-145); Total Protein 5.9 g/dL (6.4-8.9); eGFR For Non-African Americans > 60 (> 60)
--- NOTE | 2017-12-27 08:06 | Cardiology Progress Note ---
Date of Encounter: 12/27/17 Time of Encounter: 08:00 Assessment and Plan (1) Unstable angina Current Visit: Yes Status: Resolved Pt had acute onset chest pain yesterday morning -presented with c/o chest pain located left side with radiation to the shoulders , left>right arm and jaw. -extensive cardiac hx including MO 04/2017 with LHC not amendable to PCI, 7-8 stents placed (?date), and poor candidate for CABG ECHO (10/30/17) -LVEF 60-65% -normal LV chamber size, wall thickness and function -mild LV diastolic dysfxn -normal RV structure and fxn -no pulmonary HTN -no significant valvular dz Troponin <0.03 in the ER CXR showed no acute cardiopulmonary process Head CTA showed no acute intracranial abnormality Neck CTA showed mild atherosclerosis involving both proximal internal carotid aa that is not hemodyanmically significant EKG showed sinus rhythm, HR 63, QTc 450 and [facility] 04/29 Coronary Dominance: Left The LMCA is angiographically free of disease.; There is a 80% stenosis in the Mid LAD and 40% proximal. Distal LAD small and diffusely diseased. The Circumflex has proximal 40% stenosis. The Mid Circumflex has patent stents present from a previous procedure. The 1st Marginal has patent stents present from a previous procedure. The 1st Marginal has 50-60% mid stenosis. The Left PDA is small and diffusely diseased The Ramus has patent stents present from a previous procedure. Proximal ramus 50% stenosis There is a 99% stenosis in the Proximal RCA. There is a 100% stenosis in the Mid RCA. [facility] 12/26/17 - EF 65% no new stents were placed, report below There is a 40% stenosis in the Distal LMCA. There is a 50% stenosis in the Proximal LAD. There is a 80% stenosis in the Mid LAD. There is a 99% stenosis in the Distal LAD- long segment, diffusely diseased small vessel There is a 50% stenosis in the Proximal Circumflex. Previously stented mid Cx patent. There is a 90% stenosis in the Distal Circumflex- small, diffusely diseased. Previously stented ostial/proximal 1st Marginal patent. There is a 80% stenosis in the mid 1st Marginal distal to stent. There is a 80% Proximal stenosis in the Ramus There is a 50% instent stenosis in Mid Ramus. There is a 100% stenosis in the Proximal RCA- SHOT FIREMAN. Rt PDA fills via Left to Right collaterals. Plan: -continue acetominophen 650 PO q6hr prn pain -continue ASA 81mg PO daily, Lipitor 40mg PO daily, Zestril 20 mg PO BID, Lopressor 25mg PO BID -Nitroglycerin 0.4mg SL prn chest pain -Ranexa 500mg PO BID -Continue Brilinta 90mg PO BID -continue Imdur 120mg PO daily -continue telemetry monitoring -cardiac diet -continue medical management and encourage risk factor modification -overall the pt is poorly compliant and is a poor historian -cardiac rehab consulted -at this time, pt is stable from a cardiology standpoint and cardiology will sign off at this time. (2) CAD (coronary artery disease), [place] coronary artery Current Visit: No Status: Chronic Pt has hx of CAD -previous MO was in 2016 -has 7-8 stents -poor CABG candidate Plan: -continue telemetry -pt on Lipitor, Imdur , Zestril, Lopressor, ASA and Brilinta -risk factor modification Qualifiers: [place] vs. transplanted heart: [place] heart Associated angina: with unstable angina Qualified Code(s): I25.110 - Atherosclerotic heart disease of [place] coronary artery with unstable angina pectoris (3) GERD (gastroesophageal reflux disease) Current Visit: No Status: Chronic Pt on Prilosec Plan: -continue home meds -Zofran IVP 4mg q6hr -recommend lifestyle changes, such as weight loss -elevate head of bed, avoid big meals before bedtime Qualifiers: Esophagitis presence: esophagitis presence not specified Qualified Code(s) : K21.9 - Gastro-esophageal reflux disease without esophagitis (4) HTN (hypertension) Current Visit: No Status: Chronic Pt has hx of chronic HTN -BP today 121/70 -adequate control Plan: -continue Lopressor, imdur, lisinopril Qualifiers: Hypertension type: essential hypertension Qualified Code(s): I10 - Essential (primary) hypertension (5) HLD (hyperlipidemia) Current Visit: No Status: Chronic TG 263, Cholesterol 137, LDL 51, VLDL 53, HDL 33 Plan: -continue Lipitor Qualifiers: Hyperlipidemia type: pure hypercholesterolemia Qualified Code(s): E78.00 - Pure hypercholesterolemia, unspecified; E78.0 - Pure hypercholesterolemia Discussion w patient/family: The assessment and plan as outlined above was discussed with the patient and/or family members who expressed understanding and agreement. All questions were answered. Thank you for involving us in the care of your patient. Please call with any questions. Subjective Principal diagnosis: Unstable angina Interval history: Pt is seen at the bedside. He is without complaints today. Denies chest pain, SOB, abd pain, N/V/D. The femoral artery where the catheter was placed yesterday is intact without hematoma. The pt has an extensive cardiac hx, including s/p LHC 04/2017 and has multi vessel dz, has 7-8 stents already. He is a poor candidate for CABG surgery. He has uncontrolled DM and is a previous smoker, about 1 yr quit. He is overall poorly compliant. As per interventionalist, the pt should continued to be advised for risk factor modification and medical management of his symptoms. Cath report from 12/26/17: Coronary Dominance: Co-dominant Lesion Findings/Interventions * Left Main Coronary Artery There is a 40% stenosis in the Distal LMCA. * Left Anterior Descending There is a 50% stenosis in the Proximal LAD. There is a 80% stenosis in the Mid LAD. There is a 99% stenosis in the Distal LAD- long segment, diffusely diseased small vessel * Circumflex There is a 50% stenosis in the Proximal Circumflex. Previously stented mid Cx patent. There is a 90% stenosis in the Distal Circumflex- small, diffusely diseased. Previously stented ostial/proximal 1st Marginal patent. There is a 80% stenosis in the mid 1st Marginal distal to stent. * Ramus There is a 80% Proximal stenosis in the Ramus There is a 50% instent stenosis in Mid Ramus. * Right Coronary Artery There is a 100% stenosis in the Proximal RCA- SHOT FIREMAN. Rt PDA fills via Left to Right collaterals. Fluids - none Electrolytes - Sodium 134 Nutrition - cardiac diet DVT prophylaxis - on ASA and brillenta GI prophylaxis - on Prilosec 20mg Objective Vital Signs, Last 4 Hours Temp Pulse Resp BP Pulse Ox 12/27/17 07:31 97.8 F 58 15 121/70 96 12/27/17 05:14 97.2 F L 64 17 112/66 95 General: Conversant HEENT: Atraumatic, Normocephaly Neck: No JVD Cardiac: Reg Rate and Rhythm, Normal S1 and S2 Lungs: Normal Breath Sounds, No Wheeze, Rales, Rhonchi Neuro: Alert and responsive Abdomen: Non-Tender, Other (obese abdomen; no hematoma noted in right femoral aa area) Skin: No rashes noted on visualized skin Musculoskeletal: No Chest Wall Tenderness Extremities: No Edema Results 12/27/17 05:19 12/27/17 05:19 Lab Results 12/26/17 12/26/17 12/27/17 12:11 12:11 05:19 WBC 12.9 H 10.0 Hgb 13.6 12.3 L Hct 41.7 37.1 L Plt Count 270 229 INR 1.1 Sodium Potassium Chloride Carbon Dioxide BUN Creatinine Glucose Calcium Total Bilirubin AST ALT Alkaline Phosphatase 12/27/17 05:19 WBC Hgb Hct Plt Count INR Sodium 134 L Potassium 4.1 Chloride 103 Carbon Dioxide 24 BUN 18 Creatinine 0.75 Glucose 301 H Calcium 8.6 Total Bilirubin 0.5 AST 13 ALT 16 Alkaline Phosphatase 88 Consult Discharge Plan - Plan Referrals: Fern Rivera, DUMPING MACHINE OPERATOR [Primary Care Provider] -
[2017-12-27] MEDS: Lisinopril 20 MG TABLET PO SCH ×2 (08:16→08:59)
[2017-12-27] MEDS ORDERED: Insulin DETEMIR 100 UNIT/ML X5UNITS SQ ONE (08:52)
[2017-12-27] MEDS ORDERED: Insulin LISPRO 300 UNITS/3 ML VIAL SQ SCH ×2 (08:54)
[2017-12-27] MEDS: Insulin LISPRO 300 UNITS/3 ML VIAL SQ SCH (08:56)
[2017-12-27] MEDS: Insulin DETEMIR 100 UNIT/ML X5UNITS SQ SCH (08:57)
[2017-12-27] MEDS: *HR* Ticagrelor 90 MG TABLET PO SCH (08:58)
[2017-12-27] MEDS: *HR* SitaGLIPtin 100 MG TABLET PO SCH (08:58)
[2017-12-27] MEDS: Aspirin Enteric Coated 81 MG Tablet PO SCH (08:58)
[2017-12-27] MEDS: Isosorbide MONOnitrate (24 HR) 60 MG TAB.ER.24H PO SCH (08:58)
[2017-12-27] MEDS: Gabapentin 400 MG CAPSULE PO SCH (08:59)
[2017-12-27] MEDS: *HR* Glimepiride 4 MG TABLET PO SCH (08:59)
[2017-12-27] MEDS: Nystatin Cream 15 GM TUBE TP SCH (08:59)
[2017-12-27] MEDS ORDERED: Ranolazine 500 MG TAB.ER.12H PO SCH (09:00)
[2017-12-27 11:31] VITALS: BP 123/73
--- NOTE | 2017-12-27 11:36 | Discharge Summary ---
Orders not resulted at time of discharge: Pending orders 12/25/17 16:39 EKG [ECG 12 lead ECG] [ECG] Routine 12/27/17 07:53 Cardiac Rehab Phase 2 [CRS] Routine 12/28/17 04:00 Complete Blood Count [HEME] AM 0400 Comprehensive Metabolic Panel AM 0400 Date of Encounter: 12/27/17 Time of Encounter: 10:45 - Discharge Diagnosis (1) Unstable angina Priority: Primary Status: Acute (2) CAD (coronary artery disease), [place] coronary artery Priority: Primary Status: Chronic Qualifiers: [place] vs. transplanted heart: [place] heart Associated angina: with unstable angina Qualified Code(s): I25.110 - Atherosclerotic heart disease of [place] coronary artery with unstable angina pectoris (3) GERD (gastroesophageal reflux disease) Priority: Secondary Status: Chronic Qualifiers: Esophagitis presence: esophagitis presence not specified Qualified Code(s) : K21.9 - Gastro-esophageal reflux disease without esophagitis (4) Type 2 diabetes mellitus with hyperglycemia Priority: Secondary Status: Acute Qualifiers: Diabetes mellitus laborer marine terminal insulin use: with fdc use Qualified Code( s): E11.65 - Type 2 diabetes mellitus with hyperglycemia; Z79.4 - joint terminal attack controller ( current) use of insulin (5) COPD (chronic obstructive pulmonary disease) Priority: Secondary Status: Chronic Qualifiers: COPD type: emphysema Emphysema type: unspecified Qualified Code(s): J43.9 - Emphysema, unspecified (6) HTN (hypertension) Priority: Secondary Status: Chronic Qualifiers: Hypertension type: essential hypertension Qualified Code(s): I10 - Essential (primary) hypertension (7) HLD (hyperlipidemia) Priority: Secondary Status: Chronic Qualifiers: Hyperlipidemia type: pure hypercholesterolemia Qualified Code(s): E78.00 - Pure hypercholesterolemia, unspecified; E78.0 - Pure hypercholesterolemia Hospital course: Mr. Covington is a 57 year old male. We admitted this patient for chest pain. He has underlying coronary artery disease. He felt like the pain was very similar to the pain he was experiencing when treated for exacerbation of COPD. EKGs and cardiac enzymes were normal. Cardiology was consulted. They proceeded with cardiac catheterization. They found old patent stents. They found multiple obstruction sites. There were either closed or subcritical. They recommended medical therapy. See cardiology notes. Interestingly, his chest pain is constant in nature. It is relatively mild at discharge. It does not interfere with his activities. CONDITION AT DISCHARGE: See above. Skin: Free of rash and discoloration. Respiratory: Normal breath sounds with no crackles and wheezes bilaterally. GI: Abdomen is flat and soft with no palpable mass or visceromegaly. Neuro exam: There is no focal deficits. Normal speech, swallowing and gait. SEE DISCHARGE ORDERS/MEDICATIONS.. Discharge discussed with: patient, nurse - Time Spent with Patient Total time spent providing and/or coordinating discharge services: Greater than 30 minutes (45 minutes) - Discharge Medications Home Medications: Sitagliptin Phosphate [Januvia] 100 mg PO DAILY 12/10/15 [History] Venlafaxine [Effexor] 75 mg PO DAILY 12/10/15 [History] Albuterol Sulfate [Ventolin Hfa] 1 - 2 puff IH Q6H PRN 12/20/16 [History] Glimepiride [Amaryl] 4 mg PO BID 12/20/16 [History] Insulin LISPRO [HumaLOG] 3 - 4 unit SQ TID 12/20/16 [History] Nitroglycerin [Nitrostat] 0.4 mg SL DAILY PRN 12/20/16 [History] Omeprazole [PriLOSEC] 20 mg PO DAILY 12/20/16 [History] rOPINIRole [Requip] 1 mg PO HS 12/27/16 [History] Aspirin [Lo-Dose Aspirin EC] 81 mg PO DAILY #30 12/29/16 [Rx] Atorvastatin [Lipitor] 40 mg PO HS #30 tablet 12/29/16 [Rx] Lisinopril [Zestril] 20 mg PO BID 30 Days 12/29/16 [Rx] Ticagrelor [Brilinta] 90 mg PO BID 30 Days tab 12/29/16 [Rx] Isosorbide MONOnitrate (24 HR) [Imdur] 120 mg PO DAILY 05/08/17 [History] Gabapentin [Neurontin] 400 mg PO TID 05/11/17 [History] Metoprolol [Lopressor] 25 mg PO BID tablet 11/01/17 [Rx] Insulin Degludec [Tresiba Flextouch U-100] 45 unit SQ DAILY 12/25/17 [History] Liraglutide [Victoza 2-Eduardo] 1.2 mg SQ DAILY 12/25/17 [History] Ranolazine [Ranexa] 500 mg PO BID 12/25/17 [History] Allergies/Adverse Reactions: 3 Allergy/AdvReac Type Severity Reaction Status Date / Time No Known Allergies Allergy Verified 12/25/17 13:07 Date of admission: 12/25/17 15:23 Primary care physician: Fern Rivera CNP Consults: 12/25/17 16:08 Consult to Personal Property Appraiser [CONS] Routine Reason for SW Consult: Please assess patient for possible home needs for post -discharge planning. 12/25/17 16:33 Consult to Pastoral Services [CONS] Routine Comment: Discharging clinician: Suraj Alcaraz Anticipated date of discharge: 12/27/17 - Constitutional Vitals: Temp Pulse Resp BP Pulse Ox 97.9 F 66 16 123/73 93 12/27/17 11:25 12/27/17 11:25 12/27/17 11:25 12/27/17 11:25 12/27/17 11:25 General appearance: Present: A&O X 3, pleasant, no acute distress, obese, answers questions appropriately - Patient Status Disposition: Home, Self-Care Condition: Fair Functional capacity at discharge: independent ambulation Overall status at discharge: patient is back to baseline - Discharge Instructions Instructions: Chest Pain (DC) Follow Up With: Jesus Nino CNP [Advanced Practice Nurse] - (office will call for an appointment per [employer] office staff) Fern Rivera CNP [Primary Care Provider] - 01/02/18 1:00 pm (Please follow up as schedule...) Additional Instructions: Follow-up with cardiology - as scheduled before.. - Diet and Activity Activity: resume usual activities as tolerated Diet: diabetic diet - VTE Reasons for not Prescribing Prophylaxis: Treatment not Indicated - Low risk for VTE Deep Vein Thrombosis/Pulmonary Embolism Present on Admission: No
[2017-12-27] MEDS ORDERED: Insulin DETEMIR 100 UNIT/ML X5UNITS SQ SCH (21:00)
--- NOTE | 2017-12-27 22:46 | Internal Med Progress Note ---
Hospitalist Progress Note - Encounter Date of Encounter: 12/26/17 Time of Encounter: 19:00 - Exam Vitals: Temp Pulse Resp BP Pulse Ox 97.9 F 66 16 123/73 93 12/27/17 11:25 12/27/17 11:25 12/27/17 11:25 12/27/17 11:25 12/27/17 11:25 Exam: xxx - Assessment and Plan (1) Unstable angina Status: Acute (2) CAD (coronary artery disease), [place] coronary artery Status: Chronic (3) GERD (gastroesophageal reflux disease) Status: Chronic (4) Type 2 diabetes mellitus with hyperglycemia Status: Acute (5) COPD (chronic obstructive pulmonary disease) Status: Chronic (6) HTN (hypertension) Status: Chronic (7) HLD (hyperlipidemia) Status: Chronic - Summary of Assessment and Plan Summary of Assessment and Plan: SUBJECTIVE: The patient continues to have constant upper anterior chest discomfort. It is not associated with any dyspnea, coughing or wheezing. He had cardiac catheterization done today. It showed no critical blockages in his coronary arteries. OBJECTIVE: Skin: Free of rash and discoloration. ENMT: Oral/pharyngeal mucosa is normal in appearance. Eyes: Sclera is white. There is no discharge from eyes. Respiratory: Normal breath sounds; no crackles or wheezes. CV: Heart is regular; no gallop or murmur. GI: Abdomen is soft and not tender. There is no palpable mass or visceromegaly. Neuro: There is no focal deficits. ASSESSMENT AND PLAN: Unstable angina/coronary artery disease. See results of cardiac catheterization. Medical therapy has been chosen. His medications for CAD have been optimized. They include Brilinta, aspirin, Ranexa, Lopressor, Imdur and Lipitor. GERD. Seems to be under control. We will continue Prilosec. Type 2 diabetes mellitus. He is on diabetic diet, Levemir and when necessary Humalog. DISPOSITION: We anticipate his discharge tomorrow. - Time Spent with Patient Total time spent is greater than 50% in coordination of care (as documented) at patient's floor/unit and/or counseling patient: 25 - 35 minutes Plan of Care Discussed with: patient Internal Medicine: Result - Labs CBC & Chem 7: 12/27/17 05:19 12/27/17 05:19 Labs: Short CBC 12/27/17 Range/Units 05:19 WBC 10.0 (4.3-11.1) K/mcL Hgb 12.3 L (12.9-16.9) g/dL Hct 37.1 L (37.5-50.1) % Plt Count 229 (140-400) K/mcL Neutrophils # 7.1 (1.6-8.9) K/mcL BMP 12/27/17 05:19 Sodium 134 L Potassium 4.1 Chloride 103 Carbon Dioxide 24 BUN 18 Creatinine 0.75 Glucose 301 H Calcium 8.6 Liver Function 12/27/17 Range/Units 05:19 Total Bilirubin 0.5 (0.3-1.0) mg/dL AST 13 (13-39) Units/L ALT 16 (7-52) Units/L Alkaline Phosphatase 88 (34-104) Units/L Albumin 3.4 L (3.5-5.7) g/dL - ABG Interpretation ABG results: PT/INR, D-dimer PT 12.2 Seconds (9.4-12.1) H 12/26/17 12:11 - VTE Reasons for not Prescribing Prophylaxis: Treatment not Indicated - Low risk for VTE Deep Vein Thrombosis/Pulmonary Embolism Present on Admission: No Consult Discharge Plan - Plan Instructions: Chest Pain (DC) Additional Instructions: Follow-up with cardiology - as scheduled before.. Referrals: Jesus Nino AIRPORT REFUELING HANDLER [Advanced Practice Nurse] - (office will call for an appointment per Garage Construction Equipment Mechanic office staff) Fenr Rivera CNP [Primary Care Provider] - 01/02/18 1:00 pm (Please follow up as schedule...) (2) CAD (coronary artery disease), [place] coronary artery Qualifiers: [place] vs. transplanted heart: [place] heart Associated angina: with unstable angina Qualified Code(s): I25.110 - Atherosclerotic heart disease of [place] coronary artery with unstable angina pectoris (3) GERD (gastroesophageal reflux disease) Qualifiers: Esophagitis presence: esophagitis presence not specified Qualified Code(s): K21.9 - Gastro-esophageal reflux disease without esophagitis (5) COPD (chronic obstructive pulmonary disease) Qualifiers: COPD type: emphysema Emphysema type: unspecified Qualified Code(s): J43.9 - Emphysema, unspecified (6) HTN (hypertension) Qualifiers: Hypertension type: essential hypertension Qualified Code(s): I10 - Essential (primary) hypertension (7) HLD (hyperlipidemia) Qualifiers: Hyperlipidemia type: pure hypercholesterolemia Qualified Code(s): E78.00 - Pure hypercholesterolemia, unspecified; E78.0 - Pure hypercholesterolemia
--- NOTE | 2017-12-28 08:13 | Electrocardiograph Report ---
[place] [id number] Test Date: 2017-12-25 Pat Name: Gurvinder Covington Department: 112 Room: [facility] Gender: M Paper Cone Maker: : [id number] Requested By: Suraj Alcaraz Order Number: [id number] Reading MD: Jose R Cortes Measurements Intervals [place] Rate: 63 P: 47 CT: 201 QRS: -63 QRSD: 112 T: 67 QT: 414 QTc: 421 Interpretive Statements SINUS RHYTHM LEFT ANTERIOR FASCICULAR BLOCK NONSPECIFIC ST CHANGES Electronically Signed On 12-28-2017 8:11:26 EDT by Jose R Cortes
== END 2017-12-27 14:19 | disposition home or self-care (01) ==
LOC: EMEROOARM 12:08 → 2ANU 12:08 → SUATTDRO 15:23 → 2ANU 16:03
PROVIDERS: ADMIT Internal Medicine; ATTEND Internal Medicine

== ENCOUNTER 2018-01-11 16:43 | Inpatient (IN) ==
[2018-01-11] MEDS ORDERED: Nitroglycerin 1,000 MCG/10 ML VIAL IV ONE (16:49)
[2018-01-11] MEDS ORDERED: *HR* Heparin 10,000 UNIT/10 ML VIAL ONE (16:49)
[2018-01-11] MEDS ORDERED: ISOVUE-370 200 ML INFUS..BTL IV ONE ×2 (16:49→18:39)
[2018-01-11] MEDS ORDERED: 0.9 % Sodium Chloride 1,000 ML ONE ×2 (16:49→17:46)
[2018-01-11] MEDS ORDERED: Heparin 1,000 UNITS/500 mL 500 ML ONE (16:49)
[2018-01-11] MEDS ORDERED: *HR* Midazolam HCl 2 MG/2 ML VIAL ONE ×2 (17:45→18:01)
--- NOTE | 2018-01-11 17:54 | Cardiology History & Physical ---
Date of Encounter: 01/11/18 Time of Encounter: 17:46 Assessment and Plan (1) Chest pain Status: Acute The assessment and plan as outlined above was discussed with the patient and/or family members who expressed understanding and agreement. All questions were answered. Pt continues to have chest pain, active EKG changes, ST segment elevation has resolved with medical tx,but chest pain continues, will proceed with LHC/poss. Qualifiers: Chest pain type: chest pain due to myocardial ischemia Ischemic chest pain type: unstable angina pectoris Qualified Code(s): I20.0 - Unstable angina (2) Coronary arteriosclerosis Status: Chronic The assessment and plan as outlined above was discussed with the patient and/or family members who expressed understanding and agreement. All questions were answered. Severe triple vessel CAD, chronic occlusion of RCA, severe diffuse disease in distal Cx, OM1, mid and distal LAD, not a candidate for CABG due to small, diffusely diseased distal targets. Code(s): I25.10 - Atherosclerotic heart disease of [place] coronary artery without angina pectoris (3) Hypertension Status: Chronic The assessment and plan as outlined above was discussed with the patient and/or family members who expressed understanding and agreement. All questions were answered. Adequately controlled on current meds Qualifiers: Hypertension type: essential hypertension Qualified Code(s): I10 - Essential (primary) hypertension (4) Drug-seeking behavior Status: Chronic The assessment and plan as outlined above was discussed with the patient and/or family members who expressed understanding and agreement. All questions were answered. Pt demonstrates pain patterns out of proportion to clinical findings, concerning for drug seeking behavior. (5) Type 2 diabetes mellitus with hyperglycemia Status: Chronic The assessment and plan as outlined above was discussed with the patient and/or family members who expressed understanding and agreement. All questions were answered. Consult ICU team for management, consult hospitalist service on discharge from ICU Qualifiers: Diabetes mellitus intermediate insulin use: with watermelon inspector use Qualified Code( s): E11.65 - Type 2 diabetes mellitus with hyperglycemia; Z79.4 - watermelon inspector ( current) use of insulin (6) COPD (chronic obstructive pulmonary disease) Status: Chronic The assessment and plan as outlined above was discussed with the patient and/or family members who expressed understanding and agreement. All questions were answered. Mildly short of breath lying flat, consult ICU team for medical management. Qualifiers: COPD type: emphysema Emphysema type: unspecified Qualified Code(s): J43.9 - Emphysema, unspecified (7) Cellulitis Status: Acute The assessment and plan as outlined above was discussed with the patient and/or family members who expressed understanding and agreement. All questions were answered. Cellulitis right groin, consult CCU, may want ID consult. Qualifiers: Site of cellulitis: trunk Site of cellulitis of trunk: groin Qualified Code(s): L03.314 - Cellulitis of groin History of Present Illness Chief complaint: Chest pain HPI: Mr. Covington is a 57 year old male presented to the [facility] ER with complaint of sudden onset mid sternal chest pain, 8/10, occurred at rest, lasted approx 45 mins before family members called the squad, did improve to 5/10 with slm ntg en route to ER, Chest pain radiates into jaw bilaterally. He notes was pain free for several days after recent hospital discharge, but has been having increased frequentcy, severity and duration of chest pain daily. He has required up to 8 sl ntg last two days for pain relief. He is now reporting 6/ 10 chest pain at rest, mild shortness of breath and mild diaphoresis. He has an extensive cardiac histrory, with multiple LHCs, underwent LHC and was turned down for CABG approx two weeks ago due to poor distal targets and co morbidities. Past Med Surg Social Fam HX - Past Medical History Medical history: arthritis, COPD, coronary artery disease, diabetes (Oral and insulin), GERD, hyperlipidemia, hypertension, myocardial infarction (04/2017) Psychiatric history: anxiety, depression - Past Surgical History Surgical History: angioplasty/stent, appendectomy, knee replacement (Left), other Additional surgical history: tonsillectomy, heart cath with stents, colonoscopy. 12/10/15 LTKR @[facility] W/DR OROZCO - Social History Smoking Status: Former smoker Smokeless Tobacco Status: No Alcohol use: none Drug use: none - Family History Father Adopted: Yes Family Member Ethnicity: Non- Brother Adopted: Yes Family Member Ethnicity: Non- Sister Adopted: Yes Family Member Ethnicity: Non- Mother Adopted: Yes Family Member Ethnicity: Non- Medications and Allergies Sitagliptin Phosphate [Januvia] 100 mg PO DAILY 12/10/15 [History] Venlafaxine [Effexor] 75 mg PO DAILY 12/10/15 [History] Albuterol Sulfate [Ventolin Hfa] 1 - 2 puff IH Q6H PRN 12/20/16 [History] Glimepiride [Amaryl] 4 mg PO BID 12/20/16 [History] Insulin LISPRO [HumaLOG] 3 - 4 unit SQ TID 12/20/16 [History] Nitroglycerin [Nitrostat] 0.4 mg SL DAILY PRN 12/20/16 [History] Omeprazole [PriLOSEC] 20 mg PO DAILY 12/20/16 [History] rOPINIRole [Requip] 1 mg PO HS 12/27/16 [History] Aspirin [Lo-Dose Aspirin EC] 81 mg PO DAILY #30 12/29/16 [Rx] Atorvastatin [Lipitor] 40 mg PO HS #30 tablet 12/29/16 [Rx] Lisinopril [Zestril] 20 mg PO BID 30 Days 12/29/16 [Rx] Ticagrelor [Brilinta] 90 mg PO BID 30 Days tab 12/29/16 [Rx] Isosorbide MONOnitrate (24 HR) [Imdur] 120 mg PO DAILY 05/08/17 [History] Gabapentin [Neurontin] 400 mg PO TID 05/11/17 [History] Metoprolol [Lopressor] 25 mg PO BID tablet 11/01/17 [Rx] Insulin Degludec [Tresiba Flextouch U-100] 45 unit SQ DAILY 12/25/17 [History] Liraglutide [Victoza 2-Eduardo] 1.2 mg SQ DAILY 12/25/17 [History] Ranolazine [Ranexa] 500 mg PO BID 12/25/17 [History] 3 Allergy/AdvReac Type Severity Reaction Status Date / Time No Known Allergies Allergy Verified 12/25/17 13:07 All Systems Review: The remainder of the systems were reviewed and are negative - Constitutional Constitutional: fatigue, headache(s), night sweats - Cardiovascular Cardiovascular: as per HPI, chest pain at rest, chest pain with exertion, diaphoresis, dyspnea at rest, lightheadedness, palpitations - Respiratory Respiratory: cough, dyspnea - Gastrointestinal Gastrointestinal: abdominal pain, constipation - Genitourinary Genitourinary: nocturia - Musculoskeletal Musculoskeletal: arthralgias, other (hips and low back) - Integumentary Integumentary: rash, other (right groin bruising and tenderness, ) - Psychiatric Psychiatric: anxiety - Hematological/Lymphatic Hematologic/Lymphatic: easy bleeding Physical Examination General: Conversant HEENT: Atraumatic, Normocephaly, Mucus Membranes Moist Neck: No JVD Cardiac: Reg Rate and Rhythm, Normal S1 and S2 Lungs: Normal Breath Sounds Neuro: Alert and responsive, No focal deficits noted Abdomen: Soft, Non-Tender, Other (morbidly obese) Skin: Other (right groin errythematous, macerated, tender to palpation) Musculoskeletal: No Chest Wall Tenderness, Other Extremities: No Clubbing, Other (bilateral one plus pretibial edema. ) Results - EKG Interpretation EKG results cardiology: personally reviewed
[2018-01-11] MEDS ORDERED: *HR* Morphine 2 MG/ML SYRINGE ONE (18:41)
[2018-01-11] MEDS ORDERED: *HR* Atropine Sulfate 1 MG/10 ML SYRINGE ONE (21:02)
[2018-01-11] MEDS: *HR* Ticagrelor 90 MG TABLET PO SCH (21:08)
[2018-01-11] MEDS: OXYCODONE Oral CONC 10 MG/0.5 ML ORAL.SYG SL PRN (21:08)
[2018-01-11] MEDS: 0.9 % Sodium Chloride 1,000 ML IVC SCH (21:08)
[2018-01-12] MEDS: OXYCODONE Oral CONC 10 MG/0.5 ML ORAL.SYG SL PRN ×6 (01:25→23:15)
[2018-01-12 03:42] LABS: Basophils # 0.1 K/mcL (0.0-0.2); Basophils % 0.4 %; Eosinophils # 0.3 K/mcL (0.0-0.6); Eosinophils % 2.6 %; Hematocrit 36.8 % (37.5-50.1); Hemoglobin 12.1 g/dL (12.9-16.9); Immature Granulocytes % 1.2 % (0-4); Lymphocytes # 1.8 K/mcL (0.6-4.6); Lymphocytes % 15.9 %; Mean Corpuscular HGB Conc 32.9 g/dL (31.6-35.5); Mean Corpuscular Hemoglobin 27.8 pg (28.0-33.3); Mean Corpuscular Volume 84.4 fL (83.0-100.0); Mean Platelet Volume 9.8 fL (9.4-12.4); Monocytes # 0.9 K/mcL (0.0-1.3); Monocytes % 8.3 %; Platelet Count 232 K/mcL (140-400); Red Blood Count 4.36 M/mcL (4.19-5.50); Red Cell Distribution Width 15.7 % (11.5-14.5); Segmented Neutrophils % 71.6 %
[2018-01-12 03:55] LABS: BUN/Creatinine Ratio 22 (6-26); Blood Urea Nitrogen 14 mg/dL (6-20); Calcium 8.4 mg/dL (8.6-10.3); Carbon Dioxide 24 mEq/L (23-29); Chloride 104 mEq/L (98-107); Glucose 170 mg/dL (70-105); Osmolality,Calculated 284 (280-300); Potassium 3.6 mEq/L (3.5-5.1); Sodium 135 mEq/L (136-145); eGFR For Non-African Americans > 60 (> 60)
[2018-01-12] MEDS ORDERED: *HR* Enoxaparin 120 MG/0.8 ML SYRINGE SQ SCH (06:00)
[2018-01-12] MEDS: 0.9 % Sodium Chloride 1,000 ML IVC SCH (06:27)
--- NOTE | 2018-01-12 08:40 | Pulmonology Consult Note ---
<BrijeshalconBubba lee M - Last Filed: 01/12/18 11:18> Date of Encounter: 01/12/18 Medications and Allergies Sitagliptin Phosphate [Januvia] 100 mg PO DAILY 12/10/15 [History] Venlafaxine [Effexor] 75 mg PO DAILY 12/10/15 [History] Albuterol Sulfate [Ventolin Hfa] 1 - 2 puff IH Q6H PRN 12/20/16 [History] Glimepiride [Amaryl] 4 mg PO BID 12/20/16 [History] Insulin LISPRO [HumaLOG] 3 - 4 unit SQ TID 12/20/16 [History] Nitroglycerin [Nitrostat] 0.4 mg SL DAILY PRN 12/20/16 [History] Omeprazole [PriLOSEC] 20 mg PO DAILY 12/20/16 [History] rOPINIRole [Requip] 1 mg PO HS 12/27/16 [History] Aspirin [Lo-Dose Aspirin EC] 81 mg PO DAILY #30 12/29/16 [Rx] Atorvastatin [Lipitor] 40 mg PO HS #30 tablet 12/29/16 [Rx] Lisinopril [Zestril] 20 mg PO BID 30 Days 12/29/16 [Rx] Ticagrelor [Brilinta] 90 mg PO BID 30 Days tab 12/29/16 [Rx] Isosorbide MONOnitrate (24 HR) [Imdur] 120 mg PO DAILY 05/08/17 [History] Gabapentin [Neurontin] 400 mg PO TID 05/11/17 [History] Metoprolol [Lopressor] 25 mg PO BID tablet 11/01/17 [Rx] Insulin Degludec [Tresiba Flextouch U-100] 45 unit SQ DAILY 12/25/17 [History] Liraglutide [Victoza 2-Eduardo] 1.2 mg SQ DAILY 12/25/17 [History] Ranolazine [Ranexa] 500 mg PO BID 12/25/17 [History] 3 Allergy/AdvReac Type Severity Reaction Status Date / Time No Known Allergies Allergy Verified 12/25/17 13:07 All Systems: The remainder of the systems were reviewed and are negative Physical Examination Vital Signs: Vital Signs, Last 4 Hours Temp Pulse Resp BP Pulse Ox 09/01/18 10:01 97.7 F 01/12/18 10:00 73 18 123/72 97 01/12/18 08:00 62 18 112/72 97 Results - Laboratory Findings CBC and BMP: 01/12/18 03:24 01/12/18 03:24 Abnormal lab findings: Abnormal lab results WBC 11.2 K/mcL (4.3-11.1) H 01/12/18 03:24 Hgb 12.1 g/dL (12.9-16.9) L 01/12/18 03:24 Hct 36.8 % (37.5-50.1) L 01/12/18 03:24 MCH 27.8 pg (28.0-33.3) L 01/12/18 03:24 RDW 15.7 % (11.5-14.5) H 01/12/18 03:24 Sodium 135 mEq/L (136-145) L 01/12/18 03:24 Creatinine 0.65 mg/dL (0.70-1.30) L 01/12/18 03:24 Glucose 170 mg/dL (70-105) H 01/12/18 03:24 POC Glucose 188 mg/dL (70-99) H 01/11/18 23:50 Calcium 8.4 mg/dL (8.6-10.3) L 01/12/18 03:24 - Clinical Findings Intake & Output: Intake & Output 01/11/18 01/12/18 01/12/18 23:59 07:59 15:59 Intake Total 0 / 0 1118 / 1118 120 / 120 Output Total 450 / 450 200 / 200 Balance -450 / -450 918 / 918 120 / 120 Weight 109.6 kg Consult Discharge Plan - Plan Referrals: Fern Rivera, COCKTAIL WAITRESS [Primary Care Provider] - - Attending Attestation I examined this patient and my medical decision-making was reviewed with the Resident Physician. I agree with the documented findings, disposition and treatment plan as described except to the extent set forth below. Patient seen and examined. Labs, radiology, chart personally reviewed. Agree with resident's history and physical, assessment, plan with following comments: ESOL TEACHER ASSISTANT: Patient follows commands, Pulmonary: Acceptable oxygenation and ventilation. Patient stated he has obstructive sleep apnea and encouraged him to be compliant and follow-up as outpatient with patient and with his recent episode of his coronary artery disease. Cardiovascular: stable and cardiology is managing. GI: Nutrition per dietary and GI prophylaxis per routine Heme: DVT prophylaxis per routinen Renal; urine out put and renal funtion reviewed Endorcine: blood glucose is monitored. Patient to be on his home treatment and sliding scale insulin Lines: all lines checked and no evidence of infections Skin: skin care to prevent pressure ulcers per nursing routine care Thank you for consultation. <Karli Vivar - Last Filed: 01/12/18 12:12> Date of Encounter: 01/12/18 Time of Encounter: 11:29 Assessment and Plan (1) Chest pain Current Visit: No Status: Acute Had LHC yesterday iceman of 2 stents in the LAD Radiology is following Qualifiers: Chest pain type: chest pain due to myocardial ischemia Ischemic chest pain type: unstable angina pectoris Qualified Code(s): I20.0 - Unstable angina (2) Coronary arteriosclerosis Current Visit: No Status: Chronic Had placement of 2 stents in the LAD yesterday, not a candidate for CABG due to small, diffusely diseased distal targets. Heart allergies following (3) HTN (hypertension) Current Visit: No Status: Chronic Continue current medications Qualifiers: Hypertension type: essential hypertension Qualified Code(s): I10 - Essential (primary) hypertension (4) Type 2 diabetes mellitus with hyperglycemia Current Visit: No Status: Chronic Started on 25 units of long-acting insulin Low-dose sliding scale insulin Qualifiers: Diabetes mellitus manager intermediate insulin use: with manager intermediate use Qualified Code( s): E11.65 - Type 2 diabetes mellitus with hyperglycemia; Z79.4 - [facility] ( current) use of insulin (5) COPD (chronic obstructive pulmonary disease) Current Visit: No Status: Chronic Home Ventolin 18 g 1-2 puffs INH every 6 hours when necessary is the only home medication he is currently on. Continue this home medication Qualifiers: COPD type: emphysema Emphysema type: unspecified Qualified Code(s): J43.9 - Emphysema, unspecified (6) Skin irritation Current Visit: Yes Status: Acute Patient states that he has had some red irritation in his groin area for quite some time now. He states this has not gotten worse. He had been using a home salve to treat this which was helping it get better. We will continue localized treatment at this time (7) DVT prophylaxis Current Visit: No Status: Acute Currently on subcutaneous heparin History of Present Illness Consult date: 01/11/18 Requesting physician: Rajendra Alejo Chief complaint: Chest pain History of present illness: Mr. Covington is a 57-year-old male who presented [facility] with complaint of sudden onset midsternal chest pain. He was pain-free for several days after recent hospital discharge but has been having increased frequency, severity, duration of chest pain daily. He has required up to 8 sublingual nitroglycerin tablets the last 2 days for pain relief. Extensive cardiac history with multiple LHCs, underwent LHC and was turned down for his CABG approximately 2 weeks ago due to poor distal targets and comorbidities. 2 stents were placed in the LAD yesterday evening. He did have some chest pain small morning Past Med Surg Social Fam HX - Past Medical History Medical history: arthritis, COPD, coronary artery disease, diabetes, GERD, hyperlipidemia, hypertension, myocardial infarction Psychiatric history: anxiety, depression - Past Surgical History Surgical History: angioplasty/stent, appendectomy, knee replacement, other Additional surgical history: tonsillectomy, heart cath with stents, colonoscopy. 12/10/15 LTKR @[facility] W/DR OROZCO - Social History Smoking Status: Former smoker Smokeless Tobacco Status: No Alcohol use: none Drug use: none - Family History Father Adopted: Yes Family Member Ethnicity: Non- Brother Adopted: Yes Family Member Ethnicity: Non- Sister Adopted: Yes Family Member Ethnicity: Non- Mother Adopted: Yes Family Member Ethnicity: Non- All Systems: The remainder of the systems were reviewed and are negative - Constitutional Constitutional: no chills, no fatigue, no lethargy - Cardiovascular Cardiovascular: as per HPI - Respiratory Respiratory: no cough, no dyspnea, no chest congestion - Gastrointestinal Gastrointestinal: no abdominal pain, no cramping, no diarrhea Physical Examination Vital Signs: Vital Signs, Last 4 Hours Pulse Resp BP Pulse Ox 01/12/18 08:00 62 18 112/72 97 01/12/18 07:00 62 18 132/72 97 01/12/18 06:00 62 18 136/67 97 01/12/18 05:00 63 16 129/81 96 General appearance: no acute distress Eyes: nonicteric ENT: oropharynx moist Effort: normal Auscultation: bilateral: clear Cardiovascular: regular rate and rhythm Gastrointestinal: normoactive bowel sounds, soft, non-tender Integumentary: other (Patient has some groin irritation bilaterally, he said he had been given some salve he has been using to treat this and it has been getting better. It is slightly sore.) Extremities: no cyanosis, no edema Results - Laboratory Findings CBC and BMP: 01/12/18 03:24 01/12/18 03:24 Abnormal lab findings: Abnormal lab results WBC 11.2 K/mcL (4.3-11.1) H 01/12/18 03:24 Hgb 12.1 g/dL (12.9-16.9) L 01/12/18 03:24 Hct 36.8 % (37.5-50.1) L 01/12/18 03:24 MCH 27.8 pg (28.0-33.3) L 01/12/18 03:24 RDW 15.7 % (11.5-14.5) H 01/12/18 03:24 Sodium 135 mEq/L (136-145) L 01/12/18 03:24 Creatinine 0.65 mg/dL (0.70-1.30) L 01/12/18 03:24 Glucose 170 mg/dL (70-105) H 01/12/18 03:24 POC Glucose 188 mg/dL (70-99) H 01/11/18 23:50 Calcium 8.4 mg/dL (8.6-10.3) L 01/12/18 03:24 - Clinical Findings Intake & Output: Intake & Output 01/11/18 01/12/18 01/12/18 23:59 07:59 15:59 Intake Total 0 / 0 1118 / 1118 Output Total 450 / 450 200 / 200 Balance -450 / -450 918 / 918 Weight 109.6 kg
[2018-01-12] MEDS: *HR* Ticagrelor 90 MG TABLET PO SCH ×2 (09:40→19:48)
--- NOTE | 2018-01-12 09:56 | Cardiology Progress Note ---
Date of Encounter: 01/12/18 Time of Encounter: 09:48 Assessment and Plan (1) CAD (coronary artery disease), [place] coronary artery Current Visit: No Status: Chronic [place] CAD, prior CABG, prior PCI. PCI performed to the LAD last night regarding persistent chest discomfort. Overall, seems to be comfortable this morning. States chest discomfort has improved. Importance of medical therapy discussed. Dual antiplatelet therapy recommended for at least 1 year without interruption. Continue home medications, including atorvastatin, lisinopril, aspirin, Imdur, beta damon, and Ranexa. Risk factor modification. Check limited TTE. Risk factor modification emphasized. Qualifiers: [place] vs. transplanted heart: [place] heart Associated angina: with unstable angina Qualified Code(s): I25.110 - Atherosclerotic heart disease of [place] coronary artery with unstable angina pectoris Discussion w patient/family: The assessment and plan as outlined above was discussed with the patient and/or family members who expressed understanding and agreement. All questions were answered. Thank you for involving us in the care of your patient. Please call with any questions. Subjective Principal diagnosis: CAD Interval history: 57-year-old taken to cardiac catheterization lab last evening regarding chest pain. Per reports, patient underwent previous LHC a few weeks ago, medical therapy recommended. 2 stents placed in the LAD last evening. Patient states chest pain is improved this morning. Describes difficulty sleeping overnight. LHC 01/11/2018: Left main 40% stenosis. LAD mid 70% stenosis part sees MARYBETH placed), distal 90% stenosis (MARYBETH placed). Circumflex proximal 30% stenosis, distal 90% stenosis/LICENSED CLUB MANAGER. Attempted PCI to circumflex, unable to advance balloon. Collaterals from [id number] noted. OM1 80% stenosis and 90% stenosis. Ramus patent stents. RCA proximal 100% stenosis. EF 65%. TTE 10/30/2017: LVEF 60-65%. Normal LV, RV size and function. Mild diastolic dysfunction. No pulmonary hypertension. No significant valvular dysfunction. Objective Vital Signs, Last 4 Hours Pulse Resp BP Pulse Ox 01/12/18 08:00 62 18 112/72 97 01/12/18 07:00 62 18 132/72 97 01/12/18 06:00 62 18 136/67 97 General: Conversant, No Apparent Distress HEENT: Atraumatic, Normocephaly, Mucus Membranes Moist Neck: No JVD, Normal carotid pulses Cardiac: Reg Rate and Rhythm, Normal S1 and S2, No Murmur Lungs: Normal Breath Sounds, No Wheeze, Rales, Rhonchi Neuro: Alert and responsive, No focal deficits noted Abdomen: Soft, Non-Tender, Other (Obese) Skin: No rashes noted on visualized skin Musculoskeletal: No Chest Wall Tenderness Extremities: No Clubbing, No Cyanosis, No Edema Results 01/12/18 03:24 01/12/18 03:24 Lab Results 01/12/18 01/12/18 03:24 03:24 WBC 11.2 H Hgb 12.1 L Hct 36.8 L Plt Count 232 Sodium 135 L Potassium 3.6 Chloride 104 Carbon Dioxide 24 BUN 14 Creatinine 0.65 L Glucose 170 H Calcium 8.4 L - Imaging and Cardiology Echo: report reviewed Cardiac cath: report reviewed Consult Discharge Plan - Plan Referrals: Fern Rivera CNP [Primary Care Provider] -
[2018-01-12] MEDS: Aspirin Enteric Coated 81 MG Tablet PO SCH (10:40)
[2018-01-12] MEDS: Isosorbide MONOnitrate (24 HR) 60 MG TAB.ER.24H PO SCH (10:41)
[2018-01-12] MEDS: Ranolazine 500 MG TAB.ER.12H PO SCH ×2 (10:41→19:48)
[2018-01-12] MEDS ORDERED: Dextrose Gel 15 GM/37.5 ML TUBE PO PRN ×2 (11:14)
[2018-01-12] MEDS ORDERED: *HR* Dextrose 50 % in Water (Syg) 50 ML SYRINGE IVP PRN (11:14)
[2018-01-12] MEDS ORDERED: D5% in Water 1,000 ML IVC PRN (11:14)
[2018-01-12] MEDS ORDERED: Insulin DETEMIR 100 UNIT/ML X5UNITS SQ SCH ×2 (11:15→21:00)
[2018-01-12] MEDS ORDERED: Insulin LISPRO 300 UNITS/3 ML VIAL SQ SCH ×2 (11:30→21:00)
[2018-01-12] MEDS: *HR* Heparin 5,000 UNIT/ML VIAL SQ SCH ×2 (13:37→20:34)
[2018-01-12] MEDS ORDERED: Insulin LISPRO 300 UNITS/3 ML VIAL SQ ONE (15:05)
[2018-01-12] MEDS: Insulin LISPRO 300 UNITS/3 ML VIAL SQ SCH (15:09)
[2018-01-13] MEDS ORDERED: Chloraseptic Spray 177 ML BOTTLE MM PRN (02:41)
[2018-01-13] MEDS: OXYCODONE Oral CONC 10 MG/0.5 ML ORAL.SYG SL PRN ×3 (03:29→13:23)
[2018-01-13 04:24] LABS: Basophils # 0.1 K/mcL (0.0-0.2); Basophils % 0.6 %; Eosinophils # 0.3 K/mcL (0.0-0.6); Hemoglobin 12.5 g/dL (12.9-16.9); Immature Granulocytes % 1.5 % (0-4); Lymphocytes # 1.4 K/mcL (0.6-4.6); Lymphocytes % 15.6 %; Mean Corpuscular HGB Conc 32.1 g/dL (31.6-35.5); Mean Corpuscular Hemoglobin 27.4 pg (28.0-33.3); Mean Corpuscular Volume 85.3 fL (83.0-100.0); Monocytes # 0.7 K/mcL (0.0-1.3); Monocytes % 7.9 %; Neutrophils # 6.4 K/mcL (1.6-8.9); Platelet Count 253 K/mcL (140-400); Red Blood Count 4.57 M/mcL (4.19-5.50); Red Cell Distribution Width 15.3 % (11.5-14.5); Segmented Neutrophils % 71.4 %
[2018-01-13 04:48] LABS: BUN/Creatinine Ratio 18 (6-26); Blood Urea Nitrogen 10 mg/dL (6-20); Calcium 8.7 mg/dL (8.6-10.3); Carbon Dioxide 25 mEq/L (23-29); Chloride 101 mEq/L (98-107); Glucose 256 mg/dL (70-105); Osmolality,Calculated 288 (280-300); Potassium 3.8 mEq/L (3.5-5.1); Sodium 135 mEq/L (136-145); eGFR For Non-African Americans > 60 (> 60)
[2018-01-13] MEDS: *HR* Heparin 5,000 UNIT/ML VIAL SQ SCH (05:47)
[2018-01-13] MEDS: Isosorbide MONOnitrate (24 HR) 60 MG TAB.ER.24H PO SCH (09:01)
[2018-01-13] MEDS: Ranolazine 500 MG TAB.ER.12H PO SCH (09:01)
[2018-01-13] MEDS: Aspirin Enteric Coated 81 MG Tablet PO SCH (09:01)
[2018-01-13] MEDS: *HR* Ticagrelor 90 MG TABLET PO SCH (09:01)
[2018-01-13] MEDS: Insulin LISPRO 300 UNITS/3 ML VIAL SQ SCH ×2 (09:02→12:14)
--- NOTE | 2018-01-13 10:40 | Pulmonology Progress Note ---
Date of Encounter: 01/13/18 Time of Encounter: 07:50 Assessment and Plan (1) Chest pain Current Visit: No Status: Acute This is deferred to cardiology. Qualifiers: Chest pain type: chest pain due to myocardial ischemia Ischemic chest pain type: unstable angina pectoris Qualified Code(s): I20.0 - Unstable angina (2) JARROD (obstructive sleep apnea) Current Visit: No Status: Chronic Advised patient to follow-up as outpatient and to be compliant with his treatment and tells his been seen in the office. (3) Type 2 diabetes mellitus with hyperglycemia Current Visit: No Status: Chronic We will increase his baseline sleep and higher sliding scale insulin. 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 She understands he should not smoke tobacco. Qualifiers: COPD type: emphysema Emphysema type: unspecified Qualified Code(s): J43.9 - Emphysema, unspecified (5) CAD (coronary artery disease), [place] coronary artery Current Visit: No Status: Chronic Cardiology follow-up and discharge plan will be deferred to cardiology. Qualifiers: [place] vs. transplanted heart: [place] heart Associated angina: with unstable angina Qualified Code(s): I25.110 - Atherosclerotic heart disease of [place] coronary artery with unstable angina pectoris Subjective Principal diagnosis: CAD Interval history: Patient is still complaining of having some chest pain, however this is better according to him. His blood sugar remained elevated. Objective PUL Vital signs: Last Vital Signs Temp 97.9 F 01/13/18 08:23 Pulse 69 01/13/18 10:00 Resp 16 01/13/18 10:00 BP 131/68 01/13/18 10:00 Pulse Ox 97 01/13/18 10:00 General: Patient is in no acute distress. HEENT: Normocephalic atraumatic, pupils are equal round and reactive to light and accommodation, anicteric sclera, nares is patent, mucous membranes moist, no JVD, trachea is midline Cardiovascular: Normal sinus rhythm, S1 and S2 audible, no murmur or rubs Respiratory: Clear to auscultation bilaterally. No acute distress. No wheezing. Patient not using accessory muscles. Abdomen: Soft, nontender, nondistended, positive bowel sounds in all 4 quadrants Extremities: Warm, dry, trace lower extremity edema. Normal capillary refill. Neuro: Alert and oriented and follows commands. Grossly no neuro deficits. Skin: Warm to touch : No obvious abnormalities. Psych: Normal Results - Laboratory Findings CBC and BMP: 01/13/18 04:02 01/13/18 04:02 Abnormal lab findings: Abnormal lab results Hgb 12.5 g/dL (12.9-16.9) L 01/13/18 04:02 MCH 27.4 pg (28.0-33.3) L 01/13/18 04:02 RDW 15.3 % (11.5-14.5) H 01/13/18 04:02 Sodium 135 mEq/L (136-145) L 01/13/18 04:02 Creatinine 0.56 mg/dL (0.70-1.30) L 01/13/18 04:02 Glucose 256 mg/dL (70-105) H 01/13/18 04:02 POC Glucose 344 mg/dL (70-99) H 01/12/18 20:32 - Clinical Findings Intake & Output: Intake & Output 01/12/18 01/13/18 01/13/18 23:59 07:59 15:59 Intake Total 480 / 480 Output Total 900 / 900 800 / 800 300 / 300 Balance -420 / -420 -800 / -800 -300 / -300 Weight 110.3 kg Consult Discharge Plan - Plan Referrals: Fern Rivera, DIRECTOR OF FIELD COORDINATION [Primary Care Provider] -
--- NOTE | 2018-01-13 11:47 | Cardiology Progress Note ---
Date of Encounter: 01/13/18 Time of Encounter: 11:41 Assessment and Plan (1) CAD (coronary artery disease), [place] coronary artery Current Visit: No Status: Chronic [place] CAD, prior CABG, prior PCI. PCI performed to the LAD 01/11 regarding persistent chest discomfort. Currently describes what appears to be chronic pain, which improves with his narcotic pain medication. Importance of medical therapy discussed. Dual antiplatelet therapy recommended for at least 1 year without interruption. Continue home medications, including atorvastatin, lisinopril, aspirin, Imdur, beta damon, and Ranexa. Risk factor modification. Risk factor modification emphasized. No further inpatient recommendations appear necessary at this time. Okay for discharge with outpatient followup. Qualifiers: [place] vs. transplanted heart: [place] heart Associated angina: with unstable angina Qualified Code(s): I25.110 - Atherosclerotic heart disease of [place] coronary artery with unstable angina pectoris Discussion w patient/family: The assessment and plan as outlined above was discussed with the patient and/or family members who expressed understanding and agreement. All questions were answered. Thank you for involving us in the care of your patient. Please call with any questions. Subjective Principal diagnosis: CAD Interval history: 57-year-old with multiple medical problems, including CAD, prior CABG. [facility] 12/26/2017 - Medical therapy recommended. Returned to the hosptial 01/11/2018 - diagnosed with unstable anginal. Urgent LHC resulted in PCI with MARYBETH x2 to LAD. LVEF preserved. No issues on telemetry since admission. Vital signs stable. He does complain of discomfort, but it seems more diffuse and chronic. States pain resolves with pain medication and is aware that his next dose of pain medication is not due until 1 pm. C 01/11/2018: Left main 40% stenosis. LAD mid 70% stenosis (MARYBETH placed), distal 90% stenosis (MARYBETH placed). Circumflex proximal 30% stenosis, distal 90% stenosis/FOREIGN EXCHANGE TRADER. Attempted PCI to circumflex, unable to advance balloon. Collaterals from [id number] noted. OM1 80% stenosis and 90% stenosis. Ramus patent stents. RCA proximal 100% stenosis. EF 65%. TTE 10/30/2017: LVEF 60-65%. Normal LV, RV size and function. Mild diastolic dysfunction. No pulmonary hypertension. No significant valvular dysfunction. Objective Vital Signs, Last 4 Hours Temp Pulse Resp BP Pulse Ox 01/13/18 10:00 69 16 131/68 97 01/13/18 08:23 97.9 F 01/13/18 08:00 74 16 146/99 95 01/13/18 07:53 63 General: Conversant, No Apparent Distress HEENT: Atraumatic, Normocephaly, Mucus Membranes Moist Neck: No JVD, Normal carotid pulses Cardiac: Reg Rate and Rhythm, Normal S1 and S2, No Murmur Lungs: Normal Breath Sounds, No Wheeze, Rales, Rhonchi Neuro: Alert and responsive, No focal deficits noted Abdomen: Soft, Non-Tender Skin: No rashes noted on visualized skin Musculoskeletal: No Chest Wall Tenderness Extremities: No Clubbing, No Cyanosis, No Edema Results 01/13/18 04:02 01/13/18 04:02 Lab Results 01/13/18 01/13/18 04:02 04:02 WBC 8.9 Hgb 12.5 L Hct 39.0 Plt Count 253 Sodium 135 L Potassium 3.8 Chloride 101 Carbon Dioxide 25 BUN 10 Creatinine 0.56 L Glucose 256 H Calcium 8.7 - Imaging and Cardiology Echo: report reviewed Cardiac cath: report reviewed - EKG Interpretation EKG results cardiology: personally reviewed Consult Discharge Plan - Plan Referrals: Fern Rivera, SCHU[place] [Primary Care Provider] -
[2018-01-13 12:24] VITALS: BP 113/73
--- NOTE | 2018-01-13 13:00 | Discharge Summary ---
Orders not resulted at time of discharge: Pending orders 01/11/18 19:56 ECG 12 lead ECG [ECG] Routine ECG 12 lead ECG [ECG] Stat 01/12/18 07:00 ECG 12 lead ECG [ECG] Routine 01/12/18 10:38 EKG [ECG 12 lead ECG] [ECG] Stat Date of Encounter: 01/13/18 Time of Encounter: 12:55 - Discharge Diagnosis (1) CAD (coronary artery disease), [place] coronary artery Priority: Primary Status: Chronic Qualifiers: [place] vs. transplanted heart: [place] heart Associated angina: with unstable angina Qualified Code(s): I25.110 - Atherosclerotic heart disease of [place] coronary artery with unstable angina pectoris - Hospital Course Hospital course: 57-year-old with multiple medical problems, including CAD, prior CABG. [facility] 12/26/2017 - Medical therapy recommended. Returned to the hosptial 01/11/2018 - diagnosed with unstable angina. Urgent LHC resulted in PCI with MARYBETH x2 to LAD. LVEF preserved. No issues on telemetry since admission. Vital signs stable. He does complain of discomfort, but it seems more diffuse and chronic. States pain resolves with pain medications. No further inpatient testing appears necessary at this time. Discharge with outpatient followup - message sent to office to schedule. [facility] 01/11/2018: Left main 40% stenosis. LAD mid 70% stenosis (MARYBETH placed), distal 90% stenosis (MARYBETH placed). Circumflex proximal 30% stenosis, distal 90% stenosis/PRECISION GRINDER EXTERNAL. Attempted PCI to circumflex, unable to advance balloon. Collaterals from [id number] noted. OM1 80% stenosis and 90% stenosis. Ramus patent stents. RCA proximal 100% stenosis. EF 65%. TTE 10/30/2017: LVEF 60-65%. Normal LV, RV size and function. Mild diastolic dysfunction. No pulmonary hypertension. No significant valvular dysfunction. - Time Spent with Patient Total time spent providing and/or coordinating discharge services: Greater than 30 minutes - Discharge Medications Home Medications: Sitagliptin Phosphate [Januvia] 100 mg PO DAILY 12/10/15 [History] Venlafaxine [Effexor] 75 mg PO DAILY 12/10/15 [History] Albuterol Sulfate [Ventolin Hfa] 1 - 2 puff IH Q6H PRN 12/20/16 [History] Glimepiride [Amaryl] 4 mg PO BID 12/20/16 [History] Insulin LISPRO [HumaLOG] 3 - 4 unit SQ TID 12/20/16 [History] Nitroglycerin [Nitrostat] 0.4 mg SL DAILY PRN 12/20/16 [History] Omeprazole [PriLOSEC] 20 mg PO DAILY 12/20/16 [History] rOPINIRole [Requip] 1 mg PO HS 12/27/16 [History] Aspirin [Lo-Dose Aspirin EC] 81 mg PO DAILY #30 12/29/16 [Rx] Atorvastatin [Lipitor] 40 mg PO HS #30 tablet 12/29/16 [Rx] Lisinopril [Zestril] 20 mg PO BID 30 Days 12/29/16 [Rx] Ticagrelor [Brilinta] 90 mg PO BID 30 Days tab 12/29/16 [Rx] Isosorbide MONOnitrate (24 HR) [Imdur] 120 mg PO DAILY 05/08/17 [History] Gabapentin [Neurontin] 400 mg PO TID 05/11/17 [History] Metoprolol [Lopressor] 25 mg PO BID tablet 11/01/17 [Rx] Insulin Degludec [Tresiba Flextouch U-100] 45 unit SQ DAILY 12/25/17 [History] Liraglutide [Victoza 2-Eduardo] 1.2 mg SQ DAILY 12/25/17 [History] Ranolazine [Ranexa] 500 mg PO BID 12/25/17 [History] Allergies/Adverse Reactions: 3 Allergy/AdvReac Type Severity Reaction Status Date / Time No Known Allergies Allergy Verified 12/25/17 13:07 Date of admission: 01/11/18 20:14 Primary care physician: Fern Rivera CNP Consults: 01/11/18 19:56 Consult to Cardiac Rehabilitation-Phase1 [CONS] Routine Comment: Reason for Consult: AMI Call Completed: Yes Consult to Nurse Navigator [CONS] Routine Comment: 01/11/18 20:00 Consult to Critical Care [CONS] Routine Consulting Provider: [facility] Reason for Consult: critical care management Time Notified: 20:00 Call Completed: No Discharging clinician: Jose R Cortes Anticipated date of discharge: 01/13/18 Physical Examination Vital Signs, Last 4 Hours Pulse Resp BP Pulse Ox 01/13/18 12:00 64 16 113/73 97 01/13/18 11:31 58 01/13/18 10:00 69 16 131/68 97 General: Conversant, No Apparent Distress HEENT: Atraumatic, Normocephaly, Mucus Membranes Moist Neck: No JVD, Normal carotid pulses Cardiac: Reg Rate and Rhythm, Normal S1 and S2, No Murmur Lungs: Normal Breath Sounds, No Wheeze, Rales, Rhonchi Neuro: Alert and responsive, No focal deficits noted Abdomen: Soft, Non-Tender, Other (Obese) Skin: No rashes noted on visualized skin Musculoskeletal: No Chest Wall Tenderness Extremities: No Clubbing, No Cyanosis - Patient Status Disposition: Home, Self-Care Condition: Good Functional capacity at discharge: independent ambulation Overall status at discharge: patient is back to baseline - Discharge Instructions Instructions: Chest Pain (DC) Follow Up With: Fern Rivera [facility] [Primary Care Provider] - - Diet and Activity Activity: increase activity as tolerated Diet: diabetic diet, low fat, low cholesterol, low salt diet
[2018-01-13] MEDS ORDERED: Insulin DETEMIR 100 UNIT/ML X5UNITS SQ SCH (21:00)
--- NOTE | 2018-01-15 21:19 | Electrocardiograph Report ---
[place] [id number] Test Date: 2018-01-11 Pat Name: Gurvinder Covington Department: 109 Room: Gender: Baseball Player: : 1960 Requested By: Rajendra Alejo Order Number: [id number] Reading MD: Fern Carter Measurements Intervals [place] Rate: 62 P: 52 IA: 205 QRS: -59 QRSD: 119 T: 62 QT: 432 QTc: 438 Interpretive Statements SINUS RHYTHM PATTERN CONSISTENT WITH PULMONARY DISEASE LEFT ANTERIOR FASCICULAR BLOCK NONSPECIFIC ST CHANGES Electronically Signed On 01-15-2018 21:17:16 EDT by Fern Carter
--- NOTE | 2018-01-15 21:31 | Electrocardiograph Report ---
[place] [address] Test Date: 2018-01-12 Pat Name: Gurvinder Covington Department: 109 Room: 11 Gender: M Cnc Machine Setter: : 1960 Requested By: Karli Vivar Order Number: [id number] Reading MD: Fern Carter Measurements Intervals [place] Rate: 69 P: 56 NE: 193 QRS: -64 QRSD: 121 T: 66 QT: 424 QTc: 444 Interpretive Statements SINUS RHYTHM RIGHT BUNDLE BRANCH BLOCK LEFT ANTERIOR FASCICULAR BLOCK Electronically Signed On 01-15-2018 21:29:36 EDT by Fern Carter
--- NOTE | 2018-01-16 14:46 | Invasive Diagnostic Lab Proc ---
Name: Gurvinder Covington Date of Study: 01/11/2018 Date: 1960 Ht: 70.9in Medical Record#: [id number] Age: 57 Wt: 238.10lb Gender: Male BSA: 2.27 Order #: [id number] BMI: 33.33 Physicians Procedure Physician: Rajendra Alejo DO Referring MD: Referring MD: Staff Name Position Time In BaltazarTylern RT (R) Monitor 05:45 PM Silver Casanova RN Lithograph Designer 05:54 PM Karen Ward RT Scrub 05:54 PM Indications Indication Unstable Angina Procedures Performed Procedure L HRT ARTERY/VENTRICLE ANGIO PRQ CARD MARYBETH STENT W/ANGIO 1 VSL Pre-Procedure Checklist Informed consent is complete signed and on chart. H&P is on chart. ID band is on and ID verified with patient. Patient NPO for procedure The procedure was described for the patient and questions were answered. ECG is on chart. Rhythm: STEMI Plan of Care Patient will tolerate the procedure without complications. Adequate level of comfort will be maintained. Hemodynamics will remain stable Patient will recover from procedure without complications. Respiratory function will be maintained. Cardiac rhythm will remain stable. Patient temperature will be maintained. Patient and/or family have verbalized understanding of the procedure. Patient Education Chief Complaint/Reason for Test: Cardiac Cath Developmental Category: Adult (18-64 years) Developmentally Appropriate for Age: Yes Learning Barriers: None Education Needs: Procedure Education Method: Verbal Information Taught: Cardiac Cath Educational Evaluation: Able to repeat information Intravenous Access Time IV Size Location DC'd Fluid/Drip Rate Units RN 20g 1 1/4" Patent On Arrival Lt Arm Yes 0.9NaCl 25 ml/hr Silver Casanova RN 07:35 PM Started with 18g needle 1 1/4" Rt Arm Allergies No Known Allergies Vital Signs Time BP (mmHg) HR (bpm) O2 Sat. RR (bpm) LOC 05:58 PM 120 / 77 83 98 % 21 5 = Fully awake and oriented or at pre-proc level 05:55 PM 120 / 77 79 95 % 20 06:00 PM 115 / 71 84 97 % 18 06:05 PM 93 / 65 85 96 % 18 06:10 PM 106 / 70 81 96 % 17 06:15 PM 114 / 67 82 96 % 16 06:20 PM 104 / 63 80 96 % 19 06:25 PM 105 / 64 81 96 % 20 06:30 PM 113 / 66 78 97 % 20 06:35 PM 114 / 59 78 97 % 24 06:40 PM 108 / 60 75 96 % 13 06:45 PM 118 / 68 73 97 % 13 06:50 PM 108 / 67 74 98 % 10 06:55 PM 113 / 72 72 96 % 10 07:00 PM 118 / 68 74 96 % 16 07:05 PM 127 / 69 74 97 % 13 07:10 PM 128 / 72 67 97 % 11 07:15 PM 117 / 79 66 95 % 18 07:20 PM 112 / 69 65 97 % 25 Procedural Medications Time Medication Dose Units Method Given By 05:56 PM Versed 2 mg Intravenous Silver Casanova RN 05:56 PM Oxygen 2 L/min nasal cannula Silver Casanova RN 06:03 PM Lidocaine 2% 10 ml Subcutaneous Rajendra Alejo DO 06:05 PM Versed 1 mg Intravenous Silver Casanova RN 06:06 PM Lidocaine 2% 7 ml Subcutaneous Rajendra Alejo DO 06:12 PM Heparin 3000 units Intravenous Silver Casanova RN 06:28 PM 0.9NaCl 500 ml Bolus Intravenous Silver Casanova RN 06:47 PM 0.9NaCl 500 ml Bolus Complete Intravenous Silver Casanova RN 07:10 PM Nitroglycerin 100 mcg Intracoronary Rajendra Alejo DO 06:17 PM Heparin 2000 units Intravenous Silver Casanova RN Lottie Score Preprocedure Postprocedure Activity 2- Moves 4 extremities sustained head lift Activity 2- Moves 4 extremities sustained head lift Circulation 2- SBP +/= 20 points of pre-anesthetic level Circulation 2- SBP +/= 20 points of pre-anesthetic level Consciousness 2- Awake and alert oriented x 3 Consciousness 2- Awake and alert oriented x 3 O2 Saturation 2- Able to maintain O2 satruation of 92% on room air O2 Saturation 2- Able to maintain O2 satruation of 92% on room air Respiratory 2- Able to deep breathe and cough well Respiratory 2- Able to deep breathe and cough well Total Score 10 Total Score 10 Contrast Agent: Isovue Diagnostic Contrast: 250 ml Total Contrast: 250 ml Fluoro Dose: 15703 mGy Activated Clotting Time Time Seconds to Clot 06:13 PM 167 06:20 PM 243 06:59 PM 336 07:17 PM 197 Procedure Log Time Note Enter By 05:45 PM Pt arrived to wharf laborer 2 at 17:45 via registered nurse from [place] kk 05:45 PM Deirdre Ledesma (R) Position: Monitor Time in: 17:45 05:45 PM Physician arrived 17:45 05:45 PM Silver Casanova RN Position: Lithograph Designer Time in: 17:45 kk 05:45 PM Karen Ward Position: Scrub Time in: 17:54 kk 05:45 PM Patient charges- Angio tray pack, Navilyst 3mm J, Pulse Oximetry and ACIST tubing and transducer kk 05:45 PM IV Supplies used: J loop Angio Cath. kk 05:53 PM CathStat 05:53 PM Case Start 05:54 PM Vitals capture started with the following parameters, Patient=Adult, Interval=5 min, Initial Ngumujqg=998 mmHg, Deflation Rate=5 mmHg, Cuff placed on Right Arm 05:55 PM HR=79 bpm, LDNE=985/77 mmhg, SpO2=95.0 %, Resp=20 B/min, Comment=Sinus 05:55 PM Hair removed from procedure site in procedure lab using clippers. Left groin prepped with Chloraprep by Deirdre Ledesma (R), then patient was draped. Skin intact. 05:55 PM Meet and greet completed 05:55 PM Sign in performed according to hospital policy. 05:55 PM Procedure start 17:55 05:56 PM Time: 17:56 Versed 2 mg Intravenous Given by Silver Casanova RN 05:56 PM Time: 17:56 Oxygen on at 2 L/min per nasal cannula by Silver Casanova RN 05:57 PM Pressure channel 2 zeroed. 06:00 PM HR=84 bpm, IVXX=754/71 mmhg, SpO2=97.0 %, Resp=18 B/min, Comment=Sinus 06:01 PM Time out performed according to hospital policy [facility] PM Pressure channel 2 zeroed. 06:03 PM Time: 18:03 10 ml Lidocaine 2% to left groin Subcutaneous Given by DO patricia Salcido 06:05 PM HR=85 bpm, NIBP=93/65 mmhg, SpO2=96.0 %, Resp=18 B/min, Comment=Sinus 06:05 PM Time: 18:05 Versed 1 mg Intravenous Given by Silver Casanova RN dspell 06:06 PM Time: 18:06 7 ml Lidocaine 2% to left groin Subcutaneous Given by Rajendra Alejo DO dsp 06:08 PM Micro-Introducer Kit utilized for sheath placement dspell 06:08 PM Access obtained by percutaneous puncture. 6Fr 10cm Terumo [place] sheath placed in left Femoral artery. [id number] dspell 06:09 PM 6Fr FR 4 catheter inserted over the wire DNC dspell 06:09 PM ACT drawn dspell 06:09 PM 0.035 145cm Navilyst 3mmJ wire [id number] dspell 06:10 PM HR=81 bpm, VNPV=590/70 mmhg, SpO2=96.0 %, Resp=17 B/min, Comment=Sinus 06:10 PM Catheter selectively placed in left ventricle dspell 06:10 PM Pressure channel 2 zeroed. 06:10 PM Recorded Pressure: LV, HR=96, Condition=Condition 1 (Left Ventricle) LV 74/6/14 06:11 PM Recorded Pressure: LV, Ao, HR=97, Condition=Condition 1 (Left Ventricle) LV 76/2/7, (Aorta) Ao 88/56/69 06:11 PM Bolus angiogram of left Ventricle complete: 10 ml/sec for a total of 10 mls dspell 06:11 PM RCA angiography performed in multiple views. dspell 06:11 PM Catheter removed dspell 06:12 PM At 18:13 the ACT was 167 seconds. dspell 06:12 PM 6Fr XB LAD 3.5 Cordis guide catheter was used to cannulate the PCI vessel successfully. reused? No dspellman 06:12 PM LCA angiography performed in multiple views. dspell 06:13 PM Time: 18:12 Heparin 3000 units Intravenous Given by Silver Casanova RN ell 06:14 PM Recorded Pressure: Ao, HR=85, Condition=Condition 1 (Aorta) Ao 93/55/71 06:14 PM Coronary Dominance: Left dspell 06:14 PM Lesion found in Proximal RCA. Pre Stenosis: 100 Pre JOE Flow: dspell 06:15 PM HR=82 bpm, CSWO=947/67 mmhg, SpO2=96.0 %, Resp=16 B/min, Comment=Sinus 06:16 PM ACT drawn dspellman 06:17 PM Time: 18:17 Heparin 2000 units Intravenous Given by Silver Casanova RN dspellgopi 06:17 PM Lesion found in Mid LAD. Pre Stenosis: 70 Pre JOE Flow: 3: Complete and Brisk Flow/Perfusion dspellman 06:17 PM Lesion found in Distal LAD. Pre Stenosis: 90 Pre JOE Flow: 3: Complete and Brisk Flow/Perfusion dspellman 06:17 PM Lesion found in Proximal Circumflex. Pre Stenosis: 30 Pre JOE Flow: 3: Complete and Brisk Flow/Perfusion dspellman 06:18 PM Lesion found in Distal Circumflex. Pre Stenosis: 90 Pre OJE Flow: 3: Complete and Brisk Flow/Perfusion dspellman 06:18 PM Lesion found in Distal Circumflex. Pre Stenosis: 90 Pre JOE Flow: 3: Complete and Brisk Flow/Perfusion dspellman 06:18 PM Lesion found in 1st Marginal. Pre Stenosis: 80 Pre JOE Flow: 3: Complete and Brisk Flow/Perfusion PROX dspellman 06:19 PM Lesion found in 1st Marginal. Pre Stenosis: 90 Pre JOE Flow: 3: Complete and Brisk Flow/Perfusion MID dspellman 06:19 PM PCI lesion in Distal Circumflex. dspellman 06:19 PM .014 Choice Extra Support 300cm guide wire across target lesion- successful. reused? No CIRC dspellman 06:19 PM Inflation device was opened. dspellman 06:19 PM 2.0 mm x 20 mm Emerge Monorail balloon across target lesion- successful. reused? No dspellman 06:20 PM HR=80 bpm, AQUH=606/63 mmhg, SpO2=96.0 %, Resp=19 B/min, Comment=Sinus 06:20 PM At 18:20 the ACT was 243 seconds. dspellman 06:25 PM HR=81 bpm, JGOT=217/64 mmhg, SpO2=96.0 %, Resp=20 B/min, Comment=Sinus 06:29 PM Time: 18:28 0.9NaCl 500 ml Bolus Intravenous Given by Silver Casanova RN dspellgopi 06:30 PM HR=78 bpm, RNBD=861/66 mmhg, SpO2=97.0 %, Resp=20 B/min, Comment=Sinus 06:35 PM HR=78 bpm, CKZH=702/59 mmhg, SpO2=97.0 %, Resp=24 B/min, Comment=Sinus 06:35 PM Balloon catheter removed intact. dspellman 06:36 PM .014 Choice Extra Support 300cm guide wire across target lesion- successful. reused? No OM dspell 06:36 PM Recorded Pressure: Ao, HR=78, Condition=Condition 1 (Aorta) Ao 90/59/72 06:40 PM HR=75 bpm, GLZR=205/60 mmhg, SpO2=96.0 %, Resp=13 B/min, Comment=Sinus 06:41 PM Guide wire removed intact from CIRC dspellman 06:42 PM 2.0 mm x 20 mm Emerge Monorail balloon across target lesion- unsuccessful. reused? Yes dspellman 06:43 PM Recorded ECG: HR=76 Condition=Condition 1 06:43 PM wire crossed, balloon unable to cross dspellman 06:44 PM Recorded Pressure: Ao, HR=73, Condition=Condition 1 (Aorta) Ao 98/63/78 06:45 PM wire and balloon repositioned to the LAD dspell 06:45 PM HR=73 bpm, LRNU=877/68 mmhg, SpO2=97.0 %, Resp=13 B/min, Comment=Sinus 06:47 PM Time: 18:47 0.9NaCl 500 ml Bolus Complete Intravenous Given by Silver Casanova RN dspell 06:49 PM Clinical Presentation: Unstable angina dspell 06:50 PM HR=74 bpm, RKCS=248/67 mmhg, SpO2=98.0 %, Resp=10 B/min, Comment=Sinus 06:51 PM Balloon inflated @ 12 bijan for 20 seconds dspell 06:52 PM PCI lesion in Mid LAD. dspellman 06:53 PM Balloon catheter removed intact. dspell 06:53 PM ACT drawn dspellman 06:54 PM 1.5 mm x 8 mm Emerge Monorail balloon across target lesion- successful. reused? No dspellman 06:55 PM HR=72 bpm, WFZY=670/72 mmhg, SpO2=96.0 %, Resp=10 B/min, Comment=Sinus 06:55 PM Balloon inflated @ 10 bijan for 15 seconds DISTAL LAD dspellman 06:56 PM Balloon inflated @ 10 bijan for 20 seconds DISTAL LAD dspellman 06:56 PM Balloon inflated @ 10 bijan for 15 seconds DISTAL LAD dspellman 06:57 PM Balloon inflated @ 14 bijan for 20 seconds DISTAL LAD dspellman 06:59 PM At 18:59 the ACT was 336 seconds. dspellman 06:59 PM Balloon catheter removed intact. dspell 06:59 PM 2.0 mm x 20 mm Emerge Monorail balloon across target lesion- successful. reused? No dspellman 07:00 PM Balloon inflated @ 12 bijan for 20 seconds dspellman 07:00 PM HR=74 bpm, MGZX=290/68 mmhg, SpO2=96.0 %, Resp=16 B/min, Comment=Sinus 07:00 PM Balloon inflated @ 12 bijan for 20 seconds dspellman 07:01 PM Balloon catheter removed intact. dspell 07:02 PM 2.25mm x 24mm Synergy drug-eluting stent across target lesion- successful Lot #[id number] dspell 07:05 PM Stent deployed @ 16 bijan for 22 seconds dspellman 07:05 PM HR=74 bpm, YZET=573/69 mmhg, SpO2=97.0 %, Resp=13 B/min, Comment=Sinus 07:05 PM Stent balloon reinflated @ 6 bijan for 12 seconds dspellman 07:06 PM Stent delivery system removed intact. dspell 07:09 PM 3.0mm x 15mm Elunir drug-eluting stent across target lesion- successful Lot #[id number] dspellman 07:09 PM Stent deployed @ 18 bijan for 24 seconds dspellman 07:09 PM Recorded Pressure: Ao, HR=73, Condition=Condition 1 (Aorta) Ao 102/65/80 07:09 PM Stent delivery system removed intact. dspell 07:10 PM HR=67 bpm, JDSG=516/72 mmhg, SpO2=97.0 %, Resp=11 B/min, Comment=Sinus 07:10 PM Time: 19:10 Nitroglycerin 100 mcg Intracoronary Given by Rajendra Alejo DO dspell 07:11 PM Guide wire removed intact. dspell 07:11 PM Guide catheter removed intact. dspell 07:12 PM Bolus angiogram of left Femoral complete: 5 ml/sec for a total of 5 mls dspellman 07:12 PM Procedure completed at 19:12 01/11/2018 dspellman 07:12 PM Did you address JOE flow and Dominance? Yes [facility] 07:14 PM Sign out completed: Radiation Dose 2799.01 mGy, 89721 cGy/cm2 Fluoro Time: 26.6 Isovue 370 - 200ml contrast 250 ml given by Rajendra Alejo DO. Complications: NoneCardiac Rehab Consult needed: YesConfirmed administered medications: Yes dspell 07:14 PM Isovue 370 - 200ml,2 Bottle(s) used. dsp 07:14 PM Sheath left in place to be pulled on floor/holding areaV+Pad dspell 07:14 PM Estimated Blood Loss: less than 20cc dspell 07:15 PM Post ECG NSR dspell 07:15 PM Post Blood Pressure 128/72 dspell 07:15 PM HR=66 bpm, LQQK=396/79 mmhg, SpO2=95.0 %, Resp=18 B/min, Comment=Sinus 07:15 PM Information taught Cardiac Cath and PCI dspell 07:15 PM Education needs Procedure, Plan of Care, Responsibilities of Patient in Care, and Freight Tallier/Community Resources [facility] 07:16 PM Education Methods Verbal dspell 07:16 PM Learning barriers :None dsp 07:17 PM Site status No bleeding/hematoma - Lt Groin as reported by Karen Ward RT at 19:17 dspell 07:17 PM At 19:17 the ACT was 197 seconds. dsp 07:17 PM Opsite applied dspell 07:17 PM Family placed in No Family Available. ell 07:20 PM HR=65 bpm, OJGJ=164/69 mmhg, SpO2=97.0 %, Resp=25 B/min, Comment=Sinus 07:22 PM Complications: None dsp 07:22 PM 19:22 Post Pulses Bilateral DP & PT 2+ dspell 07:28 PM Report given to Marci OLVERA Pt taken to ICU Room #11. 19:28 dspell 07:32 PM [facility]: [facility] Com[facility] Complication None None Hemodynamics Pressures Site Systolic/A Wave Diastolic/V Wave Mean LV 74 6 14 LV 76 2 7 AO 88 56 69 AO 93 55 71 AO 90 59 72 AO 98 63 78 AO 102 65 80 Post Procedure Information Blood Pressure: 128/72 mmHg Rhythm: NSR Post procedural instructions were given Closure Device Time Device Success/Fail 01/11/2018 7:33:00 PM Manual Compression Site Checks Time Location Status Staff Sheath In? Note 07:17 PM Lt Groin No bleeding/hematoma Karen Ward RT Yes ACT 197 Pulses Time Site Pre-Procedure Post-Procedure Note 7:22:00 PM Bilateral DP & PT 2+ Updated by Karen Ward RT (R) on 01/11/2018 7:49:25 PM RT Dong electronically signed on 01/16/2018 2:40:32 PM with status of Final
== END 2018-01-13 15:04 | disposition home or self-care (01) | DRG 175 ==
LOC: ICNU 20:14
PROVIDERS: ADMIT Internal Medicine Cardiovascular Disease; ATTEND Internal Medicine Cardiovascular Disease

== ENCOUNTER 2018-03-05 15:35 | Observation (INO) ==
[2018-03-05] MEDS ORDERED: Naloxone 0.4 MG/ML INJ IVP PRN (18:13)
[2018-03-05] MEDS ORDERED: OXYCODONE Oral CONC 10 MG/0.5 ML ORAL.SYG SL PRN ×2 (18:16→20:41)
[2018-03-05] MEDS ORDERED: Dextrose Gel 15 GM/37.5 ML TUBE PO PRN ×2 (18:17)
[2018-03-05] MEDS ORDERED: *HR* Dextrose 50 % in Water (Syg) 50 ML SYRINGE IVP PRN (18:17)
[2018-03-05] MEDS ORDERED: D5% in Water 1,000 ML IVC PRN (18:17)
--- NOTE | 2018-03-05 18:24 | Internal Med History&Physical ---
<Arthur Jean-Baptiste S - Last Filed: 03/05/18 18:48> Date of Encounter: 03/05/18 Time of Encounter: 16:19 Internal Medicine - H&P: HPI Chief complaint: chest pain Admitted From: Hospital to Hospital Transfer Plans for Post Hospital Care: Home History of present illness: Mr. Covington is a 57 year old male with a PMH of HTN, HDL, T2DM, CAD, JARROD, restless leg syndrome. He presented from [facility] ED as a transfer. He has c/o chest pain that started at 2am while he was sitting on the couch. He states it is in his left chest and back, radiation to the arm. He states that it is similar in intensity to his last heart attack. The pt endorses sweating and some nausea when it started. He states he isn't very active and gets very SOB with exertion. The pt recently had a heart cath on 01/11 for persistent chest pain. He has a total of 8 stents placed. [facility] ED EKG showed RBBB, LAFB and he had a troponin of 0.05 at [facility]. Past Med Surg Social Fam HX - Past Medical History Medical history: arthritis, COPD, coronary artery disease, diabetes, GERD, hyperlipidemia, hypertension, myocardial infarction Additional medical history: Depression/anxiety, chronic stable angina, left knee pain, plateau fx, venous insufficiency, headaches, CAD with stents, analgesic rebound headaches Psychiatric history: anxiety, depression - Past Surgical History Surgical History: angioplasty/stent, appendectomy, knee replacement, other Additional surgical history: tonsillectomy, heart cath with stents, colonoscopy. 12/10/15 JULISSA @[facility] W/DR OROZCO - Social History Smoking Status: Former smoker Smokeless Tobacco Status: No Alcohol use: none Drug use: none - Family History Father Adopted: Yes Family Member Ethnicity: Non- Brother Adopted: Yes Family Member Ethnicity: Non- Sister Adopted: Yes Family Member Ethnicity: Non- Mother Adopted: Yes Family Member Ethnicity: Non- Internal Medicine - H&P: Meds Sitagliptin Phosphate [Januvia] 100 mg PO DAILY 12/10/15 [History] Venlafaxine [Effexor] 75 mg PO DAILY 12/10/15 [History] Albuterol Sulfate [Ventolin Hfa] 1 - 2 puff IH Q6H PRN 12/20/16 [History] Glimepiride [Amaryl] 4 mg PO BID 12/20/16 [History] Insulin LISPRO [HumaLOG] 3 - 4 unit SQ TID 12/20/16 [History] Nitroglycerin [Nitrostat] 0.4 mg SL DAILY PRN 12/20/16 [History] Omeprazole [PriLOSEC] 20 mg PO DAILY 12/20/16 [History] rOPINIRole [Requip] 1 mg PO HS 12/27/16 [History] Aspirin [Lo-Dose Aspirin EC] 81 mg PO DAILY #30 12/29/16 [Rx] Atorvastatin [Lipitor] 40 mg PO HS #30 tablet 12/29/16 [Rx] Lisinopril [Zestril] 20 mg PO BID 30 Days 12/29/16 [Rx] Ticagrelor [Brilinta] 90 mg PO BID 30 Days tab 12/29/16 [Rx] Isosorbide MONOnitrate (24 HR) [Imdur] 120 mg PO DAILY 05/08/17 [History] Gabapentin [Neurontin] 400 mg PO TID 05/11/17 [History] Metoprolol [Lopressor] 25 mg PO BID tablet 11/01/17 [Rx] Insulin Degludec [Tresiba Flextouch U-100] 45 unit SQ DAILY 12/25/17 [History] Liraglutide [Victoza 2-Eduardo] 1.2 mg SQ DAILY 12/25/17 [History] Ranolazine [Ranexa] 500 mg PO BID 12/25/17 [History] Tramadol HCl [Ultram] 50 mg PO QID PRN 03/05/18 [History] Allergy/AdvReac Type Severity Reaction Status Date / Time No Known Allergies Allergy Verified 12/25/17 13:07 All Systems PM: A 10-system review of systems was performed and is negative for pertinent findings except as documented above in the HPI. - Constitutional Constitutional: excessive sweating, fatigue - EENT Eyes: no change in vision, no other visual disturbances - Cardiovascular Cardiovascular ROS IM: chest pain, diaphoresis, dyspnea, dyspnea on exertion, palpitations, no lightheadedness - Respiratory Respiratory: dyspnea on exertion, no cough, no pain on inspiration, no pain with cough - Gastrointestinal Gastrointestinal: no abdominal pain, no melena, no nausea - Musculoskeletal Musculoskeletal ROS IM: no arthralgias, no muscle weakness, no numbness, no tingling - Integumentary Integumentary IM: no erythema, no rash - Neurological Neurological ROS: restless legs, no dizziness, no tingling, no tremor(s) - Constitutional General appearance: Present: A&O X 3, pleasant, obese Exam: f - Respiratory Respiratory exam: Present: CTAB. Absent: chest wall tenderness - Cardiovascular Cardiovascular exam: Present: RRR, +S1, +S2. Absent: irregular rhythm - GI/Abdominal GI/Abdominal exam: Present: no peritoneal signs. Absent: distended, rigid, tenderness - Back Exam Back exam: Present: normal inspection. Absent: rash noted - Neurological Exam Neurological exam: Present: oriented X3, no focal deficits - Skin Skin exam: Present: intact. Absent: rash - Assessment and plan (1) Chest pain Current Visit: No Status: Acute Assessment and plan: Presented from [facility] ED as a transfer. -He has c/o chest pain that started at 2am while he was sitting on the couch. - in left chest and back, radiation to the arm. - similar in intensity to his last heart attack. - had nausea/sweating Pt has extensive cardiac hx, including LHC on 01/11 for stent to the LAD Last ECHO in 01/2018 -LVEF 65% [facility] EKG showed LAFB, RBBB Troponin at [facility] was 0.05 Plan: - cardiology consult - NPO at midnight - cardiac/ADA diet for dinner - oxycodone SL 10mg q8hr prn pain - cotninue brilinta, nitrostat, lopressor, zestril, isosorbide mononitrate, lipitor, and gabapentin - limited ECHO pending - troponins x 3 - check CBC/CMP in AM - cxr pending - stat EKG - telemetry monitoring Qualifiers: Chest pain type: chest pain due to myocardial ischemia Ischemic chest pain type: unstable angina pectoris Qualified Code(s): I20.0 - Unstable angina (2) Restless leg syndrome Current Visit: No Status: Chronic Assessment and plan: On ropinorole -continue home med (3) CAD (coronary artery disease), [place] coronary artery Current Visit: No Status: Chronic Assessment and plan: On Brilenta, Ranexa, Lopressor, Imdur, Lipitor, aspirin - has hx of multi vessel dz - total of 8 stents - continue home meds Qualifiers: [place] vs. transplanted heart: [place] heart Associated angina: with unstable angina Qualified Code(s): I25.110 - Atherosclerotic heart disease of [place] coronary artery with unstable angina pectoris (4) DVT prophylaxis Current Visit: Yes Status: Acute Assessment and plan: SQ heparin TID (5) JARROD (obstructive sleep apnea) Current Visit: No Status: Chronic (6) GERD (gastroesophageal reflux disease) Current Visit: No Status: Chronic Assessment and plan: On prilosec - continue home med Qualifiers: Esophagitis presence: esophagitis presence not specified Qualified Code(s): K21.9 - Gastro-esophageal reflux disease without esophagitis (7) Hypertension Current Visit: No Status: Chronic Assessment and plan: No VS available in [facility] - on lopressor - continue home med Qualifiers: Hypertension type: unspecified secondary hypertension Qualified Code(s): I15.9 - Secondary hypertension, unspecified; I15 - Secondary hypertension (8) Hyperlipidemia Current Visit: No Status: Chronic Assessment and plan: On Lipitor - continue home med Qualifiers: Hyperlipidemia type: unspecified Qualified Code(s): E78.5 - Hyperlipidemia, unspecified (9) Anxiety Current Visit: No Status: Chronic Assessment and plan: continue venlafaxine (10) Diabetes Current Visit: No Status: Chronic Assessment and plan: LDSS - check HbA1c - ADA diet Qualifiers: Diabetes mellitus type: type 2 Diabetes mellitus assisted insulin use: unspecified assisted insulin use status Diabetes mellitus complication status: with hyperglycemia Qualified Code(s): E11.65 - Type 2 diabetes mellitu s with hyperglycemia (11) Obesity (BMI 30.0-34.9) Current Visit: No Status: Chronic Assessment and plan: BMI 33.9 -advise healthier lifestyle choices - Time Spent With Patient Total time spent is greater than 50% in coordination of care (as documented) at patient's floor/unit and/or counseling patient: less than 15 minutes <Jossie Cloud - Last Filed: 03/05/18 21:53> Internal Medicine - H&P: HPI History of present illness: Mr. Covington is a 57 year old male All Systems PM: A 10-system review of systems was performed and is negative for pertinent findings except as documented above in the HPI. - Constitutional Vitals: Temp Pulse Resp BP Pulse Ox 98.1 F 73 16 121/66 95 03/05/18 20:38 03/05/18 20:38 03/05/18 20:38 03/05/18 20:38 03/05/18 20:38 Internal Med - H&P Results - Labs CBC & Chem 7: 03/05/18 18:29 Labs: Short CBC 03/05/18 Range/Units 18:29 WBC 13.0 H (4.3-11.1) K/mcL Hgb 13.4 (12.9-16.9) g/dL Hct 41.2 (37.5-50.1) % Plt Count 310 (140-400) K/mcL Cardiac Enzymes 03/05/18 Range/Units 18:29 Troponin I < 0.03 (< 0.04) ng/mL - Assessment and plan (1) Hypertension Current Visit: No Status: Chronic Qualifiers: Hypertension type: unspecified secondary hypertension Qualified Code(s): I1 5.9 - Secondary hypertension, unspecified; I15 - Secondary hypertension (2) Hyperlipidemia Current Visit: No Status: Chronic Qualifiers: Hyperlipidemia type: unspecified Qualified Code(s): E78.5 - Hyperlipidemia, unspecified (3) Diabetes Current Visit: No Status: Chronic Qualifiers: Diabetes mellitus type: type 2 Diabetes mellitus assisted insulin use: unspecified assisted insulin use status Diabetes mellitus complication s tatus: with hyperglycemia Qualified Code(s): E11.65 - Type 2 diabetes mellitus with hyperglycemia (4) Chest pain Current Visit: No Status: Acute Qualifiers: Chest pain type: chest pain due to myocardial ischemia Ischemic chest pain type: unstable angina pectoris Qualified Code(s): I20.0 - Unstable angina (5) CAD (coronary artery disease), [place] coronary artery Current Visit: No Status: Chronic Qualifiers: [place] vs. transplanted heart: [place] heart Associated angina: with unstable angina Qualified Code(s): I25.110 - Atherosclerotic heart disease of [place] coronary artery with unstable angina pectoris (6) DVT prophylaxis Current Visit: Yes Status: Acute (7) JARROD (obstructive sleep apnea) Current Visit: No Status: Chronic (8) GERD (gastroesophageal reflux disease) Current Visit: No Status: Chronic Qualifiers: Esophagitis presence: esophagitis presence not specified Qualified Code(s): K21.9 - Gastro-esophageal reflux disease without esophagitis (9) Restless leg syndrome Current Visit: No Status: Chronic (10) Anxiety Current Visit: No Status: Chronic (11) Obesity (BMI 30.0-34.9) Current Visit: No Status: Chronic - Time Spent With Patient Total time spent is greater than 50% in coordination of care (as documented) at patient's floor/unit and/or counseling patient: - Attending Attestation I examined this patient and my medical decision-making was reviewed with the Resident Physician. I agree with the documented findings, disposition and treatment plan as described except to the extent set forth below.
[2018-03-05] MEDS ORDERED: Nitroglycerin 0.4 MG TAB.SUBL SL PRN (18:34)
[2018-03-05] MEDS ORDERED: *HR* Heparin 5,000 UNIT/ML VIAL IVP ONE (18:57)
[2018-03-05] MEDS ORDERED: *HR* Heparin 5,000 UNIT/ML VIAL IVP PRN ×2 (18:57)
[2018-03-05] MEDS ORDERED: *HR* Ticagrelor 90 MG TABLET PO ONE (18:59)
[2018-03-05] MEDS ORDERED: Heparin 25,000 UNIT/500 ML D5W 25,000 UNIT/500 ML BAG IVC SCH (19:00)
[2018-03-05 19:18] LABS: Hematocrit 41.2 % (37.5-50.1); Hemoglobin 13.4 g/dL (12.9-16.9); Mean Corpuscular HGB Conc 32.5 g/dL (31.6-35.5); Mean Corpuscular Hemoglobin 27.6 pg (28.0-33.3); Mean Corpuscular Volume 84.9 fL (83.0-100.0); Mean Platelet Volume 10.1 fL (9.4-12.4); Platelet Count 310 K/mcL (140-400); Red Blood Count 4.85 M/mcL (4.19-5.50); Red Cell Distribution Width 15.6 % (11.5-14.5)
[2018-03-05 19:19] LABS: Heparin anti-factor XA UFH 0.05 IU/mL (0.30-0.70)
[2018-03-05 19:20] LABS: INR 1.1; Prothrombin Time 12.1 Seconds (9.4-12.1)
[2018-03-05 19:38] LABS: Estimated Average Glucose 223 mg/dl; Hemoglobin A1C 9.4 %
[2018-03-05] MEDS ORDERED: rOPINIRole 1 MG TABLET PO SCH (21:00)
[2018-03-05] MEDS ORDERED: Insulin LISPRO 300 UNITS/3 ML VIAL SQ SCH (21:00)
[2018-03-05] MEDS ORDERED: Morphine Oral CONC 5 MG/0.25 ML ORAL.SYG PO PRN (21:08)
[2018-03-05] MEDS: Insulin LISPRO 300 UNITS/3 ML VIAL SQ SCH (21:11)
[2018-03-05] MEDS: *HR* Ticagrelor 90 MG TABLET PO SCH (21:25)
[2018-03-05] MEDS: Gabapentin 400 MG CAPSULE PO SCH (21:27)
[2018-03-05] MEDS: Ranolazine 500 MG TAB.ER.12H PO SCH (21:27)
[2018-03-05] MEDS: Lisinopril 20 MG TABLET PO SCH (21:27)
[2018-03-05] MEDS ORDERED: MORPHINE SUL Oral CONC 10 MG/0.5 ML ORAL.SYG PO PRN (21:30)
[2018-03-05] MEDS ORDERED: *HR* Heparin 5,000 UNIT/ML VIAL SQ SCH (22:00)
[2018-03-05] MEDS: Isosorbide MONOnitrate (24 HR) 60 MG TAB.ER.24H PO SCH (22:46)
[2018-03-06 01:48] LABS: Basophils % 0.3 %; Eosinophils # 0.2 K/mcL (0.0-0.6); Eosinophils % 1.4 %; Hematocrit 39.5 % (37.5-50.1); Hemoglobin 12.4 g/dL (12.9-16.9); Lymphocytes # 1.9 K/mcL (0.6-4.6); Lymphocytes % 14.8 %; Mean Corpuscular HGB Conc 31.4 g/dL (31.6-35.5); Mean Corpuscular Hemoglobin 26.5 pg (28.0-33.3); Mean Corpuscular Volume 84.4 fL (83.0-100.0); Mean Platelet Volume 10.1 fL (9.4-12.4); Monocytes # 0.9 K/mcL (0.0-1.3); Monocytes % 7.2 %; Neutrophils # 9.6 K/mcL (1.6-8.9); Platelet Count 287 K/mcL (140-400); Red Blood Count 4.68 M/mcL (4.19-5.50); Red Cell Distribution Width 15.5 % (11.5-14.5); Segmented Neutrophils % 75.3 %
[2018-03-06 02:01] LABS: INR 1.1
[2018-03-06 02:04] LABS: Activated Partial Thrombo Time 29.8 Seconds (26.0-36.0); Alanine Aminotransferase 17 Units/L (7-52); Albumin 3.5 g/dL (3.5-5.7); Albumin/Globulin Ratio 1.3 (1.1-2.2); Alkaline Phosphatase 92 Units/L (34-104); Aspartate Amino Transferase 13 Units/L (13-39); BUN/Creatinine Ratio 25 (6-26); Bilirubin,Total 0.4 mg/dL (0.3-1.0); Blood Urea Nitrogen 15 mg/dL (6-20); Calcium 8.9 mg/dL (8.6-10.3); Carbon Dioxide 26 mEq/L (23-29); Chloride 103 mEq/L (98-107); Chol/HDL Ratio 3.1 (0-4.9); Cholesterol 107 mg/dL (< 200); Globulin 2.7 g/dL (2.4-3.5); Glucose 202 mg/dL (70-105); HDL Cholesterol 34 mg/dL (40-59); LDL Cholesterol,Calculated 35 mg/dL (0-99); Osmolality,Calculated 289 (280-300); Potassium 3.4 mEq/L (3.5-5.1); Sodium 136 mEq/L (136-145); Total Protein 6.2 g/dL (6.4-8.9); Triglycerides 189 mg/dL (< 150); eGFR For Non-African Americans > 60 (> 60)
[2018-03-06] MEDS ORDERED: OXYCODONE Oral CONC 10 MG/0.5 ML ORAL.SYG SL PRN (07:35)
[2018-03-06] MEDS ORDERED: Perflutren Lipid Microsphere 1.3 ML in 0.9 % Sodium Chloride 8.7 ML IVP ONE (08:41)
[2018-03-06] MEDS ORDERED: Aspirin Enteric Coated 81 MG Tablet PO SCH (09:00)
[2018-03-06] MEDS: *HR* Ticagrelor 90 MG TABLET PO SCH (09:01)
[2018-03-06] MEDS: Isosorbide MONOnitrate (24 HR) 60 MG TAB.ER.24H PO SCH (09:01)
[2018-03-06] MEDS: Ranolazine 500 MG TAB.ER.12H PO SCH (09:01)
[2018-03-06] MEDS: Lisinopril 20 MG TABLET PO SCH (09:02)
[2018-03-06] MEDS: Gabapentin 400 MG CAPSULE PO SCH (09:02)
[2018-03-06] MEDS: Insulin LISPRO 300 UNITS/3 ML VIAL SQ SCH ×2 (09:03→12:36)
--- NOTE | 2018-03-06 09:44 | Internal Med Progress Note ---
<EstivenArthur S - Last Filed: 03/07/18 11:24> Hospitalist Progress Note - Encounter Date of Encounter: 03/06/18 Time of Encounter: 09:40 - Subjective Interval History: Mr. Covington is a 57 year old male with a PMH of HTN, HDL, T2DM, CAD, JARROD, restless leg syndrome. He presented from [facility] ED as a transfer. He has c/o chest pain that started at 2am while he was sitting on the couch. He states it is in his left chest and back, radiation to the arm. He states that it is similar in intensity to his last heart attack. The pt endorses sweating and some nausea when it started. He states he isn't very active and gets very SOB with exertion. The pt recently had a heart cath on 01/11 for persistent chest pain. He has a total of 8 stents placed. [facility] ED EKG showed RBBB, LAFB and he had a troponin of 0.05 at [facility]. Today the pt still c/o chest pain. He states that it is in his left side of his chest and is excruciating. He states that pain meds make it better. He denies n/v/d, SOB, abd pain. - Exam Vitals: Temp Pulse Resp BP Pulse Ox 98.1 F 63 18 143/77 97 03/06/18 07:47 03/06/18 07:47 03/06/18 07:47 03/06/18 07:47 03/06/18 07:47 Exam: general - aox3, nad, laying in bed heent - normocephalic atraumatic, mucus membranes moist cardio - s1s2 cta no mrg rrr lungs - ctab, no wheeze/rhonchi/rales abd - ntnd, no mass, obese, no rebound/guarding neuro- no FND extremities - no edema skin - no open wounds, no rash - Assessment and Plan (1) Chest pain Status: Acute Assessment and Plan: Presented from [facility] ED as a transfer. -He has c/o chest pain that started at 2am while he was sitting on the couch. - in left chest and back, radiation to the arm. - similar in intensity to his last heart attack. - had nausea/sweating Pt has extensive cardiac hx, including LHC on 01/11 for stent to the LAD Last ECHO in 01/2018 -LVEF 65% [facility] EKG showed LAFB, RBBB Troponin at [facility] was 0.05 Repeat troponins (-) x3 CXR was negative for acute disease Plan: - cardiology consult, appreciate recommendations - cardiac diet - cardiac/ADA diet - cotninue brilinta, nitrostat, lopressor, zestril, isosorbide mononitrate, lipitor, and gabapentin - limited ECHO pending - check CBC/CMP in AM - telemetry monitoring (2) Restless leg syndrome Status: Chronic Assessment and Plan: On ropinorole -continue home med (3) CAD (coronary artery disease), [place] coronary artery Status: Chronic Assessment and Plan: On Brilenta, Ranexa, Lopressor, Imdur, Lipitor, aspirin - has hx of multi vessel dz - total of 8 stents - continue home meds (4) DVT prophylaxis Status: Acute Assessment and Plan: SQ heparin TID (5) JARROD (obstructive sleep apnea) Status: Chronic Assessment and Plan: On BIPAP at home (6) GERD (gastroesophageal reflux disease) Status: Chronic Assessment and Plan: On prilosec - continue home med (7) Hypertension Status: Chronic Assessment and Plan: 120/71 - controlled - on lopressor - continue home med (8) Hyperlipidemia Status: Chronic Assessment and Plan: On Lipitor - continue home med (9) Anxiety Status: Chronic Assessment and Plan: continue venlafaxine (10) Diabetes Status: Chronic Assessment and Plan: LDSS - HbA1c 9.4% - ADA diet (11) Obesity (BMI 30.0-34.9) Status: Chronic Assessment and Plan: BMI 33.9 -advise healthier lifestyle choices - Time Spent with Patient Total time spent is greater than 50% in coordination of care (as documented) at patient's floor/unit and/or counseling patient: less than 15 minutes Plan of Care Discussed with: patient Internal Medicine: Result - Labs CBC & Chem 7: 03/06/18 00:34 03/06/18 00:34 Labs: Short CBC 03/05/18 03/06/18 Range/Units 18:29 00:34 WBC 13.0 H 12.7 H (4.3-11.1) K/mcL Hgb 13.4 12.4 L (12.9-16.9) g/dL Hct 41.2 39.5 (37.5-50.1) % Plt Count 310 287 (140-400) K/mcL Neutrophils # 9.6 H (1.6-8.9) K/mcL BMP 03/06/18 00:34 Sodium 136 Potassium 3.4 L Chloride 103 Carbon Dioxide 26 BUN 15 Creatinine 0.60 L Glucose 202 H Calcium 8.9 Cardiac Enzymes 03/05/18 03/06/18 03/06/18 Range/Units 18:29 00:34 05:52 Troponin I < 0.03 < 0.03 < 0.03 (< 0.04) ng/mL Liver Function 03/06/18 Range/Units 00:34 Total Bilirubin 0.4 (0.3-1.0) mg/dL AST 13 (13-39) Units/L ALT 17 (7-52) Units/L Alkaline Phosphatase 92 (34-104) Units/L Albumin 3.5 (3.5-5.7) g/dL - ABG Interpretation ABG results: PT/INR, D-dimer PT 12.0 Seconds (9.4-12.1) 03/06/18 00:34 - Impressions Impressions Chest X-Ray 03/05/18 18:15 IMPRESSION: No acute disease. D/ / Mey Omalley Cha, MD / Mey Omalley Cha, MD Interpreting Provider: Mey Omalley Cha, MD Consult Discharge Plan - Plan Referrals: Fern Rivera CNP [Primary Care Provider] - 03/13/18 1:00 pm <Jossie Cloud - Last Filed: 03/10/18 20:53> Hospitalist Progress Note - Exam Vitals: Temp Pulse Resp BP Pulse Ox 98.2 F 58 18 115/71 97 03/06/18 11:39 03/06/18 11:39 03/06/18 11:39 03/06/18 11:39 03/06/18 11:39 - Assessment and Plan (1) Hypertension Status: Chronic (2) Hyperlipidemia Status: Chronic (3) Diabetes Status: Chronic (4) Chest pain Status: Acute (5) CAD (coronary artery disease), [place] coronary artery Status: Chronic (6) DVT prophylaxis Status: Acute (7) JARROD (obstructive sleep apnea) Status: Chronic (8) GERD (gastroesophageal reflux disease) Status: Chronic (9) Restless leg syndrome Status: Chronic (10) Anxiety Status: Chronic (11) Obesity (BMI 30.0-34.9) Status: Chronic - Time Spent with Patient Total time spent is greater than 50% in coordination of care (as documented) at patient's floor/unit and/or counseling patient: Internal Medicine: Result - Labs CBC & Chem 7: 03/06/18 00:34 03/06/18 00:34 - ABG Interpretation ABG results: PT/INR, D-dimer PT 12.0 Seconds (9.4-12.1) 03/06/18 00:34 - Attending Attestation I examined this patient and my medical decision-making was reviewed with the Resident Physician. I agree with the documented findings, disposition and treatment plan as described except to the extent set forth below. <Arthur Jean-Baptiste S - Last Filed: 03/07/18 11:24> (1) Chest pain Qualifiers: Chest pain type: unspecified Qualified Code(s): R07.9 - Chest pain, unspecified (3) CAD (coronary artery disease), [place] coronary artery Qualifiers: [place] vs. transplanted heart: [place] heart Associated angina: angina presence unspecified Qualified Code(s): I25.10 - Atherosclerotic heart disease of [place] coronary artery without angina pectoris (6) GERD (gastroesophageal reflux disease) Qualifiers: Esophagitis presence: esophagitis presence not specified Qualified Code(s): K21.9 - Gastro-esophageal reflux disease without esophagitis (7) Hypertension Qualifiers: Hypertension type: unspecified secondary hypertension Qualified Code(s): I15.9 - Secondary hypertension, unspecified; I15 - Secondary hypertension (8) Hyperlipidemia Qualifiers: Hyperlipidemia type: unspecified Qualified Code(s): E78.5 - Hyperlipidemia, unspecified (10) Diabetes Qualifiers: Diabetes mellitus type: type 2 Diabetes mellitus alf insulin use: unspecified alf insulin use status Diabetes mellitus complication status: with hyperglycemia Qualified Code(s): E11.65 - Type 2 diabetes mellitus with hyperglycemia <Jossie Cloud - Last Filed: 03/10/18 20:53> (1) Hypertension Qualifiers: Hypertension type: unspecified secondary hypertension Qualified Code(s): I15.9 - Secondary hypertension, unspecified; I15 - Secondary hypertension (2) Hyperlipidemia Qualifiers: Hyperlipidemia type: unspecified Qualified Code(s): E78.5 - Hyperlipidemia, unspecified (3) Diabetes Qualifiers: Diabetes mellitus type: type 2 Diabetes mellitus alf insulin use: unspecified alf insulin use status Diabetes mellitus complication status: with hyperglycemia Qualified Code(s): E11.65 - Type 2 diabetes mellitus with hyperglycemia (4) Chest pain Qualifiers: Chest pain type: unspecified Qualified Code(s): R07.9 - Chest pain, unspecified (5) CAD (coronary artery disease), [place] coronary artery Qualifiers: [place] vs. transplanted heart: [place] heart Associated angina: angina presence unspecified Qualified Code(s): I25.10 - Atherosclerotic heart disease of [place] coronary artery without angina pectoris (8) GERD (gastroesophageal reflux disease) Qualifiers: Esophagitis presence: esophagitis presence not specified Qualified Code(s): K21.9 - Gastro-esophageal reflux disease without esophagitis
--- NOTE | 2018-03-06 10:29 | Cardiology Consult Note ---
<Jesus Nino R - Last Filed: 03/06/18 11:40> Date of Encounter: 03/06/18 Time of Encounter: 10:29 Assessment and Plan (1) Chest pain Current Visit: Yes Status: Acute Presented with CP that started at rest with radiation to back and arms associated with nausea and diaphoresis, reportedly similar to prior anginal equivalent. CP currently 7/10. Troponins negative x 2 at [facility] and negative x 3 at [facility]. No acute ECG changes. Recent C 01/11/18 with MARYBETH to mLAD and diastal LAD. Unsuccessful PCI of OCEAN EXPORT COORDINATOR distal LCx and OM1. Pt reports compliance with DAPT (ASA and Brilinta). Reviewed [facility] films with interventionalist. Pt has known severe small vessel disease unamendable to PCI. Given negative troponins and no ECG changes, no further invasive evaluation is warranted. TTE EF preserved, mild cLVH. Continue ASA, Brilinta, Statin, BB, Imdur and Ranexa. Pt reports he takes Ranexa 1000mg BID at home. Will increase inpt dose. Of note, pt is requesting IV pain medications. States nitro does not help his pain. Tenderness on palpation. Suspect there is a noncardiac component. Anticipate sign off once seen and evaluated by Dr. Meredith with close outpt follow-up in 2-3 weeks. Qualifiers: Chest pain type: unspecified Qualified Code(s): R07.9 - Chest pain, unspecified (2) CAD (coronary artery disease), [place] coronary artery Current Visit: Yes Status: Chronic CAD with multiple PCIs, as above. ASA, Brilinta, Statin, BB, Imdur, Ranexa. Qualifiers: [place] vs. transplanted heart: [place] heart Associated angina: angina presence unspecified Qualified Code(s): I25.10 - Atherosclerotic heart disease of [place] coronary artery without angina pectoris Discussion w patient/family: The assessment and plan as outlined above was discussed with the patient and/or family members who expressed understanding and agreement. All questions were answered. Thank you for involving us in the care of your patient. Please call with any questions. I will discuss all the above with Dr. Meredith and make changes as necessary. History of Present Illness Consult date: 03/06/18 Consult reason: Chest pain Chief complaint: Chest pain History of present illness: Mr. Covington is a 57 year old male with PMH of HTN, HDL, T2DM, CAD s/p multiple PCIs as recent as 01/11/18, JARROD, RLS that presented in transfer from [facility] ED where he presented with chest pain that started at 2am while he was sitting on the couch. He states it is in his left chest and back, radiation bilateral arms. He states that it is similar in intensity to his last heart attack. Associated diaphoresis and nausea when it started. He states he isn't very active and gets very SOB with exertion. Reports CP was relieved with IV morphine. No relief with nitro. Currently reports CP 11/20 and is requesting pain medication. Troponin negative x 2 at [facility] and negative at [facility] as well. ECG no acute change. [facility] 01/11/2018: Left main 40% stenosis. LAD mid 70% stenosis (MARYBETH placed), distal 90% stenosis (MARYBETH placed). Circumflex proximal 30% stenosis, distal 90% stenosis/OCEAN EXPORT COORDINATOR. Attempted PCI to circumflex, unable to advance balloon. Collaterals from [id number] noted. OM1 80% stenosis and 90% stenosis. Ramus patent stents. RCA proximal 100% stenosis. EF 65%. TTE 10/30/2017: LVEF 60-65%. Normal LV, RV size and function. Mild diastolic dysfunction. No pulmonary hypertension. No significant valvular dysfunction. Past Med Surg Social Fam HX - Past Medical History Medical history: arthritis, COPD, coronary artery disease, diabetes, GERD, hyperlipidemia, hypertension, myocardial infarction Additional medical history: Depression/anxiety, chronic stable angina, left knee pain, plateau fx, venous insufficiency, headaches, CAD with stents, analgesic rebound headaches Psychiatric history: anxiety, depression - Past Surgical History Surgical History: angioplasty/stent, appendectomy, knee replacement, other Additional surgical history: tonsillectomy, heart cath with stents, colonoscopy. 12/10/15 JULISSA @CARLYN Umaña/DR OROZCO - Social History Smoking Status: Former smoker Smokeless Tobacco Status: No Alcohol use: none Drug use: none - Family History Brother Adopted: Yes Family Member Ethnicity: Non- Father Adopted: Yes Family Member Ethnicity: Non- Mother Adopted: Yes Family Member Ethnicity: Non- Sister Adopted: Yes Family Member Ethnicity: Non- Medications and Allergies RX: Sitagliptin Phosphate [Januvia] 100 mg PO DAILY 12/10/15 [History] RX: Venlafaxine [Effexor] 75 mg PO DAILY 12/10/15 [History] RX: Albuterol Sulfate [Ventolin Hfa] 1 - 2 puff IH Q6H PRN 12/20/16 [History] RX: Glimepiride [Amaryl] 4 mg PO BID 12/20/16 [History] RX: Insulin LISPRO [HumaLOG] 3 - 4 unit SQ TID 12/20/16 [History] RX: Nitroglycerin [Nitrostat] 0.4 mg SL DAILY PRN 12/20/16 [History] RX: Omeprazole [PriLOSEC] 20 mg PO DAILY 12/20/16 [History] RX: rOPINIRole [Requip] 1 mg PO HS 12/27/16 [History] RX: Aspirin [Lo-Dose Aspirin EC] 81 mg PO DAILY #30 12/29/16 [Rx] RX: Atorvastatin [Lipitor] 40 mg PO HS #30 tablet 12/29/16 [Rx] RX: Lisinopril [Zestril] 20 mg PO BID 30 Days 12/29/16 [Rx] RX: Ticagrelor [Brilinta] 90 mg PO BID 30 Days tab 12/29/16 [Rx] RX: Isosorbide MONOnitrate (24 HR) [Imdur] 120 mg PO DAILY 05/08/17 [History] RX: Gabapentin [Neurontin] 400 mg PO TID 05/11/17 [History] RX: Metoprolol [Lopressor] 25 mg PO BID tablet 11/01/17 [Rx] RX: Insulin Degludec [Tresiba Flextouch U-100] 45 unit SQ DAILY 12/25/17 [History] RX: Liraglutide [Victoza 2-Eduardo] 1.2 mg SQ DAILY 12/25/17 [History] RX: Ranolazine [Ranexa] 500 mg PO BID 12/25/17 [History] Tramadol HCl [Ultram] 50 mg PO QID PRN 03/05/18 [History] Allergy/AdvReac Type Severity Reaction Status Date / Time No Known Allergies Allergy Verified 12/25/17 13:07 All Systems Review: The remainder of the systems were reviewed and are negative - Cardiovascular Cardiovascular: as per HPI, chest pain at rest, chest pain with exertion, diaphoresis, dyspnea on exertion, radiating jaw, neck or arm pain - Respiratory Respiratory: dyspnea - Gastrointestinal Gastrointestinal: nausea Physical Examination Vital Signs, Last 4 Hours Temp Pulse Resp BP Pulse Ox 03/06/18 07:47 98.1 F 63 18 143/77 97 Vital Signs Temp Pulse Resp BP Pulse Ox 03/06/18 07:47 98.1 F 63 18 143/77 97 03/06/18 03:30 98.7 F 64 16 120/71 97 03/05/18 23:21 97.9 F 65 16 128/74 97 03/05/18 20:38 98.1 F 73 16 121/66 95 03/05/18 19:39 97.8 F 71 16 126/73 96 Intake and Output 03/05/18 03/06/18 03/06/18 23:59 07:59 15:59 Intake Total 240 / 240 Output Total 400 / 400 250 / 250 Balance -160 / -160 -250 / -250 Intake: Oral 240 / 240 Output: Urine 400 / 400 250 / 250 Other: Meal Dinner Percent of Meal Consumed 100% Weight 107.218 kg 107.6 kg Blood Glucose* 186 145 Patient Weight 03/06/18 23:59 Weight 107.6 kg General: Conversant, No Apparent Distress HEENT: Atraumatic, Normocephaly, Mucus Membranes Moist Neck: No JVD, Normal carotid pulses Cardiac: Reg Rate and Rhythm, Normal S1 and S2, No Murmur Lungs: Normal Breath Sounds, No Wheeze, Rales, Rhonchi Neuro: Alert and responsive, No focal deficits noted Abdomen: Soft, Non-Tender Skin: No rashes noted on visualized skin Musculoskeletal: Other (chest tenderness on palpation) Extremities: No Clubbing, No Cyanosis, No Edema, Normal Pulses Results 03/06/18 00:34 03/06/18 00:34 Lab Results 03/05/18 03/05/18 03/05/18 18:29 18:29 18:29 WBC 13.0 H Hgb 13.4 Hct 41.2 Plt Count 310 INR 1.1 APTT Sodium Potassium Chloride Carbon Dioxide BUN Creatinine Glucose Calcium Total Bilirubin AST ALT Alkaline Phosphatase Troponin I < 0.03 10/24/18 10/24/18 10/24/18 00:34 00:34 00:34 WBC 12.7 H Hgb 12.4 L Hct 39.5 Plt Count 287 INR 1.1 APTT 29.8 Sodium Potassium Chloride Carbon Dioxide BUN Creatinine Glucose Calcium Total Bilirubin AST ALT Alkaline Phosphatase Troponin I < 0.03 03/06/18 03/06/18 00:34 05:52 WBC Hgb Hct Plt Count INR APTT Sodium 136 Potassium 3.4 L Chloride 103 Carbon Dioxide 26 BUN 15 Creatinine 0.60 L Glucose 202 H Calcium 8.9 Total Bilirubin 0.4 AST 13 ALT 17 Alkaline Phosphatase 92 Troponin I < 0.03 Short CBC 03/06/18 03/05/18 Range/Units 00:34 18:29 WBC 12.7 H 13.0 H (4.3-11.1) K/mcL Hgb 12.4 L 13.4 (12.9-16.9) g/dL Hct 39.5 41.2 (37.5-50.1) % Plt Count 287 310 (140-400) K/mcL Neutrophils # 9.6 H (1.6-8.9) K/mcL BMP 03/06/18 Range/Units 00:34 Sodium 136 (136-145) mEq/L Potassium 3.4 L (3.5-5.1) mEq/L Chloride 103 (98-107) mEq/L Carbon Dioxide 26 (23-29) mEq/L BUN 15 (6-20) mg/dL Creatinine 0.60 L (0.70-1.30) mg/dL Glucose 202 H (70-105) mg/dL Calcium 8.9 (8.6-10.3) mg/dL Cardiac Enzymes 03/06/18 03/06/18 03/05/18 Range/Units 05:52 00:34 18:29 Troponin I < 0.03 < 0.03 < 0.03 (< 0.04) ng/mL Liver Function 03/06/18 Range/Units 00:34 Total Bilirubin 0.4 (0.3-1.0) mg/dL AST 13 (13-39) Units/L ALT 17 (7-52) Units/L Alkaline Phosphatase 92 (34-104) Units/L Albumin 3.5 (3.5-5.7) g/dL Impressions Chest X-Ray 03/05/18 18:15 IMPRESSION: No acute disease. D/ / Mey Omalley Cha, MD / Mey Omalley Cha, MD Interpreting Provider: Mey Omalley Cha, MD Active Medications Albuterol Sulfate (Albuterol Inhaler) 2 puff IH Q6H PRN PRN Reason: Dyspnea Stop: 09/04/18 20:33 Aspirin (Aspirin Ec) 81 mg PO DAILY MAHI Stop: 09/05/18 09:01 Last Admin: 03/06/18 09:01 Dose: 81 mg Atorvastatin Calcium (Lipitor) 40 mg PO HS MAHI Stop: 09/04/18 21:01 Last Admin: 03/05/18 21:26 Dose: 40 mg Dextrose/Water (Dextrose 50% (Syg)) 25 ml IVP AD PRN PRN Reason: Hypoglycemia Stop: 09/04/18 18:18 Gabapentin (Neurontin) 400 mg PO TID MAHI Stop: 09/04/18 21:01 Last Admin: 03/06/18 09:02 Dose: 400 mg Glucagon (Glucagen) 1 mg IM ONCE PRN PRN Reason: Hypoglycemia Stop: 09/04/18 18:18 Glucose (Gluctose) 15 gm PO ONCE PRN PRN Reason: Hypoglycemia Stop: 09/04/18 18:18 Glucose (Gluctose) 30 gm PO ONCE PRN PRN Reason: Hypoglycemia Stop: 09/04/18 18:18 Heparin Sodium (Porcine) (Heparin) 4,000 unit IVP Q6HR PRN PRN Reason: SEE COMMENTS Stop: 09/04/18 18:58 Heparin Sodium (Porcine) (Heparin) 2,000 unit IVP Q6H PRN PRN Reason: SEE COMMENTS Stop: 09/04/18 18:58 Dextrose (Dextrose 5%) 1,000 mls @ 100 mls/hr IVC .Q10H PRN PRN Reason: HYPOGLYCEMIA Stop: 09/04/18 18:18 Heparin Sodium/Dextrose (Heparin 25,000 Unit/500 Ml D5w) 25,000 unit in 500 mls @ 20 mls/hr IVC .Q24H MAHI; Protocol Stop: 09/04/18 19:01 Last Admin: 03/06/18 06:40 Dose: Not Given Insulin Human Lispro (Humalog) 0 units SQ HS MAHI; Protocol Stop: 09/04/18 21:01 Last Admin: 03/05/18 21:26 Dose: Not Given Insulin Human Lispro (Humalog) 0 units SQ TIDAC [facility]; Protocol Stop: 09/04/18 18:31 Last Admin: 03/06/18 09:03 Dose: 4 units Isosorbide Mononitrate (Imdur) 120 mg PO DAILY [facility] Stop: 09/04/18 18:46 Last Admin: 03/06/18 09:01 Dose: 120 mg Lisinopril (Zestril) 20 mg PO BID [facility]; Protocol Stop: 09/04/18 21:01 Last Admin: 03/06/18 09:02 Dose: 20 mg Metoprolol Tartrate (Lopressor) 25 mg PO BID [facility] Stop: 09/04/18 21:01 Last Admin: 03/06/18 10:26 Dose: 25 mg Naloxone HCl (Narcan) 0.4 mg IVP Q2MIN PRN PRN Reason: SEE COMMENTS Stop: 09/04/18 18:14 Nitroglycerin (Nitroglycerin) 0.4 mg SL Q5MIN PRN PRN Reason: Angina Stop: 09/04/18 18:35 Omeprazole (Prilosec) 20 mg PO DAILY@0730 [facility]; Protocol Stop: 09/05/18 07:31 Last Admin: 03/06/18 09:01 Dose: 20 mg Oxycodone HCl (Oxycodone Oral Conc) 5 mg SL Q8HR PRN; Protocol PRN Reason: Chest Pain Stop: 09/05/18 07:36 Last Admin: 03/06/18 09:03 Dose: 5 mg Ranolazine (Ranexa) 500 mg PO BID [facility] Stop: 09/04/18 21:01 Last Admin: 03/06/18 09:01 Dose: 500 mg Ropinirole HCl (Requip) 1 mg PO [facility] Stop: 09/04/18 21:01 Last Admin: 03/05/18 21:27 Dose: 1 mg Ticagrelor (Brilinta) 90 mg PO BID [facility] Stop: 09/04/18 21:01 Last Admin: 03/06/18 09:01 Dose: 90 mg - Imaging and Cardiology Echo: report reviewed Cardiac cath: report reviewed - EKG Interpretation EKG results cardiology: personally reviewed, other (12 hr tele AVG HR 60, SR, no significant pauses or arrhythmias noted.) Consult Discharge Plan - Plan Referrals: Fern Rivera, MORTAR MAKER [Primary Care Provider] - <Pili Meredith - Last Filed: 03/06/18 12:18> - Attending Attestation I have personally performed a face to face evaluation on this patient. I have reviewed and agree with the care plan. History and Exam by me shows: 57-year-old male with extensive history of coronary artery disease and recent PCI to his mid to distal LAD by Dr. Alejo and poor collateral circulation from circumflex to the RCA distally. Patient has complex coronary artery disease with inability to stent past the obtuse marginal previous placed stent. Patient's chest pain is atypical and reproducible upon deep palpation likely noncardiac etiology radiates to his abdomen we will defer to medical team for workup. No further cardiac testing or procedures plan. Patient follows with Dr. Michelle who reviewed his films and states chronic complex small vessel disease to be managed medically Assessment and Plan Discussion w patient/family: The assessment and plan as outlined above was discussed with the patient and/or family members who expressed understanding and agreement. All questions were answered. Thank you for involving us in the care of your patient. Please call with any questions. History of Present Illness History of present illness: Mr. Covington is a 57 year old male All Systems Review: The remainder of the systems were reviewed and are negative Physical Examination Vital Signs, Last 4 Hours Temp Pulse Resp BP Pulse Ox 03/06/18 11:39 98.2 F 58 18 115/71 97 Results 03/06/18 00:34 03/06/18 00:34 Lab Results 03/05/18 03/05/18 03/05/18 18:29 18:29 18:29 WBC 13.0 H Hgb 13.4 Hct 41.2 Plt Count 310 INR 1.1 APTT Sodium Potassium Chloride Carbon Dioxide BUN Creatinine Glucose Calcium Total Bilirubin AST ALT Alkaline Phosphatase Troponin I < 0.03 03/06/18 03/06/18 03/06/18 00:34 00:34 00:34 WBC 12.7 H Hgb 12.4 L Hct 39.5 Plt Count 287 INR 1.1 APTT 29.8 Sodium Potassium Chloride Carbon Dioxide BUN Creatinine Glucose Calcium Total Bilirubin AST ALT Alkaline Phosphatase Troponin I < 0.03 03/06/18 03/06/18 00:34 05:52 WBC Hgb Hct Plt Count INR APTT Sodium 136 Potassium 3.4 L Chloride 103 Carbon Dioxide 26 BUN 15 Creatinine 0.60 L Glucose 202 H Calcium 8.9 Total Bilirubin 0.4 AST 13 ALT 17 Alkaline Phosphatase 92 Troponin I < 0.03
[2018-03-06 11:40] VITALS: BP 115/71
--- NOTE | 2018-03-06 12:43 | Discharge Summary ---
<Arthur Jean-Baptiste S - Last Filed: 03/06/18 12:40> - NOTES TO OUTPATIENT PROVIDER Notes to Outpatient Provider: Follow up on risk factor modification. HbA1c 9.6% Orders not resulted at time of discharge: Pending orders 03/05/18 18:17 EV limited echocardiogram Routine 03/06/18 11:53 Troponin I Timed 03/07/18 04:00 BMP [Basic Metabolic Panel] AM 0400 Complete Blood Count [HEME] AM 0400 Date of Encounter: 03/06/18 Time of Encounter: 12:40 - Discharge Diagnosis (1) Chest pain Priority: Primary Status: Acute Qualifiers: Chest pain type: unspecified Qualified Code(s): R07.9 - Chest pain, unspecified (2) Restless leg syndrome Priority: Secondary Status: Chronic (3) CAD (coronary artery disease), [place] coronary artery Priority: Secondary Status: Chronic Qualifiers: [place] vs. transplanted heart: [place] heart Associated angina: angina presence unspecified Qualified Code(s): I25.10 - Atherosclerotic heart disease of [place] coronary artery without angina pectoris (4) DVT prophylaxis Priority: Secondary Status: Acute (5) JARROD (obstructive sleep apnea) Priority: Secondary Status: Chronic (6) GERD (gastroesophageal reflux disease) Priority: Secondary Status: Chronic Qualifiers: Esophagitis presence: esophagitis presence not specified Qualified Code(s): K21.9 - Gastro-esophageal reflux disease without esophagitis (7) Hypertension Priority: Secondary Status: Chronic Qualifiers: Hypertension type: unspecified secondary hypertension Qualified Code(s): I15.9 - Secondary hypertension, unspecified; I15 - Secondary hypertension (8) Hyperlipidemia Priority: Secondary Status: Chronic Qualifiers: Hyperlipidemia type: unspecified Qualified Code(s): E78.5 - Hyperlipidemia, unspecified (9) Anxiety Priority: Secondary Status: Chronic (10) Diabetes Priority: Secondary Status: Chronic Qualifiers: Diabetes mellitus type: type 2 Diabetes mellitus detention insulin use: unspecified client support administrator insulin use status Diabetes mellitus complication status: with hyperglycemia Qualified Code(s): E11.65 - Type 2 diabetes mellitus with hyperglycemia (11) Obesity (BMI 30.0-34.9) Priority: Secondary Status: Chronic Hospital course: Mr. Covington is a 57 year old male with a PMH of HTN, HDL, T2DM, CAD, JARROD, restless leg syndrome. He presented from [facility] ED as a transfer. He has c/o chest pain that started at 2am while he was sitting on the couch. He states it is in his left chest and back, radiation to the arm. He states that it is similar in intensity to his last heart attack. The pt endorses sweating and some nausea when it started. He states he isn't very active and gets very SOB with exertion. The pt recently had a heart cath on 01/11 for persistent chest pain. He has a total of 8 stents placed. [facility] ED EKG showed RBBB, LAFB and he had a troponin of 0.05 at [facility]. -troponin (-) x 3 at [facility] -cxr negatvie for acute disease Today the pt still c/o chest pain. He states that it is in his left side of his chest and is excruciating. He states that pain meds make it better. He denies n/v/d, SOB, abd pain. Pt has an HbA1c of 9.4% -needs tighter glucose management -should be advised to follow ADA diet - modify risk factors for subsequent heart attacks Discharge discussed with: patient, nurse Time spent discussing smoking cessation with patient: 3 to 10 minutes - Time Spent with Patient Total time spent providing and/or coordinating discharge services: Less than 30 minutes - Discharge Medications Home Medications: Sitagliptin Phosphate [Januvia] 100 mg PO DAILY 12/10/15 [History] Venlafaxine [Effexor] 75 mg PO DAILY 12/10/15 [History] Albuterol Sulfate [Ventolin Hfa] 1 - 2 puff IH Q6H PRN 12/20/16 [History] Glimepiride [Amaryl] 4 mg PO BID 12/20/16 [History] Insulin LISPRO [HumaLOG] 3 - 4 unit SQ TID 12/20/16 [History] Nitroglycerin [Nitrostat] 0.4 mg SL DAILY PRN 12/20/16 [History] Omeprazole [PriLOSEC] 20 mg PO DAILY 12/20/16 [History] rOPINIRole [Requip] 1 mg PO HS 12/27/16 [History] Aspirin [Lo-Dose Aspirin EC] 81 mg PO DAILY #30 12/29/16 [Rx] Atorvastatin [Lipitor] 40 mg PO HS #30 tablet 12/29/16 [Rx] Lisinopril [Zestril] 20 mg PO BID 30 Days 12/29/16 [Rx] Ticagrelor [Brilinta] 90 mg PO BID 30 Days tab 12/29/16 [Rx] Isosorbide MONOnitrate (24 HR) [Imdur] 120 mg PO DAILY 05/08/17 [History] Gabapentin [Neurontin] 400 mg PO TID 05/11/17 [History] Metoprolol [Lopressor] 25 mg PO BID tablet 11/01/17 [Rx] Insulin Degludec [Tresiba Flextouch U-100] 45 unit SQ DAILY 12/25/17 [History] Liraglutide [Victoza 2-Eduardo] 1.2 mg SQ DAILY 12/25/17 [History] Ranolazine [Ranexa] 500 mg PO BID 12/25/17 [History] Tramadol HCl [Ultram] 50 mg PO QID PRN 03/05/18 [History] Allergies/Adverse Reactions: Allergy/AdvReac Type Severity Reaction Status Date / Time No Known Allergies Allergy Verified 12/25/17 13:07 Date of admission: 03/05/18 17:20 Primary care physician: Fern Rivera CNP Consults: 03/05/18 18:13 Consult to Cardiology [CONS] Routine Comment: Consulting Provider: Cardiology [place] Reason for Consult: chest pain, hx of multiple stents Call Completed: No Discharging clinician: Arthur Jean-Baptiste Anticipated date of discharge: 03/06/18 - Constitutional Vitals: Temp Pulse Resp BP Pulse Ox 98.2 F 58 18 115/71 97 03/06/18 11:39 03/06/18 11:39 03/06/18 11:39 03/06/18 11:39 03/06/18 11:39 General appearance: Present: A&O X 3, pleasant, obese Exam: general - aox3, nad, laying in bed heent - normocephalic atraumatic, mucus membranes moist cardio - s1s2 cta no mrg rrr lungs - ctab, no wheeze/rhonchi/rales abd - ntnd, no mass, obese, no rebound/guarding neuro- no FND extremities - no edema skin - no open wounds, no rash - Patient Status Disposition: Home, Self-Care Condition: Good Functional capacity at discharge: independent ambulation Overall status at discharge: patient is back to baseline - Discharge Instructions Follow Up With: Fern Rivera CNP [Primary Care Provider] - 03/13/18 1:00 pm - Diet and Activity Activity: increase activity as tolerated Diet: diabetic diet, low salt diet <Jossie Cloud - Last Filed: 03/06/18 18:22> - Discharge Diagnosis (1) Hypertension Status: Chronic Qualifiers: Hypertension type: unspecified secondary hypertension Qualified Code(s): I15.9 - Secondary hypertension, unspecified; I15 - Secondary hypertension (2) Hyperlipidemia Status: Chronic Qualifiers: Hyperlipidemia type: unspecified Qualified Code(s): E78.5 - Hyperlipidemia, unspecified (3) Diabetes Status: Chronic Qualifiers: Diabetes mellitus type: type 2 Diabetes mellitus detention insulin use: unspecified detention insulin use status Diabetes mellitus complication status: with hyperglycemia Qualified Code(s): E11.65 - Type 2 diabetes mellitus with hyperglycemia (4) Chest pain Status: Acute Qualifiers: Chest pain type: unspecified Qualified Code(s): R07.9 - Chest pain, unspecified (5) CAD (coronary artery disease), [place] coronary artery Status: Chronic Qualifiers: [place] vs. transplanted heart: [place] heart Associated angina: angina presence unspecified Qualified Code(s): I25.10 - Atherosclerotic heart disease of [place] coronary artery without angina pectoris (6) DVT prophylaxis Status: Acute (7) JARROD (obstructive sleep apnea) Status: Chronic (8) GERD (gastroesophageal reflux disease) Status: Chronic Qualifiers: Esophagitis presence: esophagitis presence not specified Qualified Code(s): K21.9 - Gastro-esophageal reflux disease without esophagitis (9) Restless leg syndrome Status: Chronic (10) Anxiety Status: Chronic (11) Obesity (BMI 30.0-34.9) Status: Chronic Hospital course: Mr. Covington is a 57 year old male - Time Spent with Patient Total time spent providing and/or coordinating discharge services: Date of admission: 03/05/18 17:20 Primary care physician: Fern Rivera CNP Consults: 03/05/18 18:13 Consult to Cardiology [CONS] Routine Comment: Consulting Provider: Cardiology [place] Reason for Consult: chest pain, hx of multiple stents Call Completed: No - Constitutional Vitals: Temp Pulse Resp BP Pulse Ox 98.2 F 58 18 115/71 97 03/06/18 11:39 03/06/18 11:39 03/06/18 11:39 03/06/18 11:39 03/06/18 11:39 - Attending Attestation I examined this patient and my medical decision-making was reviewed with the Resident Physician. I agree with the documented findings, disposition and treatment plan as described except to the extent set forth below. Patient is a 57 year old male with significant cardiac history including CAD with multiple PCIs as recent as 01/11/18, diabetes, hypertension presented as a ransfer from [facility] ED for chest pain. Patient stated this felt similar to his last heart attack. He had associated SOB and diaphresis, n/v. Pain relieved with morphine and nothing else. No relief with Nitro. [facility] ED troponin was 0.05. Here, troponin was negative x2. ECG showed no acute changes. Cardiology was consulted and evaluated patient. Based on eval, no further workup was indicated. He was discharged home in stable condition to follow-up with Cardiology in 2-3 weeks.
[2018-03-06] MEDS ORDERED: Ranolazine 500 MG TAB.ER.12H PO SCH (21:00)
--- NOTE | 2018-03-09 21:40 | Electrocardiograph Report ---
[place] [id number] Test Date: 2018-03-05 Pat Name: Gurvinder Covington Department: 113 Room: [facility] Gender: M Instrumentation Designer: : 1960 Requested By: Arthur Jean-Baptiste Order Number: [id number] Reading MD: Melodie Garg Measurements Intervals [place] Rate: 67 P: 28 NE: 190 QRS: -54 QRSD: 122 T: 53 QT: 407 QTc: 423 Interpretive Statements SINUS RHYTHM RIGHT BUNDLE BRANCH BLOCK LEFT ANTERIOR FASCICULAR BLOCK Electronically Signed On 03-09-2018 21:39:20 EDT by Melodie Garg
== END 2018-03-06 14:46 | disposition home or self-care (01) ==
LOC: 3BNU
PROVIDERS: ADMIT Internal Medicine Nephrology; ATTEND Internal Medicine Nephrology

== ENCOUNTER 2018-03-13 18:45 | Observation (INO) ==
[2018-03-14] MEDS ORDERED: Naloxone 0.4 MG/ML INJ IVP PRN (00:56)
[2018-03-14] MEDS ORDERED: Dextrose Gel 15 GM/37.5 ML TUBE PO PRN ×2 (01:16)
[2018-03-14] MEDS ORDERED: *HR* Dextrose 50 % in Water (Syg) 50 ML SYRINGE IVP PRN (01:16)
[2018-03-14] MEDS ORDERED: D5% in Water 1,000 ML IVC PRN (01:16)
--- NOTE | 2018-03-14 01:31 | Internal Med History&Physical ---
Addendum entered and electronically signed by Matt Carbajal MD 03/14/18 19:49: I saw and evaluated the patient. I reviewed the nurse practitioners note, performed my own physical examination and agree with findings and plan as documented in the nurse practitioners note. Patient seen and examined on 03/14/18. Patient presented with dizziness from [facility] ER, had syncope episode at home as well. Will continue to monitor, hold medications that could exacerbate his symptoms. Will get orthostatic vital signs in AM. Original Note: Date of Encounter: 03/14/18 Time of Encounter: 00:30 Internal Medicine - H&P: HPI Chief complaint: Syncope Admitted From: Home Plans for Post Hospital Care: Home History of present illness: Mr. Covington is a 57 year old male with past medical history significant for CAD with stents x2, hypertension, hyperlipidemia, COPD, GERD, chronic back pain, and vertigo who presents from [facility] ED for complaints of syncopal episode at home w ith "non witnessed 2 minute loss of consciousness". Prior to falling and loosing consciousness, reports feeling lightheaded and dizzy. Has history of vertigo which occurs 3-4 times per week and these symptoms seemed similar but more severe and he denies ever previously loosing consciousness. Upon awakening he reported nausea, vomiting x2, and diaphoresis. Lives with sister but was home alone at time of episode. No alleviating or exacerbating factors. Denies treatment at home. Symptoms have completely resolved since arrival to [facility]. Received meclizine and 2 liters of IV fluid at [facility]. Denies any current injury, chest pain, shortness of breath, headache, vision changes, weakness, numbness, or tingling. No recent medication changes. Head CT and lab results were not sent with patient, called [facility] ED and obtained results by phone including no acute abnormality on head CT and unremarkable labs including normal troponins x2, [facility] ED to fax results. Reports chronic left lower extremity swelling since having left knee replacement. Recently had bilateral L4/S1 radiofrequency ablation completed at [facility] 03/08/18. Checks blood sugars regularly at home and reports they have been averaging 200. Also regularly checks blood pressures at home and reports systolic pressures have been averaging 120. Past Med Surg Social Fam HX - Past Medical History Medical history: arthritis, COPD, coronary artery disease, diabetes, GERD, hyperlipidemia, hypertension, myocardial infarction Additional medical history: Depression/anxiety, chronic stable angina, left knee pain, plateau fx, venous insufficiency, headaches, CAD with stents, analgesic rebound headaches Psychiatric history: anxiety, depression - Past Surgical History Surgical History: angioplasty/stent, appendectomy, knee replacement, other Additional surgical history: tonsillectomy, heart cath with stents, colonoscopy. 12/10/15 LTKR @[facility] W/DR OROZCO - Social History Smoking Status: Former smoker Smokeless Tobacco Status: No Alcohol use: none Drug use: none - Family History Father Adopted: Yes Family Member Ethnicity: Unknown Brother Adopted: Yes Family Member Ethnicity: Non- Living Status: Unknown Sister Adopted: Yes Family Member Ethnicity: Non- Living Status: Unknown Mother Adopted: Yes Family Member Ethnicity: Non- Living Status: Unknown Internal Medicine - H&P: Meds Venlafaxine [Effexor] 75 mg PO BID 12/10/15 [History] Albuterol Sulfate [Ventolin Hfa] 1 - 2 puff IH Q6H PRN 12/20/16 [History] Glimepiride [Amaryl] 4 mg PO BID 12/20/16 [History] Insulin LISPRO [HumaLOG] 3 - 4 unit SQ TID 12/20/16 [History] Nitroglycerin [Nitrostat] 0.4 mg SL DAILY PRN 12/20/16 [History] Omeprazole [PriLOSEC] 20 mg PO DAILY 12/20/16 [History] rOPINIRole [Requip] 1 mg PO HS 12/27/16 [History] Aspirin [Lo-Dose Aspirin EC] 81 mg PO DAILY #30 12/29/16 [Rx] Atorvastatin [Lipitor] 40 mg PO HS #30 tablet 12/29/16 [Rx] Lisinopril [Zestril] 20 mg PO BID 30 Days 12/29/16 [Rx] Ticagrelor [Brilinta] 90 mg PO BID 30 Days tab 12/29/16 [Rx] Isosorbide MONOnitrate (24 HR) [Imdur] 120 mg PO DAILY 05/08/17 [History] Gabapentin [Neurontin] 400 mg PO TID 05/11/17 [History] Metoprolol [Lopressor] 25 mg PO BID tablet 11/01/17 [Rx] Insulin Degludec [Tresiba Flextouch U-100] 45 unit SQ DAILY 12/25/17 [History] Liraglutide [Victoza 2-Eduardo] 1.2 mg SQ DAILY 12/25/17 [History] Tramadol HCl [Ultram] 50 mg PO QID PRN 03/05/18 [History] Allergy/AdvReac Type Severity Reaction Status Date / Time No Known Allergies Allergy Verified 12/25/17 13:07 All Systems PM: A 10-system review of systems was performed and is negative for pertinent findings except as documented above in the HPI. - Constitutional Vitals: Temp Pulse Resp BP Pulse Ox 98.1 F 65 15 156/76 96 03/13/18 22:47 03/13/18 22:47 03/13/18 22:47 03/13/18 22:47 03/13/18 22:47 Exam: General: Alert and oriented. Skin:Normal color, no rash, no lesions. HEENT:Pupils equal, round and reactive. Cardiovascular:Normal S1 & S2, no rubs, murmurs or gallops. No JVD. Pulse regular. Lungs:Normal breath sounds, no wheezes or crackles. Abdomen:Soft, non-tender, no rigidity. Extremities:No deformity, tenderness, or clubbing. Generalized swelling noted to right lower extremity, chronic per patient. Distal PMS intact. Neurological:Normal cognition and motor skills. GCS 15. Pulses:Carotid and radial pulses normal +2. Rest of the physical exam is non contributory. - Assessment and plan (1) Syncope and collapse Current Visit: Yes Status: Acute Assessment and plan: Continuos cardiac cath lab radiology technologist. Echocardiogram and carotid dopplers ordered. Orthostatics ordered. Repeat labs in a.m. (2) Diabetes mellitus Current Visit: Yes Status: Chronic Assessment and plan: Hold home medications. ACHS accucheck. Low dose sliding scale insulin. Diabetic/Cardiac diet. Qualifiers: Diabetes mellitus type: type 2 Diabetes mellitus rat exterminator insulin use: without retirement use Diabetes mellitus complication status: without complication Qualified Code(s): E11.9 - Type 2 diabetes mellitus without complications (3) Chronic back pain Current Visit: Yes Status: Chronic Assessment and plan: Continue home tramadol. Qualifiers: Back pain location: back pain in unspecified location Qualified Code(s): M54.9 - Dorsalgia, unspecified; G89.29 - Other chronic pain (4) At risk for falling Current Visit: Yes Status: Acute Assessment and plan: Fall precautions. Up with assist only. - Time Spent With Patient Total time spent is greater than 50% in coordination of care (as documented) at patient's floor/unit and/or counseling patient:
[2018-03-14] MEDS: traMADol 50 MG TABLET PO PRN ×3 (01:37→20:31)
[2018-03-14 05:05] LABS: Basophils % 0.4 %; Eosinophils # 0.2 K/mcL (0.0-0.6); Eosinophils % 1.8 %; Hematocrit 36.9 % (37.5-50.1); Hemoglobin 11.7 g/dL (12.9-16.9); Immature Granulocytes % 0.7 % (0-4); Lymphocytes # 1.6 K/mcL (0.6-4.6); Lymphocytes % 19.3 %; Mean Corpuscular HGB Conc 31.7 g/dL (31.6-35.5); Mean Corpuscular Hemoglobin 25.9 pg (28.0-33.3); Mean Corpuscular Volume 81.8 fL (83.0-100.0); Mean Platelet Volume 10.1 fL (9.4-12.4); Monocytes # 0.7 K/mcL (0.0-1.3); Monocytes % 8.1 %; Neutrophils # 5.9 K/mcL (1.6-8.9); Platelet Count 255 K/mcL (140-400); Red Blood Count 4.51 M/mcL (4.19-5.50); Red Cell Distribution Width 15.2 % (11.5-14.5); Segmented Neutrophils % 69.7 %
[2018-03-14 05:24] LABS: BUN/Creatinine Ratio 16 (6-26); Blood Urea Nitrogen 11 mg/dL (6-20); Calcium 8.5 mg/dL (8.6-10.3); Carbon Dioxide 20 mEq/L (23-29); Chloride 106 mEq/L (98-107); Glucose 189 mg/dL (70-105); Osmolality,Calculated 288 (280-300); Potassium 3.7 mEq/L (3.5-5.1); Sodium 137 mEq/L (136-145); eGFR For Non-African Americans > 60 (> 60)
[2018-03-14 05:25] LABS: Troponin I < 0.03 ng/mL (< 0.04)
[2018-03-14] MEDS ORDERED: Acetaminophen 325 MG TABLET PO ONE (06:17)
[2018-03-14] MEDS ORDERED: Lisinopril 20 MG TABLET PO SCH (09:00)
[2018-03-14] MEDS: Insulin LISPRO 300 UNITS/3 ML VIAL SQ SCH ×3 (10:06→18:15)
[2018-03-14] MEDS: *HR* Ticagrelor 90 MG TABLET PO SCH ×2 (10:08→20:31)
[2018-03-14] MEDS: Isosorbide MONOnitrate (24 HR) 60 MG TAB.ER.24H PO SCH (10:08)
[2018-03-14] MEDS: Aspirin Enteric Coated 81 MG Tablet PO SCH (10:08)
--- NOTE | 2018-03-14 17:31 | Internal Med Progress Note ---
Hospitalist Progress Note - Encounter Date of Encounter: 03/14/18 Time of Encounter: 15:00 - Subjective Interval History: Mr. Covington is a 57-year-old male with past medical history significant for CAD with 2 stents hypertension hyperlipidemia COPD GERD chronic back pain vertigo. He was a transfer from [facility] ED yesterday for syncopal episodes. He reports that he was coming out of his bathroom after having a bowel movement and proceeded to become weak and dizzy and passed out. He states that he did lose consciousness he did hit his left side of his head. He states that when he awoke he was lying on his left side. He does have a 911 system in his home where he pushes the button and he did call for help he was transported to [facility] where he states that they did do a CT of the head and it was negative he stated that he needed an MRI of the head and he was transported here. Reports that he has had 7-8 cardiac stents. Placed with the last 2HC stents placed December 2017. He does have history of type 2 diabetes and states his average blood sugars at home are around 200 Today he complains of leg pain that is throbbing in nature and episodic. He rates his pain as a 7 on a scale of 10 with 10 being the most severe pain He does have history of chronic low back pain with some neuropathy. He notes that he had recent bilateral L4 S1 radiofrequency ablation bilateral on 1025 the 2017 here edema. Review of lab work today CBC shows that he does have some normocytic anemia with MCV of 81.8 hemoglobin is 11.7 with hematocrit of 36.9 Fasting glucose was 258 Trops are negative that the 0.03 Glucose is elevated at 258 - Exam Vitals: Temp Pulse Resp BP Pulse Ox 98.2 F 67 16 131/68 96 03/14/18 16:32 03/14/18 16:32 03/14/18 16:32 03/14/18 16:32 03/14/18 16:32 Exam: We will continue to monitor - Assessment and Plan (1) Syncope and collapse Current Visit: Yes Status: Acute Assessment and Plan: Denies any dizziness blurred vision or syncopal episodes currently we will continue to monitor and continue fall risk will obtain a transthoracic echo, and carotid Doppler study (2) Diabetes mellitus Current Visit: Yes Status: Chronic Assessment and Plan: We will continue to monitor and give lispro insulin protocol, we will leave a mere 5 units daily at bedtime (3) Chronic back pain Current Visit: Yes Status: Chronic Assessment and Plan: We will continue with his tramadol consider neuro consult for the lower extremity neuropathy as well as for the syncope and fall (4) At risk for falling Current Visit: Yes Status: Acute Assessment and Plan: We will continue with fall precautions DVT Prophylaxis: Per protocol - Time Spent with Patient Total time spent is greater than 50% in coordination of care (as documented) at patient's floor/unit and/or counseling patient: less than 15 minutes Plan of Care Discussed with: patient Internal Medicine: Result - Labs CBC & Chem 7: 03/14/18 04:44 03/14/18 04:44 Labs: Short CBC 03/14/18 Range/Units 04:44 WBC 8.4 (4.3-11.1) K/mcL Hgb 11.7 L (12.9-16.9) g/dL Hct 36.9 L (37.5-50.1) % Plt Count 255 (140-400) K/mcL Neutrophils # 5.9 (1.6-8.9) K/mcL BMP 03/14/18 04:44 Sodium 137 Potassium 3.7 Chloride 106 Carbon Dioxide 20 L BUN 11 Creatinine 0.67 L Glucose 189 H Calcium 8.5 L Cardiac Enzymes 03/14/18 Range/Units 04:44 Troponin I < 0.03 (< 0.04) ng/mL Consult Discharge Plan - Plan Referrals: Fern Rivera, POLITICAL ANTHROPOLOGIST [Primary Care Provider] - (2) Diabetes mellitus Qualifiers: Diabetes mellitus type: type 2 Diabetes mellitus nursing home insulin use: without middle or intermediate school principal use Diabetes mellitus complication status: without complication Qualified Code(s): E11.9 - Type 2 diabetes mellitus without complications (3) Chronic back pain Qualifiers: Back pain location: low back pain
[2018-03-14] MEDS ORDERED: Insulin LISPRO 300 UNITS/3 ML VIAL SQ SCH (21:00)
[2018-03-14] MEDS ORDERED: Insulin DETEMIR 100 UNIT/ML X5UNITS SQ SCH (21:00)
[2018-03-14] MEDS ORDERED: rOPINIRole 1 MG TABLET PO SCH (21:00)
[2018-03-15] MEDS: Isosorbide MONOnitrate (24 HR) 60 MG TAB.ER.24H PO SCH (08:25)
[2018-03-15] MEDS: Aspirin Enteric Coated 81 MG Tablet PO SCH (08:26)
[2018-03-15] MEDS: traMADol 50 MG TABLET PO PRN (08:26)
[2018-03-15] MEDS: *HR* Ticagrelor 90 MG TABLET PO SCH (08:26)
[2018-03-15] MEDS: Insulin LISPRO 300 UNITS/3 ML VIAL SQ SCH ×2 (08:27→11:56)
[2018-03-15] MEDS ORDERED: 0.9 % Sodium Chloride 500 ML IVC ONE (13:28)
[2018-03-15 14:40] VITALS: BP 124/69
--- NOTE | 2018-03-15 15:52 | Discharge Summary ---
- NOTES TO OUTPATIENT PROVIDER Notes to Outpatient Provider: f/u with PCP in one week. Stop taking Lisinopril and Metoprolol since your BP and HR running low. Also cut down on Imdur dose to 60mg PO Daily. Please f/u with your Water Meter Installer in 1 week to reevaluate your medications. Date of Encounter: 03/15/18 Time of Encounter: 15:47 - Discharge Diagnosis (1) Syncope and collapse Priority: Primary Status: Acute (2) CAD (coronary artery disease), [place] coronary artery Priority: Secondary Status: Chronic Qualifiers: [place] vs. transplanted heart: [place] heart Associated angina: angina presence unspecified Qualified Code(s): I25.10 - Atherosclerotic heart disease of [place] coronary artery without angina pectoris (3) Diabetes mellitus Priority: Secondary Status: Chronic Qualifiers: Diabetes mellitus type: type 2 Diabetes mellitus skilled nursing insulin use: without skilled nursing use Diabetes mellitus complication status: without complication Qualified Code(s): E11.9 - Type 2 diabetes mellitus without complications (4) Chronic back pain Priority: Secondary Status: Chronic Qualifiers: Back pain location: low back pain Qualified Code(s): M54.40 - Lumbago with sciatica, unspecified side; G89.29 - Other chronic pain (5) COPD (chronic obstructive pulmonary disease) Priority: Secondary Status: Chronic Qualifiers: COPD type: emphysema Emphysema type: unspecified Qualified Code(s): J43.9 - Emphysema, unspecified Hospital course: Mr. Covington is a 57 year old male with past medical history significant for CAD with stents x2, hypertension, hyperlipidemia, COPD, GERD, chronic back pain, and vertigo who presents from [facility] ED for complaints of syncopal episode at home with "non witnessed 2 minute loss of consciousness". Prior to falling and loosing consciousness, reports feeling lightheaded and dizzy. pt was admitted in the hospital and placed him on tele. Checked his serial troponin which came back as negative. His Ortho stats were positive with significant drop in the BP. He was give IV fluids and held his BP medications Lisinopril and Metoprolol. His HR also running on low 60's. Also cut back on his Imdur dose to 60 mg. Pt symptoms improved now, his Carotid doppler showed Rt ICA minimal plaque through out, Left ICA with 40-59% stenosis. 2 D Echo showed LVEF 60-65%, mild LV diastolic dysfunction. Will d/c him home in stable condition. Recommend to stop taking Lisinopril and Metoprolol for now and f/u with his PCP and Water Meter Installer. - Time Spent with Patient Total time spent providing and/or coordinating discharge services: - Discharge Medications Prescriptions: Isosorbide MONOnitrate (24 HR) [Imdur] 60 mg PO DAILY #30 tab.er.24h Home Medications: Venlafaxine [Effexor] 75 mg PO BID 12/10/15 [History] Albuterol Sulfate [Ventolin Hfa] 1 - 2 puff IH Q6H PRN 12/20/16 [History] Glimepiride [Amaryl] 4 mg PO BID 12/20/16 [History] Insulin LISPRO [HumaLOG] 2 - 4 unit SQ TID 12/20/16 [History] Nitroglycerin [Nitrostat] 0.4 mg SL DAILY PRN 12/20/16 [History] Omeprazole [PriLOSEC] 20 mg PO DAILY 12/20/16 [History] rOPINIRole [Requip] 1 mg PO HS 12/27/16 [History] Aspirin [Lo-Dose Aspirin EC] 81 mg PO DAILY #30 12/29/16 [Rx] Atorvastatin [Lipitor] 40 mg PO HS #30 tablet 12/29/16 [Rx] Ticagrelor [Brilinta] 90 mg PO BID 30 Days tab 12/29/16 [Rx] Gabapentin [Neurontin] 400 mg PO TID 05/11/17 [History] Insulin Degludec [Tresiba Flextouch U-100] 45 unit SQ DAILY 12/25/17 [History] Liraglutide [Victoza 2-Eduardo] 1.2 mg SQ DAILY 12/25/17 [History] Tramadol HCl [Ultram] 50 mg PO QID PRN 03/05/18 [History] Ranolazine [Ranexa] 1,000 mg PO Q12H 03/14/18 [History] Isosorbide MONOnitrate (24 HR) [Imdur] 60 mg PO DAILY #30 tab.er.24h 03/15/18 [Rx] Allergies/Adverse Reactions: Allergy/AdvReac Type Severity Reaction Status Date / Time No Known Allergies Allergy Verified 03/14/18 08:52 Date of admission: 03/13/18 20:50 Primary care physician: Fern Rivera CNP Consults: 03/14/18 17:41 Consult to Neurology [CONS] Routine Consulting Provider: Neurology [facility] Reason for Consult: syncopy, fall, bilateral lower leg neruopathy Time Notified: 17:42 Call Completed: No - Constitutional Vitals: Temp Pulse Resp BP Pulse Ox 97.6 F 63 18 124/69 96 03/15/18 11:43 03/15/18 12:17 03/15/18 11:43 03/15/18 14:40 03/15/18 11:43 General appearance: Present: cooperative, A&O X 3, no acute distress, answers questions appropriately Exam: see below - Head Head exam: Present: atraumatic, normal inspection - Respiratory Respiratory exam: Present: decreased breath sounds. Absent: rales, respiratory distress, rhonchi, wheezes - Cardiovascular Cardiovascular exam: Present: RRR, +S1, +S2. Absent: tachycardia - GI/Abdominal GI/Abdominal exam: Present: normal bowel sounds, soft. Absent: rebound, rigid, tenderness - Extremities Exam Extremities exam: Absent: calf tenderness, pedal edema, tenderness - Back Exam Back exam: Absent: CVA tenderness (L), CVA tenderness (R) - Neurological Exam Neurological exam: Present: alert, oriented X3 - Psychiatric Psychiatric exam: Present: normal affect, normal mood - Patient Status Disposition: Home, Self-Care Condition: Good Overall status at discharge: patient is back to baseline - Discharge Instructions Follow Up With: Fern Rivera CNP [Primary Care Provider] - - Diet and Activity Activity: increase activity as tolerated Diet: low salt diet
== END 2018-03-15 18:01 | disposition home or self-care (01) ==
LOC: 3BNU
PROVIDERS: ADMIT Internal Medicine; ATTEND Internal Medicine

== ENCOUNTER 2018-09-02 20:23 | Observation (INO) ==
[2018-09-02] MEDS ORDERED: *HR* Morphine 2 MG/ML SYRINGE IVP ONE (23:22)
[2018-09-02] MEDS ORDERED: Acetaminophen 325 MG TABLET PO PRN (23:34)
[2018-09-02] MEDS ORDERED: Naloxone 0.4 MG/ML INJ IVP PRN ×2 (23:34)
[2018-09-02] MEDS ORDERED: Ondansetron 4 MG/2 ML VIAL IVP PRN (23:34)
[2018-09-02] MEDS ORDERED: *HR* Heparin 5,000 UNIT/ML VIAL IVP ONE (23:34)
[2018-09-02] MEDS ORDERED: *HR* Heparin 5,000 UNIT/ML VIAL IVP PRN ×2 (23:34)
[2018-09-02] MEDS ORDERED: Dextrose Gel 15 GM/37.5 ML TUBE PO PRN ×2 (23:40)
[2018-09-02] MEDS ORDERED: D5% in Water 1,000 ML IVC PRN (23:40)
[2018-09-02] MEDS ORDERED: *HR* Dextrose 50 % in Water (Syg) 50 ML SYRINGE IVP PRN (23:40)
[2018-09-02] MEDS ORDERED: Heparin 25,000 UNIT/250 ML D5W 25,000 UNIT/250 ML IV.SOLN IVC SCH (23:45)
[2018-09-02] MEDS ORDERED: 0.9 % Sodium Chloride 1,000 ML IVC SCH (23:45)
[2018-09-03] MEDS: *HR* Ticagrelor 90 MG TABLET PO SCH ×3 (00:17→19:49)
[2018-09-03 01:11] LABS: Basophils # 0.1 K/mcL (0.0-0.2); Basophils % 0.4 %; Eosinophils # 0.2 K/mcL (0.0-0.6); Eosinophils % 1.6 %; Hematocrit 43.1 % (37.5-50.1); Hemoglobin 13.2 g/dL (12.9-16.9); Immature Granulocytes % 0.6 % (0-4); Lymphocytes # 2.3 K/mcL (0.6-4.6); Lymphocytes % 18.2 %; Mean Corpuscular HGB Conc 30.6 g/dL (31.6-35.5); Mean Corpuscular Hemoglobin 24.8 pg (28.0-33.3); Mean Platelet Volume 9.8 fL (9.4-12.4); Monocytes # 1.1 K/mcL (0.0-1.3); Monocytes % 8.3 %; Platelet Count 297 K/mcL (140-400); Red Blood Count 5.32 M/mcL (4.19-5.50); Red Cell Distribution Width 17.9 % (11.5-14.5); Segmented Neutrophils % 70.9 %
[2018-09-03 01:13] LABS: Estimated Average Glucose 180 mg/dl; Hemoglobin A1C 7.9 %
[2018-09-03 01:19] LABS: INR 1.2; Prothrombin Time 13.2 Seconds (9.4-12.1)
[2018-09-03 01:21] LABS: Activated Partial Thrombo Time 32.5 Seconds (26.0-36.0)
[2018-09-03] MEDS: Insulin LISPRO 300 UNITS/3 ML VIAL SQ SCH ×4 (01:28→16:52)
[2018-09-03 01:32] LABS: Alanine Aminotransferase 18 Units/L (7-52); Albumin 3.7 g/dL (3.5-5.7); Albumin/Globulin Ratio 1.4 (1.1-2.2); Alkaline Phosphatase 102 Units/L (34-104); Aspartate Amino Transferase 13 Units/L (13-39); BUN/Creatinine Ratio 33 (6-26); Bilirubin,Total 0.6 mg/dL (0.3-1.0); Blood Urea Nitrogen 20 mg/dL (8-23); Carbon Dioxide 24 mEq/L (23-29); Chloride 106 mEq/L (98-107); Chol/HDL Ratio 3.2 (0-4.9); Cholesterol 98 mg/dL (< 200); Globulin 2.7 g/dL (2.4-3.5); Glucose 111 mg/dL (70-105); HDL Cholesterol 31 mg/dL (40-59); LDL Cholesterol,Calculated 41 mg/dL (0-99); Magnesium 1.9 mg/dL (1.6-2.6); Osmolality,Calculated 289 (280-300); Potassium 3.6 mEq/L (3.5-5.1); Sodium 138 mEq/L (136-145); Total Protein 6.4 g/dL (6.4-8.9); Triglycerides 129 mg/dL (< 150); eGFR For Non-African Americans > 60 (> 60)
--- NOTE | 2018-09-03 01:36 | Internal Med History&Physical ---
Date of Encounter: 09/02/18 Time of Encounter: 23:05 Internal Medicine - H&P: HPI Chief complaint: chest pain Admitted From: Hospital to Hospital Transfer Plans for Post Hospital Care: Home History of present illness: Mr. Covington is a 58 year old male who presents to the hospital in transfer from [facility]. He presented there with chest pain that has been present and intermittent all day long. He has coronary disease and chronic angina. He woke up with chest pain this morning and his symptoms never resolved throughout the day. He took SL nitroglycerin at home with little relief. He therefore went to ER where he was given more nitroglycerin with no relief. Ultimately, he required morphine, and he was transferred to [place] for further workup and care. Upon my assessment of the patient, he has another recurrence of chest pain which is identical to his angina and prior NH. Of note, he was recently hospitalized in May of this year and had some medication changes per cardiology. His last heart catheterization and intervention were in March,. He did have relief of angina until May when he had recurrence of his angina. He has followed up with cardiology since then and was doing well until the last 24 hours. He denies any fevers, cough, congestion, vomiting, or diarrhea. Past Med Surg Social Fam HX - Past Medical History Attestation: Yes The following information was validated with the patient. Source: patient, old records reviewed, other ([facility] records) Medical history: arthritis, COPD, coronary artery disease, diabetes, GERD, hyperlipidemia, hypertension, myocardial infarction Additional medical history: Depression/anxiety, chronic stable angina, left knee pain, plateau fx, venous insufficiency, headaches, CAD with stents Psychiatric history: anxiety, depression - Past Surgical History Surgical History: angioplasty/stent, appendectomy, knee replacement, other Additional surgical history: tonsillectomy, heart cath with stents, colonoscopy. 12/10/15 JULISSA @[facility] W/DR OROZCO - Social History Smoking Status: Former smoker Smokeless Tobacco Status: No Alcohol use: none Drug use: none Current living situation: Home, With Family Activity Level: Independent ambulation Recent Out of Country Travel Within the Last 8 Weeks: No - Family History Father Adopted: Yes Family Member Ethnicity: Unknown Brother Adopted: Yes Family Member Ethnicity: Non- Living Status: Unknown Sister Adopted: Yes Family Member Ethnicity: Non- Living Status: Unknown Mother Adopted: Yes Family Member Ethnicity: Non- Living Status: Unknown Internal Medicine - H&P: Meds Venlafaxine [Effexor] 75 mg PO BID 12/10/15 [History] Albuterol Sulfate [Ventolin Hfa] 2 puff IH Q4H PRN 12/20/16 [History] Glimepiride [Amaryl] 4 mg PO BID 12/20/16 [History] Insulin LISPRO [HumaLOG] 2 - 17 unit SQ TID 12/20/16 [History] Nitroglycerin [Nitrostat] 0.4 mg SL Q5M PRN 12/20/16 [History] Omeprazole [PriLOSEC] 20 mg PO DAILY 12/20/16 [History] rOPINIRole [Requip] 1 mg PO HS 12/27/16 [History] Aspirin [Lo-Dose Aspirin EC] 81 mg PO DAILY #30 12/29/16 [Rx] Ticagrelor [Brilinta] 90 mg PO BID 30 Days tab 12/29/16 [Rx] Gabapentin [Neurontin] 400 mg PO TID 05/11/17 [History] Liraglutide [Victoza 2-Eduardo] 1.2 mg SQ DAILY 12/25/17 [History] Tramadol HCl [Ultram] 50 mg PO Q6H PRN 03/05/18 [History] Amlodipine Besylate 10 mg PO DAILY 06/05/18 [History] Atorvastatin Calcium [Lipitor] 80 mg PO DAILY 06/05/18 [History] Metoprolol [Lopressor] 25 mg PO BID 06/05/18 [History] Insulin Degludec [Tresiba Flextouch U-200] 68 unit SQ DAILY 06/06/18 [History] Isosorbide MONOnitrate (24 HR) [Imdur] 180 mg PO DAILY #30 tab.er.24h 06/07/18 [Rx] Ranolazine [Ranexa] 1,000 mg PO BID tab.er.12h 06/07/18 [Rx] Allergy/AdvReac Type Severity Reaction Status Date / Time No Known Allergies Allergy Verified 06/05/18 16:53 - Constitutional Constitutional: no chills, no fever(s), no night sweats - EENT Eyes: no blurry vision, no change in vision Ears: no ear pain, no tinnitus Nose, mouth and throat: no nasal congestion, no sinus pressure, no sore throat - Cardiovascular Cardiovascular ROS IM: chest pain, dyspnea, dyspnea on exertion, palpitations, no diaphoresis, no lightheadedness, no syncope - Respiratory Respiratory: no cough, no hemoptysis, no chest congestion, no excessive phlegm production, no change in phlegm color, no pain with cough - Gastrointestinal Gastrointestinal: no abdominal pain, no diarrhea, no hematemesis, no hematochezia, no melena, no vomiting - Genitourinary Genitourinary ROS male: no dysuria, no flank pain, no hematuria - Musculoskeletal Musculoskeletal ROS IM: no arthralgias, no back pain - Integumentary Integumentary IM: no rash, no jaundice - Neurological Neurological ROS: no disequilibrium, no dizziness, no focal weakness, no freq uent falls, no headache(s) - Psychiatric Psychiatric: no anxiety, no depression - Endocrine Endocrine IM: no polydipsia, no polyuria - Allergic/Immunologic Allergic/Immunologic: no GI upset with certain foods - Constitutional Vitals: Temp Pulse Resp BP Pulse Ox 97.9 F 70 16 147/84 96 09/02/18 21:51 09/02/18 21:51 09/02/18 21:51 09/02/18 21:51 09/02/18 22:02 General appearance: Present: cooperative, mild distress, A&O X 3, pleasant, answers questions appropriately Exam: C/O 2/10 chest pain -- identical to his prior angina and NH - Head Head exam: Present: atraumatic, normal inspection - Eye Eye exam: Present: EOMI, PERRL. Absent: scleral icterus Pupils: Present: normal accommodation - ENT ENT exam: Present: mucous membranes dry, normal exam, normal oropharynx - Neck Neck exam general surgery: Present: full ROM, supple, trachea midline. Absent: lymphadenopathy, tenderness, nuchal rigidity, thyromegaly - Respiratory Respiratory exam: Present: CTAB. Absent: chest wall tenderness, rales, respiratory distress, rhonchi, wheezes - Cardiovascular Cardiovascular exam: Present: RRR, +S1, +S2. Absent: diastolic murmur, systolic murmur - GI/Abdominal GI/Abdominal exam: Present: normal bowel sounds, soft. Absent: guarding, hepatomegaly, mass, rebound, splenomegaly, tenderness - Extremities Exam Extremities exam: Present: full ROM, normal capillary refill, warm, radial pulses palpable and symmetrical. Absent: calf tenderness, pedal edema, tenderness - Back Exam Back exam: Absent: CVA tenderness (L), CVA tenderness (R) - Neurological Exam Neurological exam: Present: alert, CN II-XII intact, oriented X3, no focal deficits, strengths equal and symetr throughout - Psychiatric Psychiatric exam: Present: normal affect, normal mood - Skin Skin exam: Present: dry, intact, warm Internal Med - H&P Results - Labs CBC & Chem 7: 09/03/18 00:57 Labs: Short CBC 09/03/18 Range/Units 00:57 WBC 12.7 H (4.3-11.1) K/mcL Hgb 13.2 (12.9-16.9) g/dL Hct 43.1 (37.5-50.1) % Plt Count 297 (140-400) K/mcL Neutrophils # 9.0 H (1.6-8.9) K/mcL I reviewed his labs from [facility] and include the following: WBC 13.1 Hemoglobin 15.5 Hematocrit 49.2 Platelets 369 Troponin less than 0.056 Sodium 139 Potassium 4.3 Chloride 101 CO2 25 BUN 18 Glucose 148 Creatinine 0.87 EKG reveals sinus rhythm with right bundle branch block and some subtle ST flattening/flipped T waves in the septal and anterior leads. - Assessment and Plan (1) Unstable angina Current Visit: Yes Status: Acute Assessment and plan: 1. Will place on ACS dosing of heparin drip, ASA, Brilinta. 2. Will order SL NTG and IV Morphine PRN chest pain. 3. If necessary, will add NTG drip. 4. Will trend troponins and EKG's. 5. Consult cardiology. (2) Type 2 diabetes mellitus Current Visit: Yes Status: Chronic Assessment and plan: 1. Hold oral home meds. 2. Will order SSI and monitor glucose closely. Qualifiers: Diabetes mellitus detention insulin use: without termite treater use Diabetes mellitus complication status: without complication Qualified Code(s): E11.9 - Type 2 diabetes mellitus without complications (3) Hypertension Current Visit: Yes Status: Chronic Assessment and plan: 1. Continue home meds as appropriate. 2. Monitor BP and adjust meds as needed. Qualifiers: Hypertension type: essential hypertension Qualified Code(s): I10 - Essential (primary) hypertension (4) DVT prophylaxis Current Visit: Yes Status: Acute Assessment and plan: 1. Heparin drip as above.
[2018-09-03] MEDS: *HR* Morphine 2 MG/ML SYRINGE IVP PRN ×2 (05:34→08:50)
[2018-09-03] MEDS: Ranolazine 500 MG TAB.ER.12H PO SCH ×2 (07:28→19:49)
[2018-09-03] MEDS: Aspirin Enteric Coated 81 MG Tablet PO SCH (07:28)
[2018-09-03] MEDS: Nitroglycerin 0.4 MG TAB.SUBL SL PRN ×3 (10:19→10:29)
--- NOTE | 2018-09-03 12:10 | Cardiology Consult Note ---
<Paul Erwin Sammie - Last Filed: 09/03/18 12:26> Date of Encounter: 09/03/18 Time of Encounter: 10:45 Assessment and Plan (1) Chest pain Current Visit: No Status: Acute Constant chest pain despite sublingual NTG. Releif only with morphine. Chest pain is atypical. Troponin negative x2. EKG shows SR with no ischemic changes. Last [facility] 12/2017- PCI to LAD. Attempted PCI to LCx and OM artery was unsuccessful. Small vessel disease was described. TTE 05/2018-LVEF 65-70%. Normal LV chamber size, wall thickness and systolic function. Normal right ventricular structure and function. Recurrent admit 05/2018. [facility] films reviewed and continued medical management recommended at that time. Recommend limited TTE to assess EF. Continue asa, brilinta, statin, ranexa. Not on bb likely due to bradycardia. Add norvasc. Further recommendation after TTE. Qualifiers: Chest pain type: unspecified Qualified Code(s): R07.9 - Chest pain, unspecified (2) CAD (coronary artery disease), [place] coronary artery Current Visit: No Status: Chronic H/o multiple PCI. See plan above. Qualifiers: [place] vs. transplanted heart: [place] heart Associated angina: with unstable angina Qualified Code(s): I25.110 - Atherosclerotic heart disease of [place] coronary artery with unstable angina pectoris Discussion w patient/family: The assessment and plan as outlined above was discussed with the patient and/or family members who expressed understanding and agreement. All questions were answered. Thank you for involving us in the care of your patient. Please call with any questions. History of Present Illness Consult date: 09/03/18 Requesting physician: Kelechi Lambert Consult reason: chest pain Chief complaint: chest pain History of present illness: Mr. Covington is a 58 year old male with past medical history significant for CAD s/p multiple PCI, DM, HTN, HLD, COPD, GERD, and obesity. He presented with the c/o left sided chest pain radiating down his left arm. The pain has continued without relief despite NTG. Morphine helps some and he is requesting. He continued to have pain on my exam. States it is somewhat like his previous MA. Past Med Surg Social Fam HX - Past Medical History Medical history: arthritis, COPD, coronary artery disease, diabetes, GERD, hyperlipidemia, hypertension, myocardial infarction Additional medical history: Depression/anxiety, chronic stable angina, left knee pain, plateau fx, venous insufficiency, headaches, CAD with stents Psychiatric history: anxiety, depression - Past Surgical History Surgical History: angioplasty/stent, appendectomy, knee replacement, other Additional surgical history: tonsillectomy, heart cath with stents, colonoscopy. 12/10/15 KR @[facility] W/DR OROZCO - Social History Smoking Status: Former smoker Smokeless Tobacco Status: No Alcohol use: none Drug use: none - Family History Father Adopted: Yes Family Member Ethnicity: Unknown Brother Adopted: Yes Family Member Ethnicity: Non- Living Status: Unknown Sister Adopted: Yes Family Member Ethnicity: Non- Living Status: Unknown Mother Adopted: Yes Family Member Ethnicity: Non- Living Status: Unknown Medications and Allergies Venlafaxine [Effexor] 75 mg PO BID 12/10/15 [History] Albuterol Sulfate [Ventolin Hfa] 2 puff IH Q4H PRN 12/20/16 [History] Glimepiride [Amaryl] 4 mg PO BID 12/20/16 [History] Insulin LISPRO [HumaLOG] 2 - 17 unit SQ TID 12/20/16 [History] Nitroglycerin [Nitrostat] 0.4 mg SL Q5M PRN 12/20/16 [History] Omeprazole [PriLOSEC] 20 mg PO DAILY 12/20/16 [History] rOPINIRole [Requip] 1 mg PO HS 12/27/16 [History] Aspirin [Lo-Dose Aspirin EC] 81 mg PO DAILY #30 12/29/16 [Rx] Ticagrelor [Brilinta] 90 mg PO BID 30 Days tab 12/29/16 [Rx] Gabapentin [Neurontin] 400 mg PO TID 05/11/17 [History] Tramadol HCl [Ultram] 50 mg PO Q6H PRN 03/05/18 [History] Amlodipine Besylate 10 mg PO DAILY 06/05/18 [History] Atorvastatin Calcium [Lipitor] 80 mg PO QPM 06/05/18 [History] Insulin Degludec [Tresiba Flextouch U-200] 68 unit SQ DAILY 06/06/18 [History] Ranolazine [Ranexa] 1,000 mg PO BID tab.er.12h 06/07/18 [Rx] Empagliflozin [Jardiance] 10 mg PO DAILY 09/03/18 [History] Isosorbide MONOnitrate [Isosorbide Mononitrate ER] 120 mg PO DAILY 09/03/18 [History] Liraglutide [Victoza 2-Eduardo] 1.8 mg SQ DAILY 09/03/18 [History] Allergy/AdvReac Type Severity Reaction Status Date / Time No Known Allergies Allergy Verified 06/05/18 16:53 All Systems Review: The remainder of the systems were reviewed and are negative Physical Examination Vital Signs, Last 4 Hours Temp Pulse Resp BP Pulse Ox 09/03/18 11:58 97.5 F L 58 16 152/78 98 09/03/18 10:44 64 124/69 09/03/18 10:30 62 144/77 09/03/18 10:25 61 150/81 09/03/18 10:20 59 135/80 Results 09/03/18 00:57 09/03/18 00:57 Lab Results 09/03/18 09/03/18 09/03/18 00:57 00:57 00:57 WBC 12.7 H Hgb 13.2 Hct 43.1 Plt Count 297 INR 1.2 APTT 32.5 Sodium Potassium Chloride Carbon Dioxide BUN Creatinine Glucose Calcium Magnesium Total Bilirubin AST ALT Alkaline Phosphatase Troponin I < 0.03 09/03/18 09/03/18 09/03/18 00:57 05:20 09:19 WBC Hgb Hct Plt Count INR APTT Sodium 138 Potassium 3.6 Chloride 106 Carbon Dioxide 24 BUN 20 Creatinine 0.60 L Glucose 111 H Calcium 9.0 Magnesium 1.9 Total Bilirubin 0.6 AST 13 ALT 18 Alkaline Phosphatase 102 Troponin I < 0.03 < 0.03 - Imaging and Cardiology Echo: report reviewed Cardiac cath: report reviewed - EKG Interpretation EKG results cardiology: personally reviewed Consult Discharge Plan - Plan Referrals: Dinora Toscano [Advanced Practice Nurse] - 10/25/18 10:00 am Fern Rivera CNP [Primary Care Provider] - 09/11/18 1:00 pm () Aman Mckeon DO [Partnered Physician] - 09/05/18 12:15 pm Nury Lomeli MD [Partnered Physician] - 09/17/18 10:00 am <Edna Gaines - Last Filed: 09/03/18 13:54> Date of Encounter: 09/03/18 - Attending Attestation I examined this patient and my medical decision-making was reviewed with the CLASSIFICATION CASE MANAGER. I agree with the documented findings, disposition and treatment plan as described. Mr. Covington presents with atypical chest pain with negative troponins and no new ischemic ECG changes. Describes chest discomfort as left sided, persistent since yesterday morning, unchanged in severity or quality. It is not reproducible on palpitation and not described as pleuritic. Reports relief with morphine. No change with food intake and not made worse with laying flat. He states that this may be similar to pain he had at time of his last cath in December 2017. Overall, etiology of patient's symptoms is not clear. Recommend adjusting anti- anginal medications and observing over next 24h. Echo pending. Assessment and Plan Discussion w patient/family: The assessment and plan as outlined above was discussed with the patient and/or family members who expressed understanding and agreement. All questions were answered. Thank you for involving us in the care of your patient. Please call [employer] any questions. History of Present Illness History of present illness: Mr. Covington is a 58 year old male All Systems Review: The remainder of the systems were reviewed and are negative Physical Examination Vital Signs, Last 4 Hours Temp Pulse Resp BP Pulse Ox 09/03/18 11:58 97.5 F L 58 16 152/78 98 09/03/18 10:44 64 124/69 09/03/18 10:30 62 144/77 09/03/18 10:25 61 150/81 09/03/18 10:20 59 135/80 Results 09/03/18 00:57 09/03/18 00:57 Lab Results 09/03/18 09/03/18 09/03/18 00:57 00:57 00:57 WBC 12.7 H Hgb 13.2 Hct 43.1 Plt Count 297 INR 1.2 APTT 32.5 Sodium Potassium Chloride Carbon Dioxide BUN Creatinine Glucose Calcium Magnesium Total Bilirubin AST ALT Alkaline Phosphatase Troponin I < 0.03 09/03/18 09/03/18 09/03/18 00:57 05:20 09:19 WBC Hgb Hct Plt Count INR APTT Sodium 138 Potassium 3.6 Chloride 106 Carbon Dioxide 24 BUN 20 Creatinine 0.60 L Glucose 111 H Calcium 9.0 Magnesium 1.9 Total Bilirubin 0.6 AST 13 ALT 18 Alkaline Phosphatase 102 Troponin I < 0.03 < 0.03
[2018-09-03] MEDS ORDERED: traMADol 50 MG TABLET PO PRN (13:03)
[2018-09-03] MEDS ORDERED: Perflutren Lipid Microsphere 1.3 ML in 0.9 % Sodium Chloride 8.7 ML IVP ONE ×2 (14:55→15:25)
[2018-09-03] MEDS: Gabapentin 400 MG CAPSULE PO SCH ×2 (15:50→19:49)
[2018-09-03] MEDS ORDERED: *HR* OxyCODONE Immed Rel 5 MG TABLET PO ONE (19:37)
[2018-09-03] MEDS ORDERED: rOPINIRole 1 MG TABLET PO SCH (21:00)
[2018-09-04] MEDS: Insulin LISPRO 300 UNITS/3 ML VIAL SQ SCH ×3 (01:13→12:45)
[2018-09-04 06:49] LABS: Basophils % 0.4 %; Eosinophils # 0.2 K/mcL (0.0-0.6); Eosinophils % 2.1 %; Hematocrit 42.9 % (37.5-50.1); Hemoglobin 13.2 g/dL (12.9-16.9); Immature Granulocytes % 0.7 % (0-4); Lymphocytes # 1.5 K/mcL (0.6-4.6); Lymphocytes % 13.8 %; Mean Corpuscular HGB Conc 30.8 g/dL (31.6-35.5); Mean Corpuscular Volume 81.3 fL (83.0-100.0); Mean Platelet Volume 9.5 fL (9.4-12.4); Monocytes # 0.9 K/mcL (0.0-1.3); Monocytes % 7.8 %; Neutrophils # 8.4 K/mcL (1.6-8.9); Platelet Count 279 K/mcL (140-400); Red Blood Count 5.28 M/mcL (4.19-5.50); Red Cell Distribution Width 17.1 % (11.5-14.5); Segmented Neutrophils % 75.2 %
[2018-09-04 07:09] LABS: BUN/Creatinine Ratio 26 (6-26); Blood Urea Nitrogen 17 mg/dL (8-23); Carbon Dioxide 24 mEq/L (23-29); Chloride 105 mEq/L (98-107); Glucose 144 mg/dL (70-105); Osmolality,Calculated 290 (280-300); Potassium 3.9 mEq/L (3.5-5.1); Sodium 138 mEq/L (136-145); eGFR For Non-African Americans > 60 (> 60)
[2018-09-04] MEDS: Ranolazine 500 MG TAB.ER.12H PO SCH (08:32)
[2018-09-04] MEDS: *HR* Ticagrelor 90 MG TABLET PO SCH (08:32)
[2018-09-04] MEDS: Aspirin Enteric Coated 81 MG Tablet PO SCH (08:32)
[2018-09-04] MEDS: Gabapentin 400 MG CAPSULE PO SCH (08:32)
[2018-09-04] MEDS ORDERED: amLODIPine 5 MG TABLET PO SCH (09:00)
[2018-09-04] MEDS ORDERED: Isosorbide MONOnitrate (24 HR) 60 MG TAB.ER.24H PO SCH (09:00)
[2018-09-04] MEDS ORDERED: (Liraglutide [Victoza 2-Pak] 1.8 MG) SQ SCH (09:00)
[2018-09-04] MEDS ORDERED: JARDIANCE 10 MG PO SCH (09:00)
--- NOTE | 2018-09-04 10:26 | Event Note ---
Date of Encounter: 09/04/18 Time of Encounter: 10:24 - Cardiology Event Note Mr. Covington continues to have left sided chest pressure and left arm pain. States that he only has minimal improvement after medication adjustments. [facility] R/B/A was reviewed and he agrees to proceed. All questions answered.
[2018-09-04] MEDS ORDERED: Verapamil 5 MG/2 ML VIAL ONE (11:07)
[2018-09-04] MEDS ORDERED: ISOVUE-370 200 ML INFUS..BTL ONE (11:08)
[2018-09-04] MEDS ORDERED: Heparin 1,000 UNITS/500 mL 500 ML ONE (11:08)
[2018-09-04] MEDS ORDERED: Nitroglycerin 1,000 MCG/10 ML VIAL IV ONE (11:08)
[2018-09-04] MEDS ORDERED: 0.9 % Sodium Chloride 2,000 ML ONE (11:08)
[2018-09-04] MEDS ORDERED: *HR* Heparin 10,000 UNIT/10 ML VIAL ONE (11:08)
--- NOTE | 2018-09-04 11:14 | Pre-Sedation Evaluation ---
Pre-sedation evaluation - Pre-sedation checklist Date of procedure: 09/04/18 Procedure: C Recent Vitals: Last Vital Signs Temp 98.1 F 09/04/18 07:06 Pulse 64 09/04/18 07:06 Resp 16 09/04/18 07:06 BP 142/78 09/04/18 07:06 Pulse Ox 96 09/04/18 07:06 H&P (including ROS) documented in medical record: Yes Previous reaction to sedatives/anesthetics: No Dietary Status: NPO after Midnight Airway Assessment: Patient can open mouth completely, TMJ function normal Dentition: full dentition Possible difficult airway: No ASA Classification *see protocol: CLASS II-Mild systemic disease Cardiac Registry (Cardio Only) - Functional Capacity Functional Capacity: >=4 METS with symptoms - Clincal Frailty Scale Clinical Frailty Scale: Well
[2018-09-04] MEDS ORDERED: *HR* Midazolam HCl 2 MG/2 ML VIAL ONE (11:38)
[2018-09-04] MEDS ORDERED: *HR* FentaNYL (PF) 100 MCG/2 ML VIAL ONE (11:43)
--- NOTE | 2018-09-04 12:21 | Event Note ---
Date of Encounter: 09/04/18 Time of Encounter: 12:20 - Cardiology Event Note Cath completed LVEF 65% RCA: 100% with right to right collaterals LCA diffuse high grade distal lad disease. Moderately severe circ disease recommend: Medical therapy evaluate non cardiac causes of chest pain.
--- NOTE | 2018-09-04 12:35 | Invasive Diagnostic Lab Proc ---
Name: Gurvinder Covington Date of Study: 09/04/2018 Date: 1960 Ht: 70.1in Medical Record#: [id number] Age: 58 Wt: 233.69lb Gender: Male BSA: 2.23 Order #: [id number] BMI: 33.46 Physicians Procedure Physician: Armen Robert MD Referring MD: Fern Rivera CNP Referring MD: Staff Name Position Time In MichellSharon tilley RN Monitor 11:32 AM Inessa Gonzales RN Retail Service Lead Merchandiser 11:32 AM Deirdre Ledesma RT (R) Scrub 11:32 AM Ede Cota RN Monitor 11:34 AM Spenser Bergman RN Retail Service Lead Merchandiser 11:35 AM Indications Indication Unstable Angina Procedures Performed Procedure L HRT ARTERY/VENTRICLE ANGIO Pre-Procedure Checklist Informed consent is complete signed and on chart. H&P is on chart. ID band is on and ID verified with patient. Patient NPO for procedure The procedure was described for the patient and questions were answered. Blood Pressure: 128/80 ECG is on chart. Rhythm: NSR Plan of Care Patient will tolerate the procedure without complications. Adequate level of comfort will be maintained. Hemodynamics will remain stable Patient will recover from procedure without complications. Respiratory function will be maintained. Cardiac rhythm will remain stable. Patient temperature will be maintained. Patient and/or family have verbalized understanding of the procedure. Patient Education Chief Complaint/Reason for Test: EP Study Developmental Category: Adult (18-64 years) Developmentally Appropriate for Age: Yes Intravenous Access Time IV Size Location DC'd Fluid/Drip Rate Units RN 11:44 AM 20g 1 /" Patent On Arrival Lt Antecubital 0.9NaCl 25 ml/hr Ede Cota RN Allergies No Known Allergies Vital Signs Time BP (mmHg) HR (bpm) O2 Sat. RR (bpm) LOC 11:34 AM / % 4 = Oriented but drowsy 11:38 AM / % 5 = Fully awake and oriented or at pre-proc level 11:38 AM / % 4 = Oriented but drowsy 11:39 AM 145 / 82 67 98 % 9 11:44 AM 128 / 80 65 96 % 24 11:49 AM 139 / 80 65 97 % 18 11:54 AM 143 / 77 65 96 % 17 11:59 AM 149 / 82 64 96 % 19 12:04 PM 140 / 83 64 97 % 19 Procedural Medications Time Medication Dose Units Method Given By 11:32 AM Oxygen 2 L/min nasal cannula Inessa Gonzales RN 11:39 AM Versed 2 mg Intravenous Inessa Gonzales RN 11:43 AM Fentanyl 25 mcg Intravenous Sharon Marcus RN 11:46 AM Lidocaine 2% 0.5 ml Subcutaneous Armen Robert MD 11:56 AM Fentanyl 25 mcg Intravenous Inessa Gonzales RN 11:56 AM Lidocaine 2% 8 ml Subcutaneous Armen Robert MD ASA Classification: CLASS II- Mild systemic disease (i.e. well-controlled diabetes, hypertension, asthma, cigarette smoking) Lottie Score Preprocedure Postprocedure Activity 2- Moves 4 extremities sustained head lift Activity 2- Moves 4 extremities sustained head lift Circulation 2- SBP +/= 20 points of pre-anesthetic level Circulation 2- SBP +/= 20 points of pre-anesthetic level Consciousness 2- Awake and alert oriented x 3 Consciousness 2- Awake and alert oriented x 3 O2 Saturation 2- Able to maintain O2 satruation of 92% on room air O2 Saturation 2- Able to maintain O2 satruation of 92% on room air Respiratory 2- Able to deep breathe and cough well Respiratory 2- Able to deep breathe and cough well Total Score 10 Total Score 10 Contrast Agent: Isovue Diagnostic Contrast: 75 ml Total Contrast: 75 ml Fluoro Dose: 64 mGy Procedure Log Time Note Enter By 11:20 AM CathStat 11:32 AM Pt arrived to mechanical shop laborer 2 at 11:31 11:32 AM Sharon Marcus RN Position: Monitor Time in: : 11:32 AM Inessa Gonzales RN Position: Retail Service Lead Merchandiser Time in: :32 11:32 AM Deirdre Ledesma RT (R) Position: Scrub Time in: :32 11:32 AM Patient charges- Angio tray pack, Navilyst 3mm J, Pulse Oximetry and ACIST tubing and transducer 11:32 AM Physician arrived 11:32 11:32 AM Meet and greet completed 11:32 AM Sign in performed according to hospital policy. Informed consent was obtained. 11:32 AM Procedure start :32 :32 AM Time: 11:32 Oxygen on at 2 L/min per nasal cannula by Inessa Gonzales [facility] 11:34 AM ASA Class CLASS II- Mild systemic disease (i.e. well-controlled diabetes, hypertension, asthma, cigarette smoking) [facility] 11:34 AM Time: 11:34 Patient comfortable and pain free: Yes [facility] 11[facility] AM Time: 11:34LOC: 4 = Oriented but drowsy [facility] 11:34 AM Case Start 11:34 AM Ede Cota RN Position: Monitor Time in: 11:34 to relieve Sharon Marcus RN maria l 11:35 AM Spenser Bergman RN Position: Retail Service Lead Merchandiser Time in: 11:35 to relieve Inessa Gonzales RN maria l 11:38 AM Time: 11:38 Patient comfortable and pain free: Yes csmith 11:38 AM Time: 11:38LOC: 5 = Fully awake and oriented or at pre-proc level csmith 11:38 AM Vitals capture started with the following parameters, Patient=Adult, Interval=5 min, Initial Wrjjujtm=353 mmHg, Deflation Rate=5 mmHg, Cuff placed on Right Arm 11:39 AM Time: 11:39 Versed 2 mg Intravenous Given by Inessa Gonzales RN csmith 11:39 AM HR=67 bpm, SWSI=775/82 mmhg, SpO2=98.0 %, Resp=9 B/min, Comment=sr 11:43 AM Time: 11:43 Fentanyl 25 mcg Intravenous Given by Sharon Marcus RN csmith 11:44 AM HR=65 bpm, MTZT=579/80 mmhg, SpO2=96.0 %, Resp=24 B/min, Comment=sr 11:46 AM Recorded ECG: HR=67 Condition=Condition 1 11:46 AM Time out was performed according to hospital policy. Conscious sedation and anesthesia was achieved (see medication log with in this report above) csmith 11:48 AM Time: 11:46 0.5 ml Lidocaine 2% to right radial Subcutaneous Given by Armen Robert MD csmith 11:49 AM HR=65 bpm, FCDE=719/80 mmhg, SpO2=97.0 %, Resp=18 B/min, Comment=sr 11:51 AM Pressure channel 2 zeroed. 11:53 AM Time: 11:38LOC: 4 = Oriented but drowsy csmith 11:53 AM Time: 11:38 Patient comfortable and pain free: Yes [facility] 11:54 AM HR=65 bpm, CZJT=504/77 mmhg, SpO2=96.0 %, Resp=17 B/min, Comment=sr 11:55 AM unable to pass wire via the radial artery, abandoning radial approach, will attempt case through R groin [facility] 11:56 AM Time: 11:56 Fentanyl 25 mcg Intravenous Given by Inessa Gonzales RN [facility] 11:57 AM Time: 11:56 8 ml Lidocaine 2% to right groin Subcutaneous Given by Armen Robert MD [facility] 11:57 AM Access obtained by percutaneous puncture. 6Fr 10cm Terumo Ferriday sheath placed in right Femoral artery. [id number] [facility] 11:58 AM 0.035 150cm [employer] guidewire wire [id number] [facility] 11:58 AM Recorded Pressure: Ao, HR=62, Condition=Condition 1 (Aorta) Ao 117/88/103 11:59 AM Pressure channel 2 zeroed. 11:59 AM HR=64 bpm, SBUR=922/82 mmhg, SpO2=96.0 %, Resp=19 B/min, Comment=sr 11:59 AM Recorded Pressure: Ao, HR=63, Condition=Condition 1 (Aorta) Ao 128/71/97 11:59 AM 5Fr FR 4 catheter inserted over the wire [facility] 12:01 PM RCA angiography performed in multiple views. csmith 12:01 PM Catheter removed [facility] 12:02 PM 5Fr FL 4 catheter inserted over the wire [facility] 12:03 PM LCA angiography performed in multiple views. csmith 12:04 PM Catheter removed [facility] 12:04 PM HR=64 bpm, CSUX=293/83 mmhg, SpO2=97.0 %, Resp=19 B/min, Comment=sr 12:05 PM 5Fr Pigtail catheter inserted over the wire [facility] 12:05 PM Recorded Pressure: LV, HR=64, Condition=Condition 1 (Left Ventricle) LV 137/15/19 12:06 PM Catheter crossed the aortic valve and was selectively placed in the left ventricle. Pressures recorded on pullback for left heart catheterization. [facility] 12:06 PM Bolus angiogram of left Ventricle complete: hand injection [facility] 12:06 PM Recorded Pressure: LV, Ao, HR=64, Condition=Condition 1 (Left Ventricle) LV 124/-4/22, (Aorta) Ao 113/70/87 12:06 PM Catheter removed csmith 12:06 PM Wire removed csmith 12:07 PM Bolus angiogram of right Femoral complete: hand injection csmith 12:08 PM Procedure completed at 12:08 09/04/2018 csmith 12:08 PM Did you address JOE flow and Dominance? Yes csmith 12:10 PM Sign out completed: Radiation Dose 197 mGy, 64.3 Gy/cm2 Fluoro Time: 2 Isovue 370 - 200ml contrast 75 ml given by Armen Robert MD. Complications: None. 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 Sedation minutes 30. Cardiac Rehab Consult needed: No. Confirmed administered medications: Yes csmith 12:10 PM Isovue 370 - 200ml,1 Bottle(s) used. csmith 12:11 PM Arterial sheath pulled, Perclose closure device used and was Successful [id number] S/N. csmith 12:11 PM Estimated Blood Loss: minimal csmith 12:11 PM Post ECG NSR csmith 12:11 PM Post Blood Pressure 130/72 csmith 12:11 PM 12:11 Post Pulses Bilateral DP 2+ csmith 12:11 PM 12:11 Post Pulses Rt Radial 2+ csmith 12:11 PM Information taught Cardiac Cath and Perclose csmith 12:11 PM Education needs Responsibilities of Patient in Care csmith 12:11 PM Learning barriers :None csmith 12:12 PM Education Methods Verbal csmith 12:12 PM Education evaluation Able to repeat information csmith 12:12 PM Site status No bleeding/hematoma - Rt Groin as reported by Deirdre Ledesma RT (R) at 12:12 csmith 12:13 PM Plavix, Effient or Brilinta given No csmith 12:15 PM Coronary Dominance: Left csmith 12:15 PM Lesion found in Proximal RCA. Pre Stenosis: 100 Pre JOE Flow: 0: No Flow/No perfusion csmith 12:17 PM Lesion found in Mid LMCA. Pre Stenosis: 20 Pre JOE Flow: 3: Complete and Brisk Flow/Perfusion csmith 12:18 PM Lesion found in Distal LAD. Pre Stenosis: 90 Pre JOE Flow: 3: Complete and Brisk Flow/Perfusion csmith 12:18 PM Lesion found in 1st Diagonal. Pre Stenosis: 60 Pre JOE Flow: 3: Complete and Brisk Flow/Perfusion csmith 12:18 PM Lesion found in Proximal Circumflex. Pre Stenosis: 20 Pre JOE Flow: 3: Complete and Brisk Flow/Perfusion csmith 12:18 PM Lesion found in Distal Circumflex. Pre Stenosis: 75 Pre JOE Flow: 3: Complete and Brisk Flow/Perfusion csmith 12:18 PM Lesion found in 1st Marginal. Pre Stenosis: 60 Pre JOE Flow: 3: Complete and Brisk Flow/Perfusion csmith 12:24 PM Patient out of room: 12:20 csmith 12:24 PM No family available at this time csmith Complications Complication None Hemodynamics Pressures Site Systolic/A Wave Diastolic/V Wave Mean AO 117 88 103 AO 128 71 97 LV 137 15 19 LV 124 -4 22 AO 113 70 87 Post Procedure Information Blood Pressure: 130/72 mmHg Rhythm: NSR Post procedural instructions were given Closure Device Time Device Success/Fail Perclose ProGlide Successful Site Checks Time Location Status Staff Sheath In? Note 12:12 PM Rt Groin No bleeding/hematoma Deirdre Ledesma RT (R) Pulses Time Site Pre-Procedure Post-Procedure Note 12:11:00 PM Bilateral DP 2+ 12:11:00 PM Rt Radial 2+ Updated by Ede Cota RN on 09/04/2018 12:26:37 PM electronically signed on 09/04/2018 12:27:12 PM with status of Final
--- NOTE | 2018-09-04 14:21 | Discharge Summary ---
- NOTES TO OUTPATIENT PROVIDER Notes to Outpatient Provider: Presented with left-sided chest pain radiating down his left arm-seen by cardiology-medications were adjusted and continue to have chest pain LHC was completed recommending medical management-May benefit from a EGD Orders not resulted at time of discharge: Pending orders 09/02/18 23:32 EKG [ECG 12 lead ECG] [ECG] Stat 09/03/18 06:00 ECG 12 lead ECG [ECG] AM 0600 09/04/18 10:23 CL Cardiac Catheterization [CL] Routine Date of Encounter: 09/04/18 Time of Encounter: 14:17 - Discharge Diagnosis (1) Hypertension Priority: Primary Status: Chronic Qualifiers: Hypertension type: essential hypertension Qualified Code(s): I10 - Essential (primary) hypertension (2) Unstable angina Priority: Secondary Status: Acute (3) Type 2 diabetes mellitus Priority: Secondary Status: Chronic Qualifiers: Diabetes mellitus watermaster insulin use: without watermaster use Diabetes gini litus complication status: without complication Qualified Code(s): E11.9 - Type 2 diabetes mellitus without complications Hospital course: Mr. Covington is a 58 year old male past medical history arthritis COPD coronary disease diabetes. Hyperlipidemia hypertension and myocardial infarction. Patient was a transfer from [facility] he has a history of coronary disease and chronic angina. He awoke with chest pain which continued throughout the day he did take nitroglycerin without any relief. He did require morphine in the ER he was transferred to [facility] for further workup and evaluation. Troponins are negative 3 TTE completed with EF 60% mild concentric left ventricular hypertrophy atypical septal motion consistent with bundle branch block pericardium appears normal. Cardiology did add Norvasc-no improvement and chest pain patient underwent LHC: RCA 100% with right to right collaterals LCA: Diffusely high grade distal LAD disease, moderately severe circumflex disease cardiology recommending medical therapy patient does have a history of GERD may benefit from outpatient EGD. Currently patient is hemodynamically stable and he will follow-up with cardiology as outpatient and also up with PCP , she will be discharged home Discharge discussed with: patient - Time Spent with Patient Total time spent providing and/or coordinating discharge services: - Discharge Medications Prescriptions: New amLODIPine [Norvasc] 10 mg PO DAILY #30 tablet Continue Venlafaxine [Effexor] 75 mg PO BID Glimepiride [Amaryl] 4 mg PO BID Albuterol Sulfate [Ventolin Hfa] 2 puff IH Q4H PRN PRN Reason: Shortness Of Breath,wheezing Omeprazole [PriLOSEC] 20 mg PO DAILY Nitroglycerin [Nitrostat] 0.4 mg SL Q5M PRN PRN Reason: Angina Insulin LISPRO [HumaLOG] 2 - 17 unit SQ TID rOPINIRole [Requip] 1 mg PO HS Ticagrelor [Brilinta] 90 mg PO BID 30 Days tab Aspirin [Lo-Dose Aspirin EC] 81 mg PO DAILY #30 Gabapentin [Neurontin] 400 mg PO TID Tramadol HCl [Ultram] 50 mg PO Q6H PRN PRN Reason: Pain Atorvastatin Calcium [Lipitor] 80 mg PO QPM Insulin Degludec [Tresiba Flextouch U-200] 68 unit SQ DAILY Ranolazine [Ranexa] 1,000 mg PO BID tab.er.12h Empagliflozin [Jardiance] 10 mg PO DAILY Liraglutide [Victoza 2-Eduardo] 1.8 mg SQ DAILY Isosorbide MONOnitrate [Isosorbide Mononitrate ER] 120 mg PO DAILY Discontinued Amlodipine Besylate 10 mg PO DAILY Home Medications: Venlafaxine [Effexor] 75 mg PO BID 12/10/15 [History] Albuterol Sulfate [Ventolin Hfa] 2 puff IH Q4H PRN 12/20/16 [History] Glimepiride [Amaryl] 4 mg PO BID 12/20/16 [History] Insulin LISPRO [HumaLOG] 2 - 17 unit SQ TID 12/20/16 [History] Nitroglycerin [Nitrostat] 0.4 mg SL Q5M PRN 12/20/16 [History] Omeprazole [PriLOSEC] 20 mg PO DAILY 12/20/16 [History] rOPINIRole [Requip] 1 mg PO HS 12/27/16 [History] Aspirin [Lo-Dose Aspirin EC] 81 mg PO DAILY #30 12/29/16 [Rx] Ticagrelor [Brilinta] 90 mg PO BID 30 Days tab 12/29/16 [Rx] Gabapentin [Neurontin] 400 mg PO TID 05/11/17 [History] Tramadol HCl [Ultram] 50 mg PO Q6H PRN 03/05/18 [History] Atorvastatin Calcium [Lipitor] 80 mg PO QPM 06/05/18 [History] Insulin Degludec [Tresiba Flextouch U-200] 68 unit SQ DAILY 06/06/18 [History] Ranolazine [Ranexa] 1,000 mg PO BID tab.er.12h 06/07/18 [Rx] Empagliflozin [Jardiance] 10 mg PO DAILY 09/03/18 [History] Isosorbide MONOnitrate [Isosorbide Mononitrate ER] 120 mg PO DAILY 09/03/18 [History] Liraglutide [Victoza 2-Eduardo] 1.8 mg SQ DAILY 09/03/18 [History] amLODIPine [Norvasc] 10 mg PO DAILY #30 tablet 09/04/18 [Rx] Allergies/Adverse Reactions: Allergy/AdvReac Type Severity Reaction Status Date / Time No Known Allergies Allergy Verified 06/05/18 16:53 Date of admission: 09/02/18 21:36 Primary care physician: Fern Rivera CNP Consults: 09/02/18 23:36 Consult to Physician [CONS] Routine Consulting Provider: Edna Gaines Reason for Consult: unstable angina Call Completed: No Discharging clinician: Magali Zamora Anticipated date of discharge: 09/04/18 - Constitutional Vitals: Temp Pulse Resp BP Pulse Ox 98.1 F 61 16 127/71 94 09/04/18 07:06 09/04/18 13:55 09/04/18 07:06 09/04/18 13:55 09/04/18 13:55 General appearance: Present: cooperative, mild distress, A&O X 3, pleasant, answers questions appropriately Exam: Skin: Free of rash and discoloration. Eyes: Sclera is white. There is no discharge from eyes. ENMT: Oral/pharyngeal mucosa is normal in appearance. There is no discharge from nose or ears. Respiratory: Normal breath sounds with no crackles and wheezes bilaterally. CV: Heart is regular with no gallop or murmur. GI: Abdomen is flat and soft with no palpable mass or visceromegaly. : There is no tenderness in patient's flanks bilaterally. Neuro exam: He has good strength in upper and lower extremities. He has normal eye movements. Psychiatric: He has normal affect. His thought process is appropriate to the situation. - Patient Status Disposition: Home, Self-Care Condition: Good Functional capacity at discharge: independent ambulation Overall status at discharge: patient is back to baseline - Discharge Instructions Follow Up With: Dinora Toscano [Advanced Practice Nurse] - 10/25/18 10:00 am Fern Rivera CNP [Primary Care Provider] - 09/11/18 1:00 pm () Aman Mckeon DO [Partnered Physician] - 09/05/18 12:15 pm Nury Lomeli MD [Partnered Physician] - 09/17/18 10:00 am - Diet and Activity Activity: increase activity as tolerated Diet: advance to your usual diet
[2018-09-04 15:28] VITALS: BP 107/55
--- NOTE | 2018-09-04 17:09 | Physician Discharge Referral ---
Home Health/Hosp Referral Info Transfer to: Home Health Attending Provider: Eleonora Zamora Provider in Charge Post Discharge: PCP - Diagnosis (1) Hypertension Priority: Secondary Status: Chronic (2) Unstable angina Priority: Primary Status: Acute (3) Type 2 diabetes mellitus Priority: Secondary Status: Chronic - Respiratory Orders Smoking Cessation: Smoking cessation has been advised. For more information, call the [place] Tobacco Quit Line at 3-085-GSIQ-NOW. - Diet/Nutrition Diet/Nutrition Orders: Cardiac - Activity Activity Orders: Up ad kwan - Services Needed Following services are medically necessary services: Nursing - Transfer Medications Prescriptions: amLODIPine [Norvasc] 10 mg PO DAILY #30 tablet Home Medications: Venlafaxine [Effexor] 75 mg PO BID 12/10/15 [History] Albuterol Sulfate [Ventolin Hfa] 2 puff IH Q4H PRN 12/20/16 [History] Glimepiride [Amaryl] 4 mg PO BID 12/20/16 [History] Insulin LISPRO [HumaLOG] 2 - 17 unit SQ TID 12/20/16 [History] Nitroglycerin [Nitrostat] 0.4 mg SL Q5M PRN 12/20/16 [History] Omeprazole [PriLOSEC] 20 mg PO DAILY 12/20/16 [History] rOPINIRole [Requip] 1 mg PO HS 12/27/16 [History] Aspirin [Lo-Dose Aspirin EC] 81 mg PO DAILY #30 12/29/16 [Rx] Ticagrelor [Brilinta] 90 mg PO BID 30 Days tab 12/29/16 [Rx] Gabapentin [Neurontin] 400 mg PO TID 05/11/17 [History] Tramadol HCl [Ultram] 50 mg PO Q6H PRN 03/05/18 [History] Atorvastatin Calcium [Lipitor] 80 mg PO QPM 06/05/18 [History] Insulin Degludec [Tresiba Flextouch U-200] 68 unit SQ DAILY 06/06/18 [History] Ranolazine [Ranexa] 1,000 mg PO BID tab.er.12h 06/07/18 [Rx] Empagliflozin [Jardiance] 10 mg PO DAILY 09/03/18 [History] Isosorbide MONOnitrate [Isosorbide Mononitrate ER] 120 mg PO DAILY 09/03/18 [History] Liraglutide [Victoza 2-Eduardo] 1.8 mg SQ DAILY 09/03/18 [History] amLODIPine [Norvasc] 10 mg PO DAILY #30 tablet 09/04/18 [Rx] Allergies/Adverse Reactions: Allergy/AdvReac Type Severity Reaction Status Date / Time No Known Allergies Allergy Verified 06/05/18 16:53 Certification: Further, I certify that my clinical findings support that this patient is homebound (i.e. absences from home require considerable and taxing effort and are for medical reasons or confucianism services or infrequently or short duration when for other reasons) because: Homebound Reason: Severity of cardiac or pulmonary status limits activity tolerance Attestation: My signature below is to certify that this patient is under my care and that I, or nurse practitioner, or a physician's intellectual property legal assistant working with me, has a [id number] encounter with this patient.
--- NOTE | 2018-09-10 14:54 | Electrocardiograph Report ---
[address] [address] Test Date: 2018-09-02 Pat Name: Gurvinder Covington Department: 113 Room: 3B Gender: M Rental Sales Associate: : [id number] Requested By: Kelechi Lambert Order Number: [id number] Reading MD: Fern Carter Measurements Intervals [place] Rate: 60 P: 64 AR: 212 QRS: -69 QRSD: 120 T: 73 QT: 450 QTc: 451 Interpretive Statements SINUS RHYTHM WITH FIRST DEGREE AV BLOCK RIGHT BUNDLE BRANCH BLOCK LEFT ANTERIOR FASCICULAR BLOCK Electronically Signed On 09-10-2018 14:53:16 EDT by Fern Carter
== END 2018-09-04 17:06 | disposition home or self-care (01) ==
LOC: 3BNU
PROVIDERS: ADMIT Family Medicine; ATTEND Family Medicine

== ENCOUNTER 2019-03-04 11:49 | Observation (INO) ==
[2019-03-04] MEDS ORDERED: Naloxone 0.4 MG/ML INJ IVP PRN (16:06)
[2019-03-04] MEDS ORDERED: Ondansetron 4 MG/2 ML VIAL IVP PRN (16:06)
[2019-03-04] MEDS ORDERED: Nitroglycerin 0.4 MG TAB.SUBL SL PRN (16:08)
[2019-03-04] MEDS ORDERED: Dextrose Gel 15 GM/37.5 ML TUBE PO PRN ×2 (16:10)
[2019-03-04] MEDS ORDERED: D5% in Water 1,000 ML IVC PRN (16:10)
[2019-03-04] MEDS ORDERED: *HR* Dextrose 50 % in Water (Syg) 50 ML SYRINGE IVP PRN (16:10)
[2019-03-04] MEDS: Insulin LISPRO 300 UNITS/3 ML VIAL SQ SCH (16:54)
[2019-03-04] MEDS: *HR* Heparin 5,000 UNIT/ML VIAL SQ SCH (17:03)
[2019-03-04] MEDS: *HR* Ticagrelor 90 MG TABLET PO SCH (21:00)
[2019-03-04] MEDS ORDERED: rOPINIRole 1 MG TABLET PO SCH (22:00)
[2019-03-05] MEDS: Insulin LISPRO 300 UNITS/3 ML VIAL SQ SCH ×4 (00:39→18:00)
[2019-03-05] MEDS: *HR* Heparin 5,000 UNIT/ML VIAL SQ SCH ×2 (06:18→17:57)
[2019-03-05 08:07] LABS: Basophils # 0.1 K/mcL (0.0-0.2); Basophils % 0.5 %; Eosinophils # 0.2 K/mcL (0.0-0.6); Eosinophils % 1.7 %; Hematocrit 44.3 % (37.5-50.1); Hemoglobin 13.9 g/dL (12.9-16.9); Immature Granulocytes % 0.5 % (0-4); Lymphocytes # 1.4 K/mcL (0.6-4.6); Lymphocytes % 14.9 %; Mean Corpuscular HGB Conc 31.4 g/dL (31.6-35.5); Mean Corpuscular Hemoglobin 23.1 pg (28.0-33.3); Mean Corpuscular Volume 73.7 fL (83.0-100.0); Mean Platelet Volume 9.5 fL (9.4-12.4); Monocytes # 0.6 K/mcL (0.0-1.3); Monocytes % 6.8 %; Neutrophils # 7.1 K/mcL (1.6-8.9); Platelet Count 327 K/mcL (140-400); Red Blood Count 6.01 M/mcL (4.19-5.50); Red Cell Distribution Width 20.1 % (11.5-14.5); Segmented Neutrophils % 75.6 %; White Blood Count 9.4 K/mcL (4.3-11.1)
[2019-03-05 08:19] LABS: INR 1.1
[2019-03-05 08:27] LABS: BUN/Creatinine Ratio 29 (6-26); Blood Urea Nitrogen 20 mg/dL (8-23); Calcium 9.2 mg/dL (8.6-10.3); Carbon Dioxide 27 mEq/L (23-29); Chloride 103 mEq/L (98-107); Chol/HDL Ratio 5.6 (0-4.9); Cholesterol 150 mg/dL (< 200); Glucose 107 mg/dL (70-105); HDL Cholesterol 27 mg/dL (40-59); LDL Cholesterol,Calculated 66 mg/dL (0-99); Magnesium 2.1 mg/dL (1.6-2.6); Osmolality,Calculated 293 (280-300); Sodium 140 mEq/L (136-145); Triglycerides 284 mg/dL (< 150); eGFR For African Americans > 60 (> 60); eGFR For Non-African Americans > 60 (> 60)
[2019-03-05] MEDS: Isosorbide MONOnitrate (24 HR) 60 MG TAB.ER.24H PO SCH (10:35)
[2019-03-05] MEDS: *HR* Ticagrelor 90 MG TABLET PO SCH ×2 (10:36→20:06)
[2019-03-05] MEDS: Aspirin Enteric Coated 81 MG Tablet PO SCH (10:36)
[2019-03-05] MEDS ORDERED: Fluconazole 100 MG TABLET PO ONE (14:17)
[2019-03-05] MEDS ORDERED: Isovue-370 500 ML BOTTLE IVP ONE (14:42)
[2019-03-05] MEDS ORDERED: GI Cocktail 40 ML EACH PO ONE (15:21)
[2019-03-05] MEDS: Nystatin Cream 15 GM TUBE TP SCH ×2 (16:41→20:06)
[2019-03-05] MEDS: Budesonide/Formoterol 80/4.5 1 PUFF INH IH SCH (20:05)
[2019-03-05] MEDS ORDERED: rOPINIRole 1 MG TABLET PO SCH (21:00)
[2019-03-05] MEDS ORDERED: Perflutren Lipid Microsphere 1.3 ML in 0.9 % Sodium Chloride 8.7 ML IVP ONE (21:11)
[2019-03-06] MEDS: *HR* Heparin 5,000 UNIT/ML VIAL SQ SCH ×2 (05:34→17:10)
[2019-03-06 06:08] LABS: Basophils # 0.1 K/mcL (0.0-0.2); Basophils % 0.5 %; Eosinophils # 0.2 K/mcL (0.0-0.6); Eosinophils % 2.1 %; Hematocrit 44.2 % (37.5-50.1); Hemoglobin 13.2 g/dL (12.9-16.9); Immature Granulocytes % 0.6 % (0-4); Lymphocytes # 1.6 K/mcL (0.6-4.6); Lymphocytes % 14.1 %; Mean Corpuscular HGB Conc 29.9 g/dL (31.6-35.5); Mean Corpuscular Hemoglobin 22.8 pg (28.0-33.3); Mean Corpuscular Volume 76.3 fL (83.0-100.0); Mean Platelet Volume 9.7 fL (9.4-12.4); Monocytes # 0.9 K/mcL (0.0-1.3); Monocytes % 7.9 %; Neutrophils # 8.3 K/mcL (1.6-8.9); Platelet Count 347 K/mcL (140-400); Red Blood Count 5.79 M/mcL (4.19-5.50); Red Cell Distribution Width 20.3 % (11.5-14.5); Segmented Neutrophils % 74.8 %; White Blood Count 11.1 K/mcL (4.3-11.1)
[2019-03-06 06:30] LABS: BUN/Creatinine Ratio 30 (6-26); Blood Urea Nitrogen 21 mg/dL (8-23); Calcium 9.3 mg/dL (8.6-10.3); Carbon Dioxide 28 mEq/L (23-29); Chloride 102 mEq/L (98-107); Glucose 179 mg/dL (70-105); Osmolality,Calculated 293 (280-300); Potassium 4.4 mEq/L (3.5-5.1); Sodium 138 mEq/L (136-145); eGFR For African Americans > 60 (> 60); eGFR For Non-African Americans > 60 (> 60)
[2019-03-06] MEDS: Insulin LISPRO 300 UNITS/3 ML VIAL SQ SCH ×3 (07:30→17:10)
[2019-03-06] MEDS: Budesonide/Formoterol 80/4.5 1 PUFF INH IH SCH (07:49)
[2019-03-06] MEDS ORDERED: Pantoprazole 40 MG VIAL IVP SCH (09:00)
[2019-03-06] MEDS ORDERED: NON-FORMULARY MEDICATION 1 EACH EACH (Pantoprazole Sodium [Protonix] 40 MG) PO SCH (09:00)
[2019-03-06] MEDS: Aspirin Enteric Coated 81 MG Tablet PO SCH (09:25)
[2019-03-06] MEDS: Isosorbide MONOnitrate (24 HR) 60 MG TAB.ER.24H PO SCH (09:25)
[2019-03-06] MEDS: *HR* Ticagrelor 90 MG TABLET PO SCH (09:26)
[2019-03-06] MEDS: Nystatin Cream 15 GM TUBE TP SCH (09:26)
[2019-03-06] MEDS ORDERED: E-Z-PAQUE (BARIUM SULF) SUSP 1 BOTTLE PO ONE (15:42)
[2019-03-06] MEDS ORDERED: E-Z-HD (BARIUM SULF) SUSPENSION PO ONE (15:42)
[2019-03-06] MEDS ORDERED: Simethicone/Sodium Bic/Citr Ac 1 EACH GRAN.EF.PK PO ONE (15:42)
[2019-03-06 16:33] VITALS: BP 123/71
== END 2019-03-06 17:50 | disposition home or self-care (01) ==
LOC: 2ANU → SUATTDRO 13:52
PROVIDERS: ADMIT Internal Medicine; ATTEND Internal Medicine

== ENCOUNTER 2019-07-25 20:07 | Observation (INO) ==
[2019-07-25] MEDS ORDERED: Naloxone 0.4 MG/ML INJ IVP PRN (21:58)
[2019-07-26] MEDS: Morphine Sulfate 2 MG/ML SYRINGE IVP PRN ×2 (01:24→20:27)
[2019-07-26 03:07] LABS: Basophils # 0.1 K/mcL (0.0-0.2); Basophils % 0.5 %; Eosinophils # 0.2 K/mcL (0.0-0.6); Eosinophils % 0.9 %; Hemoglobin 15.1 g/dL (12.9-16.9); Immature Granulocytes % 0.8 % (0-4); Lymphocytes # 1.8 K/mcL (0.6-4.6); Lymphocytes % 11.4 %; Mean Corpuscular HGB Conc 30.8 g/dL (31.6-35.5); Mean Corpuscular Hemoglobin 24.6 pg (28.0-33.3); Mean Corpuscular Volume 79.9 fL (83.0-100.0); Mean Platelet Volume 9.9 fL (9.4-12.4); Monocytes # 1.7 K/mcL (0.0-1.3); Monocytes % 10.7 %; Platelet Count 304 K/mcL (140-400); Red Blood Count 6.13 M/mcL (4.19-5.50); Red Cell Distribution Width 19.4 % (11.5-14.5); Segmented Neutrophils % 75.7 %; White Blood Count 15.9 K/mcL (4.3-11.1)
[2019-07-26 03:26] LABS: BUN/Creatinine Ratio 34 (6-26); Blood Urea Nitrogen 27 mg/dL (8-23); Calcium 9.2 mg/dL (8.6-10.3); Carbon Dioxide 25 mEq/L (23-29); Chloride 106 mEq/L (98-107); Glucose 133 mg/dL (70-105); Osmolality,Calculated 295 (280-300); Sodium 139 mEq/L (136-145); eGFR For African Americans > 60 (> 60); eGFR For Non-African Americans > 60 (> 60)
[2019-07-26 03:29] LABS: Troponin I < 0.03 ng/mL (< 0.04)
[2019-07-26] MEDS: *HR* Heparin 5,000 UNIT/ML VIAL SQ SCH ×3 (05:58→20:28)
[2019-07-26] MEDS ORDERED: Insulin DETEMIR 100 UNIT/ML X5UNITS SQ ONE (12:08)
[2019-07-26] MEDS ORDERED: *HR* Heparin 5,000 UNIT/ML VIAL ONE (12:56)
[2019-07-26] MEDS ORDERED: Isosorbide MONOnitrate (24 HR) 30 MG TAB.ER.24H PO ONE (12:56)
[2019-07-26] MEDS ORDERED: Morphine Sulfate 2 MG/ML SYRINGE ONE (12:56)
[2019-07-26] MEDS ORDERED: Venlafaxine XR (24 HR) 75 MG CAP.ER.24H PO ONE (13:51)
[2019-07-26] MEDS ORDERED: *HR* Ticagrelor 90 MG TABLET ONE (13:51)
[2019-07-26] MEDS ORDERED: Metoprolol XL (24 HR) Succ 25 MG TAB.ER.24H PO ONE (13:51)
[2019-07-26] MEDS ORDERED: Gabapentin 400 MG CAPSULE ONE (13:51)
[2019-07-26] MEDS ORDERED: Insulin LISPRO 300 UNITS/3 ML VIAL SQ ONE (13:52)
[2019-07-26] MEDS ORDERED: Aspirin 81 MG TAB.CHEW ONE (13:52)
[2019-07-26] MEDS ORDERED: rOPINIRole 1 MG TABLET ONE (13:52)
[2019-07-26] MEDS ORDERED: hydrOXYzine pamoate 25 MG CAPSULE PO PRN (15:23)
[2019-07-26] MEDS ORDERED: Acetaminophen/Butalbital/CaffeineTABLET PO PRN (15:24)
[2019-07-26] MEDS ORDERED: Acetaminophen 325 MG TABLET PO PRN (15:26)
[2019-07-26] MEDS: Isosorbide MONOnitrate (24 HR) 30 MG TAB.ER.24H PO SCH (16:20)
[2019-07-26] MEDS ORDERED: rOPINIRole 1 MG TABLET PO SCH (17:00)
[2019-07-26] MEDS: Insulin LISPRO 300 UNITS/3 ML VIAL SQ SCH (17:57)
[2019-07-26] MEDS: Gabapentin 400 MG CAPSULE PO SCH (20:24)
[2019-07-26] MEDS: *HR* Ticagrelor 90 MG TABLET PO SCH (20:28)
[2019-07-26] MEDS: Budesonide/Formoterol 160/4.5 1 PUFF INH IH SCH (20:41)
[2019-07-26] MEDS ORDERED: Insulin DETEMIR 100 UNIT/ML X5UNITS SQ SCH (21:00)
[2019-07-27] MEDS: Morphine Sulfate 2 MG/ML SYRINGE IVP PRN (00:38)
[2019-07-27] MEDS: *HR* Heparin 5,000 UNIT/ML VIAL SQ SCH ×2 (05:04→11:13)
[2019-07-27] MEDS: *HR* Ticagrelor 90 MG TABLET PO SCH (07:41)
[2019-07-27] MEDS: Isosorbide MONOnitrate (24 HR) 30 MG TAB.ER.24H PO SCH (07:41)
[2019-07-27] MEDS: Gabapentin 400 MG CAPSULE PO SCH (07:41)
[2019-07-27] MEDS: Insulin LISPRO 300 UNITS/3 ML VIAL SQ SCH ×2 (07:42→11:07)
[2019-07-27] MEDS: Budesonide/Formoterol 160/4.5 1 PUFF INH IH SCH (08:50)
[2019-07-27 08:54] LABS: Basophils # 0.1 K/mcL (0.0-0.2); Basophils % 0.7 %; Eosinophils # 0.2 K/mcL (0.0-0.6); Eosinophils % 1.7 %; Hematocrit 47.6 % (37.5-50.1); Hemoglobin 14.6 g/dL (12.9-16.9); Immature Granulocytes % 0.4 % (0-4); Lymphocytes # 1.8 K/mcL (0.6-4.6); Lymphocytes % 18.7 %; Mean Corpuscular HGB Conc 30.7 g/dL (31.6-35.5); Mean Corpuscular Hemoglobin 24.7 pg (28.0-33.3); Mean Corpuscular Volume 80.4 fL (83.0-100.0); Mean Platelet Volume 9.7 fL (9.4-12.4); Monocytes # 0.8 K/mcL (0.0-1.3); Monocytes % 7.8 %; Neutrophils # 6.8 K/mcL (1.6-8.9); Platelet Count 303 K/mcL (140-400); Red Blood Count 5.92 M/mcL (4.19-5.50); Red Cell Distribution Width 18.9 % (11.5-14.5); Segmented Neutrophils % 70.7 %; White Blood Count 9.6 K/mcL (4.3-11.1)
[2019-07-27] MEDS ORDERED: Aspirin 81 MG TAB.CHEW PO SCH (09:00)
[2019-07-27] MEDS ORDERED: ISOSORBIDE MONONITRATE PO SCH (09:00)
[2019-07-27 09:15] LABS: BUN/Creatinine Ratio 36 (6-26); Blood Urea Nitrogen 26 mg/dL (8-23); Calcium 9.2 mg/dL (8.6-10.3); Carbon Dioxide 27 mEq/L (23-29); Chloride 105 mEq/L (98-107); Glucose 125 mg/dL (70-105); Magnesium 2.1 mg/dL (1.6-2.6); Osmolality,Calculated 296 (280-300); Potassium 3.5 mEq/L (3.5-5.1); Sodium 140 mEq/L (136-145); eGFR For African Americans > 60 (> 60); eGFR For Non-African Americans > 60 (> 60)
[2019-07-27] MEDS ORDERED: Ranolazine 500 MG TAB.ER.12H PO SCH (09:30)
[2019-07-27 11:06] VITALS: BP 117/62
== END 2019-07-27 14:01 | disposition home or self-care (01) ==
LOC: 3BNU → SUATTDRO 21:26
PROVIDERS: ADMIT Internal Medicine; ATTEND Internal Medicine

== ENCOUNTER 2019-11-26 13:04 | Observation (INO) ==
[2019-11-26] MEDS ORDERED: Aspirin 81 MG TAB.CHEW PO ONE (13:17)
[2019-11-26] MEDS: Nitroglycerin 0.4 MG TAB.SUBL SL PRN ×3 (13:25→13:39)
[2019-11-26 13:47] LABS: Basophils % 0.5 %; Eosinophils # 0.2 K/mcL (0.0-0.6); Eosinophils % 2.9 %; Hematocrit 46.3 % (37.5-50.1); Hemoglobin 14.4 g/dL (12.9-16.9); Immature Granulocytes % 0.5 % (0-4); Lymphocytes # 1.1 K/mcL (0.6-4.6); Mean Corpuscular HGB Conc 31.1 g/dL (31.6-35.5); Mean Corpuscular Volume 83.7 fL (83.0-100.0); Mean Platelet Volume 10.1 fL (9.4-12.4); Monocytes # 0.5 K/mcL (0.0-1.3); Monocytes % 6.5 %; Neutrophils # 5.6 K/mcL (1.6-8.9); Platelet Count 230 K/mcL (140-400); Red Blood Count 5.53 M/mcL (4.19-5.50); Red Cell Distribution Width 17.6 % (11.5-14.5); Segmented Neutrophils % 74.6 %; White Blood Count 7.5 K/mcL (4.3-11.1)
[2019-11-26 14:01] LABS: INR 1.1; Prothrombin Time 12.9 Seconds (9.4-12.1)
[2019-11-26 14:03] LABS: BUN/Creatinine Ratio 24 (6-26); Blood Urea Nitrogen 16 mg/dL (8-23); Carbon Dioxide 25 mEq/L (23-29); Chloride 103 mEq/L (98-107); Glucose 288 mg/dL (70-105); Osmolality,Calculated 296 (280-300); Potassium 3.8 mEq/L (3.5-5.1); Sodium 137 mEq/L (136-145); Troponin I < 0.03 ng/mL (< 0.04); eGFR For African Americans > 60 (> 60); eGFR For Non-African Americans > 60 (> 60)
[2019-11-26 14:04] LABS: Activated Partial Thrombo Time 30.6 Seconds (26.0-36.0)
[2019-11-26] MEDS ORDERED: Ondansetron 4 MG/2 ML VIAL IVP PRN (14:43)
[2019-11-26] MEDS ORDERED: Naloxone 0.4 MG/ML INJ IVP PRN (14:43)
[2019-11-26] MEDS ORDERED: *HR* Dextrose 50 % in Water (Vial) 50 ML VIAL IVP PRN (14:45)
[2019-11-26] MEDS ORDERED: Dextrose Gel 15 GM/37.5 ML TUBE PO PRN ×2 (14:45)
[2019-11-26] MEDS ORDERED: D5% in Water 1,000 ML IVC PRN (14:45)
[2019-11-26] MEDS ORDERED: *HR* Heparin 5,000 UNIT/ML VIAL IVP ONE (15:12)
[2019-11-26] MEDS ORDERED: *HR* Heparin 5,000 UNIT/ML VIAL IVP PRN ×2 (15:12)
[2019-11-26] MEDS ORDERED: Heparin 25,000 UNIT/250 ML D5W 25,000 UNIT/250 ML IV.SOLN IVC SCH (15:15)
[2019-11-26] MEDS ORDERED: *HR* Labetalol 20 MG/4 ML SYRINGE IVP PRN (15:17)
[2019-11-26] MEDS ORDERED: ceFAZolin 1,000 MG in Water for inj. (sterile) 10 ML IVP SCH (16:00)
[2019-11-26] MEDS: Insulin LISPRO 300 UNITS/3 ML VIAL SQ SCH (18:49)
[2019-11-26] MEDS ORDERED: Water for inj. (sterile) 20 ML IV ONE (18:56)
[2019-11-26] MEDS: Nystatin POWDER 30 GM BOTTLE TP SCH ×2 (19:00→22:10)
[2019-11-26] MEDS ORDERED: Insulin DETEMIR 100 UNIT/ML X5UNITS SQ SCH (21:00)
[2019-11-26] MEDS: Clotrimazole 1% CRM 15 GM TUBE TP SCH (23:21)
[2019-11-27] MEDS ORDERED: ceFAZolin 1,000 MG in Water for inj. (sterile) 10 ML IVP SCH
[2019-11-27 01:11] LABS: INR 1.1; Prothrombin Time 12.2 Seconds (9.4-12.1)
[2019-11-27 01:17] LABS: Basophils # 0.1 K/mcL (0.0-0.2); Basophils % 0.6 %; Eosinophils # 0.4 K/mcL (0.0-0.6); Eosinophils % 4.8 %; Hematocrit 44.6 % (37.5-50.1); Immature Granulocytes % 0.6 % (0-4); Lymphocytes # 1.6 K/mcL (0.6-4.6); Lymphocytes % 19.8 %; Mean Corpuscular HGB Conc 31.4 g/dL (31.6-35.5); Mean Corpuscular Hemoglobin 26.6 pg (28.0-33.3); Mean Corpuscular Volume 84.6 fL (83.0-100.0); Monocytes # 0.8 K/mcL (0.0-1.3); Monocytes % 9.2 %; Neutrophils # 5.3 K/mcL (1.6-8.9); Platelet Count 231 K/mcL (140-400); Red Blood Count 5.27 M/mcL (4.19-5.50); Red Cell Distribution Width 17.3 % (11.5-14.5); White Blood Count 8.2 K/mcL (4.3-11.1)
[2019-11-27 01:24] LABS: BUN/Creatinine Ratio 27 (6-26); Blood Urea Nitrogen 16 mg/dL (8-23); Calcium 8.8 mg/dL (8.6-10.3); Carbon Dioxide 21 mEq/L (23-29); Chloride 105 mEq/L (98-107); Glucose 232 mg/dL (70-105); Magnesium 1.8 mg/dL (1.6-2.6); Osmolality,Calculated 293 (280-300); Potassium 3.3 mEq/L (3.5-5.1); Sodium 137 mEq/L (136-145); eGFR For African Americans > 60 (> 60); eGFR For Non-African Americans > 60 (> 60)
[2019-11-27] MEDS ORDERED: *HR* Heparin 5,000 UNIT/ML VIAL ONE (01:42)
[2019-11-27] MEDS: ceFAZolin 1,000 MG in 0.9 % Sodium Chloride Mini Bag 100 ML IVP SCH ×3 (01:53→15:19)
[2019-11-27] MEDS: Insulin LISPRO 300 UNITS/3 ML VIAL SQ SCH ×3 (07:28→15:29)
[2019-11-27] MEDS: Clotrimazole 1% CRM 15 GM TUBE TP SCH (08:11)
[2019-11-27] MEDS: Nystatin POWDER 30 GM BOTTLE TP SCH ×2 (08:11→15:19)
[2019-11-27] MEDS ORDERED: Aspirin Enteric Coated 81 MG Tablet PO SCH (09:00)
[2019-11-27] MEDS ORDERED: Ranolazine 500 MG TAB.ER.12H PO SCH (09:30)
[2019-11-27] MEDS ORDERED: Isosorbide MONOnitrate (24 HR) 30 MG TAB.ER.24H PO SCH (09:30)
[2019-11-27] MEDS ORDERED: Acetaminophen 325 MG TABLET PO ONE (15:04)
[2019-11-27 15:05] VITALS: BP 116/54
== END 2019-11-27 17:53 | disposition home or self-care (01) ==
LOC: 3BNU 13:04 → EMEROOARM 13:04 → 3BNU 16:30
PROVIDERS: ADMIT Internal Medicine; ATTEND Internal Medicine

== ENCOUNTER 2020-02-04 12:24 | Observation (INO) ==
[2020-02-04] MEDS ORDERED: Ondansetron 4 MG/2 ML VIAL IVP ONE (12:29)
[2020-02-04] MEDS: Nitroglycerin 0.4 MG TAB.SUBL SL PRN ×2 (12:45→18:14)
[2020-02-04] MEDS ORDERED: *HR* FentaNYL (PF) 100 MCG/2 ML VIAL IVP ONE (13:23)
[2020-02-04 13:25] LABS: Basophils # 0.1 K/mcL (0.0-0.2); Basophils % 0.5 %; Eosinophils # 0.2 K/mcL (0.0-0.6); Eosinophils % 1.9 %; Hematocrit 47.5 % (37.5-50.1); Hemoglobin 14.9 g/dL (12.9-16.9); Immature Granulocytes % 0.7 % (0-4); Lymphocytes # 1.7 K/mcL (0.6-4.6); Lymphocytes % 16.5 %; Mean Corpuscular HGB Conc 31.4 g/dL (31.6-35.5); Mean Corpuscular Hemoglobin 26.4 pg (28.0-33.3); Mean Corpuscular Volume 84.1 fL (83.0-100.0); Mean Platelet Volume 10.1 fL (9.4-12.4); Monocytes # 0.9 K/mcL (0.0-1.3); Monocytes % 9.2 %; Neutrophils # 7.1 K/mcL (1.6-8.9); Platelet Count 248 K/mcL (140-400); Red Blood Count 5.65 M/mcL (4.19-5.50); Red Cell Distribution Width 16.6 % (11.5-14.5); Segmented Neutrophils % 71.2 %
[2020-02-04 13:49] LABS: BUN/Creatinine Ratio 27 (6-26); Blood Urea Nitrogen 17 mg/dL (8-23); Calcium 9.5 mg/dL (8.6-10.3); Carbon Dioxide 23 mEq/L (23-29); Chloride 105 mEq/L (98-107); Glucose 172 mg/dL (70-105); Osmolality,Calculated 290 (280-300); Potassium 4.2 mEq/L (3.5-5.1); Sodium 137 mEq/L (136-145); Troponin I < 0.03 ng/mL (< 0.04); eGFR For African Americans > 60 (> 60); eGFR For Non-African Americans > 60 (> 60)
[2020-02-04] MEDS ORDERED: Naloxone 0.4 MG/ML INJ IVP PRN (14:27)
[2020-02-04] MEDS ORDERED: Perflutren Lipid Microsphere 1.3 ML in 0.9 % Sodium Chloride 8.7 ML IVP PRN (14:27)
[2020-02-04] MEDS ORDERED: Hyoscyamine SL 0.125 MG TAB.SUBL SL PRN (19:02)
[2020-02-04] MEDS ORDERED: D5% in Water 1,000 ML IVC PRN (19:04)
[2020-02-04] MEDS ORDERED: *HR* Dextrose 50 % in Water (Vial) 50 ML VIAL IVP PRN (19:04)
[2020-02-04] MEDS ORDERED: Dextrose Gel 15 GM/37.5 ML TUBE PO PRN ×2 (19:04)
[2020-02-04] MEDS: Gabapentin 300 MG CAPSULE PO SCH (20:00)
[2020-02-04] MEDS: Ranolazine 500 MG TAB.ER.12H PO SCH (20:00)
[2020-02-04] MEDS: *HR* Ticagrelor 90 MG TABLET PO SCH (20:00)
[2020-02-04] MEDS ORDERED: Morphine Sulfate 2 MG/ML SYRINGE IVP ONE (20:03)
[2020-02-04] MEDS ORDERED: rOPINIRole 1 MG TABLET PO SCH (21:00)
[2020-02-04] MEDS ORDERED: Insulin LISPRO 300 UNITS/3 ML VIAL SQ SCH (21:00)
[2020-02-05 00:29] LABS: Hematocrit 48.2 % (37.5-50.1); Hemoglobin 14.5 g/dL (12.9-16.9); Mean Corpuscular HGB Conc 30.1 g/dL (31.6-35.5); Mean Corpuscular Hemoglobin 25.3 pg (28.0-33.3); Mean Corpuscular Volume 84.1 fL (83.0-100.0); Mean Platelet Volume 9.6 fL (9.4-12.4); Platelet Count 220 K/mcL (140-400); Red Blood Count 5.73 M/mcL (4.19-5.50); Red Cell Distribution Width 16.9 % (11.5-14.5); White Blood Count 9.8 K/mcL (4.3-11.1)
[2020-02-05 00:44] LABS: BUN/Creatinine Ratio 34 (6-26); Blood Urea Nitrogen 21 mg/dL (8-23); Calcium 8.7 mg/dL (8.6-10.3); Carbon Dioxide 24 mEq/L (23-29); Chloride 105 mEq/L (98-107); Glucose 140 mg/dL (70-105); Magnesium 1.9 mg/dL (1.6-2.6); Osmolality,Calculated 289 (280-300); Potassium 3.9 mEq/L (3.5-5.1); Sodium 137 mEq/L (136-145); eGFR For African Americans > 60 (> 60); eGFR For Non-African Americans > 60 (> 60)
[2020-02-05] MEDS ORDERED: Morphine Sulfate 2 MG/ML SYRINGE IVP ONE (04:12)
[2020-02-05] MEDS ORDERED: Isosorbide MONOnitrate (24 HR) 60 MG TAB.ER.24H PO SCH (09:00)
[2020-02-05] MEDS ORDERED: (Empagliflozin [Jardiance] 10 MG) PO SCH (09:00)
[2020-02-05] MEDS ORDERED: Renal Vitamin 1 CAP CAPSULE PO SCH (09:00)
[2020-02-05] MEDS ORDERED: Aspirin Enteric Coated 81 MG Tablet PO SCH (09:00)
[2020-02-05] MEDS: Insulin LISPRO 300 UNITS/3 ML VIAL SQ SCH ×2 (09:16→12:22)
[2020-02-05] MEDS: *HR* Ticagrelor 90 MG TABLET PO SCH (09:18)
[2020-02-05] MEDS: Gabapentin 300 MG CAPSULE PO SCH (09:19)
[2020-02-05] MEDS: Ranolazine 500 MG TAB.ER.12H PO SCH (09:19)
[2020-02-05] MEDS ORDERED: Ketorolac 15 MG/ML VIAL IVP ONE (11:42)
[2020-02-05 15:34] VITALS: BP 127/79
[2020-02-05] MEDS ORDERED: FLU Vac QV 20-21 (6Month+)/PF 0.5 ML SYRINGE IM ONE (15:52)
== END 2020-02-05 17:31 | disposition home or self-care (01) ==
LOC: 3BNU 12:24 → EMEROOARM 12:24 → 3BNU 14:41
PROVIDERS: ADMIT Pharmacist; ATTEND Pharmacist

== ENCOUNTER 2020-08-19 18:51 | Inpatient (IN) ==
[2020-08-19] MEDS ORDERED: Isovue-370 500 ML BOTTLE IVP ONE (19:27)
[2020-08-19] MEDS ORDERED: Morphine Sulfate 2 MG/ML SYRINGE IVP ONE (19:28)
[2020-08-19] MEDS ORDERED: Ondansetron 4 MG/2 ML VIAL IVP ONE (19:28)
[2020-08-19 19:58] LABS: Basophils # 0.1 K/mcL (0.0-0.2); Basophils % 0.3 %; Eosinophils % 0.1 %; Hematocrit 48.3 % (37.5-50.1); Hemoglobin 15.6 g/dL (12.9-16.9); Immature Platelets 3.9 % (1.1-6.1); Lymphocytes # 1.7 K/mcL (0.6-4.6); Mean Corpuscular HGB Conc 32.3 g/dL (31.6-35.5); Mean Corpuscular Hemoglobin 26.7 pg (28.0-33.3); Mean Corpuscular Volume 82.6 fL (83.0-100.0); Mean Platelet Volume 10.1 fL (9.4-12.4); Monocytes # 2.9 K/mcL (0.0-1.3); Monocytes % 10.3 %; Neutrophils # 22.8 K/mcL (1.6-8.9); Nucleated Red Blood Cells 0.1 /100 WBC (0); Platelet Count 272 K/mcL (140-400); Red Blood Count 5.85 M/mcL (4.19-5.50); Red Cell Distribution Width 17.8 % (11.5-14.5); Segmented Neutrophils % 82.3 %; White Blood Count 27.7 K/mcL (4.3-11.1)
[2020-08-19 20:02] LABS: Troponin I < 0.03 ng/mL (< 0.04)
[2020-08-19 20:16] LABS: Alanine Aminotransferase 21 Units/L (7-52); Albumin 4.3 g/dL (3.5-5.7); Albumin/Globulin Ratio 1.3 (1.1-2.2); Alkaline Phosphatase 85 Units/L (34-104); Aspartate Amino Transferase 17 Units/L (13-39); BUN/Creatinine Ratio 30 (6-26); Bilirubin,Direct 0.1 mg/dL (0.0-0.2); Bilirubin,Indirect 0.7 mg/dL (0.0-1.0); Bilirubin,Total 0.8 mg/dL (0.3-1.0); Blood Urea Nitrogen 22 mg/dL (8-23); Calcium 9.9 mg/dL (8.6-10.3); Carbon Dioxide 16 mEq/L (23-29); Chloride 103 mEq/L (98-107); Globulin 3.3 g/dL (2.4-3.5); Glucose 167 mg/dL (70-105); Osmolality,Calculated 285 (280-300); Potassium 4.2 mEq/L (3.5-5.1); Sodium 134 mEq/L (136-145); Total Protein 7.6 g/dL (6.4-8.9); eGFR For African Americans > 60 (> 60); eGFR For Non-African Americans > 60 (> 60)
[2020-08-19 20:40] LABS: INR 1.2; Prothrombin Time 14.3 Seconds (9.4-12.1)
[2020-08-19 20:42] LABS: Activated Partial Thrombo Time 29.1 Seconds (26.0-36.0)
[2020-08-19 20:57] LABS: Bacteria,Urine Few per hpf (None-Few); Bilirubin,Urine Negative (Negative); Blood,Urine Negative (Negative); Clarity,Urine Clear (Clear); Color,Urine Yellow (Yellow); Glucose,Urine (UA) >=1000 mg/dL (Normal); Ketones,Urine 20 mg/dL (Negative); Leukocyte Esterase,Urine Small (Negative); Mucus,Urine Few per lpf (None-Few); Nitrite,Urine Positive (Negative); Protein,Urine Trace mg/dL (Neg-Trace); RBC,Urine 0-3 per hpf (0-3); Specific Gravity,Urine > 1.030 (1.010-1.025); Squamous Epithelial Cell,Urine Few per hpf (None-Few); Urobilinogen,Urine Normal (Normal); WBC,Urine 15-30 per hpf (0-3)
[2020-08-19] MEDS ORDERED: 0.9 % Sodium Chloride 1,000 ML IVC ONE (21:24)
[2020-08-19] MEDS ORDERED: cefTRIAXone 1,000 MG in 0.9 % Sodium Chloride Mini Bag 100 ML IVPB ONE (21:24)
[2020-08-19] MEDS ORDERED: Aspirin 81 MG TAB.CHEW PO STA (21:53)
[2020-08-19] MEDS ORDERED: *HR* Dextrose 50 % in Water (Vial) 50 ML VIAL IVP PRN (22:26)
[2020-08-19] MEDS ORDERED: Dextrose Gel 15 GM/37.5 ML TUBE PO PRN ×2 (22:26)
[2020-08-19] MEDS ORDERED: D5% in Water 1,000 ML IVC PRN (22:26)
[2020-08-19] MEDS ORDERED: Naloxone 0.4 MG/ML INJ IVP PRN (22:27)
[2020-08-19] MEDS ORDERED: Acetaminophen 325 MG TABLET PO PRN (22:27)
[2020-08-20] MEDS: Insulin LISPRO 300 UNITS/3 ML VIAL SUBQ SCH ×5 (00:13→20:38)
[2020-08-20] MEDS: 0.9 % Sodium Chloride 1,000 ML IVC SCH ×2 (00:25→11:23)
[2020-08-20] MEDS: Nystatin POWDER 30 GM BOTTLE TP SCH ×4 (00:26→20:38)
[2020-08-20 00:36] LABS: Basophils # 0.1 K/mcL (0.0-0.2); Basophils % 0.3 %; Eosinophils % 0.1 %; Hematocrit 44.5 % (37.5-50.1); Hemoglobin 14.1 g/dL (12.9-16.9); Immature Granulocytes % 0.9 % (0-4); Lymphocytes # 1.3 K/mcL (0.6-4.6); Lymphocytes % 5.5 %; Mean Corpuscular HGB Conc 31.7 g/dL (31.6-35.5); Mean Corpuscular Volume 85.1 fL (83.0-100.0); Mean Platelet Volume 9.8 fL (9.4-12.4); Monocytes # 2.3 K/mcL (0.0-1.3); Monocytes % 9.6 %; Neutrophils # 19.6 K/mcL (1.6-8.9); Platelet Count 224 K/mcL (140-400); Red Blood Count 5.23 M/mcL (4.19-5.50); Red Cell Distribution Width 17.2 % (11.5-14.5); Segmented Neutrophils % 83.6 %; White Blood Count 23.4 K/mcL (4.3-11.1)
[2020-08-20 00:42] LABS: INR 1.3; Prothrombin Time 15.2 Seconds (9.4-12.1)
[2020-08-20 00:53] LABS: BUN/Creatinine Ratio 30 (6-26); Blood Urea Nitrogen 21 mg/dL (8-23); Calcium 8.6 mg/dL (8.6-10.3); Carbon Dioxide 21 mEq/L (23-29); Chloride 104 mEq/L (98-107); Glucose 132 mg/dL (70-105); Magnesium 1.8 mg/dL (1.6-2.6); Osmolality,Calculated 285 (280-300); Potassium 4.2 mEq/L (3.5-5.1); Sodium 135 mEq/L (136-145); eGFR For African Americans > 60 (> 60); eGFR For Non-African Americans > 60 (> 60)
[2020-08-20] MEDS: *HR* HYDROcodone/Acet 5/325 mg TABLET PO PRN ×2 (00:58→06:55)
[2020-08-20] MEDS ORDERED: *HR* Heparin 5,000 UNIT/ML VIAL IVP ONE (06:33)
[2020-08-20] MEDS ORDERED: *HR* Heparin 5,000 UNIT/ML VIAL IVP PRN ×2 (06:33)
[2020-08-20 07:25] LABS: Heparin anti-factor XA UFH < 0.04 IU/mL (0.30-0.70); INR 1.3; Prothrombin Time 14.4 Seconds (9.4-12.1)
[2020-08-20 07:34] LABS: Mean Corpuscular HGB Conc 31.1 g/dL (31.6-35.5); Mean Corpuscular Hemoglobin 26.4 pg (28.0-33.3); Mean Corpuscular Volume 84.9 fL (83.0-100.0); Platelet Count 214 K/mcL (140-400); Red Cell Distribution Width 17.2 % (11.5-14.5); White Blood Count 24.7 K/mcL (4.3-11.1)
[2020-08-20] MEDS: Heparin 25,000UNIT/250ML 1/2NS 25,000 UNIT/250 ML IV.SOLN IVC SCH (07:57)
[2020-08-20] MEDS ORDERED: Aspirin 81 MG TAB.CHEW PO SCH (09:00)
[2020-08-20] MEDS: cefTRIAXone 1,000 MG in 0.9 % Sodium Chloride Mini Bag 100 ML IVPB SCH (09:33)
[2020-08-20] MEDS: Gabapentin 300 MG CAPSULE PO SCH ×2 (15:31→20:38)
[2020-08-20] MEDS: Ondansetron 4 MG/2 ML VIAL IVP PRN (18:11)
[2020-08-20] MEDS: *HR* Ticagrelor 90 MG TABLET PO SCH (20:36)
[2020-08-20] MEDS: rOPINIRole 1 MG TABLET PO SCH (20:37)
[2020-08-20] MEDS: Famotidine 20 MG TABLET PO SCH (20:37)
[2020-08-20] MEDS: Ranolazine 500 MG TAB.ER.12H PO SCH (20:37)
[2020-08-20] MEDS: Melatonin 3 MG TABLET PO SCH (20:37)
[2020-08-20] MEDS: *HR* OxyCODONE Immed Rel 5 MG TABLET PO PRN (20:47)
[2020-08-20] MEDS ORDERED: Isosorbide MONOnitrate (24 HR) 60 MG TAB.ER.24H PO SCH (21:00)
[2020-08-20] MEDS: Insulin DETEMIR 100 UNIT/ML X5UNITS SUBQ SCH (21:31)
[2020-08-21 04:07] LABS: Basophils # 0.1 K/mcL (0.0-0.2); Basophils % 0.5 %; Eosinophils # 0.1 K/mcL (0.0-0.6); Eosinophils % 0.9 %; Hematocrit 44.2 % (37.5-50.1); Hemoglobin 13.2 g/dL (12.9-16.9); Immature Granulocytes % 0.8 % (0-4); Lymphocytes # 1.4 K/mcL (0.6-4.6); Lymphocytes % 10.3 %; Mean Corpuscular HGB Conc 29.9 g/dL (31.6-35.5); Mean Corpuscular Hemoglobin 26.3 pg (28.0-33.3); Monocytes # 1.3 K/mcL (0.0-1.3); Monocytes % 9.7 %; Neutrophils # 10.3 K/mcL (1.6-8.9); Platelet Count 193 K/mcL (140-400); Red Blood Count 5.02 M/mcL (4.19-5.50); Red Cell Distribution Width 17.3 % (11.5-14.5); Segmented Neutrophils % 77.8 %; White Blood Count 13.2 K/mcL (4.3-11.1)
[2020-08-21 04:18] LABS: BUN/Creatinine Ratio 41 (6-26); Blood Urea Nitrogen 21 mg/dL (8-23); Carbon Dioxide 19 mEq/L (23-29); Chloride 110 mEq/L (98-107); Glucose 130 mg/dL (70-105); Osmolality,Calculated 287 (280-300); Potassium 3.8 mEq/L (3.5-5.1); Sodium 136 mEq/L (136-145); eGFR For African Americans > 60 (> 60); eGFR For Non-African Americans > 60 (> 60)
[2020-08-21] MEDS: Heparin 25,000UNIT/250ML 1/2NS 25,000 UNIT/250 ML IV.SOLN IVC SCH (05:07)
[2020-08-21] MEDS: Insulin LISPRO 300 UNITS/3 ML VIAL SUBQ SCH ×4 (07:33→20:43)
[2020-08-21] MEDS: cefTRIAXone 1,000 MG in 0.9 % Sodium Chloride Mini Bag 100 ML IVPB SCH (07:40)
[2020-08-21] MEDS: Gabapentin 300 MG CAPSULE PO SCH ×3 (07:44→19:38)
[2020-08-21] MEDS: Ranolazine 500 MG TAB.ER.12H PO SCH ×2 (07:44→19:38)
[2020-08-21] MEDS: *HR* Ticagrelor 90 MG TABLET PO SCH ×2 (07:45→19:39)
[2020-08-21] MEDS: Isosorbide MONOnitrate (24 HR) 60 MG TAB.ER.24H PO SCH (07:45)
[2020-08-21] MEDS: *HR* OxyCODONE Immed Rel 5 MG TABLET PO PRN (07:45)
[2020-08-21] MEDS: Aspirin Enteric Coated 81 MG Tablet PO SCH (07:54)
[2020-08-21] MEDS: Nystatin POWDER 30 GM BOTTLE TP SCH ×3 (07:55→20:46)
[2020-08-21] MEDS ORDERED: NON-FORMULARY MEDICATION 1 EACH EACH (Pravastatin Sodium [Pravachol] 40 MG Tablet) PO SCH (09:00)
[2020-08-21] MEDS ORDERED: Acetaminophen IV 500 MG/50 ML BAG IVPB ONE (14:37)
[2020-08-21] MEDS: Famotidine 20 MG TABLET PO SCH (19:38)
[2020-08-21] MEDS: Melatonin 3 MG TABLET PO SCH (19:38)
[2020-08-21] MEDS: rOPINIRole 1 MG TABLET PO SCH (19:39)
[2020-08-21] MEDS: Insulin DETEMIR 100 UNIT/ML X5UNITS SUBQ SCH (20:46)
[2020-08-22 08:05] LABS: Basophils % 0.6 %; Eosinophils # 0.2 K/mcL (0.0-0.6); Eosinophils % 2.4 %; Hematocrit 42.7 % (37.5-50.1); Hemoglobin 13.5 g/dL (12.9-16.9); Immature Granulocytes % 1.2 % (0-4); Lymphocytes # 0.8 K/mcL (0.6-4.6); Lymphocytes % 11.7 %; Mean Corpuscular HGB Conc 31.6 g/dL (31.6-35.5); Mean Corpuscular Hemoglobin 26.6 pg (28.0-33.3); Mean Corpuscular Volume 84.1 fL (83.0-100.0); Mean Platelet Volume 9.7 fL (9.4-12.4); Monocytes # 0.7 K/mcL (0.0-1.3); Monocytes % 11.1 %; Neutrophils # 4.8 K/mcL (1.6-8.9); Platelet Count 194 K/mcL (140-400); Red Blood Count 5.08 M/mcL (4.19-5.50); Red Cell Distribution Width 16.7 % (11.5-14.5)
[2020-08-22 08:13] LABS: White Blood Count 6.6 K/mcL (4.3-11.1)
[2020-08-22 08:34] LABS: BUN/Creatinine Ratio 31 (6-26); Blood Urea Nitrogen 16 mg/dL (8-23); Calcium 8.3 mg/dL (8.6-10.3); Carbon Dioxide 20 mEq/L (23-29); Chloride 107 mEq/L (98-107); Glucose 148 mg/dL (70-105); Osmolality,Calculated 282 (280-300); Potassium 3.8 mEq/L (3.5-5.1); Sodium 134 mEq/L (136-145); eGFR For African Americans > 60 (> 60); eGFR For Non-African Americans > 60 (> 60)
[2020-08-22] MEDS: Isosorbide MONOnitrate (24 HR) 60 MG TAB.ER.24H PO SCH (09:14)
[2020-08-22] MEDS: Gabapentin 300 MG CAPSULE PO SCH ×3 (09:14→19:53)
[2020-08-22] MEDS: Ranolazine 500 MG TAB.ER.12H PO SCH ×2 (09:14→19:53)
[2020-08-22] MEDS: *HR* Ticagrelor 90 MG TABLET PO SCH ×2 (09:14→19:53)
[2020-08-22] MEDS: Aspirin Enteric Coated 81 MG Tablet PO SCH (09:14)
[2020-08-22] MEDS: cefTRIAXone 1,000 MG in 0.9 % Sodium Chloride Mini Bag 100 ML IVPB SCH (09:17)
[2020-08-22] MEDS: Nystatin POWDER 30 GM BOTTLE TP SCH ×3 (09:21→19:59)
[2020-08-22] MEDS: Insulin LISPRO 300 UNITS/3 ML VIAL SUBQ SCH ×4 (09:21→19:59)
[2020-08-22] MEDS: *HR* Heparin 5,000 UNIT/ML VIAL SQ SCH (16:43)
[2020-08-22] MEDS: rOPINIRole 1 MG TABLET PO SCH (19:53)
[2020-08-22] MEDS: Melatonin 3 MG TABLET PO SCH (19:54)
[2020-08-22] MEDS: Famotidine 20 MG TABLET PO SCH (19:54)
[2020-08-22] MEDS: Insulin DETEMIR 100 UNIT/ML X5UNITS SUBQ SCH (19:59)
[2020-08-23 03:20] LABS: Hematocrit 41.8 % (37.5-50.1); Hemoglobin 13.1 g/dL (12.9-16.9); Mean Corpuscular HGB Conc 31.3 g/dL (31.6-35.5); Mean Corpuscular Hemoglobin 26.4 pg (28.0-33.3); Mean Corpuscular Volume 84.1 fL (83.0-100.0); Mean Platelet Volume 10.3 fL (9.4-12.4); Platelet Count 219 K/mcL (140-400); Red Blood Count 4.97 M/mcL (4.19-5.50); Red Cell Distribution Width 16.8 % (11.5-14.5); White Blood Count 5.6 K/mcL (4.3-11.1)
[2020-08-23 03:37] LABS: BUN/Creatinine Ratio 33 (6-26); Blood Urea Nitrogen 17 mg/dL (8-23); Calcium 8.3 mg/dL (8.6-10.3); Carbon Dioxide 20 mEq/L (23-29); Chloride 108 mEq/L (98-107); Glucose 221 mg/dL (70-105); Osmolality,Calculated 290 (280-300); Potassium 3.6 mEq/L (3.5-5.1); Sodium 136 mEq/L (136-145); eGFR For African Americans > 60 (> 60); eGFR For Non-African Americans > 60 (> 60)
[2020-08-23] MEDS: *HR* Heparin 5,000 UNIT/ML VIAL SQ SCH ×2 (05:56→16:54)
[2020-08-23] MEDS: cefTRIAXone 1,000 MG in 0.9 % Sodium Chloride Mini Bag 100 ML IVPB SCH (08:27)
[2020-08-23] MEDS: Isosorbide MONOnitrate (24 HR) 60 MG TAB.ER.24H PO SCH (08:30)
[2020-08-23] MEDS: Ranolazine 500 MG TAB.ER.12H PO SCH ×2 (08:30→20:31)
[2020-08-23] MEDS: Gabapentin 300 MG CAPSULE PO SCH ×3 (08:30→20:31)
[2020-08-23] MEDS: Aspirin Enteric Coated 81 MG Tablet PO SCH (08:30)
[2020-08-23] MEDS: *HR* Ticagrelor 90 MG TABLET PO SCH ×2 (08:30→20:31)
[2020-08-23] MEDS: Nystatin POWDER 30 GM BOTTLE TP SCH ×3 (08:31→20:49)
[2020-08-23] MEDS: Insulin LISPRO 300 UNITS/3 ML VIAL SUBQ SCH ×4 (08:34→20:32)
[2020-08-23] MEDS: Melatonin 3 MG TABLET PO SCH (20:31)
[2020-08-23] MEDS: Famotidine 20 MG TABLET PO SCH (20:31)
[2020-08-23] MEDS: rOPINIRole 1 MG TABLET PO SCH (20:31)
[2020-08-23] MEDS: Insulin DETEMIR 100 UNIT/ML X5UNITS SUBQ SCH (20:32)
[2020-08-24] MEDS: *HR* Heparin 5,000 UNIT/ML VIAL SQ SCH ×2 (05:44→16:40)
[2020-08-24] MEDS: *HR* Ticagrelor 90 MG TABLET PO SCH ×2 (07:43→19:26)
[2020-08-24] MEDS: Isosorbide MONOnitrate (24 HR) 60 MG TAB.ER.24H PO SCH (07:43)
[2020-08-24] MEDS: Aspirin Enteric Coated 81 MG Tablet PO SCH (07:43)
[2020-08-24] MEDS: Insulin LISPRO 300 UNITS/3 ML VIAL SUBQ SCH ×4 (07:44→20:22)
[2020-08-24] MEDS: Gabapentin 300 MG CAPSULE PO SCH ×3 (07:44→19:25)
[2020-08-24] MEDS: Ranolazine 500 MG TAB.ER.12H PO SCH ×2 (07:44→19:25)
[2020-08-24] MEDS: cefTRIAXone 1,000 MG in 0.9 % Sodium Chloride Mini Bag 100 ML IVPB SCH (07:44)
[2020-08-24] MEDS: Nystatin POWDER 30 GM BOTTLE TP SCH ×3 (07:44→20:20)
[2020-08-24] MEDS: Ondansetron 4 MG/2 ML VIAL IVP PRN (16:39)
[2020-08-24] MEDS: Melatonin 3 MG TABLET PO SCH (19:22)
[2020-08-24] MEDS: rOPINIRole 1 MG TABLET PO SCH (19:25)
[2020-08-24] MEDS: Famotidine 20 MG TABLET PO SCH (19:25)
[2020-08-24] MEDS: *HR* OxyCODONE Immed Rel 5 MG TABLET PO PRN (19:26)
[2020-08-24] MEDS: Insulin DETEMIR 100 UNIT/ML X5UNITS SUBQ SCH (20:19)
[2020-08-25] MEDS: *HR* OxyCODONE Immed Rel 5 MG TABLET PO PRN ×4 (01:34→21:27)
[2020-08-25] MEDS: *HR* Heparin 5,000 UNIT/ML VIAL SQ SCH ×2 (05:55→18:19)
[2020-08-25] MEDS: Ranolazine 500 MG TAB.ER.12H PO SCH ×2 (08:36→19:31)
[2020-08-25] MEDS: Isosorbide MONOnitrate (24 HR) 60 MG TAB.ER.24H PO SCH (08:36)
[2020-08-25] MEDS: Gabapentin 300 MG CAPSULE PO SCH ×3 (08:39→19:32)
[2020-08-25] MEDS: *HR* Ticagrelor 90 MG TABLET PO SCH ×2 (08:40→19:31)
[2020-08-25] MEDS: cefTRIAXone 1,000 MG in 0.9 % Sodium Chloride Mini Bag 100 ML IVPB SCH (08:40)
[2020-08-25] MEDS: Insulin LISPRO 300 UNITS/3 ML VIAL SUBQ SCH ×4 (08:40→19:33)
[2020-08-25] MEDS: Aspirin Enteric Coated 81 MG Tablet PO SCH (08:40)
[2020-08-25] MEDS: Nystatin POWDER 30 GM BOTTLE TP SCH ×3 (08:49→19:37)
[2020-08-25 10:27] LABS: Hematocrit 45.1 % (37.5-50.1); Hemoglobin 13.7 g/dL (12.9-16.9); Mean Corpuscular HGB Conc 30.4 g/dL (31.6-35.5); Mean Corpuscular Volume 85.7 fL (83.0-100.0); Platelet Count 243 K/mcL (140-400); Red Blood Count 5.26 M/mcL (4.19-5.50); Red Cell Distribution Width 16.8 % (11.5-14.5)
[2020-08-25 10:49] LABS: BUN/Creatinine Ratio 33 (6-26); Blood Urea Nitrogen 19 mg/dL (8-23); Calcium 8.9 mg/dL (8.6-10.3); Carbon Dioxide 25 mEq/L (23-29); Chloride 100 mEq/L (98-107); Glucose 285 mg/dL (70-105); Osmolality,Calculated 291 (280-300); Potassium 3.8 mEq/L (3.5-5.1); Sodium 134 mEq/L (136-145); eGFR For African Americans > 60 (> 60); eGFR For Non-African Americans > 60 (> 60)
[2020-08-25] MEDS: Melatonin 3 MG TABLET PO SCH (19:31)
[2020-08-25] MEDS: Famotidine 20 MG TABLET PO SCH (19:31)
[2020-08-25] MEDS: rOPINIRole 1 MG TABLET PO SCH (19:31)
[2020-08-25] MEDS: Insulin DETEMIR 100 UNIT/ML X5UNITS SUBQ SCH (19:33)
[2020-08-26 02:32] LABS: Hemoglobin 13.1 g/dL (12.9-16.9); Mean Corpuscular HGB Conc 31.2 g/dL (31.6-35.5); Mean Corpuscular Hemoglobin 26.8 pg (28.0-33.3); Mean Corpuscular Volume 86.1 fL (83.0-100.0); Mean Platelet Volume 10.3 fL (9.4-12.4); Platelet Count 242 K/mcL (140-400); Red Blood Count 4.88 M/mcL (4.19-5.50); Red Cell Distribution Width 16.7 % (11.5-14.5); White Blood Count 10.3 K/mcL (4.3-11.1)
[2020-08-26 02:47] LABS: BUN/Creatinine Ratio 39 (6-26); Blood Urea Nitrogen 22 mg/dL (8-23); Calcium 8.4 mg/dL (8.6-10.3); Carbon Dioxide 23 mEq/L (23-29); Chloride 100 mEq/L (98-107); Glucose 297 mg/dL (70-105); Magnesium 1.7 mg/dL (1.6-2.6); Osmolality,Calculated 292 (280-300); Phosphorous 3.8 mg/dL (2.7-4.5); Sodium 134 mEq/L (136-145); eGFR For African Americans > 60 (> 60); eGFR For Non-African Americans > 60 (> 60)
[2020-08-26] MEDS: *HR* OxyCODONE Immed Rel 5 MG TABLET PO PRN ×5 (03:31→23:58)
[2020-08-26] MEDS: *HR* Heparin 5,000 UNIT/ML VIAL SQ SCH ×2 (05:35→16:47)
[2020-08-26] MEDS: Isosorbide MONOnitrate (24 HR) 60 MG TAB.ER.24H PO SCH (08:54)
[2020-08-26] MEDS: Gabapentin 300 MG CAPSULE PO SCH ×3 (08:54→19:38)
[2020-08-26] MEDS: *HR* Ticagrelor 90 MG TABLET PO SCH ×2 (08:54→19:39)
[2020-08-26] MEDS: Ranolazine 500 MG TAB.ER.12H PO SCH ×2 (08:54→19:39)
[2020-08-26] MEDS: Aspirin Enteric Coated 81 MG Tablet PO SCH (08:55)
[2020-08-26] MEDS: Insulin LISPRO 300 UNITS/3 ML VIAL SUBQ SCH ×4 (08:57→19:41)
[2020-08-26] MEDS: Calcium Gluconate 1gm/50mL 1 GM/50 ML BAG IVPB SCH ×2 (08:59→09:00)
[2020-08-26] MEDS: Nystatin POWDER 30 GM BOTTLE TP SCH ×3 (09:00→19:42)
[2020-08-26] MEDS: cefTRIAXone 1,000 MG in 0.9 % Sodium Chloride Mini Bag 100 ML IVPB SCH (09:00)
[2020-08-26] MEDS ORDERED: Sennosides/Docusate Sodium TABLET PO PRN (09:07)
[2020-08-26] MEDS: polyethylene glycoL 3350 17 GM POWD.PACK PO SCH (10:31)
[2020-08-26] MEDS ORDERED: Ondansetron 4 MG/2 ML VIAL SQ PRN (13:13)
[2020-08-26] MEDS: rOPINIRole 1 MG TABLET PO SCH (19:38)
[2020-08-26] MEDS: Famotidine 20 MG TABLET PO SCH (19:39)
[2020-08-26] MEDS: Melatonin 3 MG TABLET PO SCH (19:39)
[2020-08-26] MEDS: Insulin DETEMIR 100 UNIT/ML X5UNITS SUBQ SCH (21:12)
[2020-08-27] MEDS: *HR* OxyCODONE Immed Rel 5 MG TABLET PO PRN ×2 (05:45→12:43)
[2020-08-27] MEDS: *HR* Heparin 5,000 UNIT/ML VIAL SQ SCH (05:46)
[2020-08-27 07:18] VITALS: BP 100/67
[2020-08-27] MEDS: polyethylene glycoL 3350 17 GM POWD.PACK PO SCH (09:18)
[2020-08-27] MEDS: Gabapentin 300 MG CAPSULE PO SCH (09:19)
[2020-08-27] MEDS: Ranolazine 500 MG TAB.ER.12H PO SCH (09:19)
[2020-08-27] MEDS: *HR* Ticagrelor 90 MG TABLET PO SCH (09:21)
[2020-08-27] MEDS: Aspirin Enteric Coated 81 MG Tablet PO SCH (09:21)
[2020-08-27] MEDS: Insulin LISPRO 300 UNITS/3 ML VIAL SUBQ SCH ×2 (09:24→12:44)
[2020-08-27] MEDS: Isosorbide MONOnitrate (24 HR) 60 MG TAB.ER.24H PO SCH (09:25)
[2020-08-27] MEDS: Nystatin POWDER 30 GM BOTTLE TP SCH (10:56)
[2020-08-27 12:01] LABS: Adenovirus Not Detected (Not Detect); Bordetella Pertussis Not Detected (Not Detect); Chlamydophila pneumoniae Not Detected (Not Detect); Coronavirus 229E Not Detected (Not Detect); Coronavirus HKU1 Not Detected (Not Detect); Coronavirus NL63 Not Detected (Not Detect); Coronavirus OC43 Not Detected (Not Detect); Human Metapneumovirus Not Detected (Not Detect); Human Rhinovirus/Enterovirus Not Detected (Not Detect); Influenza A Subtype 2009 H1 Not Detected (Not Detect); Influenza B Not Detected (Not Detect); Mycoplasma pneumoniae Not Detected (Not Detect); Parainfluenza Virus 1 Not Detected (Not Detect); Parainfluenza Virus 2 Not Detected (Not Detect); Parainfluenza Virus 3 Not Detected (Not Detect); Parainfluenza Virus 4 Not Detected (Not Detect); Respiratory Syncytial Virus Not Detected (Not Detect); SARS-CoV-2 Not Detected (Not Detect)
== END 2020-08-27 14:11 | DRG 720 ==
LOC: EMEROOARM 18:51 → 3BNU 18:51 → SUATTDRO 22:18 → 3BNU 23:21 → SUATTDRO 08-21 17:26
PROVIDERS: ADMIT Internal Medicine; ATTEND Internal Medicine

== ENCOUNTER 2020-10-22 15:00 | Observation (INO) ==
[2020-10-22] MEDS ORDERED: Ondansetron 4 MG/2 ML VIAL IVP PRN (17:07)
[2020-10-22] MEDS ORDERED: Acetaminophen 325 MG TABLET PO PRN (17:07)
[2020-10-22] MEDS ORDERED: Melatonin 3 MG TABLET PO PRN (17:07)
[2020-10-22] MEDS ORDERED: Naloxone 0.4 MG/ML INJ IVP PRN (17:07)
[2020-10-22 17:59] LABS: BUN/Creatinine Ratio 21 (6-26); Blood Urea Nitrogen 14 mg/dL (8-23); Calcium 8.9 mg/dL (8.6-10.3); Carbon Dioxide 23 mEq/L (23-29); Chloride 102 mEq/L (98-107); Glucose 113 mg/dL (70-105); Osmolality,Calculated 279 (280-300); Potassium 3.8 mEq/L (3.5-5.1); Sodium 134 mEq/L (136-145); eGFR For African Americans > 60 (> 60); eGFR For Non-African Americans > 60 (> 60)
[2020-10-22 18:00] LABS: Troponin I < 0.03 ng/mL (< 0.04)
[2020-10-22] MEDS ORDERED: Dextrose Gel 15 GM/37.5 ML TUBE PO PRN ×2 (18:16)
[2020-10-22] MEDS ORDERED: D5% in Water 1,000 ML IVC PRN (18:16)
[2020-10-22] MEDS ORDERED: *HR* Dextrose 50 % in Water (Vial) 50 ML VIAL IVP PRN (18:16)
[2020-10-22] MEDS: Acetaminophen 325 MG TABLET PO SCH (20:04)
[2020-10-23 01:28] LABS: Hematocrit 46.4 % (37.5-50.1); Hemoglobin 14.5 g/dL (12.9-16.9); Mean Corpuscular HGB Conc 31.3 g/dL (31.6-35.5); Mean Corpuscular Hemoglobin 26.8 pg (28.0-33.3); Mean Corpuscular Volume 85.6 fL (83.0-100.0); Mean Platelet Volume 9.7 fL (9.4-12.4); Platelet Count 214 K/mcL (140-400); Red Blood Count 5.42 M/mcL (4.19-5.50); Red Cell Distribution Width 17.5 % (11.5-14.5); White Blood Count 7.8 K/mcL (4.3-11.1)
[2020-10-23 01:37] LABS: INR 1.2; Prothrombin Time 13.5 Seconds (9.4-12.1)
[2020-10-23 01:48] LABS: Alanine Aminotransferase 15 Units/L (7-52); Albumin 3.9 g/dL (3.5-5.7); Albumin/Globulin Ratio 1.3 (1.1-2.2); Alkaline Phosphatase 64 Units/L (34-104); Aspartate Amino Transferase 14 Units/L (13-39); BUN/Creatinine Ratio 25 (6-26); Bilirubin,Total 0.5 mg/dL (0.3-1.0); Blood Urea Nitrogen 16 mg/dL (8-23); Carbon Dioxide 20 mEq/L (23-29); Chloride 106 mEq/L (98-107); Globulin 2.9 g/dL (2.4-3.5); Glucose 188 mg/dL (70-105); Osmolality,Calculated 288 (280-300); Potassium 3.7 mEq/L (3.5-5.1); Sodium 136 mEq/L (136-145); Total Protein 6.8 g/dL (6.4-8.9); eGFR For African Americans > 60 (> 60); eGFR For Non-African Americans > 60 (> 60)
[2020-10-23 07:22] VITALS: BP 122/75
[2020-10-23] MEDS: Acetaminophen 325 MG TABLET PO SCH (07:36)
== END 2020-10-23 11:09 | disposition home or self-care (01) ==
LOC: 3BNU → SUATTDRO 16:16
PROVIDERS: ADMIT Internal Medicine; ATTEND Internal Medicine

== ENCOUNTER 2020-11-28 14:08 | Observation (INO) ==
[2020-11-28] MEDS ORDERED: *HR* FentaNYL (PF) 100 MCG/2 ML VIAL IVP ONE (14:45)
[2020-11-28 15:28] LABS: Basophils # 0.1 K/mcL (0.0-0.2); Basophils % 0.8 %; Eosinophils # 0.2 K/mcL (0.0-0.6); Eosinophils % 2.4 %; Hematocrit 48.8 % (37.5-50.1); Hemoglobin 14.7 g/dL (12.9-16.9); INR 1.1; Immature Granulocytes % 0.7 % (0-4); Lymphocytes # 1.2 K/mcL (0.6-4.6); Mean Corpuscular HGB Conc 30.1 g/dL (31.6-35.5); Mean Corpuscular Hemoglobin 26.2 pg (28.0-33.3); Mean Platelet Volume 9.8 fL (9.4-12.4); Monocytes # 0.9 K/mcL (0.0-1.3); Neutrophils # 6.4 K/mcL (1.6-8.9); Platelet Count 253 K/mcL (140-400); Prothrombin Time 12.7 Seconds (9.4-12.1); Red Blood Count 5.61 M/mcL (4.19-5.50); Red Cell Distribution Width 16.2 % (11.5-14.5); Segmented Neutrophils % 72.1 %; White Blood Count 8.9 K/mcL (4.3-11.1)
[2020-11-28 15:49] LABS: BUN/Creatinine Ratio 24 (6-26); Blood Urea Nitrogen 16 mg/dL (8-23); Carbon Dioxide 21 mEq/L (23-29); Chloride 106 mEq/L (98-107); Glucose 237 mg/dL (70-105); Osmolality,Calculated 295 (280-300); Potassium 3.8 mEq/L (3.5-5.1); Sodium 138 mEq/L (136-145); eGFR For African Americans > 60 (> 60); eGFR For Non-African Americans > 60 (> 60)
[2020-11-28 15:50] LABS: Troponin I < 0.03 ng/mL (< 0.04)
[2020-11-28] MEDS ORDERED: *HR* Dextrose 50 % in Water (Vial) 50 ML VIAL IVP PRN (16:43)
[2020-11-28] MEDS ORDERED: D5% in Water 1,000 ML IVC PRN (16:43)
[2020-11-28] MEDS ORDERED: Ondansetron ODT 4 MG TAB.RAPDIS SL PRN (16:43)
[2020-11-28] MEDS ORDERED: Acetaminophen 325 MG TABLET PO PRN (16:43)
[2020-11-28] MEDS ORDERED: Dextrose Gel 15 GM/37.5 ML TUBE PO PRN ×2 (16:43)
[2020-11-28] MEDS ORDERED: Naloxone 0.4 MG/ML INJ IVP PRN (16:43)
[2020-11-28] MEDS: *HR* HYDROcodone/Acet 5/325 mg TABLET PO PRN (19:37)
[2020-11-28 19:38] LABS: Bacteria,Urine Few per hpf (None-Few); Bilirubin,Urine Negative (Negative); Blood,Urine Negative (Negative); Clarity,Urine Clear (Clear); Color,Urine Light-Yellow (Yellow); Glucose,Urine (UA) >=1000 mg/dL (Normal); Ketones,Urine Negative (Negative); Leukocyte Esterase,Urine Negative (Negative); Nitrite,Urine Negative (Negative); PH,Urine 5.5 pH Units (5.0-8.0); Protein,Urine Negative (Neg-Trace); RBC,Urine 0-3 per hpf (0-3); Specific Gravity,Urine > 1.030 (1.010-1.025); Urobilinogen,Urine Normal (Normal); WBC,Urine 0-3 per hpf (0-3)
[2020-11-28] MEDS: Insulin LISPRO 300 UNITS/3 ML VIAL SUBQ SCH (23:25)
[2020-11-29 03:25] LABS: Hematocrit 45.5 % (37.5-50.1); Hemoglobin 14.7 g/dL (12.9-16.9); Mean Corpuscular HGB Conc 32.3 g/dL (31.6-35.5); Mean Corpuscular Hemoglobin 27.9 pg (28.0-33.3); Mean Corpuscular Volume 86.5 fL (83.0-100.0); Mean Platelet Volume 9.8 fL (9.4-12.4); Platelet Count 222 K/mcL (140-400); Red Blood Count 5.26 M/mcL (4.19-5.50); Red Cell Distribution Width 16.2 % (11.5-14.5); White Blood Count 10.1 K/mcL (4.3-11.1)
[2020-11-29 03:51] LABS: BUN/Creatinine Ratio 35 (6-26); Blood Urea Nitrogen 18 mg/dL (8-23); Calcium 8.6 mg/dL (8.6-10.3); Carbon Dioxide 20 mEq/L (23-29); Chloride 108 mEq/L (98-107); Cholesterol 155 mg/dL (< 200); Glucose 162 mg/dL (70-105); Osmolality,Calculated 291 (280-300); Potassium 3.7 mEq/L (3.5-5.1); Sodium 138 mEq/L (136-145); Troponin I < 0.03 ng/mL (< 0.04); eGFR For African Americans > 60 (> 60); eGFR For Non-African Americans > 60 (> 60)
[2020-11-29 04:12] LABS: Chol/HDL Ratio 3.4 (0-4.9); HDL Cholesterol 45 mg/dL (40-59); LDL Cholesterol,Calculated 66 mg/dL (< 100); Magnesium 1.9 mg/dL (1.6-2.6); Triglycerides 221 mg/dL (< 150)
[2020-11-29] MEDS: *HR* Enoxaparin 40 MG/0.4 ML SYRINGE SQ SCH (05:49)
[2020-11-29] MEDS: *HR* HYDROcodone/Acet 5/325 mg TABLET PO PRN (08:36)
[2020-11-29] MEDS: Insulin LISPRO 300 UNITS/3 ML VIAL SUBQ SCH ×4 (08:37→20:14)
[2020-11-29] MEDS ORDERED: Acetaminophen IV 500 MG/50 ML BAG IVPB ONE (10:47)
[2020-11-29] MEDS: Gabapentin 300 MG CAPSULE PO SCH ×2 (15:32→20:08)
[2020-11-29] MEDS: *HR* Ticagrelor 90 MG TABLET PO SCH (20:08)
[2020-11-29] MEDS: Ranolazine 500 MG TAB.ER.12H PO SCH (20:08)
[2020-11-29] MEDS ORDERED: rOPINIRole 1 MG TABLET PO SCH (21:00)
[2020-11-30 01:57] LABS: Hematocrit 49.1 % (37.5-50.1); Hemoglobin 15.1 g/dL (12.9-16.9); Mean Corpuscular HGB Conc 30.8 g/dL (31.6-35.5); Mean Corpuscular Volume 87.8 fL (83.0-100.0); Mean Platelet Volume 10.2 fL (9.4-12.4); Platelet Count 241 K/mcL (140-400); Red Blood Count 5.59 M/mcL (4.19-5.50); Red Cell Distribution Width 15.9 % (11.5-14.5); White Blood Count 8.8 K/mcL (4.3-11.1)
[2020-11-30 02:25] LABS: BUN/Creatinine Ratio 37 (6-26); Blood Urea Nitrogen 21 mg/dL (8-23); Calcium 8.9 mg/dL (8.6-10.3); Carbon Dioxide 23 mEq/L (23-29); Chloride 105 mEq/L (98-107); Glucose 207 mg/dL (70-105); Osmolality,Calculated 295 (280-300); Potassium 3.9 mEq/L (3.5-5.1); Sodium 138 mEq/L (136-145); eGFR For African Americans > 60 (> 60); eGFR For Non-African Americans > 60 (> 60)
[2020-11-30] MEDS: *HR* Enoxaparin 40 MG/0.4 ML SYRINGE SQ SCH (05:40)
[2020-11-30 06:45] VITALS: BP 135/80; PULSE 60; TEMP 97.9; O2SAT 96
[2020-11-30] MEDS: Insulin LISPRO 300 UNITS/3 ML VIAL SUBQ SCH ×2 (07:16→12:33)
[2020-11-30] MEDS: Ranolazine 500 MG TAB.ER.12H PO SCH (07:53)
[2020-11-30] MEDS: *HR* Ticagrelor 90 MG TABLET PO SCH (07:53)
[2020-11-30] MEDS: Gabapentin 300 MG CAPSULE PO SCH (07:55)
[2020-11-30] MEDS ORDERED: Isosorbide MONOnitrate (24 HR) 30 MG TAB.ER.24H PO SCH (09:00)
[2020-11-30] MEDS ORDERED: Isosorbide MONOnitrate (24 HR) 60 MG TAB.ER.24H PO SCH (09:00)
[2020-11-30] MEDS ORDERED: Aspirin Enteric Coated 81 MG Tablet PO SCH ×2 (09:00)
== END 2020-11-30 13:55 | disposition home or self-care (01) ==
LOC: 3BNU 14:08 → EMEROOARM 14:08 → SUATTDRO 17:17 → 3BNU 18:00
PROVIDERS: ADMIT Pharmacist; ATTEND Nurse Practitioner

== ENCOUNTER 2021-09-29 12:26 | Observation (INO) ==
[2021-09-29] MEDS ORDERED: Morphine Sulfate 2 MG/ML SYRINGE IVP ONE (12:52)
[2021-09-29 13:12] LABS: Basophils # 0.1 K/mcL (0.0-0.2); Basophils % 0.7 %; Eosinophils # 0.1 K/mcL (0.0-0.6); Eosinophils % 1.6 %; Hematocrit 46.3 % (37.5-50.1); Hemoglobin 14.5 g/dL (12.9-16.9); Immature Granulocytes % 1.1 % (0-4); Lymphocytes # 1.5 K/mcL (0.6-4.6); Lymphocytes % 16.7 %; Mean Corpuscular HGB Conc 31.3 g/dL (31.6-35.5); Mean Corpuscular Hemoglobin 27.2 pg (28.0-33.3); Mean Corpuscular Volume 86.7 fL (83.0-100.0); Mean Platelet Volume 9.6 fL (9.4-12.4); Monocytes # 0.8 K/mcL (0.0-1.3); Monocytes % 9.2 %; Neutrophils # 6.3 K/mcL (1.6-8.9); Platelet Count 262 K/mcL (140-400); Red Blood Count 5.34 M/mcL (4.19-5.50); Red Cell Distribution Width 15.8 % (11.5-14.5); Segmented Neutrophils % 70.7 %; White Blood Count 8.9 K/mcL (4.3-11.1)
[2021-09-29 13:39] LABS: Alanine Aminotransferase 15 Units/L (7-52); Albumin 3.9 g/dL (3.5-5.7); Albumin/Globulin Ratio 1.3 (1.1-2.2); Alkaline Phosphatase 72 Units/L (34-104); Aspartate Amino Transferase 12 Units/L (13-39); BUN/Creatinine Ratio 35 (6-26); Bilirubin,Total 0.4 mg/dL (0.3-1.0); Blood Urea Nitrogen 19 mg/dL (8-23); Calcium 8.9 mg/dL (8.6-10.3); Carbon Dioxide 23 mEq/L (23-29); Chloride 105 mEq/L (98-107); Glucose 132 mg/dL (70-105); Osmolality,Calculated 284 (280-300); Potassium 3.8 mEq/L (3.5-5.1); Sodium 135 mEq/L (136-145); Total Protein 6.9 g/dL (6.4-8.9); Troponin I < 0.03 ng/mL (< 0.04); eGFR For African Americans > 60 (> 60); eGFR For Non-African Americans > 60 (> 60)
[2021-09-29] MEDS ORDERED: Acetaminophen 325 MG TABLET PO PRN (15:13)
[2021-09-29] MEDS ORDERED: Naloxone 0.4 MG/ML INJ IVP PRN (15:13)
[2021-09-29] MEDS ORDERED: Ondansetron ODT 4 MG TAB.RAPDIS SL PRN (15:13)
[2021-09-29] MEDS ORDERED: Melatonin 3 MG TABLET PO PRN (15:13)
[2021-09-29] MEDS ORDERED: Dextrose 4 GM Chewable Tablets PO PRN ×2 (15:16)
[2021-09-29] MEDS ORDERED: D5% in Water 1,000 ML IVC PRN (15:16)
[2021-09-29] MEDS ORDERED: *HR* Dextrose 50 % in Water (Syg) 50 ML SYRINGE IVP PRN (15:16)
[2021-09-29] MEDS ORDERED: Morphine Sulfate 2 MG/ML SYRINGE IVP PRN (16:01)
[2021-09-29] MEDS: Insulin LISPRO 300 UNITS/3 ML VIAL SUBQ SCH (16:58)
[2021-09-29] MEDS: *HR* Heparin 5,000 UNIT/ML VIAL SQ SCH (17:24)
[2021-09-29] MEDS: Nitroglycerin 0.4 MG TAB.SUBL SL PRN ×3 (17:24→17:53)
[2021-09-29] MEDS ORDERED: rOPINIRole 1 MG TABLET PO SCH (21:00)
[2021-09-29] MEDS ORDERED: Insulin DETEMIR 100 UNIT/ML X5UNITS SUBQ SCH ×2 (21:00→21:45)
[2021-09-29] MEDS: Gabapentin 400 MG CAPSULE PO SCH (21:54)
[2021-09-29] MEDS: Ranolazine 500 MG TAB.ER.12H PO SCH (21:55)
[2021-09-29] MEDS: *HR* Ticagrelor 90 MG TABLET PO SCH (21:55)
[2021-09-30 02:39] VITALS: O2SAT 94
[2021-09-30 03:09] LABS: Basophils # 0.1 K/mcL (0.0-0.2); Basophils % 0.8 %; Eosinophils # 0.2 K/mcL (0.0-0.6); Eosinophils % 1.6 %; Hematocrit 48.8 % (37.5-50.1); Hemoglobin 15.2 g/dL (12.9-16.9); Immature Granulocytes % 0.8 % (0-4); Lymphocytes # 1.5 K/mcL (0.6-4.6); Lymphocytes % 15.4 %; Mean Corpuscular HGB Conc 31.1 g/dL (31.6-35.5); Mean Corpuscular Volume 86.8 fL (83.0-100.0); Monocytes # 0.9 K/mcL (0.0-1.3); Monocytes % 9.5 %; Neutrophils # 7.1 K/mcL (1.6-8.9); Platelet Count 278 K/mcL (140-400); Red Blood Count 5.62 M/mcL (4.19-5.50); Red Cell Distribution Width 15.9 % (11.5-14.5); Segmented Neutrophils % 71.9 %; White Blood Count 9.8 K/mcL (4.3-11.1)
[2021-09-30] MEDS ORDERED: Morphine Sulfate 2 MG/ML SYRINGE IVP ONE (03:11)
[2021-09-30 03:14] LABS: INR 1.1; Prothrombin Time 12.2 Seconds (9.4-12.1)
[2021-09-30 03:32] LABS: Alanine Aminotransferase 16 Units/L (7-52); Albumin 4.2 g/dL (3.5-5.7); Albumin/Globulin Ratio 1.3 (1.1-2.2); Alkaline Phosphatase 77 Units/L (34-104); Aspartate Amino Transferase 15 Units/L (13-39); BUN/Creatinine Ratio 35 (6-26); Bilirubin,Total 0.4 mg/dL (0.3-1.0); Blood Urea Nitrogen 21 mg/dL (8-23); Calcium 9.6 mg/dL (8.6-10.3); Carbon Dioxide 21 mEq/L (23-29); Chloride 104 mEq/L (98-107); Globulin 3.2 g/dL (2.4-3.5); Glucose 182 mg/dL (70-105); Osmolality,Calculated 288 (280-300); Potassium 3.9 mEq/L (3.5-5.1); Sodium 135 mEq/L (136-145); Total Protein 7.4 g/dL (6.4-8.9); eGFR For African Americans > 60 (> 60); eGFR For Non-African Americans > 60 (> 60)
[2021-09-30 03:34] LABS: BUN/Creatinine Ratio 36 (6-26); Blood Urea Nitrogen 21 mg/dL (8-23); Calcium 9.5 mg/dL (8.6-10.3); Carbon Dioxide 20 mEq/L (23-29); Chloride 104 mEq/L (98-107); Chol/HDL Ratio 4.4 (0-4.9); Cholesterol 184 mg/dL (< 200); Glucose 181 mg/dL (70-105); HDL Cholesterol 42 mg/dL (40-59); Magnesium 2.1 mg/dL (1.6-2.6); Osmolality,Calculated 288 (280-300); Phosphorous 3.8 mg/dL (2.7-4.5); Sodium 135 mEq/L (136-145); Triglycerides 643 mg/dL (< 150); Troponin I < 0.03 ng/mL (< 0.04); eGFR For African Americans > 60 (> 60); eGFR For Non-African Americans > 60 (> 60)
[2021-09-30] MEDS: *HR* Heparin 5,000 UNIT/ML VIAL SQ SCH (05:44)
[2021-09-30 06:51] VITALS: BP 149/90; PULSE 58; TEMP 97.4
[2021-09-30] MEDS: Ranolazine 500 MG TAB.ER.12H PO SCH (08:41)
[2021-09-30] MEDS: Gabapentin 400 MG CAPSULE PO SCH (08:43)
[2021-09-30] MEDS: *HR* Ticagrelor 90 MG TABLET PO SCH (08:43)
[2021-09-30] MEDS: Insulin LISPRO 300 UNITS/3 ML VIAL SUBQ SCH (08:44)
[2021-09-30] MEDS ORDERED: Ipratropium/Albuterol Neb 3 ML IH ONE (08:45)
[2021-09-30] MEDS ORDERED: Aspirin 81 MG TAB.CHEW PO SCH (09:00)
[2021-09-30] MEDS ORDERED: NON-FORMULARY MEDICATION 1 EACH EACH (Pravastatin Sodium [Pravachol] 40 MG Tablet) PO SCH (09:00)
[2021-09-30] MEDS ORDERED: Isosorbide MONOnitrate (24 HR) 30 MG TAB.ER.24H PO SCH (09:00)
== END 2021-09-30 10:46 | disposition home or self-care (01) ==
LOC: 3BNU 12:26 → EMEROOARM 12:26 → SUATTDRO 15:23 → 3BNU 16:41
PROVIDERS: ADMIT Family Medicine; ATTEND Family Medicine

== ENCOUNTER 2021-10-28 17:46 | Observation (INO) ==
[2021-10-29] MEDS ORDERED: Ondansetron ODT 4 MG TAB.RAPDIS SL PRN (00:04)
[2021-10-29] MEDS ORDERED: Melatonin 3 MG TABLET PO PRN (00:04)
[2021-10-29] MEDS ORDERED: Naloxone 0.4 MG/ML INJ IVP PRN (00:04)
[2021-10-29] MEDS ORDERED: Dextrose Gel 15 GM/37.5 ML TUBE PO PRN ×2 (00:11)
[2021-10-29] MEDS ORDERED: D5% in Water 1,000 ML IVC PRN (00:11)
[2021-10-29] MEDS ORDERED: *HR* Dextrose 50 % in Water (Syg) 50 ML SYRINGE IVP PRN (00:11)
[2021-10-29] MEDS ORDERED: GI Cocktail 40 ML EACH PO ONE (00:31)
[2021-10-29 03:36] LABS: Basophils # 0.1 K/mcL (0.0-0.2); Basophils % 0.5 %; Eosinophils # 0.1 K/mcL (0.0-0.6); Eosinophils % 1.1 %; Hemoglobin 15.2 g/dL (12.9-16.9); Immature Granulocytes % 1.1 % (0-4); Lymphocytes # 1.6 K/mcL (0.6-4.6); Lymphocytes % 14.2 %; Mean Corpuscular HGB Conc 31.7 g/dL (31.6-35.5); Mean Corpuscular Hemoglobin 27.1 pg (28.0-33.3); Mean Corpuscular Volume 85.6 fL (83.0-100.0); Mean Platelet Volume 10.3 fL (9.4-12.4); Monocytes # 0.8 K/mcL (0.0-1.3); Monocytes % 7.6 %; Neutrophils # 8.3 K/mcL (1.6-8.9); Platelet Count 260 K/mcL (140-400); Red Blood Count 5.61 M/mcL (4.19-5.50); Red Cell Distribution Width 16.5 % (11.5-14.5); Segmented Neutrophils % 75.5 %
[2021-10-29 03:59] LABS: Alanine Aminotransferase 24 Units/L (7-52); Albumin 3.6 g/dL (3.5-5.7); Albumin/Globulin Ratio 1.2 (1.1-2.2); Alkaline Phosphatase 67 Units/L (34-104); Aspartate Amino Transferase 16 Units/L (13-39); BUN/Creatinine Ratio 46 (6-26); Bilirubin,Total 0.4 mg/dL (0.3-1.0); Blood Urea Nitrogen 33 mg/dL (8-23); Calcium 8.7 mg/dL (8.6-10.3); Carbon Dioxide 22 mEq/L (23-29); Chloride 102 mEq/L (98-107); Globulin 2.9 g/dL (2.4-3.5); Glucose 167 mg/dL (70-105); Magnesium 2.1 mg/dL (1.6-2.6); Osmolality,Calculated 289 (280-300); Sodium 134 mEq/L (136-145); Total Protein 6.5 g/dL (6.4-8.9); Troponin I < 0.03 ng/mL (< 0.04); eGFR For African Americans > 60 (> 60); eGFR For Non-African Americans > 60 (> 60)
[2021-10-29] MEDS: Insulin LISPRO 300 UNITS/3 ML VIAL SUBQ SCH ×3 (06:27→16:53)
[2021-10-29] MEDS: *HR* Heparin 5,000 UNIT/ML VIAL SQ SCH ×2 (06:27→16:49)
[2021-10-29] MEDS: Aspirin 81 MG TAB.CHEW PO SCH (08:17)
[2021-10-29] MEDS: Gabapentin 400 MG CAPSULE PO SCH ×2 (16:49→20:45)
[2021-10-29] MEDS: Ranolazine 500 MG TAB.ER.12H PO SCH (20:44)
[2021-10-29] MEDS: *HR* Ticagrelor 90 MG TABLET PO SCH (20:45)
[2021-10-29] MEDS ORDERED: Insulin DETEMIR 100 UNIT/ML X5UNITS SUBQ SCH (21:00)
[2021-10-29] MEDS ORDERED: Melatonin 3 MG TABLET PO SCH (21:00)
[2021-10-29] MEDS ORDERED: rOPINIRole 1 MG TABLET PO SCH (21:00)
[2021-10-30] MEDS: Insulin LISPRO 300 UNITS/3 ML VIAL SUBQ SCH ×3 (00:44→12:36)
[2021-10-30 05:23] LABS: Basophils # 0.1 K/mcL (0.0-0.2); Basophils % 0.5 %; Eosinophils # 0.1 K/mcL (0.0-0.6); Eosinophils % 1.1 %; Hematocrit 51.6 % (37.5-50.1); Hemoglobin 15.9 g/dL (12.9-16.9); Immature Granulocytes % 1.1 % (0-4); Lymphocytes # 1.3 K/mcL (0.6-4.6); Mean Corpuscular HGB Conc 30.8 g/dL (31.6-35.5); Mean Corpuscular Hemoglobin 26.5 pg (28.0-33.3); Mean Corpuscular Volume 86.1 fL (83.0-100.0); Mean Platelet Volume 10.5 fL (9.4-12.4); Monocytes # 1.2 K/mcL (0.0-1.3); Monocytes % 10.2 %; Neutrophils # 9.2 K/mcL (1.6-8.9); Platelet Count 289 K/mcL (140-400); Red Blood Count 5.99 M/mcL (4.19-5.50); Red Cell Distribution Width 16.5 % (11.5-14.5); Segmented Neutrophils % 76.1 %
[2021-10-30 05:43] LABS: BUN/Creatinine Ratio 32 (6-26); Blood Urea Nitrogen 24 mg/dL (8-23); Calcium 9.1 mg/dL (8.6-10.3); Carbon Dioxide 27 mEq/L (23-29); Chloride 106 mEq/L (98-107); Glucose 164 mg/dL (70-105); Osmolality,Calculated 298 (280-300); Sodium 140 mEq/L (136-145); eGFR For African Americans > 60 (> 60); eGFR For Non-African Americans > 60 (> 60)
[2021-10-30] MEDS: *HR* Heparin 5,000 UNIT/ML VIAL SQ SCH (06:00)
[2021-10-30 06:37] VITALS: BP 111/63; PULSE 70; TEMP 97.9; O2SAT 97
[2021-10-30] MEDS: Aspirin 81 MG TAB.CHEW PO SCH (08:30)
[2021-10-30] MEDS: Ranolazine 500 MG TAB.ER.12H PO SCH (08:31)
[2021-10-30] MEDS: Gabapentin 400 MG CAPSULE PO SCH (08:31)
[2021-10-30] MEDS: *HR* Ticagrelor 90 MG TABLET PO SCH (08:32)
[2021-10-30] MEDS ORDERED: Isosorbide MONOnitrate (24 HR) 60 MG TAB.ER.24H PO SCH (09:00)
[2021-10-30] MEDS ORDERED: Metoprolol XL (24 HR) Succ 50 MG TAB.ER.24H PO SCH (09:00)
[2021-10-30] MEDS ORDERED: Famotidine 20 MG TABLET PO SCH (09:00)
[2021-10-30] MEDS ORDERED: Vitamin B Complex/Vit C/Vit E 1 EACH TABLET PO SCH (09:00)
== END 2021-10-30 13:50 | disposition home or self-care (01) ==
LOC: 3BNU → SUATTDRO 23:04
PROVIDERS: ADMIT Internal Medicine; ATTEND Family Medicine